=== PATIENT | male | born 1980 | race Hispanic/Latino ===

== ENCOUNTER 2018-05-04 08:05 | Emergency (ER) | payer OTHER, SELFPAY ==
--- NOTE | 2018-05-04 08:34 | EDPHYS ---
Physician Documentation [facility] Name: Cory Brock Age: 37 yrs Sex: Male : 1980 Arrival Date: 05/04/2018 Time: 08:07 Bed 12 Private MD: ED Physician Artie Linder HPI: 05/04 08:38 This 37 yrs old Male presents to ER via Ambulatory with complaints of kdr Vomiting/Diarrhea. 08:38 The patient presents to the emergency department with nausea, vomiting, diarrhea, that kdr is intermittent. Onset: The symptoms/episode began/occurred 3 day(s) ago. Possible causes: unknown. The symptoms are aggravated by nothing. The symptoms are alleviated by nothing. Associated signs and symptoms: Pertinent positives: abdominal pain, diarrhea, nausea, vomiting, Pertinent negatives: anorexia, GI bleeding, hematuria. Severity of symptoms: At their worst the symptoms were moderate in the emergency department the symptoms have improved moderately. The patient has not experienced similar symptoms in the past. The patient has not recently seen a physician. Historical: - Allergies: 08:26 NSAIDS; iw 08:26 Aspirin; iw 08:26 PENICILLINS; iw - Home Meds: 08:26 None [Active]; iw - PMHx: 08:26 Back pain; iw - PSHx: 08:26 None; iw - Immunization history:: Adult Immunizations not up to date. - Social history:: Smoking status: Patient uses tobacco products, 1 pack per week. - Ebola Screening: : Patient negative for fever greater than or equal to 101.5 degrees Fahrenheit, and additional compatible Ebola Virus Disease symptoms Patient denies exposure to infectious person Patient denies travel to an Ebola-affected area in the 21 days before illness onset No symptoms or risks identified at this time. ROS: 08:38 Constitutional: Negative for fever, chills, and weight loss, Eyes: Negative for injury, kdr pain, redness, and discharge, ENT: Negative for injury, pain, and discharge, Neck: Negative for injury, pain, and swelling, Cardiovascular: Negative for chest pain, palpitations, and edema, Respiratory: Negative for shortness of breath, cough, wheezing, and pleuritic chest pain, Back: Negative for injury and pain, : Negative for injury, bleeding, discharge, and swelling, MS/Extremity: Negative for injury and deformity, Skin: Negative for injury, rash, and discoloration, Neuro: Negative for headache, weakness, numbness, tingling, and seizure activity. Psych: Negative for depression, anxiety, suicide ideation, homicidal ideation, and hallucinations, Allergy/Immunology: Negative for hives, rash, and allergies, Endocrine: Negative for neck swelling, polydipsia, polyuria, polyphagia, and marked weight changes, Hematologic/Lymphatic: Negative for swollen nodes, abnormal bleeding, and unusual bruising. 08:38 Abdomen/GI: Positive for abdominal pain, nausea, vomiting, and diarrhea, abdominal cramps. Exam: 08:38 Constitutional: This is a well developed, well nourished patient who is awake, alert, kdr and in no acute distress. Head/Face: Normocephalic, atraumatic. Eyes: Pupils equal round and reactive to light, extra-ocular motions intact. Lids and lashes normal. Conjunctiva and sclera are non-icteric and not injected. Cornea within normal limits. Periorbital areas with no swelling, redness, or edema. Neck: Trachea midline, no thyromegaly or masses palpated, and no cervical lymphadenopathy. Supple, full range of motion without nuchal rigidity, or vertebral point tenderness. No Meningismus. Chest/axilla: Normal chest wall appearance and motion. Nontender with no deformity. No lesions are appreciated. Cardiovascular: Regular rate and rhythm with a normal S1 and S2. No gallops, murmurs, or rubs. Normal PMI, no JVD. No pulse deficits. Respiratory: Lungs have equal breath sounds bilaterally, clear to auscultation and percussion. No rales, rhonchi or wheezes noted. No increased work of breathing, no retractions or nasal flaring. Abdomen/GI: Soft, non-tender, with normal bowel sounds. No distension or tympany. No guarding or rebound. No evidence of tenderness throughout. Back: No spinal tenderness. No costovertebral tenderness. Full range of motion. Skin: Warm, dry with normal turgor. Normal color with no rashes, no lesions, and no evidence of cellulitis. MS/ Extremity: Pulses equal, no cyanosis. Neurovascular intact. Full, normal range of motion. Neuro: Awake and alert, GCS 15, oriented to person, place, time, and situation. Cranial nerves II-XII grossly intact. Motor strength 5/5 in all extremities. Sensory grossly intact. Cerebellar exam normal. Normal gait. Psych: Awake, alert, with orientation to person, place and time. Behavior, mood, and affect are within normal limits. Vital Signs: 08:26 BP 131 / 95; Pulse 76; Resp 16; Temp 98.2; Pulse Ox 99% on R/A; Weight 102.06 kg; iw Height 5 ft. 10 in. (177.80 cm); Pain 0/10; 08:26 Body Mass Index 32.28 (102.06 kg, 177.80 cm) iw MDM: 08:33 Patient medically screened. kdr 08:38 Data reviewed: vital signs, nurses notes. Counseling: I had a detailed discussion with kdr the patient and/or guardian regarding: the historical points, exam findings, and any diagnostic results supporting the discharge/admit diagnosis, the need for outpatient follow up. ED course: The patient refused labs and any other intervention in the ED. Administered Medications: No medications were administered Disposition: 05/04/18 08:33 Discharged to Home. Impression: Gastroenteriotis, Nausea and vomiting, Diarrhea, unspecified. - Condition is Stable. - Discharge Instructions: Nausea and Vomiting, Adult, [id number], Diarrhea, Adult, [id number]. - Prescriptions for promethazine 25 mg Oral Tablet - take 1 tablet by ORAL route every 6 hours As needed; 20 tablet. - Medication Reconciliation Form, Thank You Letter, Work release form form. - Follow up: Private Physician; When: 2 - 3 days; Reason: If symptoms return, Further diagnostic work-up, Recheck today's complaints, Continuance of care, Re-evaluation by your physician. - Problem is an ongoing problem. - Symptoms have improved. Signatures: Dispatcher [employer] EDMS Artie Linder MD MD [facility] Mahi Burton RN RN iw Corrections: (The following items were deleted from the chart) 08:35 08:18 IV Saline Lock ordered. [facility] iw 08:35 08:18 Labs collected and sent ordered. [facility] iw 08:35 08:19 BASIC METABOLIC PANEL+C.LAB.BRZ ordered. EDOH EDMS 08:35 08:19 CBC+H.LAB.BRZ ordered. EDOH EDMS 08:35 08:19 Creatinine for Radiology+C.LAB.BRZ ordered. EDOH EDMS 08:35 08:19 HEPATIC FUNCTION+C.LAB.BRZ ordered. EDOH EDMS 08:35 08:19 LIPASE+C.LAB.BRZ ordered. [facility] EDMS 08:45 08:33 05/04/2018 08:33 Discharged to Home. Impression: Gastroenteriotis; Nausea and iw vomiting; Diarrhea, unspecified. Condition is Stable. Forms are Medication Reconciliation Form, Thank You Letter, Antibiotic Education, Prescription Opioid Use. Follow up: Private Physician; When: 2 - 3 days; Reason: If symptoms return, Further diagnostic work-up, Recheck today's complaints, Continuance of care, Re-evaluation by your physician. Problem is an ongoing problem. Symptoms have improved. kdr
--- NOTE | 2018-05-04 08:34 | ER ---
Nurse's Notes [facility] Name: Cory Brock Age: 37 yrs Sex: Male : 1980 Arrival Date: 05/04/2018 Time: 08:07 Bed 12 Private MD: Diagnosis: Gastroenteriotis;Nausea and vomiting;Diarrhea, unspecified Presentation: 05/04 08:20 Presenting complaint: Patient states: intermittent vomiting and diarrhea X 2 days, last iw vomited at 1 am, denies abd pain, states he was sent home from work yesterday and he can't go back until he has a work release. Transition of care: patient was not received from another setting of care. Onset of symptoms was May 02, 2018. Risk Assessment: Do you want to hurt yourself or someone else? Patient reports no desire to harm self or others. Initial Sepsis Screen: Does the patient meet any 2 criteria? No. Patient's initial sepsis screen is negative. Does the patient have a suspected source of infection? No. Patient's initial sepsis screen is negative. Care prior to arrival: None. 08:20 Method Of Arrival: Ambulatory iw 08:20 Acuity: CORY 3 iw Triage Assessment: 08:30 GI: Reports vomiting. iw 08:35 General: Appears in no apparent distress. Behavior is calm, cooperative. iw Historical: - Allergies: 08:26 NSAIDS; iw 08:26 Aspirin; iw 08:26 PENICILLINS; iw - Home Meds: 08:26 None [Active]; iw - PMHx: 08:26 Back pain; iw - PSHx: 08:26 None; iw - Immunization history:: Adult Immunizations not up to date. - Social history:: Smoking status: Patient uses tobacco products, 1 pack per week. - Ebola Screening: : Patient negative for fever greater than or equal to 101.5 degrees Fahrenheit, and additional compatible Ebola Virus Disease symptoms Patient denies exposure to infectious person Patient denies travel to an Ebola-affected area in the 21 days before illness onset No symptoms or risks identified at this time. Screenin:30 Abuse screen: Denies threats or abuse. Denies injuries from another. Nutritional iw screening: No deficits noted. Tuberculosis screening: No symptoms or risk factors identified. Fall Risk None identified. Assessment: 08:30 General: Appears in no apparent distress. comfortable. Pain: Denies pain. Neuro: Level iw of Consciousness is awake, alert, obeys commands, Oriented to person, place, time, situation, Moves all extremities. Cardiovascular: Patient's skin is warm and dry. Respiratory: Respiratory effort is even, unlabored. GI: Abdomen is flat. GI: Reports diarrhea, vomiting. Derm: Skin is intact, is healthy with good turgor. Musculoskeletal: Range of motion: intact in all extremities. Vital Signs: 08:26 BP 131 / 95; Pulse 76; Resp 16; Temp 98.2; Pulse Ox 99% on R/A; Weight 102.06 kg; iw Height 5 ft. 10 in. (177.80 cm); Pain 0/10; 08:26 Body Mass Index 32.28 (102.06 kg, 177.80 cm) iw ED Course: 08:07 Patient arrived in ED. rg4 08:17 Mahi Burton, RN is Primary Nurse. iw 08:17 Artie Linder MD is Attending Physician. kdr 08:24 Triage completed. iw 08:26 Arm band placed on. iw 08:30 Patient has correct armband on for positive identification. iw 08:44 No provider procedures requiring assistance completed. Patient did not have IV access iw during this emergency room visit. Administered Medications: No medications were administered Outcome: 08:33 Discharge ordered by . kdr 08:44 Discharged to home ambulatory. iw 08:44 Condition: good 08:44 Discharge instructions given to patient, Instructed on discharge instructions, follow up and referral plans. medication usage, Demonstrated understanding of instructions, follow-up care, medications, Prescriptions given X 1. 08:45 Patient left the ED. iw Signatures: Artie Linder MD MD [facility] Mahi Burton, RN RN Muna Hsieh rg4
== END 2018-05-04 08:45 | disposition home or self-care (01) ==
LOC: ER 08:05
DX: K52.9 Noninfective gastroenteritis and colitis, unspecified (principal); Z72.0 Tobacco use; Z88.0 Allergy status to penicillin; Z88.6 Allergy status to analgesic agent
CPT/HCPCS: 99282

== ENCOUNTER 2018-05-07 09:51 | Emergency (ER) | payer SELFPAY ==
--- NOTE | 2018-05-07 10:27 | ER ---
Nurse's Notes [facility] Name: Cory Brock Age: 37 yrs Sex: Male : 1980 Arrival Date: 05/07/2018 Time: 09:53 Bed 15 Private MD: None, None Diagnosis: Low back pain Presentation: 05/07 09:56 Transition of care: patient was not received from another setting of care. Onset of tw2 symptoms was May 07, 2018. Risk Assessment: Do you want to hurt yourself or someone else? Patient reports no desire to harm self or others. Initial Sepsis Screen: Does the patient meet any 2 criteria? No. Patient's initial sepsis screen is negative. Does the patient have a suspected source of infection? No. Patient's initial sepsis screen is negative. Care prior to arrival: None. 09:56 Method Of Arrival: Ambulatory tw2 10:03 Presenting complaint: Patient states: i have chronic back pain, yesterday started tw2 hurting worse. 10:03 Acuity: CORY 4 tw2 Triage Assessment: 09:55 General: Appears in no apparent distress. Behavior is calm, cooperative, appropriate tw2 for age. Musculoskeletal: Circulation, motion, and sensation intact. Range of motion: intact in all extremities. Historical: - Allergies: 09:57 NSAIDS; tw2 09:57 PENICILLINS; tw2 09:57 Aspirin; tw2 - Home Meds: 10:00 lisinopril 5 mg Oral tab 1 tab once daily [Active]; tw2 - PMHx: 09:57 Back pain; tw2 - PSHx: 09:57 None; tw2 - Immunization history:: Adult Immunizations. - Social history:: Smoking status: . - Ebola Screening: : Patient denies travel to an Ebola-affected area in the 21 days before illness onset. Screenin:56 Abuse screen: Denies threats or abuse. Nutritional screening: No deficits noted. tw2 Tuberculosis screening: No symptoms or risk factors identified. Fall Risk None identified. Assessment: 09:55 General: Appears in no apparent distress. Behavior is calm, cooperative, appropriate tw2 for age. Pain: Complains of pain in lumbar area. Neuro: Level of Consciousness is awake, alert, obeys commands, Oriented to person, place, time, situation. Cardiovascular: Patient's skin is warm and dry. Respiratory: Airway is patent Respiratory effort is even, unlabored, Respiratory pattern is regular, symmetrical. GI: No signs and/or symptoms were reported involving the gastrointestinal system. : No signs and/or symptoms were reported regarding the genitourinary system. EENT: No signs and/or symptoms were reported regarding the EENT system. Derm: No signs and/or symptoms reported regarding the dermatologic system. Musculoskeletal: Circulation, motion, and sensation intact. Range of motion: intact in all extremities, Reports pain in back and lumbar area. 10:55 Reassessment: Patient appears in no apparent distress at this time. No changes from tw2 previously documented assessment. Patient and/or family updated on plan of care and expected duration. Pain level reassessed. Patient is alert, oriented x 3, equal unlabored respirations, skin warm/dry/pink. Patient states feeling better. Patient states symptoms have improved. Vital Signs: 10:03 BP 142 / 99; Pulse 76; Resp 17; Temp 97.6(TE); Pulse Ox 100% on R/A; Weight 104.33 kg; tw2 Height 5 ft. 10 in. (177.80 cm) (R); Pain 8/10; 10:54 BP 130 / 84; Pulse 77; Resp 17; Pulse Ox 99% on R/A; Pain 7/10; tw2 10:03 Body Mass Index 33.00 (104.33 kg, 177.80 cm) tw2 ED Course: 09:53 Patient arrived in ED. mr 09:53 None, None is Private Physician. mr 09:56 Monique Hernandez, BRETT is Primary Nurse. tw2 09:56 Arm band placed on. tw2 09:57 Jeanine Maynard FNP-C is [facility]. kb 09:57 Ross Sanchez MD is Attending Physician. kb 09:58 Bed in low position. Call light in reach. Pulse ox on. NIBP on. tw2 10:03 Triage completed. tw2 10:55 No provider procedures requiring assistance completed. Patient did not have IV access tw2 during this emergency room visit. Administered Medications: 10:27 Drug: [place] 10 mg-325 mg 1 tabs Route: PO; tw2 10:54 Follow up: Response: No adverse reaction tw2 Outcome: 10:27 Discharge ordered by . kb 10:55 Patient left the ED. tw2 10:55 Discharged to home ambulatory. tw2 10:55 Condition: stable 10:55 Discharge instructions given to patient, Instructed on discharge instructions, follow up and referral plans. medication usage, Demonstrated understanding of instructions, follow-up care, medications, Prescriptions given X 1. Signatures: Jeanine Maynard, [employer]-C [employer]-Sue Coombs mr Monique Hernandez, RN RN tw2
--- NOTE | 2018-05-07 10:28 | EDPHYS ---
Physician Documentation [facility] Name: Cory Brock Age: 37 yrs Sex: Male : 1980 Arrival Date: 05/07/2018 Time: 09:53 Bed 15 Private MD: None, None ED Physician Ross Sanchez HPI: 05/07 10:24 This 37 yrs old Male presents to ER via Ambulatory with complaints of Back kb Pain. 10:24 The patient presents with pain that is chronic. The symptoms are located in the low kb back. Onset: The symptoms/episode began/occurred years ago, and became worse yesterday. The pain does not radiate. Associated signs and symptoms: The patient has no apparent associated signs or symptoms. The problem was sustained from twisting. Modifying factors: The patient symptoms are alleviated by nothing, the patient symptoms are aggravated by any movement. Severity of symptoms: At their worst the symptoms were moderate, in the emergency department the symptoms are unchanged. The patient has experienced similar episodes in the past, chronically. The patient has not recently seen a physician. Pt reports chronic low back pain. Yesterday at work, he was carrying one end of a beam and the ariadne on the other end dropped it so it made him twist. Reports pain has been worse since then. . Historical: - Allergies: 09:57 NSAIDS; tw2 09:57 PENICILLINS; tw2 09:57 Aspirin; tw2 - Home Meds: 10:00 lisinopril 5 mg Oral tab 1 tab once daily [Active]; tw2 - PMHx: 09:57 Back pain; tw2 - PSHx: 09:57 None; tw2 - Immunization history:: Adult Immunizations. - Social history:: Smoking status: . - Ebola Screening: : Patient denies travel to an Ebola-affected area in the 21 days before illness onset. ROS: 10:23 Constitutional: Negative for fever, chills, and weight loss, Cardiovascular: Negative kb for chest pain, palpitations, and edema, Respiratory: Negative for shortness of breath, cough, wheezing, and pleuritic chest pain, Abdomen/GI: Negative for abdominal pain, nausea, vomiting, diarrhea, and constipation, : Negative for injury, bleeding, discharge, and swelling, MS/Extremity: Negative for injury and deformity, Skin: Negative for injury, rash, and discoloration, Neuro: Negative for headache, weakness, numbness, tingling, and seizure. 10:23 Back: Positive for pain at rest, pain with movement, of the lumbar area. Exam: 10:23 Constitutional: This is a well developed, well nourished patient who is awake, alert, kb and in no acute distress. Head/Face: Normocephalic, atraumatic. ENT: Nares patent. No nasal discharge, no septal abnormalities noted. Tympanic membranes are normal and external auditory canals are clear. Oropharynx with no redness, swelling, or masses, exudates, or evidence of obstruction, uvula midline. Mucous membranes moist. Neck: Trachea midline, no thyromegaly or masses palpated, and no cervical lymphadenopathy. Supple, full range of motion without nuchal rigidity, or vertebral point tenderness. No Meningismus. Chest/axilla: Normal chest wall appearance and motion. Nontender with no deformity. No lesions are appreciated. Cardiovascular: Regular rate and rhythm with a normal S1 and S2. No gallops, murmurs, or rubs. Normal PMI, no JVD. No pulse deficits. Respiratory: Lungs have equal breath sounds bilaterally, clear to auscultation and percussion. No rales, rhonchi or wheezes noted. No increased work of breathing, no retractions or nasal flaring. Abdomen/GI: Soft, non-tender, with normal bowel sounds. No distension or tympany. No guarding or rebound. No evidence of tenderness throughout. Skin: Warm, dry with normal turgor. Normal color with no rashes, no lesions, and no evidence of cellulitis. MS/ Extremity: Pulses equal, no cyanosis. Neurovascular intact. Full, normal range of motion. Neuro: Awake and alert, GCS 15, oriented to person, place, time, and situation. Cranial nerves II-XII grossly intact. Motor strength 5/5 in all extremities. Sensory grossly intact. Cerebellar exam normal. Normal gait. 10:23 Back: pain, that is moderate, of the lumbar area, ROM is painful, normal spinal alignment noted. Vital Signs: 10:03 BP 142 / 99; Pulse 76; Resp 17; Temp 97.6(TE); Pulse Ox 100% on R/A; Weight 104.33 kg; tw2 Height 5 ft. 10 in. (177.80 cm) (R); Pain 8/10; 10:54 BP 130 / 84; Pulse 77; Resp 17; Pulse Ox 99% on R/A; Pain 7/10; tw2 10:03 Body Mass Index 33.00 (104.33 kg, 177.80 cm) tw2 MDM: 09:58 Patient medically screened. kb 10:23 Data reviewed: vital signs, nurses notes. Data interpreted: Pulse oximetry: on room air kb is 100 %. Interpretation: normal. Counseling: I had a detailed discussion with the patient and/or guardian regarding: the historical points, exam findings, and any diagnostic results supporting the discharge/admit diagnosis, the need for outpatient follow up, a family practitioner, to return to the emergency department if symptoms worsen or persist or if there are any questions or concerns that arise at home. Administered Medications: 10:27 Drug: [place] 10 mg-325 mg 1 tabs Route: PO; tw2 10:54 Follow up: Response: No adverse reaction tw2 Disposition: 05/08 09:31 Co-signature as Attending Physician, Ross Sanchez MD I agree with the assessment and chioma plan of care. Disposition: 05/07/18 10:27 Discharged to Home. Impression: Low back pain. - Condition is Stable. - Discharge Instructions: Back Injury Prevention, Edkz-[id number], Back Pain, Adult, [id number]-[id number], Back Exercises, Veiu-pw-Oaul. - Prescriptions for Tramadol 50 mg Oral Tablet - take 1 tablet by ORAL route every 8 hours as needed; 12 tablet. - Medication Reconciliation Form, Thank You Letter, Antibiotic Education, Prescription Opioid Use, Work release form form. - Follow up: Private Physician; When: 2 - 3 days; Reason: Recheck today's complaints, Continuance of care, Re-evaluation by your physician. Follow up: Emergency Department; When: As needed; Reason: Worsening of condition. Signatures: Jeanine Maynard, KAR GALVAN-Ross Werner MD MD cha Wise, Tara, BRETT RN tw2 Corrections: (The following items were deleted from the chart) 05/07 10:55 10:27 05/07/2018 10:27 Discharged to Home. Impression: Low back pain. Condition is tw2 Stable. Forms are Work release form, Medication Reconciliation Form, Thank You Letter, Antibiotic Education, Prescription Opioid Use. Follow up: Private Physician; When: 2 - 3 days; Reason: Recheck today's complaints, Continuance of care, Re-evaluation by your physician. Follow up: Emergency Department; When: As needed; Reason: Worsening of condition. kb
[2018-05-07] MEDS ORDERED: HYDROCODONE/APAP 10/325 TAB ONE (10:37)
== END 2018-05-07 10:55 | disposition home or self-care (01) ==
LOC: ER 09:51
DX: M54.5 Low back pain (principal); Z88.0 Allergy status to penicillin; Z88.6 Allergy status to analgesic agent
CPT/HCPCS: 99283

== ENCOUNTER 2018-05-19 14:09 | Emergency (ER) | payer SELFPAY ==
[2018-05-19] MEDS ORDERED: HYDROCODONE/APAP 10/325 TAB ONE (15:33)
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
== END 2018-05-19 15:53 | disposition home or self-care (01) ==
LOC: ER 14:09
DX: M54.5 Low back pain (principal); Z88.6 Allergy status to analgesic agent; Z88.0 Allergy status to penicillin; Z72.0 Tobacco use
CPT/HCPCS: 99283

== ENCOUNTER 2018-07-28 06:45 | Emergency (ER) | payer SELFPAY ==
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
== END 2018-07-28 08:37 | disposition home or self-care (01) ==
LOC: ER 06:45
DX: K12.2 Cellulitis and abscess of mouth (principal); F17.210 Nicotine dependence, cigarettes, uncomplicated; Z88.0 Allergy status to penicillin; Z88.6 Allergy status to analgesic agent
CPT/HCPCS: 87070; 87081; 99283

== ENCOUNTER 2018-10-23 18:59 | Emergency (ER) | payer SELFPAY ==
--- OUTSIDE RECORDS SUMMARY | 2018-10-23 19:08 | XMS REPORT ---
:1980 Author Organization [facility] Address [address] [place] [address] [address] [place] [address] Care Team Providers Name Role Phone Unavailable Unavailable Unavailable Problems This patient has no known problems. Allergies, Adverse Reactions, Alerts This patient has no known allergies or adverse reactions. Medications This patient has no known medications.
[2018-10-23] MEDS ORDERED: HYDROCODONE/APAP 7.5/325 MG TAB ONE (19:55)
[2018-10-23] MEDS ORDERED: CYCLOBENZAPRINE 10 MG TAB ONE (19:55)
--- NOTE | 2018-10-23 20:39 | ER ---
Nurse's Notes [facility] Name: Cory Brock Age: 38 yrs Sex: Male : 1980 Arrival Date: 10/23/2018 Time: 19:01 Bed 16 Private MD: Diagnosis: Pain in left elbow;Low back pain;Fall (on) (from) unspecified stairs and steps Presentation: 10/23 19:30 Presenting complaint: Patient states: Was changing light fixture on 2 step ladder when lp1 he lost footing, fell on outstretched arm; Pain to left elbow radiating down arm, lower back from old injury; Denies head injury, no LOC. Care prior to arrival: None. Mechanism of Injury: Fall down 2 steps. Trauma event details: Injury occurred in the [facility], Injury occurred: at home. Injury occurred: October 23, 2018 Injury occurred at: 16:00. 19:30 Acuity: CORY 4 lp1 19:30 Method Of Arrival: Ambulatory lp1 19:34 Transition of care: patient was not received from another setting of care. Onset of lp1 symptoms was October 23, 2018 at 16:00. Risk Assessment: Do you want to hurt yourself or someone else? Patient reports no desire to harm self or others. Initial Sepsis Screen: Does the patient meet any 2 criteria? No. Patient's initial sepsis screen is negative. Does the patient have a suspected source of infection? No. Patient's initial sepsis screen is negative. Historical: - Allergies: 19:33 Aspirin; lp1 19:33 NSAIDS (GI bleeding); lp1 19:33 PENICILLINS; lp1 - Home Meds: 19:33 lisinopril 5 mg Oral tab 1 tab once daily [Active]; lp1 - PMHx: 19:33 Back pain; trauma; lp1 - PSHx: 19:33 None; lp1 - Immunization history:: Adult Immunizations up to date. - Social history:: Smoking status: Patient/guardian denies using tobacco. - Ebola Screening: : No symptoms or risks identified at this time. Screenin:33 Abuse screen: Denies threats or abuse. Denies injuries from another. Nutritional lp1 screening: No deficits noted. Tuberculosis screening: No symptoms or risk factors identified. Fall Risk None identified. Assessment: 20:01 General: Appears uncomfortable, Behavior is appropriate for age. Pain: Complains of ea pain in low back area and left arm Pain currently is 9 out of 10 on a pain scale. Neuro: Level of Consciousness is awake, alert, obeys commands, Oriented to person, place, time. Cardiovascular: Patient's skin is warm and dry. Respiratory: Airway is patent Respiratory effort is even, unlabored, Respiratory pattern is regular, symmetrical. Derm: Skin is pink, warm \T\ dry. Musculoskeletal: Reports pain in low back area and left arm. 20:58 Reassessment: Patient and/or family updated on plan of care and expected duration. Pain ea level reassessed. Patient is alert, oriented x 3, equal unlabored respirations, skin warm/dry/pink. Discharge instruction given to patient, verbalized the understanding of instruction. Pt reports pain has decreased some. Pt left ED ambulatory accompanied by family, pt tolerating well. Vital Signs: 19:32 BP 137 / 93; Pulse 88; Resp 18; Temp 98.2(O); Pulse Ox 99% on R/A; Weight 104.33 kg; lp1 Height 5 ft. 10 in. (177.80 cm); Pain 7/10; 20:45 BP 128 / 87; Pulse 80; Resp 18; Pulse Ox 98% ; ea 19:32 Body Mass Index 33.00 (104.33 kg, 177.80 cm) lp1 Yuan Coma Score: 19:32 Eye Response: spontaneous(4). Verbal Response: oriented(5). Motor Response: obeys lp1 commands(6). Total: 15. ED Course: 19:01 Patient arrived in ED. mr 19:32 Triage completed. lp1 19:33 Arm band placed on right wrist. lp1 19:39 Dawson Stern MD is Attending Physician. ma2 19:39 Ross Sanchez PA is PHCP. cp 19:39 Attending Physician role handed off by Dawson Stern MD cp 19:39 Ross Sanchez MD is Attending Physician. cp 19:40 Attending Physician role handed off by Ross Sanchez MD cp 19:40 Dawson Stern MD is Attending Physician. cp 19:41 Sylvia Cardenas, BRETT is Primary Nurse. ea 19:50 Patient has correct armband on for positive identification. Bed in low position. Call ea light in reach. 20:17 XRAY Elbow LEFT 3 view In Process Unspecified. EDMS 20:36 Bryant Aguilar MD is Referral Physician. cp 21:00 No provider procedures requiring assistance completed. Patient did not have IV access ea during this emergency room visit. Administered Medications: 19:58 Drug: Hydrocodone-Acetaminophen (7.5 mg-325 mg) 1 tabs {Note: Rass: 0.} Route: PO; ao 20:57 Follow up: Response: No adverse reaction; Pain is decreased; RASS: Alert and Calm (0) ea 19:59 Drug: Flexeril 10 mg Route: PO; ao 20:56 Follow up: Response: No adverse reaction ea Outcome: 20:37 Discharge ordered by . cp 21:00 Discharged to home ambulatory, with family. ea 21:00 Condition: stable 21:00 Discharge instructions given to patient, Instructed on discharge instructions, follow up and referral plans. medication usage, Demonstrated understanding of instructions, follow-up care, medications, Prescriptions given X 2. 21:01 Patient left the ED. ea Signatures: Dispatcher [employer] EDWA Marshall Sue BernalIvone, RN RN lp1 Ross Sanchez PA PA cp Ortiz, Alex, RN RN Sylvia Ramirez RN RN Dawson Galaviz MD MD ma2
--- NOTE | 2018-10-23 20:39 | EDPHYS ---
Physician Documentation [facility] Name: Cory Brock Age: 38 yrs Sex: Male : 1980 Arrival Date: 10/23/2018 Time: 19:01 Bed 16 Private MD: ED Physician Dawson Stern HPI: 10/23 19:55 This 38 yrs old Male presents to ER via Ambulatory with complaints of Fall cp Injury. 19:55 Details of fall: The patient fell from a height, 2 step ladder. Associated injuries: cp The patient sustained injury to the low back, pain, left elbow. 19:55 Patient reports he was fixing light fixture when he lost his balance. Feels like he cp hyperextended left elbow and twisted lower back. Historical: - Allergies: 19:33 Aspirin; lp1 19:33 NSAIDS (GI bleeding); lp1 19:33 PENICILLINS; lp1 - Home Meds: 19:33 lisinopril 5 mg Oral tab 1 tab once daily [Active]; lp1 - PMHx: 19:33 Back pain; trauma; lp1 - PSHx: 19:33 None; lp1 - Immunization history:: Adult Immunizations up to date. - Social history:: Smoking status: Patient/guardian denies using tobacco. - Ebola Screening: : No symptoms or risks identified at this time. ROS: 20:00 Constitutional: Negative for body aches, chills, fever, poor PO intake. cp 20:00 Eyes: Negative for injury, pain, redness, and discharge. cp Exam: 20:15 Constitutional: The patient appears in no acute distress, alert, awake, cp non-diaphoretic, well developed, well nourished, uncomfortable. 20:15 Head/Face: Normocephalic, atraumatic. cp 20:15 Eyes: Periorbital structures: appear normal, Conjunctiva: normal, no exudate, no injection, Lids and lashes: appear normal, bilaterally. 20:15 ENT: External ear(s): are unremarkable, Nose: is normal, Mouth: Lips: moist, Oral mucosa: moist, Posterior pharynx: is normal, airway is patent, no erythema, no exudate. 20:15 Neck: ROM/movement: is normal, is supple, without pain, no range of motions limitations, no nuchal rigidity. 20:15 Chest/axilla: Inspection: normal, Palpation: is normal, no crepitus, no tenderness. 20:15 Cardiovascular: Rate: normal, Rhythm: regular. 20:15 Respiratory: the patient does not display signs of respiratory distress, Respirations: normal, no use of accessory muscles, no retractions, no splinting, no tachypnea, labored breathing, is not present, Breath sounds: are clear throughout, no decreased breath sounds. 20:15 Abdomen/GI: Exam negative for discomfort, distension, guarding, Inspection: abdomen appears normal. 20:15 Back: pain, that is moderate, of the low back area, ROM is painful. 20:15 Musculoskeletal/extremity: ROM: limited passive range of motion due to pain, in the left elbow, Perfusion: the extremity is normally perfused throughout, Sensation intact. Joints: All joints are normal except the left elbow displays pain at rest, painful range of motion, tenderness. 20:15 Neuro: Orientation: to person, place \T\ time. Mentation: is normal, Motor: moves all fours, strength is normal, Sensation: is normal, Gait: is steady. Vital Signs: 19:32 BP 137 / 93; Pulse 88; Resp 18; Temp 98.2(O); Pulse Ox 99% on R/A; Weight 104.33 kg; lp1 Height 5 ft. 10 in. (177.80 cm); Pain 7/10; 20:45 BP 128 / 87; Pulse 80; Resp 18; Pulse Ox 98% ; ea 19:32 Body Mass Index 33.00 (104.33 kg, 177.80 cm) lp1 Yuan Coma Score: 19:32 Eye Response: spontaneous(4). Verbal Response: oriented(5). Motor Response: obeys lp1 commands(6). Total: 15. MDM: 19:50 Patient medically screened. cp 20:00 Differential diagnosis: closed head injury, contusion, fracture, multiple trauma, cp sprain, strain. 20:33 Test interpretation: by ED physician or midlevel provider: xrays of left elbow negative cp for fracture. 20:36 Data reviewed: vital signs, nurses notes, radiologic studies, plain films. cp 20:36 Response to treatment: the patient's symptoms have markedly improved after treatment, cp and as a result, I will discharge patient. 10/23 19:50 Order name: XRAY Elbow LEFT 3 view cp 10/23 19:50 Order name: Misc. Order: may give meds if patient is not driving; Complete Time: 20:01 cp 10/23 20:34 Order name: Caio; Complete Time: 20:56 cp Administered Medications: 19:58 Drug: Hydrocodone-Acetaminophen (7.5 mg-325 mg) 1 tabs {Note: Rass: 0.} Route: PO; ao 20:57 Follow up: Response: No adverse reaction; Pain is decreased; RASS: Alert and Calm (0) ea 19:59 Drug: Flexeril 10 mg Route: PO; ao 20:56 Follow up: Response: No adverse reaction ea Disposition: 10/23/18 20:37 Discharged to Home. Impression: Pain in left elbow, Low back pain, Fall (on) (from) unspecified stairs and steps. - Condition is Stable. - Discharge Instructions: Joint Pain, Back Pain, Adult, Back Exercises. - Prescriptions for Cyclobenzaprine 10 mg Oral Tablet - take 1 tablet by ORAL route every 8 hours As needed no driving while taking medication; 20 tablet. Tramadol 50 mg Oral Tablet - take 1 tablet by ORAL route every 8 hours as needed. no driving while taking medication; 20 tablet. - Medication Reconciliation Form, Thank You Letter, Antibiotic Education, Prescription Opioid Use, Work release form form. - Follow up: Bryant Aguilar MD; When: 2 - 3 days; Reason: left elbow pain. - Problem is new. - Symptoms have improved. Addendum: 10/25/2018 07:30 Co-signature as Attending Physician, Dawson Stern MD. m a2 Signatures: Dispatcher [employer] EDMS Ivone Bernal RN RN lp1 Ross Sanchez PA PA cp Ortiz, Alex, RN RN ao Antunez, Elena, RN RN ea Alzahri, Mohammad, MD MD ma2 Corrections: (The following items were deleted from the chart) 10/23 21:01 20:37 10/23/2018 20:37 Discharged to Home. Impression: Pain in left elbow; Low back ea pain; Fall (on) (from) unspecified stairs and steps. Condition is Stable. Forms are Medication Reconciliation Form, Thank You Letter, Antibiotic Education, Prescription Opioid Use. Follow up: Dr. Bryant Aguilar; When: 2 - 3 days; Reason: left elbow pain. Problem is new. Symptoms have improved. cp
--- NOTE | 2018-10-23 20:44 | RAD REPORT ---
EXAM DESCRIPTION: RAD - Elbow Left 3 View - 10/23/2018 8:14 pm CLINICAL HISTORY: Fall, elbow pain COMPARISON: None. FINDINGS: No fracture is identified and no elevated posterior fat pad. There is no dislocation or pe riosteal reaction noted. No foreign body or other soft tissue abnormality. IMPRESSION: Negative left elbow examination.
== END 2018-10-23 21:01 | disposition home or self-care (01) ==
LOC: ER 18:59
DX: M25.522 Pain in left elbow (principal); W11.XXXA Fall on and from ladder, initial encounter; Y93.89 Activity, other specified; Y92.9 Unspecified place or not applicable; Z88.0 Allergy status to penicillin; Z88.6 Allergy status to analgesic agent
CPT/HCPCS: 99283

== ENCOUNTER 2021-11-16 10:33 | Emergency (ER) | payer OTHER ==
--- OUTSIDE RECORDS SUMMARY | 2021-11-16 10:35 | XMS REPORT | Continuity of Care Document ---
:1980 Author Organization [facility] t Address [address] [place] [address] Care Team Providers Name Role Phone Angela Baldwin Attending Clinician Unavailable JULITA Attending Clinician Unavailable JULITA Admitting Clinician Unavailable Problems This patient has no known problems. Allergies, Adverse Reactions, Alerts This patient has no known allergies or adverse reactions. Medications This patient has no known medications. Procedures This patient has no known procedures. Encounters Start End Encounter Admission Attending Care Care Encounter Source Date/Time Date/Time Type Type Clinicians Facility Department ID 2021-11-13 [facility] [place] [facility] [id number] 2 Common 13:16:02 [facility] 2021-11-12 Outpatient [facility] [place] [facility] [place] [id number] 2 Common 08:37:03 [facility] 2021-11-05 Outpatient Baldwin, Na [facility] [place] [id number] 2 Common 13:52:02 [facility] 2021-10-06 Outpatient Baldwin Na [facility] [id number] 2 Common 13:42:03 [facility] 2021-09-21 Outpatient Baldwin[facility] [place] [id number] 2 Common 14:29:01 [facility] 2021-09-17 Outpatient Baldwin, [facility] [place] [facility] [place] [id number] 2 Common 15:47:03 [facility] 2021-11-13 2021-11-13 ambulatory [facility] [id number] Common 00:00:00 00:00:00 [facility] 2021-10-23 2021-10-23 ambulatory [facility] [id number] Common 00:00:00 00:00:00 [facility] 2021-10-08 2021-10-08 ambulatory [facility] [id number] Common 00:00:00 00:00:00 [facility] 2021-10-01 2021-10-01 Outpatient [facility] [address] 00:00:00 00:00:00 HN 0804 da [facility] 2021-09-17 2021-09-17 ambulatory [facility] [id number] Common 00:00:00 00:00:00 [facility] Results This patient has no known results.
--- NOTE | 2021-11-16 11:27 | ER ---
Nurse's Notes [facility] Name: Cory Brock Age: 41 yrs Sex: Male : 1980 Arrival Date: 11/16/2021 Time: 10:37 Bed 5 Private MD: Diagnosis: Essential (primary) hypertension;Other fatigue Presentation: 11/16 10:37 Chief complaint: Patient states: he was at work lifting heavy objects. patient reports ap3 that when he stood up, he felt a "thick" heart beat and an elevated heart rate. patient denies chest pain or shortness of breath. Coronavirus screen: At this time, the client does not indicate any symptoms associated with coronavirus-19. Ebola Screen: No symptoms or risks identified at this time. Initial Sepsis Screen: Does the patient meet any 2 criteria? No. Patient's initial sepsis screen is negative. Does the patient have a suspected source of infection? No. Patient's initial sepsis screen is negative. Risk Assessment: Do you want to hurt yourself or someone else? Patient reports no desire to harm self or others. Onset of symptoms was November 16, 2021. Care prior to arrival: None. 10:37 Method Of Arrival: EMS: [facility] ap3 10:37 Acuity: CORY 3 ap3 Triage Assessment: 10:40 General: Appears in no apparent distress. distressed, comfortable, Behavior is calm, ap3 cooperative, appropriate for age. Pain: Denies pain. Neuro: Level of Consciousness is awake, alert, obeys commands, Oriented to person, place, time, situation, Gait is steady. Cardiovascular: Reports palpitations, Patient's skin is warm and dry. Respiratory: Airway is patent Respiratory effort is even, unlabored. Historical: - Allergies: 10:40 Aspirin; ap3 10:40 NSAIDS (GI bleeding); ap3 10:40 PENICILLINS; ap3 - Home Meds: 10:40 amlodipine oral [Active]; ap3 - PMHx: 10:40 Back pain; trauma; ap3 - Immunization history:: Client reports receiving the 2nd dose of the Covid vaccine. - Social history:: Smoking status: Patient denies any tobacco usage or history of. Screenin:41 Abuse screen: Denies threats or abuse. Nutritional screening: No deficits noted. ap3 Tuberculosis screening: No symptoms or risk factors identified. Fall Risk None identified. Vital Signs: 10:37 BP 136 / 93; Pulse 79; Resp 19; Temp 98.6; Pulse Ox 98% on R/A; Weight 106.59 kg; ap3 Height 5 ft. 9 in. (175.26 cm); 11:43 BP 120 / 75; Pulse 66; Pulse Ox 99% on R/A; ap3 10:37 Body Mass Index 34.70 (106.59 kg, 175.26 cm) ap3 ED Course: 10:37 Patient arrived in ED. ap3 10:39 Rebeca Garcia MD is Attending Physician. sd2 10:40 Triage completed. ap3 10:41 Arm band placed on left wrist. ap3 10:41 Patient has correct armband on for positive identification. Bed in low position. Call ap3 light in reach. Side rails up X 1. security monitor on. Pulse ox on. NIBP on. Door closed. Noise minimized. 11:41 Arelis Manjarrez RN is Primary Nurse. ap3 11:42 No provider procedures requiring assistance completed. Patient did not have IV access ap3 during this emergency room visit. Administered Medications: No medications were administered Medication: 10:41 VIS not applicable for this client. ap3 Outcome: 11:26 Discharge ordered by . sd2 11:42 Discharged to home ambulatory, with family. ap3 11:42 Condition: good 11:42 Discharge instructions given to patient, family, Instructed on discharge instructions, follow up and referral plans. Demonstrated understanding of instructions, follow-up care. 11:43 Patient left the ED. ap3 Signatures: Arelis Manjarrez RN RN ap3 Rebeca Garcia MD MD sd2 Corrections: (The following items were deleted from the chart) 10:40 10:40 Home Meds: lisinopril 5 mg Oral tab 1 tab once daily; ap3 ap3
--- NOTE | 2021-11-16 11:27 | EDPHYS ---
Physician Documentation [facility] Name: Cory Brock Age: 41 yrs Sex: Male : 1980 Arrival Date: 11/16/2021 Time: 10:37 Bed 5 Private MD: ED Physician Rebeca Garcia HPI: 11/16 11:15 This 41 yrs old Male presents to ER via EMS with complaints of fatigue. sd2 11:15 41-year-old male presents via EMS with chief complaint of fatigue and dizziness that sd2 has now subsided. The patient reports he was at work and took his blood pressure medication which sometimes causes his blood pressure to "spike" before decreases his blood pressure. He is currently on amlodipine 2.5 mg once a day. He reports that normally at home his is able to get him to sit down and this will pass and his blood pressure improves. However, he was at work today when this happened and he did not feel well and therefore, EMS was called. They did note an elevated blood pressure to the 180s systolic. The patient reports his blood pressures also been running higher than normal in the 160s to 170s over the past few months. He was started on carvedilol but had bad side effects and was therefore taken off. He has not yet followed back up with his primary care provider in regards to his blood pressure and further management of this. He reports he initially did have some shortness of breath and chest tightness which has since resolved. He has no current acute complaints aside from feeling fatigued.. Historical: - Allergies: 10:40 Aspirin; ap3 10:40 NSAIDS (GI bleeding); ap3 10:40 PENICILLINS; ap3 - Home Meds: 10:40 amlodipine oral [Active]; ap3 - PMHx: 10:40 Back pain; trauma; ap3 - Immunization history:: Client reports receiving the 2nd dose of the Covid vaccine. - Social history:: Smoking status: Patient denies any tobacco usage or history of. ROS: 11:15 Constitutional: Negative for fever, chills, and weight loss, Eyes: Negative for injury, sd2 pain, redness, and discharge, Cardiovascular: Negative for chest pain, palpitations, and edema, Respiratory: Positive for shortness of breath, Negative for cough, wheezing. Abdomen/GI: Negative for abdominal pain, nausea, vomiting, diarrhea. MS/Extremity: Negative for injury and deformity, Skin: Negative for injury, rash, and discoloration, Neuro: Negative for headache, numbness and tingling. Exam: 11:15 Constitutional: This is a well developed, well nourished patient who is awake, alert, sd2 and in no acute distress. Head/Face: Normocephalic, atraumatic. Eyes: EOMI, normal conjunctiva bilaterally Chest/axilla: Normal chest wall appearance and motion. Nontender with no deformity. Cardiovascular: Regular rate and rhythm with a normal S1 and S2. No gallops, murmurs, or rubs. 2+ distal pulses. Respiratory: Lungs have equal breath sounds bilaterally, clear to auscultation and percussion. No rales, rhonchi or wheezes noted. No increased work of breathing, no retractions or nasal flaring. Abdomen/GI: Soft, non-tender, with normal bowel sounds. No guarding or rebound. No evidence of tenderness throughout. Skin: Warm, dry with normal turgor. Normal color with no rashes, no lesions, and no evidence of cellulitis. MS/ Extremity: Pulses equal, no cyanosis. Neurovascular intact. Full, normal range of motion. Ambulatory without difficulty. Psych: Awake, alert, with orientation to person, place and time. Behavior, mood, and affect are within normal limits. 11:26 ECG was reviewed by the Attending Physician. NSR, rate 65, no STEMI criteria or sd2 ST-Twave changes Vital Signs: 10:37 BP 136 / 93; Pulse 79; Resp 19; Temp 98.6; Pulse Ox 98% on R/A; Weight 106.59 kg; ap3 Height 5 ft. 9 in. (175.26 cm); 11:43 BP 120 / 75; Pulse 66; Pulse Ox 99% on R/A; ap3 10:37 Body Mass Index 34.70 (106.59 kg, 175.26 cm) ap3 MDM: 10:39 Patient medically screened. sd2 11:15 Differential Diagnosis Hypertensive urgency, dehydration, electrolyte abnormality, sd2 medication side effect among others. Data reviewed: vital signs, nurses notes, EMS record, EKG. Counseling: I had a detailed discussion with the patient and/or guardian regarding: the historical points, exam findings, and any diagnostic results supporting the discharge/admit diagnosis, the presence of at least one elevated blood pressure reading (>120/80) during this emergency department visit, the need for outpatient follow up, to return to the emergency department if symptoms worsen or persist or if there are any questions or concerns that arise at home. Medical screen evaluation completed. [facility] emergency medical condition absent. ED course: Discussed option for further workup with the patient regarding his BP with basic labs. After discussion of risks and benefits, pt in agreement with foregoing these tests at this time. Will check EKG due to SOB and chest tightness that occurred earlier. BP is now controlled and symptoms have mostly resolved. Pt to follow up with his PCP, Dr. Baldwin, to discuss further management of his BP and will continue to monitor his BP regularly at home. Verbalizes understanding of discharge plan and strict return precautions. . 11/16 11:08 Order name: EKG - Nurse/Tech; Complete Time: 11:17 sd2 Administered Medications: No medications were administered Disposition Summary: 11/16/21 11:26 Discharge Ordered Location: Home sd2 Problem: an acute exacerbation sd2 Symptoms: have improved sd2 Condition: Stable sd2 Diagnosis - Essential (primary) hypertension sd2 - Other fatigue sd2 Followup: sd2 - With: Private Physician - When: 2 - 3 days - Reason: Recheck today's complaints, Continuance of care, Re-evaluation by your physician Discharge Instructions: - Discharge Summary Sheet sd2 - Fatigue sd2 - Hypertension, Adult, [id number] sd2 - How to Take Your Blood Pressure, [id number] sd2 - Managing Your Hypertension sd2 Forms: - Work release form [id number] - Medication Reconciliation Form sd2 - Thank You Letter sd2 - Antibiotic Education sd2 - Prescription Opioid Use sd2 Signatures: Arelis Manjarrez RN RN ap3 Rebeca Garcia MD MD sd2 Corrections: (The following items were deleted from the chart) 10:40 10:40 Home Meds: lisinopril 5 mg Oral tab 1 tab once daily; ap3 ap3
[2021-11-17 15:18] VITALS: TEMP 98.6
[2021-11-17 15:20] VITALS: BP 120/75; O2SAT 99
--- NOTE | 2021-11-18 06:37 | EKG ---
Test Date: 2021-11-16 Test Time: 11:18:20 [employer]: BIBI MEASUREMENT RESULTS: Intervals: Rate: 65 ID: [id number] QRSD: 86 QT: 378 QTc: 393 [place]: P: 47 ID: [id number] QRS: 45 T: 42 INTERPRETIVE STATEMENTS: Normal sinus rhythm Normal ECG Compared to ECG 07/27/2013 07:29:21 No significant changes Electronically Signed On 11-18-21 06:32:05 CDT by Raymon Fish
== END 2021-11-16 11:43 | disposition home or self-care (01) ==
LOC: ER 10:33
DX: I10 Essential (primary) hypertension (principal); R53.83 Other fatigue
CPT/HCPCS: 93005; 99284

== ENCOUNTER 2021-12-10 12:19 | Observation (INO) | payer OTHER ==
--- OUTSIDE RECORDS SUMMARY | 2021-12-10 12:22 | XMS REPORT | Continuity of Care Document ---
:1980 Author Organization [facility] t Address [address] [place] [address] Care Team Providers Name Role Phone Angela Baldwin Attending Clinician Unavailable JULITA Attending Clinician Unavailable JULITA Admitting Clinician Unavailable Payers Payer Name Policy Type Policy Number Effective Date Expiration Date [place] [address] [id number] Common [facility] Problems Condition Condition Condition Status Onset Resolution Last Treating Co mments Source Name Details Category Date Date Treatment Clinician Date [id number] Gastroesop Problem Co mmon hageal Spirit reflux - [facility] disease, [facility] s present [id number] Primary Problem Common hypertensi Spirit on - [place] [id number] DDD Problem Common (degenerat Spirit delfina disc - [facility] disease[id number] Temporary Problem Com mon low Spirit platelet - [facility] count [facility] Somnolence Somnolence Problem C ommon , daytime Spirit [facility] Hypertensi HTN Problem Commo n on (hypertens Spirit ion) - [place] [id number] Anxiety Problem Common Spirit [facility] Chronic Chronic Problem Common fatigue fatigue Spirit syndrome - [place] [id number] Difficulty Problem Co mmon sleeping Spirit [facility] Allergies, Adverse Reactions, Alerts This patient has no known allergies or adverse reactions. Social History Social Habit Start Date Stop Date Quantity Comments Source History of Tobacco Use Co mmon [facility] Sex Assigned At Com jose rafael [facility] Smoking Status Start Date Stop Date Source Former Smoker 2021-11-19 00:00:00 2021-11-19 00:00:00 [facility] Medications Ordered Filled Start Stop Current Ordering Indication Dosage Frequency Signature Comments Components Source Medication Medication Date Date Medication? Clinician (SIG) Name Name amLODIPine amLODIPine No 1{table BID amLODIPine Besylate Besylate t} Besylate 2.5 MG 2.5 MG 2.5 MG HYDROcodone HYDROcodone No 1{table QID HYDROcodon -Acetaminop -Acetaminop t_as_ne e-Acetamin hen 10-325 hen 10-325 eded} ophen MG MG 10-325 MG Pantoprazol Pantoprazol No 1{table QD Pantoprazo e Sodium 40 e Sodium 40 t} le Sodium MG MG 40 MG Pantoprazol Pantoprazol No 1{table QD Pantoprazo e Sodium 40 e Sodium 40 t} le Sodium MG MG 40 MG hydroCHLORO hydroCHLORO No 1{table QD hydroCHLOR thiazide thiazide t_in_th Othiazide 12.5 MG 12.5 MG e_morni 12.5 MG ng} HYDROcodone HYDROcodone No 1{table QID HYDROcodon -Acetaminop -Acetaminop t_as_ne e-Acetamin hen 10-325 hen 10-325 eded} ophen MG MG 10-325 MG amLODIPine amLODIPine No 1{table BID amLODIPine Besylate Besylate t} Besylate 2.5 MG 2.5 MG 2.5 MG Vital Signs Vital Name Observation Time Observation Value Comments Source height 2021-11-19 14:00:00 69.50 [in_i] [facility] weight 2021-11-19 14:00:00 233.4 [lb_av] [facility] temperature 2021-11-19 14:00:00 97.6 [degF] [facility] bmi 2021-11-19 14:00:00 33.97 kg/m2 [facility] oximetry 2021-11-19 14:00:00 97 % Common S pirit [facility] respiratory rate 2021-11-19 14:00:00 16 /min Comm on [facility] blood pressure 2021-11-19 14:00:00 133 mm[Hg] Common [facility] - systolic [place] blood pressure 2021-11-19 14:00:00 74 mm[Hg] Common [facility] - diastolic [place] Procedures This patient has no known procedures. Encounters Start End Encounter Admission Attending Care Care Encounter Source Date/Time Date/Time Type Type Clinicians Facility Department ID 2021-12-10 Outpatient Baldwin, Na STLMLC STLMLC [id number] 2 Common 10:17:04 [facility] 2021-11-13 Outpatient Baldwin, Na STLMLC STLMLC [id number] 2 Common 13:16:02 [facility] 2021-11-12 Outpatient Baldwin, Na STLMLC STLMLC [id number] 2 Common 08:37:03 [facility] 2021-11-05 Outpatient Baldwin, Na STLMLC STLMLC [id number] 2 Common 13:52:02 [facility] 2021-10-06 Outpatient Baldwin, Na STLMLC STLMLC [id number] 2 Common 13:42:03 [facility] 2021-09-21 Outpatient Baldwin, Na STLMLC STLMLC [id number] 2 Common 14:29:01 [facility] 2021-09-17 Outpatient Baldwin, Na STLMLC STLMLC [id number] 2 Common 15:47:03 [facility] 2021-11-19 2021-11-19 OFFICE STLMLC STLMLC [id number] Co mmon 00:00:00 00:00:00 VISIT EST Spir it PT LEVEL 3 [facility] 2021-11-17 2021-11-17 (TEL) STLMLC STLMLC [id number] Co mmon 00:00:00 00:00:00 [facility] 2021-11-13 2021-11-13 ambulatory STLMLC STLMLC [id number] Common 00:00:00 00:00:00 [facility] 2021-10-23 2021-10-23 ambulatory STLMLC STLMLC [id number] Common 00:00:00 00:00:00 [facility] 2021-10-08 2021-10-08 ambulatory STLMLC STLMLC [id number] Common 00:00:00 00:00:00 [facility] 2021-10-01 2021-10-01 Outpatient ROM_JET [facility] [address] 00:00:00 00:00:00 HN 0804 [facility] 2021-09-17 2021-09-17 ambulatory STLMLC STLMLC [id number] Common 00:00:00 00:00:00 [facility] Results This patient has no known results.
[2021-12-10] MEDS ORDERED: MAGNES/ALUMIN/SIMET 30ML UCUP ONE (12:56)
[2021-12-10] MEDS ORDERED: LIDOCAINE VISCOUS 2% SOLN 15 ML UDC ONE (12:56)
[2021-12-10] MEDS ORDERED: FAMOTIDINE 20 MG/2 ML VIAL IV ONE (12:56)
--- NOTE | 2021-12-10 13:20 | RAD REPORT ---
EXAM DESCRIPTION: RAD - Chest Single View - 12/10/2021 1:15 pm CLINICAL HISTORY: CHEST PAIN Chest pain. COMPARISON: CHEST PA AND LAT 2 VIEW dated 10/31/2013; CHEST PA AND LAT 2 VIEW dated 12/29/2004 FINDINGS: Portable technique limits examination quality. The lungs are grossly clear. The heart is normal in size. No displaced fractures. IMPRESSION: No acute intrathoracic process suspected.
[2021-12-10 13:52] LABS: Hematocrit 44.8 % (39.6-49.0); Lymphocytes % 21.1 % (15.3-44.8); MCV 89.5 fL (80-100); MPV 9.1 fL (7.6-11.3); RBC Red Blood Cell Count 5.01 M/uL (4.33-5.43)
[2021-12-10 13:58] LABS: Albumin 4.1 g/dL (3.4-5.0); Bilirubin Direct 0.1 mg/dL (0-0.2); Bilirubin Total 0.6 mg/dL (0.2-1.0); Potassium 4.5 mmol/L (3.5-5.1); Protein, Total 7.9 g/dL (6.4-8.2); Troponin High Sensitivity 4.7 pg/mL (<58.9)
--- NOTE | 2021-12-10 15:23 | ER ---
Nurse's Notes [facility] Name: Cory Brock Age: 41 yrs Sex: Male : 1980 Arrival Date: 12/10/2021 Time: 12:20 Bed 30 Private MD: Diagnosis: Chest pain, unspecified Presentation: 12/10 12:24 Chief complaint: Patient states: SOB, CHEST PAIN, LEFT SHOULDER PAIN. Coronavirus 5 screen: Vaccine status: Patient reports receiving the 2nd dose of the covid vaccine. Client denies travel out of the [place] in the last 14 days. Ebola Screen: Patient negative for fever greater than or equal to 101.5 degrees Fahrenheit, and additional compatible Ebola Virus Disease symptoms Patient denies exposure to infectious person. Patient denies travel to an Ebola-affected area in the 21 days before illness onset. Initial Sepsis Screen: Does the patient meet any 2 criteria? No. Patient's initial sepsis screen is negative. Does the patient have a suspected source of infection? No. Patient's initial sepsis screen is negative. Risk Assessment: Do you want to hurt yourself or someone else? Patient reports no desire to harm self or others. Onset of symptoms was December 10, 2021. 12:24 Method Of Arrival: Ambulatory [facility] 12:24 Acuity: CORY 2 5 Triage Assessment: 12:25 General: Appears uncomfortable, Behavior is calm, cooperative, appropriate for age, jh5 anxious. Pain: Complains of pain in chest. Cardiovascular: Reports chest pain, fatigue, lightheadedness, nausea, shortness of breath. Historical: - Allergies: 12:25 PENICILLINS; [facility] 12:25 NSAIDS (GI bleeding); 5 12:25 Aspirin; [facility] - PMHx: 12:25 Back pain; trauma; Hypertensive disorder; 5 - Immunization history:: Adult Immunizations up to date. - Social history:: Smoking status: Patient denies any tobacco usage or history of. - Family history:: not pertinent. - Hospitalizations: : No recent hospitalization is reported. Screenin:30 Abuse screen: Denies threats or abuse. Denies injuries from another. Nutritional kb3 screening: No deficits noted. Tuberculosis screening: No symptoms or risk factors identified. Fall Risk None identified. Assessment: 12:30 General: Appears in no apparent distress. Behavior is calm, cooperative, Received care kb3 of pt from triage. AAO x4. Pt reports mid-sternal chest pain that radiates from epigastrium to throat. Pt reports pain is similar to previous episodes. Pt has been diagnosed with GERD and bleeding ulcers and is followed by GI. Pt reports pain began around 10:00 this morning and is unrelieved with home medications. 12:30 Pain: Complains of pain in mid-sternal area Pain does not radiate. Pain currently is 8 kb3 out of 10 on a pain scale. Quality of pain is described as burning, sharp, Pain began suddenly, 2 hours ago. Is continuous. 16:40 General: See [facility] for further charting. kb3 Vital Signs: 12:24 Pulse 70; Resp 18; Temp 98.6; Pulse Ox 98% ; Weight 104.33 kg; Height 5 ft. 9 in. jh5 (175.26 cm); Pain 6/10; 12:40 BP 135 / 95; Pulse 68; Resp 20; Pulse Ox 98% ; kb3 14:20 BP 120 / 80; Pulse 67; Resp 18; Pulse Ox 99% ; kb3 15:00 BP 110 / 86; Pulse 68; Resp 18; Pulse Ox 98% ; kb3 12:24 Body Mass Index 33.96 (104.33 kg, 175.26 cm) 5 Vitals: 12:30 Cardiac Rhythm Assessment Regular Sinus rhythm. kb3 ED Course: 12:20 Patient arrived in ED. mr 12:23 Marcus Milton MD is Attending Physician. rn 12:25 Triage completed. 5 12:30 No provider procedures requiring assistance completed. Patient maintains SpO2 3 saturation greater than 95% on room air. 12:30 Patient has correct armband on for positive identification. Placed in gown. Bed in low kb3 position. Call light in reach. Side rails up X 1. Client placed on continuous cardiac and pulse oximetry monitoring. NIBP monitoring applied. bar tacker on. Warm blanket given. 12:30 Arm band placed on right wrist. Patient placed in an exam room. kb3 12:35 Heidi Galvez, RN is Primary Nurse. kb3 12:54 Basic Metabolic Panel Sent. kb3 12:54 CBC with Diff Sent. kb3 12:54 D-Dimer Sent. kb3 12:54 LFT's Sent. kb3 12:55 NT PRO-BNP Sent. kb3 12:55 Troponin HS Sent. kb3 12:56 Inserted saline lock: 20 gauge in right antecubital area, using aseptic technique. jd3 Blood collected. placed by Noemi TABARES observed by Jose WEST. 15:22 Amando Barraza MD is Hospitalizing Provider. rn 20:33 Patient admitted, IV remains in place. kb3 Administered Medications: 13:05 Drug: GI Cocktail without - (Maalox Suspension 30 ml, Lidocaine Liquid 2 % 15 kb3 ml) Route: PO; 14:00 Follow up: Response: No adverse reaction kb3 13:05 Drug: Pepcid (famotidine) 20 mg Route: IVP; Site: right antecubital; kb3 14:00 Follow up: Response: No adverse reaction kb3 Medication: 12:30 VIS not applicable for this client. kb3 Outcome: 15:22 Decision to Hospitalize by Provider. rn 20:32 Admitted to Tele accompanied by tech, via wheelchair, with chart, Report called to danny King RN 20:32 Condition: stable 20:32 Instructed on the need for admit. 20:35 Patient left the ED. kb3 Signatures: Sue Olivares Marcus Milton MD MD rn Davies, Jonathon, RN RN Kayla Hayes RN RN jh5 Heidi Galvez, BRETT RN kb3 Corrections: (The following items were deleted from the chart) 13:36 12:15 General: Appears in no apparent distress. Behavior is calm, cooperative, Received kb3 care of pt from triage. AAO x4. Pt reports mid-sternal chest pain that radiates from epigastrium to throat. Pt reports pain is similar to previous episodes. Pt has been diagnosed with GERD and bleeding ulcers and is followed by GI. Pt reports pain began around 10:00 this morning and is unrelieved with home medications. kb3
--- NOTE | 2021-12-10 15:23 | EDPHYS ---
Physician Documentation [facility] Name: Cory Brock Age: 41 yrs Sex: Male : 1980 Arrival Date: 12/10/2021 Time: 12:20 Bed 30 Private MD: ED Physician Marcus Milton HPI: 12/10 13:29 This 41 yrs old Male presents to ER via Ambulatory with complaints of Chest rn Pain, Arm Pain. 13:29 The patient or guardian reports chest pain that is located primarily in the substernal rn area. Onset: 1 hour(s) ago. The pain radiates to the left arm. Associated signs and symptoms: Pertinent positives: abdominal pain, Pertinent negatives: headache, shortness of breath, syncope, vomiting. The chest pain is described as a heaviness. Duration: The patient or guardian reports a single episode, that is still ongoing. Modifying factors: The symptoms are alleviated by nothing. the symptoms are aggravated by exertion. Severity of pain: At its worst the pain was moderate in the emergency department the pain has improved. The patient has experienced a previous episode. The patient has not recently seen a physician. 13:29 Reports chest pain, radiates to left arm, feels heavy. Worse with exertion. 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 No trauma or injury. No hx of dvt/PE. No cough/sob/fever. REports recent scope from GI for stomach problems. . Historical: - Allergies: 12:25 PENICILLINS; jh5 12:25 NSAIDS (GI bleeding); 5 12:25 Aspirin; jh5 - PMHx: 12:25 Back pain; trauma; Hypertensive disorder; 5 - Immunization history:: Adult Immunizations up to date. - Social history:: Smoking status: Patient denies any tobacco usage or history of. - Family history:: not pertinent. - Hospitalizations: : No recent hospitalization is reported. ROS: 13:29 Constitutional: Negative for fever, chills, and weight loss, Eyes: Negative for injury, rn pain, redness, and discharge, Neck: Negative for injury, pain, and swelling, Cardiovascular: Negative for palpitations, and edema Respiratory: Negative for shortness of breath, cough, wheezing, and pleuritic chest pain, Abdomen/GI: Negative for nausea, vomiting, diarrhea, and constipation, MS/Extremity: Negative for injury and deformity, Skin: Negative for injury, rash, and discoloration, Neuro: Negative for headache, weakness, numbness, tingling, and seizure. Exam: 13:29 Constitutional: This is a well developed, well nourished patient who is awake, alert, rn seems anxious Head/Face: Normocephalic, atraumatic. Eyes: Pupils equal round and reactive to light, extra-ocular motions intact. Lids and lashes normal. Conjunctiva and sclera are non-icteric and not injected. Cornea within normal limits. Periorbital areas with no swelling, redness, or edema. Neck: Trachea midline, no thyromegaly or masses palpated, and no cervical lymphadenopathy. Supple, full range of motion without nuchal rigidity, or vertebral point tenderness. No Meningismus. Cardiovascular: Regular rate and rhythm. No pulse deficits. Respiratory: No increased work of breathing, no retractions or nasal flaring. Abdomen/GI: Soft, non-tender Skin: Warm, dry MS/ Extremity: Pulses equal, no cyanosis. Neuro: Awake and alert, GCS 15 13:44 ECG was reviewed by the Attending Physician. rn Vital Signs: 12:24 Pulse 70; Resp 18; Temp 98.6; Pulse Ox 98% ; Weight 104.33 kg; Height 5 ft. 9 in. [facility] (175.26 cm); Pain 6/10; 12:40 BP 135 / 95; Pulse 68; Resp 20; Pulse Ox 98% ; kb3 14:20 BP 120 / 80; Pulse 67; Resp 18; Pulse Ox 99% ; kb3 15:00 BP 110 / 86; Pulse 68; Resp 18; Pulse Ox 98% ; kb3 12:24 Body Mass Index 33.96 (104.33 kg, 175.26 cm) [facility] MDM: 12:23 Patient medically screened. rn 15:20 Differential diagnosis: acute myocardial infarction, acute pericarditis, anxiety, rn coronary artery disease costochondritis, esophagitis, gastritis, gastroesophageal reflux disease (GERD), peptic ulcer disease, pericarditis, pleurisy, pneumonia, pneumothorax, pulmonary embolus. Data reviewed: vital signs, nurses notes, lab test result(s), EKG, radiologic studies, plain films, and as a result, I will admit patient. Counseling: I had a detailed discussion with the patient and/or guardian regarding: the historical points, exam findings, and any diagnostic results supporting the discharge/admit diagnosis, lab results, radiology results, the need for further work-up and treatment in the hospital. Response to treatment: the patient's symptoms have mildly improved after treatment, and as a result, I will admit patient. Admission orders: after a detailed discussion of the patient's condition and case, the admit orders are written by me. ED course: Neg w/u here, walked ot bathroom and reports worsening exertional dyspnea and chest pain. Admitted to Dr. Barraza for further evaluation and cardiac consultation given strong family hx of cardiac problems at same time.. 12/10 12:41 Order name: Basic Metabolic Panel; Complete Time: 14:43 rn 12/10 12:41 Order name: CBC with Diff; Complete Time: 14:43 rn 12/10 12:41 Order name: D-Dimer; Complete Time: 14:43 rn 12/10 12:41 Order name: LFT's; Complete Time: 14:43 rn 12/10 12:41 Order name: NT PRO-BNP; Complete Time: 14:43 rn 12/10 12:41 Order name: Troponin HS; Complete Time: 14:43 rn 12/10 12:41 Order name: XRAY Chest (1 view) rn 12/10 12:41 Order name: EKG; Complete Time: 12:43 rn 12/10 12:41 Order name: Cardiac monitoring; Complete Time: 12:46 rn 12/10 13:21 Order name: RAD; Complete Time: 13:28 EDWA 12/10 15:26 Order name: SARS RAPID; Complete Time: 16:31 rn 12/10 20:22 Order name: Troponin High Sensitivity EDWA 12/10 12:41 Order name: EKG - Nurse/Tech; Complete Time: 12:46 rn 12/10 12:41 Order name: IV Saline Lock; Complete Time: 12:54 rn 12/10 12:41 Order name: Labs collected and sent; Complete Time: 12:54 rn 12/10 12:41 Order name: O2 Per Protocol; Complete Time: 12:46 rn 12/10 12:41 Order name: O2 Sat Monitoring; Complete Time: 12:46 rn 12/10 13:05 Order name: Labs - recollect needed; Complete Time: 13:28 em1 EC:44 Rate is 74 beats/min. Rhythm is regular. QRS [place] is Normal. ND interval is normal. QRS rn interval is normal. QT interval is normal. No Q waves. T waves are Normal. No ST changes noted. Clinical impression: Normal ECG. Interpreted by me. Reviewed by me. Administered Medications: 13:05 Drug: GI Cocktail without - (Maalox Suspension 30 ml, Lidocaine Liquid 2 % 15 kb3 ml) Route: PO; 14:00 Follow up: Response: No adverse reaction kb3 13:05 Drug: Pepcid (famotidine) 20 mg Route: IVP; Site: right antecubital; kb3 14:00 Follow up: Response: No adverse reaction kb3 Disposition Summary: 12/10/21 15:22 Hospitalization Ordered Hospitalization Status: Observation rn Provider: Amando Barraza rn Location: Telemetry/MedSurg (observation) rn Condition: Stable rn Problem: new rn Symptoms: have improved rn Bed/Room Type: Standard rn Room Assignment: 412(12/10/21 19:00) cg Diagnosis - Chest pain, unspecified rn Forms: - Medication Reconciliation Form rn - SBAR form rn Signatures: Dispatcher [employer] EDMarcus Pugh MD MD rn Martinez, Eric em1 Jocy Rg RN RN Kayla Pena, RN RN 5 Heidi Galvez, RN RN kb3 Corrections: (The following items were deleted from the chart) 19:00 15:22 rn cg
[2021-12-10 16:29] LABS: SARS-CoV-2 Antigen Rapid Res Negative (Negative)
[2021-12-10 16:38] VITALS: BMI 33.8
--- NOTE | 2021-12-10 18:31 | P.HP ---
Certification for Inpatient Patient admitted to: Observation With expected LOS: <2 Midnights Patient will require the following post-hospital care: None Practitioner: I am a practitioner with admitting privileges, knowledge of patient current condition, hospital course, and medical plan of care. Services: Services provided to patient in accordance with Admission requirements found in Title 42 Section 412.3 of the Code of Federal Regulations Patient History Date of Service: 12/10/21 Primary Care Provider: Kae Baldwin Reason for admission: Chest pain History of Present Illness: Patient is a pleasant gentleman with a pmh of HTN. He recently had an ER visit for chest pain. The patient was sent home for outpatient stress test. Unfortunately he could not find a shorer in network with his insurance. The patient had another episode of chest pain at work. Radiates to the back. The patient went to the industrial ER and was sent to the hospital. The patient been having sob and dizziness on and off for the caridad few months. The patient is also very tired during the day. The patient states he suddenly gets quiet and suddenly wakes up. he has an epworth score os 18, his stop bang score is 6 Allergies NKDA Allergy (Uncoded 07/31/13 10:53) Unknown NSAIDS Allergy (Uncoded 06/28/15 10:05) Unknown - Past Medical/Surgical History Has patient received pneumonia vaccine in the past: No Diabetic: No -: HTN -: Chronic back pain -: Urinary retention -: GERD - Social History Smoking Status: Never smoker Alcohol use: No CD- Drugs: No Place of Residence: Home Review of Systems 10-point ROS is otherwise unremarkable Cardiovascular: Chest Pain Musculoskeletal: Back Pain (chronic ) Physical Examination - Vital Signs Temperature: 98.6 F Blood Pressure: 119/85 Pulse: 69 Respirations: 18 Pulse Ox (%): 98 - Physical Exam General: Alert, In no apparent distress HEENT: Atraumatic, PERRLA, Mucous membr. moist/pink, Other (Mallampatti score is 4), EOMI, Sclerae nonicteric Neck: Supple, 2+ carotid pulse no bruit, No LAD, Other (Neck cirvumference is 16"), Without JVD or thyroid abnormality Respiratory: Clear to auscultation bilaterally, Normal air movement Cardiovascular: Regular rate/rhythm, Normal S1 S2 Gastrointestinal: Normal bowel sounds, No tenderness Musculoskeletal: No tenderness Integumentary: No rashes Neurological: Normal gait, Normal speech, Normal strength at 5/5 x4 extr, Normal tone, Normal affect Lymphatics: No axilla or inguinal lymphadenopathy - Studies Laboratory Data (last 24 hrs) 12/10/21 13:26: WBC 9.50, Hgb 15.3, Hct 44.8, Plt Count 131 L 12/10/21 13:26: Sodium 136, Potassium 4.5, BUN 17, Creatinine 1.10, Glucose 90, Total Bilirubin 0.6, AST 23, ALT 31, Alkaline Phosphatase 76 Assessment and Plan - Problems (Diagnosis) (1) Chest pain Current Visit: Yes Status: Acute Plan: Patient has a negative troponin Will consult Dr. Fish. Plans for a stress test in the am. He may be having an arrythmia which would explain his variable symptoms. Will also need to check him for sleep apnea. Qualifiers: Chest pain type: other chest pain Qualified Code(s): R07.89 - Other chest pain; R07.8 - Other chest pain (2) HTN (hypertension) Current Visit: Yes Status: Acute Plan: Restart the patients amlodipine Qualifiers: Hypertension type: primary hypertension Qualified Code(s): I10 - Essential (primary) hypertension (3) Sleep apnea Current Visit: Yes Status: Chronic Plan: Patient has a very high risk for sleep apnea. He would benefit from an outpatient home sleep study. We can put him on a continuous pulse oximeter at night. Which would be further proof. Qualifiers: Sleep apnea type: obstructive Qualified Code(s): G47.33 - Obstructive sleep apnea (adult) (pediatric) (4) Chronic back pain Current Visit: Yes Status: Chronic Plan: He has been treated in the past with hydrocodone. Discussed weight loss and PT. These are the only 2 jail solutions with sustained benefit. A cpap would help with weight loss. We can try having PT see him in the hospital and teach him some basic exercises to start with. Follow up with out patient PT with Dr. Baldwin. Will start him on antinflammatory medications. Qualifiers: Back pain location: low back pain Back pain laterality: midline Sciatica presence: without sciatica Qualified Code(s): M54.50 - Low back pain, unspecified; G89.29 - Other chronic pain Discharge Plan: Home Plan to discharge in: 24 Hours - Advance Directives Does patient have a Living Will: No Does patient have a Durable POA for Healthcare: No - Code Status/Comfort Care Code Status Assessed: Yes Code Status: Full Code Physician Review: Patient Assessed, Agree with Above Assessment and Plan Critical Care: No Time Spent Managing Pts Care (In Minutes): 50
[2021-12-10] MEDS ORDERED: IBUPROFEN 600 MG TAB PO SCH (21:00)
[2021-12-10 21:48] VITALS: O2SAT 97
[2021-12-10] MEDS: HYDROCODONE/APAP 10/325 TAB PO PRN (22:10)
[2021-12-11 06:45] LABS: Absolute Lymphocytes (CBC) 1.8 K/uL (0.7-4.9); Hematocrit 45.1 % (39.6-49.0); Lymphocytes % 23.4 % (15.3-44.8); MCV 90.9 fL (80-100); MPV 9.7 fL (7.6-11.3); RBC Red Blood Cell Count 4.96 M/uL (4.33-5.43)
[2021-12-11 07:08] LABS: Potassium 4.9 mmol/L (3.5-5.1)
[2021-12-11] MEDS ORDERED: INFLUENZA VACCINE (for 6+ mo) 0.5 ML DOSE IMVAC ONE (08:00)
[2021-12-11] MEDS ORDERED: REGADENOSON 0.4 MG/5 ML SYR IV ONE (08:26)
[2021-12-11] MEDS ORDERED: AMLODIPINE 2.5 MG TAB PO SCH (09:00)
[2021-12-11] MEDS ORDERED: ASPIRIN EC 81 MG TAB PO SCH (09:00)
[2021-12-11] MEDS: HYDROCODONE/APAP 10/325 TAB PO PRN (09:37)
--- NOTE | 2021-12-11 11:42 | EKG ---
Test Date: 2021-12-10 Test Time: 12:27:21 Academic Physician: MEASUREMENT RESULTS: Intervals: Rate: 74 [place]: 168 QRSD: 86 QT: 366 QTc: 406 [place]: P: 26 [place]: 168 QRS: 20 T: 35 INTERPRETIVE STATEMENTS: Normal sinus rhythm Normal ECG Compared to ECG 11/16/2021 11:18:20 No significant changes Electronically Signed On 12-11-21 11:39:05 CDT by Raymon Fish
--- NOTE | 2021-12-11 11:46 | P.DS ---
Admission Date: 12/10/21 Discharge Date: 12/11/21 Primary Care Provider: Kae Baldwin Disposition: ROUTINE DISCHARGE Discharge Condition: GOOD Reason for Admission: Chest pain - Problems (1) Chest pain Current Visit: Yes Status: Acute Qualifiers: Chest pain type: other chest pain Qualified Code(s): R07.89 - Other chest pain; R07.8 - Other chest pain (2) HTN (hypertension) Current Visit: Yes Status: Acute Qualifiers: Hypertension type: primary hypertension Qualified Code(s): I10 - Essential (primary) hypertension (3) Sleep apnea Current Visit: Yes Status: Chronic Qualifiers: Sleep apnea type: obstructive Qualified Code(s): G47.33 - Obstructive sleep apnea (adult) (pediatric) (4) Chronic back pain Current Visit: Yes Status: Chronic Qualifiers: Back pain location: low back pain Back pain laterality: midline Sciatica presence: without sciatica Qualified Code(s): M54.50 - Low back pain, unspecified; G89.29 - Other chronic pain Brief History of Present Illness: Patient is a pleasant gentleman with a pmh of HTN. He recently had an ER visit for chest pain. The patient was sent home for outpatient stress test. 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 The patient had another episode of chest pain at work. Radiates to the back. The patient went to the industrial ER and was sent to the hospital. The patient been having sob and dizziness on and off for the caridad few months. The patient is also very tired during the day. The patient states he suddenly gets quiet and suddenly wakes up. he has an epworth score os 18, his stop bang score is 6 Hospital Course: Patient was admitted for chest pain. He had a stress test this morning. Results are pending. He has not had any recurrent symptoms. Plans to discharge him home when cleared by Dr. Fish. Have discussed sleep apnea and atrial fib at the patent at length. This is all an outpatient work up. The patient can follow up with Dr. Baldwin. Thank you for allowing me to take part in his care. Vital Signs/Physical Exam: Temp Pulse Resp BP Pulse Ox 97.2 F 72 18 127/81 100 12/11/21 08:00 12/11/21 09:32 12/11/21 08:00 12/11/21 09:32 12/11/21 08:00 General: Alert, In no apparent distress HEENT: Atraumatic, PERRLA, EOMI Neck: Supple, JVD not distended Respiratory: Clear to auscultation bilaterally, Normal air movement Cardiovascular: Regular rate/rhythm, Normal S1 S2 Gastrointestinal: Normal bowel sounds, No tenderness Musculoskeletal: No tenderness Integumentary: No rashes Neurological: Normal speech, Normal tone, Normal affect Lymphatics: No axilla or inguinal lymphadenopathy Laboratory Data at Discharge: WBC 7.50 K/uL (4.3-10.9) 12/11/21 06:29 Hgb 15.2 g/dL (13.6-17.9) 12/11/21 06:29 Hct 45.1 % (39.6-49.0) 12/11/21 06:29 Plt Count 126 K/uL (152-406) L 12/11/21 06:29 Sodium 139 mmol/L (136-145) 12/11/21 06:29 Potassium 4.9 mmol/L (3.5-5.1) 12/11/21 06:29 BUN 13 mg/dL (7-18) 12/11/21 06:29 Creatinine 1.18 mg/dL (0.55-1.3) 12/11/21 06:29 Glucose 100 mg/dL (74-106) 12/11/21 06:29 Total Bilirubin 0.6 mg/dL (0.2-1.0) 12/10/21 13:26 AST 23 U/L (15-37) 12/10/21 13:26 ALT 31 U/L (12-78) 12/10/21 13:26 Alkaline Phosphatase 76 U/L (45-117) 12/10/21 13:26 Triglycerides 133 mg/dL (<150) 12/11/21 06:29 Cholesterol 148 mg/dL (<200) 12/11/21 06:29 HDL Cholesterol 33 mg/dL (40-60) L 12/11/21 06:29 Cholesterol/HDL Ratio 4.48 12/11/21 06:29 Home Medications: Amlodipine [Norvasc] 2.5 mg PO DAILY 12/10/21 Hydrocodone 10/APAP 325 [[place] 10325*] 1 tab PO Q6HP PRN 12/10/21 Pantoprazole [Protonix Tab] 40 mg PO DAILY 12/10/21 Diet: Regular Activity: Ad martita Followup: Angela Baldwin, DO [ACTIVE - CAN ADMIT] - 1 Week Physician Review: Patient Assessed, Agree with Above Assessment and Plan Time spent managing pt's care (in minutes): 30
--- NOTE | 2021-12-11 12:28 | TREADPHA ---
DX: CHEST PAIN Date of Study: 12/11/2021 Ht: 5' 9 " Wt: 229 lb 4.492 oz Consulting Physician: CLINTON MEDICATIONS: HISTORY: 41 YEAR OLD MALE WITH COMPLAINTS OF CHEST PAIN. HISTORY OF HYPERTENSION, NON SMOKER, NON DRINKER, TAKES DAILY PAIN MEDICATIONS. PHYSICIAL EXAMINATION: RESTING B.P.: 138/84 RESTING H.R.: 91 RESTING EKG: NORMAL PROTOCOL: LEXISCAN EXERCISE TIME: 3:30 B.P. AT PEAK STRESS: 159/94 IMPRESSION: LEXISCAN INJECTED FOLLOWED BY CARDIOLITE PER PROTOCOL. SEE NUCLEAR MEDICINE REPORT. NO SUPRAVENTRICULAR OR VENTRICULAR TACHYCARDIA. NO PREMATURE VENTRICULAR COMPLEXES. PATIENT REPORTS NO CHEST PAIN.
--- NOTE | 2021-12-11 12:33 | RAD REPORT ---
EXAM DESCRIPTION: NM - Rest Stress Cardiac Imaging - 12/11/2021 9:23 am CLINICAL HISTORY: CP Chest pain. COMPARISON: No comparisons TECHNIQUE: The patient was administered approximately 10mCi of Tc 99m Sestamibi prior to resting SPE CT imaging of the heart. The patient was then administered approximately 30 mCi of Tc 99m Sestamibi f ollowing exercise or pharmacologic stress. Multiplanar SPECT images were reviewed. FINDINGS: No stress induced ischemic defect is seen to suggest stress induced ischemia. No fixed def ect is seen to suggest hibernating myocardium or scarred myocardium. The end diastolic volume is 100 ml, the end systolic volume is 38 ml, and the ejection fraction is 62 %. IMPRESSION: No stress induced ischemia.
[2021-12-11 13:52] VITALS: BP 123/75; TEMP 98
--- NOTE | 2021-12-13 15:43 | CON ---
Date of Consultation: 12/11/2021 Reason For Consultation: Chest pain and nausea. History Of Present Illness: Mr. Brock is a 41-year-old [place] male with a history of hyperte nsion, chronic pain, and history of trauma in the past, strong family history of heart disease. Came in with atypical chest pain, sharp, stabbing, midsternal, radiated to the left arm with some nausea. No shortness of breath, diaphoresis. He denied any PND, orthopnea, pedal edema, palpitation, or sy ncope. Past Medical History: As stated above. Allergies: INCLUDE NONSTEROIDAL ANTI-INFLAMMATORY DRUGS, ASPIRIN, AND PENICILLIN. Review of Systems: Negative. Social History: Negative for tobacco. Family History: Positive for heart disease. Physical Examination: Vital Signs: Stable, afebrile. HEENT: Negative. Neck: Supple with no bruit. Chest: Clear to auscultation and percussion. Cardiac: Revealed a regular rhythm and rate. No murmurs, gallops, or rubs. Abdomen: Benign. Extremities: Revealed no clubbing, cyanosis, or edema. Diagnostic Data: Chest x-ray was negative. Troponin was negative. EKG was normal. Impression And Plan: Atypical chest pain with nausea. The patient with history of hypertension, fam bassam history of heart disease. I think a stress test is indicated and an echocardiogram to rule out c ardiomyopathy and/or coronary artery disease. We will see what these shows before making any further treatment plans. Continue present regimen otherwise. ABEL/NEAL Voice ID: [id number] Report ID: [id number]
--- NOTE | 2021-12-13 16:07 | PN ---
Date of Progress Note: 12/11/2021 Mr. Brock came in on 12/10/2021 and he was seen on 12/11/2021. A stress test was ordered for atypica l chest pain, nausea, hypertension, and family history of heart disease. Echocardiogram was normal. Stress test showed no evidence of ischemia. He can be discharged whenever it is okay with Dr. Barraza . We will see him in the office if his symptoms persist. ABEL/NEAL Voice ID: [id number] Report ID: [id number]
== END 2021-12-11 14:00 | disposition home or self-care (01) ==
LOC: ER 12:19 → ERHOLD 15:53 → 4TH 19:27
PROVIDERS: ADMIT Internal Medicine; ATTEND Internal Medicine
DX: R07.9 Chest pain, unspecified (principal); I10 Essential (primary) hypertension; G47.33 Obstructive sleep apnea (adult) (pediatric); M54.50 Low back pain, unspecified; G89.29 Other chronic pain; Z82.49 Family history of ischemic heart disease and other diseases of the circulatory system; Z88.0 Allergy status to penicillin; Z20.822 Contact with and (suspected) exposure to COVID-19
CPT/HCPCS: 36415; 71045; 78452; 80048; 80061; 80076; 83036; 83880; 84443; 84484; 85025; 85379; 87811; 93005; 93017; 96374; 97161; 99285; A9500; G0378; J2785

== ENCOUNTER 2022-02-15 20:43 | Emergency (ER) | payer OTHER ==
--- OUTSIDE RECORDS SUMMARY | 2022-02-15 20:47 | XMS REPORT | Continuity of Care Document ---
:1980 Author Organization [facility] Address [address] [place] [address] Care Team Providers Name Role Phone BaldwinAngela Attending Clinician Unavailable JULITA Attending Clinician Unavailable JULITA Admitting Clinician Unavailable Payers Payer Name Policy Type Policy Number Effective Date Expiration Date S ourbre [place] 53 [id number] [facility] Problems Condition Condition Condition Status Onset Resolution Last Treating Co mments Source Name Details Category Date Date Treatment Clinician Date [id number] Panic Problem Common attacks [facility] Screening Screening Problem Com mon for for Spirit cardiovasc cardiovasc - [facility] [id number] Chest Problem Common pain, Spirit unspecifie - [facility] d type [facility] [id number] Gastroesop Problem Co mmon hageal [facility] reflux - [facility] disease, [facility] d whether Medical [facility]ophag[facility] Center s present [id number] Primary Problem Common hypertensi [facility] on - [facility] [id number] DDD Problem Common (degenerat Spirit delfina disc - [facility] disease[facility] Hy[facility] HTN Problem Commo n on (hypertens Spirit ion) - [facility] [id number] Temporary Problem Com mon low [facility] platelet - [facility] count [facility] Somnolence Somnolence Problem C ommon , daytime Spirit [facility] [id number] Anxiety Problem Common [facility] Chronic Chronic Problem Common fatigue fatigue [facility] [id number] Difficulty Problem Co mmon sleeping [facility] Allergies, Adverse Reactions, Alerts This patient has no known allergies or adverse reactions. Social History Social Habit Start Date Stop Date Quantity Comments Source History of Tobacco Use Co mmon [facility] Sex Assigned At Com mon [facility] Smoking Status Start Date Stop Date Source Former Smoker 2021-12-22 00:00:00 2021-12-22 00:00:00 Common S pirit [facility] Medications Ordered Filled Start Stop Current Ordering Indication Dosage Frequency Signature Comments Components Source Medication Medication Date Date Medication? Clinician (SIG) Name Name ProAir HFA ProAir HFA 2021-02 No 2{puffs QID ProAir HFA 108 (90 108 (90 1-21 _as_nee 108 (90 Base) Base) 00:00: ded} Base) MCG/ACT MCG/ACT 00 MCG/ACT Carvedilol Carvedilol No 1{table BID Carvedilol 3.125 MG 3.125 MG 7-21 t_with_ 3.125 MG 00:00: food} 00 amLODIPine amLODIPine No 1{table BID amLODIPine Besylate Besylate t} Besylate 2.5 MG 2.5 MG 2.5 MG HYDROcodone HYDROcodone No 1{table QID HYDROcodon -Acetaminop -Acetaminop t_as_ne e-Acetamin hen 10-325 hen 10-325 eded} ophen MG MG 10-325 MG hydroCHLORO hydroCHLORO No 1{table QD hydroCHLOR thiazide thiazide t_in_th Othiazide 12.5 MG 12.5 MG e_morni 12.5 MG ng} Pantoprazol Pantoprazol No 1{table QD Pantoprazo e Sodium 40 e Sodium 40 t} le Sodium MG MG 40 MG amLODIPine amLODIPine No 1{table BID amLODIPine Besylate Besylate t} Besylate 2.5 MG 2.5 MG 2.5 MG HYDROcodone HYDROcodone No 1{table QID HYDROcodon -Acetaminop -Acetaminop t_as_ne e-Acetamin hen 10-325 hen 10-325 eded} ophen MG MG 10-325 MG hydroCHLORO hydroCHLORO No 1{table QD hydroCHLOR thiazide thiazide t_in_th Othiazide 12.5 MG 12.5 MG e_morni 12.5 MG ng} amLODIPine amLODIPine No 1{table BID amLODIPine Besylate [...] Besylate 2.5 MG 2.5 MG 2.5 MG hydroCHLORO hydroCHLORO No 1{table QD hydroCHLOR thiazide thiazide t_in_th Othiazide 12.5 MG 12.5 MG e_morni 12.5 MG ng} HYDROcodone HYDROcodone No 1{table QID HYDROcodon -Acetaminop -Acetaminop t_as_ne e-Acetamin hen 10-325 hen 10-325 eded} ophen MG MG 10-325 MG amLODIPine amLODIPine No 1{table BID amLODIPine Besylate Besylate t} Besylate 2.5 MG 2.5 MG 2.5 MG Pantoprazol Pantoprazol No 1{table QD Pantoprazo e Sodium 40 e Sodium 40 t} le Sodium MG MG 40 MG Pantoprazol Pantoprazol No 1{table QD Pantoprazo e Sodium 40 e Sodium 40 t} le Sodium MG MG 40 MG amLODIPine amLODIPine No 1{table BID amLODIPine Besylate Besylate t} Besylate 2.5 MG 2.5 MG 2.5 MG HYDROcodone HYDROcodone No 1{table QID HYDROcodon -Acetaminop -Acetaminop t_as_ne e-Acetamin hen 10-325 hen 10-325 eded} ophen MG MG 10-325 MG hydroCHLORO hydroCHLORO No 1{table QD hydroCHLOR thiazide thiazide t_in_th Othiazide 12.5 MG 12.5 MG e_morni 12.5 MG ng} HYDROcodone HYDROcodone No 1{table QID HYDROcodon -Acetaminop -Acetaminop t_as_ne e-Acetamin hen 10-325 hen 10-325 eded} ophen MG MG 10-325 MG amLODIPine amLODIPine No 1{table QD amLODIPine Besylate Besylate t} Besylate 2.5 MG 2.5 MG 2.5 MG Pantoprazol Pantoprazol No 1{table QD Pantoprazo e Sodium 40 e Sodium 40 t} le Sodium MG MG 40 MG amLODIPine amLODIPine No 1{table QD amLODIPine Besylate Besylate t} Besylate 2.5 MG 2.5 MG 2.5 MG HYDROcodone HYDROcodone No 1{table QID HYDROcodon -Acetaminop -Acetaminop t_as_ne e-Acetamin hen 10-325 hen 10-325 eded} ophen MG MG 10-325 MG Pantoprazol Pantoprazol No 1{table QD Pantoprazo e Sodium 40 e Sodium 40 t} le Sodium MG MG 40 MG amLODIPine amLODIPine No 1{table QD amLODIPine Besylate Besylate t} Besylate 2.5 MG 2.5 MG 2.5 MG HYDROcodone HYDROcodone No 1{table QID HYDROcodon -Acetaminop -Acetaminop t_as_ne e-Acetamin hen 10-325 hen 10-325 eded} ophen MG MG 10-325 MG Pantoprazol Pantoprazol No 1{table QD Pantoprazo e Sodium 40 e Sodium 40 t} le Sodium MG MG 40 MG amLODIPine amLODIPine No 1{table BID amLODIPine Besylate Besylate t} Besylate 2.5 MG 2.5 MG 2.5 MG HYDROcodone HYDROcodone No 1{table QID HYDROcodon -Acetaminop -Acetaminop t_as_ne e-Acetamin hen 10-325 hen 10-325 eded} ophen MG MG 10-325 MG Pantoprazol Pantoprazol No 1{table QD Pantoprazo e Sodium 40 e Sodium 40 t} le Sodium MG MG 40 MG amLODIPine amLODIPine No 1{table BID amLODIPine [...] Besylate 2.5 MG 2.5 MG 2.5 MG hydroCHLORO hydroCHLORO No 1{table QD hydroCHLOR thiazide thiazide t_in_th Othiazide 12.5 MG 12.5 MG e_morni 12.5 MG ng} HYDROcodone HYDROcodone No 1{table QID HYDROcodon -Acetaminop -Acetaminop t_as_ne e-Acetamin hen 10-325 hen 10-325 eded} ophen MG MG 10-325 MG amLODIPine amLODIPine No 1{table BID amLODIPine Besylate Besylate t} Besylate 2.5 MG 2.5 MG 2.5 MG Pantoprazol Pantoprazol No 1{table QD Pantoprazo e Sodium 40 e Sodium 40 t} le Sodium MG MG 40 MG Pantoprazol Pantoprazol No 1{table QD Pantoprazo e Sodium 40 e Sodium 40 t} le Sodium MG MG 40 MG amLODIPine amLODIPine No 1{table BID amLODIPine Besylate Besylate t} Besylate 2.5 MG 2.5 MG 2.5 MG HYDROcodone HYDROcodone No 1{table QID HYDROcodon -Acetaminop -Acetaminop t_as_ne e-Acetamin hen 10-325 hen 10-325 eded} ophen MG MG 10-325 MG hydroCHLORO hydroCHLORO No 1{table QD hydroCHLOR thiazide thiazide t_in_th Othiazide 12.5 MG 12.5 MG e_morni 12.5 MG ng} Pantoprazol Pantoprazol No 1{table QD Pantoprazo e Sodium 40 e Sodium 40 t} le Sodium MG MG 40 MG Vital Signs Vital Name Observation Time Observation Value Comments Source height 2021-12-22 10:20:00 69.50 [in_i] [facility] weight 2021-12-22 10:20:00 233.4 [lb_av] [facility] temperature 2021-12-22 10:20:00 97.6 [degF] [facility] bmi 2021-12-22 10:20:00 33.97 kg/m2 [facility] oximetry 2021-12-22 10:20:00 96 % [facility] respiratory rate 2021-12-22 10:20:00 16 /min Comm on [facility] blood pressure 2021-12-22 10:20:00 130 mm[Hg] [facility] systolic [facility] blood pressure 2021-12-22 10:20:00 82 mm[Hg] [facility] diastolic [facility] height 2021-11-19 14:00:00 69.50 [in_i] [facility] weight 2021-11-19 14:00:00 233.4 [lb_av] [facility] temperature 2021-11-19 14:00:00 97.6 [degF] [facility] bmi 2021-11-19 14:00:00 33.97 kg/m2 [facility] oximetry 2021-11-19 14:00:00 97 % [facility] respiratory rate 2021-11-19 14:00:00 16 /min Comm on [facility] blood pressure 2021-11-19 14:00:00 133 mm[Hg] Common [facility] - systolic [facility] blood pressure 2021-11-19 14:00:00 74 mm[Hg] Common [facility] - diastolic [facility] height 2021-11-13 13:20:00 69.50 [in_i] Common [facility] weight 2021-11-13 13:20:00 230 [lb_av] Common S pirit [facility] temperature 2021-11-13 13:20:00 97.3 [degF] Common S [facility] bmi 2021-11-13 13:20:00 33.47 kg/m2 [facility] height 2021-10-08 09:40:00 69.50 [in_i] [facility] weight 2021-10-08 09:40:00 236.4 [lb_av] [facility] temperature 2021-10-08 09:40:00 97.3 [degF] [facility] bmi 2021-10-08 09:40:00 34.41 kg/m2 [facility] oximetry 2021-10-08 09:40:00 97 % [facility] respiratory rate 2021-10-08 09:40:00 16 /min Comm on [facility] blood pressure 2021-10-08 09:40:00 130 mm[Hg] Common [facility] - systolic [facility] blood pressure 2021-10-08 09:40:00 78 mm[Hg] Common [facility] - diastolic [facility] height 2021-09-17 15:20:00 69.50 [in_i] Common [facility] weight 2021-09-17 15:20:00 235.4 [lb_av] [facility] temperature 2021-09-17 15:20:00 98.0 [degF] [facility] bmi 2021-09-17 15:20:00 34.26 kg/m2 Common S [facility] oximetry 2021-09-17 15:20:00 99 % Common [facility] respiratory rate 2021-09-17 15:20:00 16 /min Comm on [facility] blood pressure 2021-09-17 15:20:00 135 mm[Hg] Common [facility] - systolic [facility] blood pressure 2021-09-17 15:20:00 89 mm[Hg] Common [facility] - diastolic [facility] Procedures This patient has no known procedures. Encounters Start End Encounter Admission Attending Care Care Encounter Source Date/Time Date/Time Type Type Clinicians Facility Department ID 2022-02-09 Outpatient Baldwin, Na STLMLC STLMLC [id number] 2 Common 08:58:01 [facility] 2022-01-04 Outpatient Baldwin, Na STLMLC STLMLC [id number] 2 Common 12:02:01 [facility] 2021-12-31 Outpatient Baldwin, Na STLMLC STLMLC [id number] 2 Common 12:07:01 [facility] 2021-12-18 Outpatient Baldwin, Na STLMLC STLMLC [id number] 2 Common 10:58:02 [facility] 2021-12-10 Outpatient Baldwin, Na STLMLC STLMLC [id number] 2 Common 10:17:04 [facility] 2021-11-13 Outpatient Baldwin, Na STLMLC STLMLC [id number] 2 Common 13:16:02 [facility] 2021-11-12 Outpatient Baldwin, Na STLMLC STLMLC [id number] 2 Common 08:37:03 [facility] 2021-11-05 Outpatient Baldwin, Na STLMLC STLMLC [id number] 2 Common 13:52:02 [facility] 2021-10-06 Outpatient Baldwin, Na STLMLC STLMLC [id number] 2 Common 13:42:03 [facility] 2021-09-21 Outpatient Baldwin, Na STLMLC STLMLC [id number] 2 Common 14:29:01 [facility] 2021-09-17 Outpatient Baldwin, Na STLMLC STLMLC [id number] 2 Common 15:47:03 [facility] 2022-01-18 2022-01-18 (TEL) STLMLC STLMLC [id number] Co mmon 00:00:00 00:00:00 [facility] 2021-12-22 2021-12-22 OFFICE STLMLC STLMLC [id number] Co mmon 00:00:00 00:00:00 VISIT EST Spir it PT LEVEL 3 [facility] 2021-12-22 2021-12-22 (TEL) STLMLC STLMLC [id number] Co mmon 00:00:00 00:00:00 [facility] 2021-12-11 2021-12-11 (TEL) STLMLC STLMLC [id number] Co mmon 00:00:00 00:00:00 [facility] 2021-11-19 2021-11-19 OFFICE STLMLC STLMLC [id number] Co mmon 00:00:00 00:00:00 VISIT EST Spir it PT LEVEL 3 [facility] 2021-11-17 2021-11-17 (TEL) STLMLC STLMLC [id number] Co mmon 00:00:00 00:00:00 [facility] 2021-11-13 2021-11-13 OFFICE STLMLC STLMLC [id number] Co mmon 00:00:00 00:00:00 VISIT EST Spir it PT LEVEL 3 [facility] 2021-10-23 2021-10-23 (TEL) STLMLC STLMLC [id number] Co mmon 00:00:00 00:00:00 [facility] 2021-10-08 2021-10-08 OFFICE STLMLC STLMLC [id number] Co mmon 00:00:00 00:00:00 VISIT Spirit ESTAB PT - [facility] LEVEL 4 [facility] 2021-10-01 2021-10-01 Outpatient BESSY BALCKMON [id number] [place] 00:00:00 00:00:00 HN [id number] da [facility] 2021-09-17 2021-09-17 OFFICE [facility] [id number] Co mmon 00:00:00 00:00:00 VISIT [place] PT LEVEL 4 [facility] Results This patient has no known results.
[2022-02-15 21:23] LABS: Absolute Lymphocytes (CBC) 2.3 K/uL (0.7-4.9); Hematocrit 46.6 % (39.6-49.0); MCV 89.3 fL (80-100); MPV 9.6 fL (7.6-11.3); RBC Red Blood Cell Count 5.22 M/uL (4.33-5.43)
[2022-02-15] MEDS ORDERED: MORPHINE 4 MG/ML SYR ONE (21:29)
[2022-02-15 21:32] LABS: Protime INR 1.05
[2022-02-15 21:41] LABS: BUN Blood Urea Nitrogen 13 mg/dL (7-18); Bicarbonate 31 mmol/L (21-32); Glomerular Filtration Rate 86 ml/min (=/>90); Glucose Level 112 mg/dL (74-106); Potassium 3.7 mmol/L (3.5-5.1); Sodium Level 139 mmol/L (136-145); Troponin High Sensitivity 4.5 pg/mL (<58.9)
[2022-02-15 21:50] LABS: NT PRO-BNP < 5 pg/mL (<125)
--- NOTE | 2022-02-15 22:32 | RAD REPORT ---
EXAM DESCRIPTION: CT - Angio Aorta For Dissection - 02/15/2022 10:05 pm CLINICAL HISTORY: . Chest and abd pain COMPARISON: CT abdomen 2013 TECHNIQUE: Computed tomography angiography of the chest, abdomen pelvis were obtained. 100 cc Isovue 370 was administered intravenously. Coronal and sagittal reconstruction were performed. MIP 3D reconstruction was performed All CT scans are performed using dose optimization technique as appropriate and may include automated exposure control or mA/KV adjustment according to patient size. FINDINGS: An aortic dissection is not seen. An aortic aneurysm is not displayed. The celiac, SMA and MICHELLE are patent . A lung consolidation is not present. A pericardial effusion is not seen. A pleural effusion is not no jordan. The liver,spleen, pancreas,adrenals and kidneys demonstrate no significant abnormality. There no evidence diverticulitis. Normal appendix Small inguinal hernias IMPRESSION: Negative for an aortic dissection.
--- NOTE | 2022-02-15 22:33 | RAD REPORT ---
EXAM DESCRIPTION: Erum Single View02/15/2022 9:51 pm CLINICAL HISTORY: Chest pain COMPARISON: November 2021 FINDINGS: The lungs appear clear of acute infiltrate. The heart is normal size IMPRESSION: No acute abnormalities displayed
--- NOTE | 2022-02-15 22:34 | EDPHYS ---
Physician Documentation [facility] Name: Cory Brock Age: 41 yrs Sex: Male : 1980 Arrival Date: 02/15/2022 Time: 20:45 Bed 17 Private MD: ED Physician Marcus Milton HPI: 02/15 21:07 This 41 yrs old Male presents to ER via Ambulatory with complaints of High rn Blood Pressure. 21:07 The patient has elevated blood pressure and discovered this at home. Onset: The rn symptoms/episode began/occurred 3 day(s) ago. Modifying factors: The symptoms are aggravated by nothing, The symptoms are alleviated by prescription meds. Associated signs and symptoms: Pertinent positives: chest pain, headache, Pertinent negatives: lightheadedness, vomiting, weakness. Severity of symptoms: At its worst the blood pressure was moderate, in the emergency department the blood pressure is unchanged. The patient has experienced similar episodes in the past. The patient has not recently seen a physician. Pt reports difficult to control BP, cannot get it lower than 150s/100s, for 3 days, assoc with chest pain and headache. No focal neuro complaints. Admitted 2 months ago for chest pain, had neg w/u with neg stress test, placed on amlodipine 5mg. . Historical: - Allergies: 21:06 Aspirin; hb 21:06 NSAIDS (GI bleeding); hb 21:06 PENICILLINS; hb - PMHx: 21:06 Back pain; Hypertensive disorder; trauma; hb - Immunization history:: Client reports receiving the 2nd dose of the Covid vaccine, Flu vaccine is not up to date. - Family history:: not pertinent. - Social history:: Smoking status: Patient denies any tobacco usage or history of. Patient/guardian denies using alcohol, street drugs, tobacco products. - Hospitalizations: : No recent hospitalization is reported. ROS: 21:07 Constitutional: Negative for fever, chills, and weight loss, Eyes: Negative for injury, rn pain, redness, and discharge, Neck: Negative for injury, pain, and swelling, Cardiovascular: Negative for palpitations, and edema, Respiratory: Negative for shortness of breath, cough, wheezing, and pleuritic chest pain, Abdomen/GI: Negative for abdominal pain, nausea, vomiting, diarrhea, and constipation, Back: Negative for injury and pain, MS/Extremity: Negative for injury and deformity, Skin: Negative for injury, rash, and discoloration, Neuro: Negative for weakness, numbness, tingling, and seizure. Exam: 21:07 Constitutional: This is a well developed, well nourished patient who is awake, alert, rn and in no acute distress. Head/Face: Normocephalic, atraumatic. Eyes: Pupils equal round and reactive to light, extra-ocular motions intact. Cardiovascular: Regular rate and rhythm. No pulse deficits. Respiratory: No increased work of breathing, no retractions or nasal flaring. Abdomen/GI: Soft, non-tender Back: No spinal tenderness. No costovertebral tenderness. Full range of motion. Skin: Warm, dry with normal turgor. Normal color with no rashes, no lesions, and no evidence of cellulitis. MS/ Extremity: Pulses equal, no cyanosis. Neurovascular intact. Full, normal range of motion. Equal circumference. Neuro: Awake and alert, GCS 15, oriented to person, place, time, and situation. Cranial nerves II-XII grossly intact. Motor strength 5/5 in all extremities. Sensory grossly intact. Cerebellar exam normal. 21:28 ECG was reviewed by the Attending Physician. rn Vital Signs: 21:04 BP 163 / 104; Pulse 76; Resp 16; Temp 98.4; Pulse Ox 100% ; Weight 106.59 kg; Height 5 hb ft. 7 in. (170.18 cm); Pain 6/10; 21:31 BP 119 / 88; rn 22:14 BP 137 / 93; Pulse 76; Resp 20; Pulse Ox 97% ; Pain 0/10; jj7 22:40 BP 110 / 74; Pulse 73; Resp 17; Pulse Ox 98% ; Pain 0/10; jj7 21:04 Body Mass Index 36.81 (106.59 kg, 170.18 cm) hb MDM: 20:49 Patient medically screened. rn 22:31 Differential diagnosis: hypertensive crisis, Malignant HTN, aortic dissection, anxiety, rn HTN. Data reviewed: vital signs, nurses notes, lab test result(s), EKG. Counseling: I had a detailed discussion with the patient and/or guardian regarding: the historical points, exam findings, and any diagnostic results supporting the discharge/admit diagnosis, lab results, radiology results, the need for outpatient follow up, to return to the emergency department if symptoms worsen or persist or if there are any questions or concerns that arise at home. Response to treatment: the patient's symptoms have markedly improved after treatment, and as a result, I will discharge patient. ED course: Reviewed recent medical records, neg stress test, deemed atypical chest pain by Dr. Fish. Trop neg. Normal ECG. BP improved without further BP meds. Will dc home with BP journal and pcp/cardiology f/u. REturn precautions given and understood. . 02/15 21:05 Order name: Basic Metabolic Panel; Complete Time: :52 rn 02/15 21:05 Order name: CBC with Diff; Complete Time: 21: rn 02/15 21:05 Order name: NT PRO-BNP; Complete Time: : rn 02/15 21:05 Order name: PT-INR; Complete Time: : rn 02/15 21:05 Order name: Troponin HS; Complete Time: : rn 02/15 21:05 Order name: XRAY Chest (1 view); Complete Time: : rn 02/15 21:05 Order name: EKG; Complete Time: : rn 02/15 21:05 Order name: Cardiac monitoring; Complete Time: 21: rn 02/15 21:05 Order name: EKG - Nurse/Tech; Complete Time: : rn 02/15 21:05 Order name: IV Saline Lock; Complete Time: :25 rn 02/15 21:05 Order name: Labs collected and sent; Complete Time: 21: rn 02/15 21:05 Order name: O2 Per Protocol; Complete Time: : rn 02/15 21:05 Order name: CT Aorta for Dissection; Complete Time: :34 rn 02/15 21:05 Order name: O2 Sat Monitoring; Complete Time: 21: rn EC:28 Rate is 75 beats/min. Rhythm is regular. QRS Cameron is Normal. NM interval is normal. QRS rn interval is normal. QT interval is normal. No Q waves. T waves are Normal. No ST changes noted. Clinical impression: Normal ECG. Interpreted by me. Reviewed by me. Administered Medications: 21:42 Drug: morphine 4 mg Route: IVP; Infused Over: 4 mins; Site: right antecubital; jj7 Disposition Summary: 02/15/22 22:34 Discharge Ordered Location: Home rn Problem: new rn Symptoms: have improved rn Condition: Stable rn Diagnosis - Essential (primary) hypertension rn - Chest pain, unspecified rn Followup: rn - With: Private Physician - When: As needed - Reason: Recheck today's complaints, Re-evaluation by your physician Discharge Instructions: - Discharge Summary Sheet rn - Nonspecific Chest Pain, Adult rn - Hypertension, Adult rn - Managing Your Hypertension rn Forms: - Medication Reconciliation Form rn - Thank You Letter rn - Antibiotic fern cutter - Prescription Opioid Use rn Signatures: Dispatcher [employer] EDMarcus Pugh MD MD rn Baxter, Heather RN RN Isauro Oscar, RN RN jj7
--- NOTE | 2022-02-15 22:34 | ER ---
Nurse's Notes [facility] Name: Cory Brock Age: 41 yrs Sex: Male : 1980 Arrival Date: 02/15/2022 Time: 20:45 Bed 17 Private MD: Diagnosis: Essential (primary) hypertension;Chest pain, unspecified Presentation: 02/15 21:04 Chief complaint: Chest pressure and home BP 160s/100s. Coronavirus screen: At this hb time, the client does not indicate any symptoms associated with coronavirus-19. Ebola Screen: No symptoms or risks identified at this time. Initial Sepsis Screen: Does the patient meet any 2 criteria? No. Patient's initial sepsis screen is negative. Does the patient have a suspected source of infection? No. Patient's initial sepsis screen is negative. Risk Assessment: Do you want to hurt yourself or someone else? Patient reports no desire to harm self or others. Onset of symptoms was February 15, 2022. 21:04 Method Of Arrival: Ambulatory hb 21:04 Acuity: CORY 3 hb Triage Assessment: 21:06 General: Appears in no apparent distress. comfortable, Behavior is calm, cooperative, jj7 appropriate for age. Pain: Complains of pain in diaphragm. Historical: - Allergies: 21:06 Aspirin; hb 21:06 NSAIDS (GI bleeding); hb 21:06 PENICILLINS; hb - PMHx: 21:06 Back pain; Hypertensive disorder; trauma; hb - Immunization history:: Client reports receiving the 2nd dose of the Covid vaccine, Flu vaccine is not up to date. - Family history:: not pertinent. - Social history:: Smoking status: Patient denies any tobacco usage or history of. Patient/guardian denies using alcohol, street drugs, tobacco products. - Hospitalizations: : No recent hospitalization is reported. Screenin:06 [facility] ED Fall Risk Assessment (Adult) History of falling in the last 3 months, jj7 including since admission No falls in past 3 months (0 pts) Confusion or Disorientation No (0 pts) Intoxicated or Sedated No (0 pts) Impaired Gait No (0 pts) Mobility Assist Device Used No (0 pt) Altered Elimination No (0 pt) Score/Fall Risk Level 0 - 2 = Low Risk. Abuse screen: Denies threats or abuse. Nutritional screening: No deficits noted. Tuberculosis screening: No symptoms or risk factors identified. Fall Risk No fall in past 12 months (0 pts). Assessment: 21:06 Pain: Complains of pain in diaphragm Pain does not radiate. Pain currently is 6 out of jj7 10 on a pain scale. Pain began 2-3 days ago. Cardiovascular: Reports chest pain, ELEVATED BP. Vital Signs: 21:04 BP 163 / 104; Pulse 76; Resp 16; Temp 98.4; Pulse Ox 100% ; Weight 106.59 kg; Height 5 hb ft. 7 in. (170.18 cm); Pain 6/10; 21:31 BP 119 / 88; rn 22:14 BP 137 / 93; Pulse 76; Resp 20; Pulse Ox 97% ; Pain 0/10; jj7 22:40 BP 110 / 74; Pulse 73; Resp 17; Pulse Ox 98% ; Pain 0/10; jj7 21:04 Body Mass Index 36.81 (106.59 kg, 170.18 cm) hb ED Course: 20:45 Patient arrived in ED. as 20:49 Marcus Milton MD is Attending Physician. rn 20:56 Isauro Lackey RN is Primary Nurse. jj7 21:06 Triage completed. hb 21:06 Arm band placed on. hb 21:06 Patient has correct armband on for positive identification. Placed in gown. Bed in low jj7 position. Call light in reach. Adult w/ patient. Client placed on continuous cardiac and pulse oximetry monitoring. NIBP monitoring applied. desk monitor on. 21:06 Patient maintains SpO2 saturation greater than 95% on room air. jj7 21:19 Inserted saline lock: 20 gauge in right antecubital area, using aseptic technique. oe Blood collected. 21:25 Basic Metabolic Panel Sent. jj7 21:26 Troponin HS Sent. jj7 21:26 PT-INR Sent. jj7 21:26 NT PRO-BNP Sent. jj7 21:52 XRAY Chest (1 view) In Process Unspecified. EDMS 22:07 CT Aorta for Dissection In Process Unspecified. EDMS 22:42 No provider procedures requiring assistance completed. jj7 22:42 IV discontinued, intact, bleeding controlled, No redness/swelling at site. Pressure jj7 dressing applied. Administered Medications: 21:42 Drug: morphine 4 mg Route: IVP; Infused Over: 4 mins; Site: right antecubital; jj7 Medication: 21:06 VIS not applicable for this client. jj7 Outcome: 22:34 Discharge ordered by . rn 22:42 Discharged to home ambulatory, with family. jj7 22:42 Condition: improved 22:42 Discharge instructions given to patient, Instructed on discharge instructions, medication usage, Demonstrated understanding of instructions, medications. 22:50 Patient left the ED. jj7 Signatures: Dispatcher [employer] Alisia Lake Roman, MD MD rn Baxter, Heather, RN RN hb Espinosa, Orlando oe Johnson, Juwairiyah, RN RN jj7 Corrections: (The following items were deleted from the chart) 22:50 22:42 Discharged to home ambulatory, with family, renetta jj7 22:50 22:42 Discharge instructions given to patient, Instructed on discharge instructions, jj7 medication usage, Demonstrated understanding of instructions, medications, Prescriptions given X 3, jj7
[2022-02-15 23:00] VITALS: TEMP 98.4
[2022-02-15 23:17] VITALS: BP 110/74; O2SAT 98
--- NOTE | 2022-02-16 15:15 | EKG ---
Test Date: 2022-02-15 Test Time: 21:04:25 Wood Caulker: LL MEASUREMENT RESULTS: Intervals: Rate: 75 AL: 174 QRSD: 90 QT: 362 QTc: 404 [place]: P: 21 AL: 174 QRS: -6 T: 13 INTERPRETIVE STATEMENTS: Normal sinus rhythm Normal ECG Compared to ECG 12/10/2021 12:27:21 No significant changes Electronically Signed On 02-16-22 15:14:42 LOAN BROKER by Kehinde Lackey
== END 2022-02-15 22:50 | disposition home or self-care (01) ==
LOC: ER 20:43
DX: R07.89 Other chest pain (principal); I10 Essential (primary) hypertension; Z88.0 Allergy status to penicillin; Z88.6 Allergy status to analgesic agent
CPT/HCPCS: 93005; 85025; 80048; 36415; 85610; 84484; 83880; 71275; 74175; 71045; 96374; 99285; Q9967

== ENCOUNTER 2022-12-06 22:29 | Emergency (ER) | payer OTHER ==
--- OUTSIDE RECORDS SUMMARY | 2022-12-06 22:32 | XMS REPORT | Continuity of Care Document ---
:1980 Author Organization [facility] t Address [address] [facility]. [address] [place] [address] Care Team Providers Name Role Phone Pcp, Patient Does Not Have A Primary Care Physician [id number] Martha Vicente Attending Clinician Unavailable Angela VERA Attending Clinician Unavailable Doctor Unassigned, [place] Attending Clinician Unavailable JULITA Attending Clinician Unavailable JULITA Admitting Clinician Unavailable Payers Payer Name Policy Type Policy Number Effective Date Expiration Date S luigi [place] 53 [id number] Common [facility] Problems Condition Condition Condition Status Onset Resolution Last Treating Co mments Source Name Details Category Date Date Treatment Clinician Date Mixed Mixed Disease Active 2015-02 Univers dyslipidem dyslipidem 0-10 it y of [place] 00:00: [address] Chronic Chronic Disease Active 2015-02 Univers back pain back pain 0-07 ity of 00:00: [address] Obesity Obesity Disease Active 2015-02 Univers (BMI (BMI 0-07 ity of 30-39.9) 30-39.9) 00:00: [address] Tobacco Tobacco Disease Active 2015-02 Univers use use 0-07 ity of 00:00: [address] [id number] Panic Problem Common attacks [facility] Screening Screening Problem Com mon for for Spirit cardiovasc cardiovasc - [facility] gabriela ochoa [facility] system condition [facility] [id number] Chest Problem Common pain, Spirit unspecifie - [facility] d type [facility] [id number] Gastroesop Problem Co mmon hageal Spirit reflux - [facility] disease, [facility]spec[facility]ie [facility] s present [id number] Primary Problem Common hypertensi Spirit on - [facility] Gastro-eso Gastro-eso Problem C ommon phageal phageal Spirit reflux reflux - [facility] disease disease [facility] without [facility] [id number] DDD Problem Common (degenerat Spirit delf[facility] HTN Problem Commo n on (hypertens Spirit ion) - [facility] [id number] Temporary Problem Com mon low Spirit platelet - [facility] count [facility] Somnolence Somnolence Problem C ommon , daytime Spirit [facility] [id number] Anxiety Problem Common Spirit - [facility] Chronic Chronic Problem Common fatigue fatigue Spirit syndrome - [facility] [id number] Difficulty Problem Co mmon sleeping Spirit [facility] Allergies, Adverse Reactions, Alerts Allergy Allergy Status Severity Reaction(s) Onset Inactive Treating Comm ents Source Name Type Date Date Clinician Nsaids Propensi Active Shortness of Un erik (Non-Tono ty to Breath 6-04 ity of roidal adverse 00:00: [place] Anti-Inf reaction 00 Medica l lammator s Branch y Drug) Ibuprofe Propensi Active Swelling 2014-02 Univ ers n ty to 2-03 ity of adverse 00:00: [place] reaction 00 Medical s Branch Penicill Propensi Active Itching Unive rs in ty to 9-16 ity of adverse 00:00: [place] reaction 00 Medical s Branch Aspirin Propensi Active Swelling Unive rs ty to 8-07 ity of adverse 00:00: [place] reaction 00 Medical s Branch Social History Social Habit Start Date Stop Date Quantity Comments Source History of Common Spirit - Tobacco Use [facility] Alcohol intake 2021-09-08 2021-09-08 0 /d University of 00:00:00 00:00:00 [facility] Tobacco use and 2015-12-05 2015-12-05 Smokeless tobacco Un iversity of exposure 00:00:00 00:00:00 non-user [facility] Sex Assigned At [birth year] Universit y of 00:00:00 00:00:00 [facility] Smoking Status Start Date Stop Date Source Former Smoker 2022-03-29 00:00:00 2022-03-29 00:00:00 Common S pirit - [facility] Ce nter Smokes tobacco daily 2015-12-05 00:00:00 [facility] Medications Ordered Filled Start Stop Current Ordering Indication Dosage Frequency Signature Comments Components Source Medication Medication Date Date Medication? Clinician (SIG) Name Name Carvedilol Carvedilol 2021-02 No 1{table BID Carvedilol 6.25 MG 6.25 MG 2-21 t_with_ 6.25 MG 00:00: food} 00 Carvedilol Carvedilol 2021-02 No 1{table BID Carvedilol 6.25 MG 6.25 MG 2-21 t_with_ 6.25 MG 00:00: food} 00 ProAir HFA ProAir HFA 2021-02 No 2{puffs QID ProAir HFA 108 (90 108 (90 1-21 _as_nee 108 (90 Base) Base) 00:00: ded} Base) MCG/ACT MCG/ACT 00 MCG/ACT ProAir HFA ProAir HFA 2021-02 No 2{puffs QID ProAir HFA 108 (90 108 (90 1-21 _as_nee 108 (90 Base) Base) 00:00: ded} Base) MCG/ACT MCG/ACT 00 MCG/ACT ProAir HFA ProAir HFA 2021-02 No 2{puffs QID ProAir HFA 108 (90 108 (90 1-21 _as_nee 108 (90 Base) Base) 00:00: ded} Base) MCG/ACT MCG/ACT 00 MCG/ACT ProAir HFA ProAir HFA 2021-02 No 2{puffs QID ProAir HFA 108 (90 108 (90 1-21 _as_nee 108 (90 Base) Base) 00:00: ded} Base) MCG/ACT MCG/ACT 00 MCG/ACT Carvedilol Carvedilol No 1{table BID Carvedilol 3.125 MG 3.125 MG 7-21 t_with_ 3.125 MG 00:00: food} 00 cyclobenzap Yes [id number] 10mg Take 1 Univers rine 10 mg 3-26 tablet by ity of tablet 00:00: mouth 3 [place] 00 (three) Medical times Branch daily as needed for Muscle Spasms. acetaminoph Yes [id number] 1{tbl} Take 1 Univers en-codeine 3-26 tablet by ity of (TYLENOL-CO 00:00: mouth [place] DEINE #3) 00 every 8 Medical 300-30 mg (eight) Branch tablet hours as needed for Pain (scale 4-6). methocarbam Yes 750mg Take 1 Uni vers ol 9-14 tablet by ity of (ROBAXIN-75 00:00: mouth 4 Jim as 0) 750 mg 00 (four) Medical tablet times Branch daily. acetaminoph Yes 1{tbl} Take 1 Un erik en-codeine 9-05 tablet by ity of (TYLENOL-CO 00:00: mouth [place] DEINE #3) 00 every 6 Medical 300-30 mg (six) Branch tablet hours as needed for Pain (scale 7-10). cyclobenzap Yes 5mg Take 1 Univ ers rine 5 mg 9-05 tablet by ity o f tablet 00:00: mouth 3 [place] 00 (three) Medical times Branch daily. lisinopril Yes 10mg Take 1 Unive rs 10 mg 5-16 tablet by ity of tablet 00:00: mouth at [place] 00 bedtime. Medical Branch TYLENOL-COD Yes 2{tbl} Take 2 Un erik EINE #3 5-03 tablets by ity of 300-30 mg 00:00: mouth [place] tablet 00 every 4 Medical (four) Branch hours as needed for Pain (scale 1-3) or Pain (scale 4-6). acetaminoph Yes 1{tbl} Take 1 Un erik en-codeine 4-12 tablet by ity of 300-30 mg 00:00: mouth [place] tablet 00 every 4 Medical (four) Branch hours as needed (pain). cyclobenzap Yes 5mg Take 1 Univ ers rine 5 mg 4-04 tablet by ity o f tablet 00:00: mouth 2 (two) Medical times Branch daily as needed for Muscle Spasms for up to 15 doses. ACETAMINOPH 2015-02 Yes Take by Uni vers EN WITH 0-10 mouth as ity of CODEINE 11:39: needed [place] (TYLENOL-CO 00 Pain Medical DEINE #3 (scale Branch ORAL) 1-3). lisinopril 2015-02 Yes [id number] 10mg Take 1 U nivers (PRINIVIL,Z 0-07 tablet by ity of ESTRIL) 10 00:00: mouth [place] mg tablet 00 daily. Medical Branch traMADOL 2015-02 Yes [id number] 50mg Take 1 Un erik (ULTRAM) 50 0-07 tablet by ity of mg tablet 00:00: mouth 3 (three) Medical times Branch daily as needed for Pain unrelieved by non-narcot ic analgesics . amLODIPine amLODIPine No 1{table QD amLODIPine Besylate [...] MG MG 10-325 MG hydroCHLORO hydroCHLORO No hydroCHLOR thiazide thiazide Othiazide 12.5 MG 12.5 MG 12.5 MG amLODIPine amLODIPine No 1{table BID amLODIPine Besylate 5 Besylate 5 t} Besylate 5 MG MG MG hydroCHLORO hydroCHLORO No hydroCHLOR thiazide thiazide Othiazide 12.5 MG 12.5 MG 12.5 MG hydroCHLORO hydroCHLORO No 1{table QD hydroCHLOR thiazide thiazide t_in_th Othiazide 12.5 MG 12.5 MG e_morni 12.5 MG ng} Pantoprazol Pantoprazol No 1{table QD Pantoprazo e Sodium 40 e Sodium 40 t} le Sodium MG MG 40 MG HYDROcodone HYDROcodone No 1{table QID HYDROcodon [...] amLODIPine amLODIPine No 1{table BID amLODIPine Besylate 5 Besylate 5 t} Besylate 5 MG MG MG hydroCHLORO hydroCHLORO No hydroCHLOR thiazide thiazide Othiazide 12.5 MG 12.5 MG 12.5 MG HYDROcodone HYDROcodone No 1{table QID HYDROcodon [...] Observation Time Observation Value Comments Source height 2022-03-29 13:30:00 69.5 [in_i] [facility] weight 2022-03-29 13:30:00 240 [lb_av] [facility] temperature 2022-03-29 13:30:00 98.1 [degF] [facility] bmi 2022-03-29 13:30:00 34.93 kg/m2 [facility] oximetry 2022-03-29 13:30:00 97 % [facility] respiratory rate 2022-03-29 13:30:00 18 /min Comm on [facility] blood pressure 2022-03-29 13:30:00 124 mm[Hg] [facility] systolic [facility] blood pressure 2022-03-29 13:30:00 74 mm[Hg] [facility] diastolic [facility] height 2022-02-17 10:20:00 69.5 [in_i] [facility] weight 2022-02-17 10:20:00 240 [lb_av] [facility] temperature 2022-02-17 10:20:00 98 [degF] [facility] bmi 2022-02-17 10:20:00 34.93 kg/m2 [facility] height 2021-12-22 10:20:00 69.50 [in_i] [facility] weight 2021-12-22 10:20:00 233.4 [lb_av] [facility] temperature 2021-12-22 10:20:00 97.6 [degF] [facility] bmi 2021-12-22 10:20:00 33.97 kg/m2 [facility] oximetry 2021-12-22 10:20:00 96 % [facility] respiratory rate 2021-12-22 10:20:00 16 /min Comm on [facility] blood pressure 2021-12-22 10:20:00 130 mm[Hg] Common [facility] - systolic [facility] blood pressure 2021-12-22 10:20:00 82 mm[Hg] Common [facility] - diastolic [facility] height 2021-11-19 14:00:00 69.50 [in_i] Common [facility] weight 2021-11-19 14:00:00 233.4 [lb_av] Common [facility] temperature 2021-11-19 14:00:00 97.6 [degF] Common [facility] bmi 2021-11-19 14:00:00 33.97 kg/m2 [facility] oximetry 2021-11-19 14:00:00 97 % [facility] respiratory rate 2021-11-19 14:00:00 16 /min Comm on [facility] blood pressure 2021-11-19 14:00:00 133 mm[Hg] Common [facility] - systolic [facility] blood pressure 2021-11-19 14:00:00 74 mm[Hg] Common [facility] - diastolic [facility] height 2021-11-13 13:20:00 69.50 [in_i] Common [facility] weight 2021-11-13 13:20:00 230 [lb_av] Common S pirit [facility] temperature 2021-11-13 13:20:00 97.3 [degF] Common S pirit [facility] bmi 2021-11-13 13:20:00 33.47 kg/m2 [facility] height 2021-10-08 09:40:00 69.50 [in_i] [facility] weight 2021-10-08 09:40:00 236.4 [lb_av] [facility] temperature 2021-10-08 09:40:00 97.3 [degF] Common [facility] bmi 2021-10-08 09:40:00 34.41 kg/m2 [facility] oximetry 2021-10-08 09:40:00 97 % [facility] respiratory rate 2021-10-08 09:40:00 16 /min Comm on [facility] blood pressure 2021-10-08 09:40:00 130 mm[Hg] [facility] systolic [facility] blood pressure 2021-10-08 09:40:00 78 mm[Hg] [facility] diastolic [facility] height 2021-09-17 15:20:00 69.50 [in_i] [facility] weight 2021-09-17 15:20:00 235.4 [lb_av] [facility] temperature 2021-09-17 15:20:00 98.0 [degF] [facility] bmi 2021-09-17 15:20:00 34.26 kg/m2 [facility] oximetry 2021-09-17 15:20:00 99 % [facility] respiratory rate 2021-09-17 15:20:00 16 /min Comm on [facility] blood pressure 2021-09-17 15:20:00 135 mm[Hg] [facility] systolic [facility] blood pressure 2021-09-17 15:20:00 89 mm[Hg] [facility] diastolic [facility] Procedures Procedure Date / Time Performed Performing Clinician Sourc e EXTERNAL PROVIDER - 2021-12-23 05:01:00 [facility] Branch Encounters Start End Encounter Admission Attending Care Care Encounter Source Date/Time Date/Time Type Type Clinicians Facility Department ID 2022-09-01 Outpatient KEN Vicente [facility] [id number] Common 15:25:00 [place] [id number] [facility] 2022-08-05 Outpatient KEN Vicente STLMLC [id number] Common 14:07:02 [place] [id number] [facility] 2022-07-29 Outpatient Vicente, STLMLC STLMLC [id number] Common 09:40:01 [place] [id number] [facility] 2022-06-15 Outpatient Vicente, STLMLC STLMLC [id number] Common 14:06:03 [place] [id number] [facility] 2022-03-29 Outpatient VERA, Na STLMLC STLMLC [id number] 2 Common 13:15:02 [id number] [facility] 2022-02-16 Outpatient Vera, Na STLMLC STLMLC [id number] 2 Common 11:56:00 [facility] 2022-02-09 Outpatient Vera, Na STLMLC STLMLC [id number] 2 Common 08:58:01 [facility] 2022-01-04 Outpatient Vera, Na STLMLC STLMLC [id number] 2 Common 12:02:01 [facility] 2021-12-31 Outpatient Vera, Na STLMLC STLMLC [id number] 2 Common 12:07:01 [facility] 2021-12-18 Outpatient Vera, Na STLMLC STLMLC [id number] 2 Common 10:58:02 [facility] 2021-12-10 Outpatient Vera, Na STLMLC STLMLC [id number] 2 Common 10:17:04 [facility] 2021-11-13 Outpatient Vera, Na STLMLC STLMLC [id number] 2 Common 13:16:02 [facility] 2021-11-12 Outpatient Vera, Na STLMLC STLMLC [id number] 2 Common 08:37:03 [facility] 2021-11-05 Outpatient Vera, Na STLMLC STLMLC [id number] 2 Common 13:52:02 [facility] 2021-10-06 Outpatient Vera, Na STLMLC STLMLC [id number] 2 Common 13:42:03 [facility] 2021-09-21 Outpatient Vera, Na STLMLC STLMLC [id number] 2 Common 14:29:01 [facility] 2021-09-17 Outpatient Vera, Na STLMLC STLMLC [id number] 2 Common 15:47:03 [facility] 2022-03-29 2022-03-29 OFFICE STLMLC STLMLC [id number] Co mmon 00:00:00 00:00:00 VISIT [facility] ESTAB PT - CHI LEVEL 2 [facility] 2022-02-17 2022-02-17 OFFICE STLMLC STLMLC [id number] Co mmon 00:00:00 00:00:00 VISIT Spirit ESTAB PT - CHI LEVEL 4 [facility] 2022-02-16 2022-02-16 (TEL) STLMLC STLMLC [id number] Co mmon 00:00:00 00:00:00 [facility] 2022-01-18 2022-01-18 (TEL) STLMLC STLMLC [id number] Co mmon 00:00:00 00:00:00 [facility] 2021-12-23 2021-12-23 Orders Doctor TRENT [id number] Univers 00:00:00 00:00:00 Only Unassigned, RENE [id number] ity of [place] [facility] [id number] Jim as [id number] [place] [id number] Branch 2021-12-22 2021-12-22 OFFICE STLMLC STLMLC [id number] Co mmon 00:00:00 00:00:00 VISIT EST Spir it PT LEVEL 3 [facility] 2021-12-22 2021-12-22 (TEL) STLMLC STLMLC [id number] Co mmon 00:00:00 00:00:00 [facility] 2021-12-11 2021-12-11 (TEL) STLMLC STLMLC [id number] Co mmon 00:00:00 00:00:00 [facility] 2021-11-19 2021-11-19 OFFICE STLMLC STLMLC [id number] Co mmon 00:00:00 00:00:00 VISIT EST Spir it PT LEVEL 3 [facility] 2021-11-17 2021-11-17 (TEL) STLMLC STLMLC [id number] Co mmon 00:00:00 00:00:00 [facility] 2021-11-13 2021-11-13 OFFICE STLMLC STLMLC [id number] Co mmon 00:00:00 00:00:00 VISIT EST Spir it PT LEVEL 3 [facility] 2021-10-23 2021-10-23 (TEL) STLMLC STLMLC [id number] Co mmon 00:00:00 00:00:00 [facility] 2021-10-08 2021-10-08 OFFICE STLMLC STLMLC [id number] Co mmon 00:00:00 00:00:00 VISIT [facility] PT - CHI LEVEL 4 [facility] 2021-10-01 2021-10-01 Outpatient ROM_JET BLACKMON [facility]FRANCK [id number] [place] 00:00:00 00:00:00 HN [id number] da [facility] 2021-09-17 2021-09-17 OFFICE STLMLC STLMLC [id number] Co mmon 00:00:00 00:00:00 VISIT NEW Spir it PT LEVEL 4 [facility] Results This patient has no known results.
--- NOTE | 2022-12-06 23:02 | EDPHYS ---
Physician Documentation [facility] Name: Cory Brock Age: 42 yrs Sex: Male : 1980 Arrival Date: 12/06/2022 Time: 22:29 Bed 7 Private MD: ED Physician Ross Sanchez HPI: 12/07 00:50 This 42 yrs old Male presents to ER via EMS with complaints of HTN. chioma 00:51 HTN , TIRED. Onset: The symptoms/episode began/occurred just prior to arrival. Severity chioma of symptoms: At their worst the symptoms were mild in the emergency department the symptoms are unchanged. The patient has not experienced similar symptoms in the past. Historical: - Allergies: 12/06 22:41 Aspirin; bp 22:41 NSAIDS (GI bleeding); bp 22:41 PENICILLINS; bp - Home Meds: 22:41 carvedilol oral [Active]; amlodipine oral [Active]; bp - PMHx: 22:41 Atrial fibrillation; Back pain; trauma; Hypertensive disorder; bp - Immunization history:: Adult Immunizations up to date. - Social history:: Smoking status: Patient denies any tobacco usage or history of. ROS: 12/07 00:54 Constitutional: Negative for fever, chills, and weight loss, Eyes: Negative for injury, chioma pain, redness, and discharge, ENT: Negative for injury, pain, and discharge, Neck: Negative for injury, pain, and swelling, Cardiovascular: Negative for chest pain, palpitations, and edema, Respiratory: Negative for shortness of breath, cough, wheezing, and pleuritic chest pain, Abdomen/GI: Negative for abdominal pain, nausea, vomiting, diarrhea, and constipation, Back: Negative for injury and pain, : Negative for injury, bleeding, discharge, and swelling, MS/Extremity: Negative for injury and deformity, Skin: Negative for injury, rash, and discoloration, Neuro: Negative for headache, weakness, numbness, tingling, and seizure, Psych: Negative for depression, anxiety, suicide ideation, homicidal ideation, and hallucinations, Allergy/Immunology: Negative for hives, rash, and allergies, Endocrine: Negative for neck swelling, polydipsia, polyuria, polyphagia, and marked weight changes, Hematologic/Lymphatic: Negative for swollen nodes, abnormal bleeding, and unusual bruising, Neuro: Positive for weakness, Exam: 00:54 Constitutional: This is a well developed, well nourished patient who is awake, alert, chioma and in no acute distress. Head/Face: Normocephalic, atraumatic. Eyes: Pupils equal round and reactive to light, extra-ocular motions intact. Lids and lashes normal. Conjunctiva and sclera are non-icteric and not injected. Cornea within normal limits. Periorbital areas with no swelling, redness, or edema. ENT: Nares patent. No nasal discharge, no septal abnormalities noted. Tympanic membranes are normal and external auditory canals are clear. Oropharynx with no redness, swelling, or masses, exudates, or evidence of obstruction, uvula midline. Mucous membranes moist. Neck: Trachea midline, no thyromegaly or masses palpated, and no cervical lymphadenopathy. Supple, full range of motion without nuchal rigidity, or vertebral point tenderness. No Meningismus. Chest/axilla: Normal chest wall appearance and motion. Nontender with no deformity. No lesions are appreciated. Cardiovascular: Regular rate and rhythm with a normal S1 and S2. No gallops, murmurs, or rubs. Normal PMI, no JVD. No pulse deficits. Respiratory: Lungs have equal breath sounds bilaterally, clear to auscultation and percussion. No rales, rhonchi or wheezes noted. No increased work of breathing, no retractions or nasal flaring. Abdomen/GI: Soft, non-tender, with normal bowel sounds. No distension or tympany. No guarding or rebound. No evidence of tenderness throughout. Back: No spinal tenderness. No costovertebral tenderness. Full range of motion. Male : Normal genitalia with no discharge or lesions. Skin: Warm, dry with normal turgor. Normal color with no rashes, no lesions, and no evidence of cellulitis. MS/ Extremity: Pulses equal, no cyanosis. Neurovascular intact. Full, normal range of motion. Neuro: Awake and alert, GCS 15, oriented to person, place, time, and situation. Cranial nerves II-XII grossly intact. Motor strength 5/5 in all extremities. Sensory grossly intact. Cerebellar exam normal. Normal gait. Psych: Awake, alert, with orientation to person, place and time. Behavior, mood, and affect are within normal limits. 00:54 Musculoskeletal/extremity: DVT Exam: No signs of deep vein thrombosis. no pain, no swelling, no tenderness, negative Homans' sign noted on exam, no appreciated bluish discoloration, no erythema, no increased warmth, Vital Signs: 12/06 22:36 BP 160 / 100; bp 22:45 BP 130 / 91; Pulse 71; Resp 16; Temp 98; Pulse Ox 97% ; bp 12/07 00:08 BP 117 / 81; Pulse 81; Resp 17; Pulse Ox 96% ; bp MDM: 12/06 22:42 Patient medically screened. chioma 22:50 Differential diagnosis: bowel obstruction, diverticulitis, gastritis, non-specific abd chioma pain, pancreatitis, Peritonitis. Data reviewed: vital signs, nurses notes, lab test result(s), EKG, radiologic studies, CT scan, plain films. Consideration of Admission/Observation Patient was admitted/placed on observation. Escalation of care including admission/observation considered. Management of patient was discussed with the following: Primary Care Provider: dr johnson. I considered the following discharge prescriptions or medication management in the emergency department Medications were administered in the Emergency Department. See MAR. Independent interpretation of the following test(s) in the Emergency Department EKG: See my EKG interpretation above. Test considered but Not performed: Ultrasound no abd usg. Historians other than the Patient: Daughter/Son: daughter , well informed. Care significantly affected by the following chronic conditions: Hypertension, a fib, back pain. Counseling: I had a detailed discussion with the patient and/or guardian regarding the historical points, exam findings, and any diagnostic results supporting the discharge/admit diagnosis, lab results, radiology results, the need for further work-up and treatment in the hospital. 12/06 22:43 Order name: Basic Metabolic Panel; Complete Time: 00:40 chioma 12/06 22:43 Order name: CBC with Diff; Complete Time: 00:40 chioma 12/06 21:43 Order name: LFT's; Complete Time: 00:40 chioma 12/06 22:43 Order name: Magnesium; Complete Time: 00:40 chioma 12/06 22:43 Order name: NT PRO-BNP; Complete Time: 00:40 chioma 12/06 22:43 Order name: PT-INR; Complete Time: 00:40 chioma 12/06 22:43 Order name: Troponin HS; Complete Time: 00:40 chioma 12/06 22:43 Order name: Lipase; Complete Time: 00:40 [facility] 12/06 22:43 Order name: XRAY Chest (1 view) [facility] 12/06 22:43 Order name: EKG; Complete Time: 22:45 [facility] 12/06 22:43 Order name: Cardiac monitoring; Complete Time: 23:30 [facility] 12/06 22:43 Order name: EKG - Nurse/Tech; Complete Time: 23:30 [facility] 12/06 22:43 Order name: IV Saline Lock; Complete Time: 23:30 [facility] 12/06 22:43 Order name: Labs collected and sent; Complete Time: 23:30 [facility] 12/06 22:43 Order name: O2 Per Protocol; Complete Time: 22:44 [facility] 12/06 22:43 Order name: O2 Sat Monitoring; Complete Time: :44 chioma Administered Medications: 23:00 Drug: NS 0.9% IV 1000 ml IV at 125 ml/hr continuous Route: IV; Rate: 125 ml/hr; Site: bp right forearm; Disposition Summary: 12/07/22 00:55 Discharge Ordered Notes: Location: Home(12/07/22 00:55) chioma Problem: new(12/07/22 00:55) chioma Symptoms: have improved(12/07/22 00:55) chioma Condition: Stable(12/07/22 00:55) chioma Diagnosis - Essential (primary) hypertension chioma - Weakness chioma Followup: chioma - With: Private Physician - When: 2 - 3 days - Reason: Recheck today's complaints, Continuance of care, Re-evaluation by your physician Discharge Instructions: - Discharge Summary Sheet chioma - Hypertension, Adult chioma - Weakness chioma - Hypertension, Adult, [id number] chioma - How to Take Your Blood Pressure, [id number] chioma - Weakness, [id number] chioma - Managing Your Hypertension chioma Forms: - Medication Reconciliation Form chioma - Thank You Letter chioma - Antibiotic Education chioma - Prescription Opioid Use chioma - Patient Portal Instructions chioma - Leadership Thank You Letter chioma Signatures: Dispatcher [employer] Ross Jones MD MD cha Peltier, Brian, RN RN bp Corrections: (The following items were deleted from the chart) 23:02 23:01 Inpatient Admission chioma [facility] 23:02 23:01 Lyle Johnson cha [facility] 23:02 23:01 Telemetry/MedSurg (Inpatient) chioma chioma 23:02 23:01 Fair [facility] chioma 23:02 23:01 new [facility] 23:02 23:01 have improved [facility] chioma 23: 23:01 Standard [facility] chioma 23: 23:01 [facility] chioma 23: 23:01 Abdominal pain, Generalized [facility] 23:02 23:01 Left sided colitis - proctitis [facility] chioma 23:02 23:01 Elevated white blood cell count [facility] chioma 23:02 23:01 UTI/ Urinary tract infection, site not specified [facility] 23: 23:01 Constipation [facility] : 22:45 The patient presents with abdominal pain in the lower abdomen, [facility] : 22:45 Onset: The symptoms/episode began/occurred 2 day(s) ago, [facility] : 22:45 The symptoms do not radiate. [facility] : 22:45 Associated signs and symptoms: Pertinent positives: constipation, chioma [facility] : 22:45 Severity of pain: At its worst the pain was moderate in the emergency department chioma the pain is unchanged [facility] : 22:45 The patient has not experienced similar symptoms in the past, [facility] : 22:45 Modifying factors: The symptoms are alleviated by nothing, remaining still, the chioma symptoms are aggravated by [facility] : 22:45 This 42 yrs old Male presents to ER via EMS with complaints of abdominal chioma pain, constipation. [facility] : 22:49 Constitutional: Negative for fever, chills, and weight loss, Eyes: Negative for chioma injury, pain, redness, and discharge, ENT: Negative for injury, pain, and discharge, Neck: Negative for injury, pain, and swelling, Cardiovascular: Negative for chest pain, palpitations, and edema, Respiratory: Negative for shortness of breath, cough, wheezing, and pleuritic chest pain, Back: Negative for injury and pain, : Negative for injury, bleeding, discharge, and swelling, MS/Extremity: Negative for injury and deformity, Skin: Negative for injury, rash, and discoloration, Neuro: Negative for headache, weakness, numbness, tingling, and seizure, Psych: Negative for depression, anxiety, suicide ideation, homicidal ideation, and hallucinations, Allergy/Immunology: Negative for hives, rash, and allergies, Endocrine: Negative for neck swelling, polydipsia, polyuria, polyphagia, and marked weight changes, Hematologic/Lymphatic: Negative for swollen nodes, abnormal bleeding, and unusual bruising, [facility] 23: 22:49 Abdomen/GI: Positive for abdominal pain, constipation, [facility] 23: 22:49 Constitutional: This is a well developed, well nourished patient who is awake, chioma alert, and in no acute distress. Head/Face: Normocephalic, atraumatic. Eyes: Pupils equal round and reactive to light, extra-ocular motions intact. Lids and lashes normal. Conjunctiva and sclera are non-icteric and not injected. Cornea within normal limits. Periorbital areas with no swelling, redness, or edema. ENT: Nares patent. No nasal discharge, no septal abnormalities noted. Tympanic membranes are normal and external auditory canals are clear. Oropharynx with no redness, swelling, or masses, exudates, or evidence of obstruction, uvula midline. Mucous membranes moist. Neck: Trachea midline, no thyromegaly or masses palpated, and no cervical lymphadenopathy. Supple, full range of motion without nuchal rigidity, or vertebral point tenderness. No Meningismus. Chest/axilla: Normal chest wall appearance and motion. Nontender with no deformity. No lesions are appreciated. Cardiovascular: Regular rate and rhythm with a normal S1 and S2. No gallops, murmurs, or rubs. Normal PMI, no JVD. No pulse deficits. Respiratory: Lungs have equal breath sounds bilaterally, clear to auscultation and percussion. No rales, rhonchi or wheezes noted. No increased work of breathing, no retractions or nasal flaring. Back: No spinal tenderness. No costovertebral tenderness. Full range of motion. Male : Normal genitalia with no discharge or lesions. Skin: Warm, dry with normal turgor. Normal color with no rashes, no lesions, and no evidence of cellulitis. MS/ Extremity: Pulses equal, no cyanosis. Neurovascular intact. Full, normal range of motion. Neuro: Awake and alert, GCS 15, oriented to person, place, time, and situation. Cranial nerves II-XII grossly intact. Motor strength 5/5 in all extremities. Sensory grossly intact. Cerebellar exam normal. Normal gait. Psych: Awake, alert, with orientation to person, place and time. Behavior, mood, and affect are within normal limits. [facility] 23:04 22:49 Abdomen/GI: Inspection: abdomen appears normal, Bowel sounds: normal, Rectal chioma exam: rectal tone normal, hemorrhoid(s), external, tenderness, that is mild, fecal impaction, that is mild, Liver: Hernia: not appreciated, chioma
--- NOTE | 2022-12-06 23:02 | ER ---
Nurse's Notes [facility] Name: Cory Brock Age: 42 yrs Sex: Male : 1980 Arrival Date: 12/06/2022 Time: 22:29 Bed 7 Private MD: Diagnosis: Essential (primary) hypertension;Weakness Presentation: 12/06 22:36 Chief complaint: EMS states: FELT LIKE HIS PRESSURE WAS HIGH. Coronavirus screen: At bp this time, the client does not indicate any symptoms associated with coronavirus-19. Ebola Screen: No symptoms or risks identified at this time. Initial Sepsis Screen: Does the patient meet any 2 criteria? No. Patient's initial sepsis screen is negative. Does the patient have a suspected source of infection? No. Patient's initial sepsis screen is negative. Risk Assessment: Do you want to hurt yourself or someone else? Patient reports no desire to harm self or others. Onset of symptoms was December 06, 2022. 22:36 Method Of Arrival: EMS: [facility] bp 22:36 Acuity: CORY 3 bp 22:36 Care prior to arrival: Glucose check: 75. bp Triage Assessment: 22:42 General: Appears in no apparent distress. Behavior is cooperative, appropriate for age, bp anxious. Pain: Denies pain. Historical: - Allergies: 22:41 Aspirin; bp 22:41 NSAIDS (GI bleeding); bp 22:41 PENICILLINS; bp - Home Meds: 22:41 carvedilol oral [Active]; amlodipine oral [Active]; bp - PMHx: 22:41 Atrial fibrillation; Back pain; trauma; Hypertensive disorder; bp - Immunization history:: Adult Immunizations up to date. - Social history:: Smoking status: Patient denies any tobacco usage or history of. Screenin:43 [facility] ED Fall Risk Assessment (Adult) History of falling in the last 3 months, bp including since admission No falls in past 3 months (0 pts). Abuse screen: Denies threats or abuse. Denies injuries from another. Nutritional screening: No deficits noted. Tuberculosis screening: No symptoms or risk factors identified. Assessment: 22:45 General: SEE TRIAGE NOTE. bp 12/07 00:09 Reassessment: Patient appears in no apparent distress at this time. Patient is alert, bp oriented x 3, equal unlabored respirations, skin warm/dry/pink. 01:27 Reassessment: Patient appears in no apparent distress at this time. Patient and/or jb4 family updated on plan of care and expected duration. Pain level reassessed. Patient is alert, oriented x 3, equal unlabored respirations, skin warm/dry/pink. Vital Signs: 12/06 22:36 BP 160 / 100; bp 22:45 BP 130 / 91; Pulse 71; Resp 16; Temp 98; Pulse Ox 97% ; bp 12/07 00:08 BP 117 / 81; Pulse 81; Resp 17; Pulse Ox 96% ; bp ED Course: 12/06 22:32 Patient arrived in ED. rv1 22:36 Noe Champion, RN is Primary Nurse. bp 22:41 Triage completed. bp 22:42 Ross Sanchez MD is Attending Physician. chioma 22:42 Arm band placed on. bp 22:43 Patient has correct armband on for positive identification. Bed in low position. Call bp light in reach. Side rails up X2. 22:54 XRAY Chest (1 view) In Process Unspecified. EDFL 23:00 Lyle Johnson MD is Hospitalizing Provider. [facility] 23:00 Inserted saline lock: 22 gauge in right antecubital area, using aseptic technique. bp Blood collected. 12/07 01:27 No provider procedures requiring assistance completed. IV discontinued, intact, jb4 bleeding controlled, No redness/swelling at site. Pressure dressing applied. Administered Medications: 12/06 23:00 Drug: NS 0.9% IV 1000 ml IV at 125 ml/hr continuous Route: IV; Rate: 125 ml/hr; Site: bp right forearm; Medication: 22:45 VIS not applicable for this client. bp Outcome: 23:01 Decision to Hospitalize by Provider. [facility] 12/07 00:55 Discharge ordered by . [facility] 01:27 Discharged to home ambulatory, jb4 01:27 Condition: stable 01:27 Discharge instructions given to patient, Instructed on discharge instructions, follow up and referral plans. Demonstrated understanding of instructions, follow-up care, 01:28 Patient left the ED. jb4 Signatures: Dispatcher [employer] EDFL Ross Sanchez MD MD cha Bryson, James RN RN jb4 Noe Champion, BRETT RN bp Alannah Samuel rv1
[2022-12-06 23:39] LABS: Hematocrit 42.1 % (39.6-49.0); Lymphocytes % 24.1 % (15.3-44.8); MPV 9.6 fL (7.6-11.3); Platelets 100 thou/uL (152-406); RBC Red Blood Cell Count 4.67 M/uL (4.33-5.43)
[2022-12-06 23:40] LABS: Protime INR 1.07
[2022-12-07 00:14] LABS: ALT/SGPT 23 U/L (16-61); AST/SGOT 15 U/L (15-37); Albumin 3.8 g/dL (3.4-5.0); Alkaline Phosphatase 72 U/L (45-117); BUN Blood Urea Nitrogen 13 mg/dL (7-18); Bicarbonate 30 mEq/L (21-32); Bilirubin Direct < 0.1 mg/dL (0-0.2); Bilirubin Indirect, Calculated ND mg/dL (0.2-0.8); Bilirubin Total 0.5 mg/dL (0.2-1.0); Glomerular Filtration Rate 90 ml/min (=/>90); Glucose Level 100 mg/dL (74-106); Lipase 34 U/L (13-75); NT PRO-BNP 33 pg/mL (<125); Potassium 3.8 mEq/L (3.5-5.1); Protein, Total 7.4 g/dL (6.4-8.2); Sodium Level 140 mEq/L (136-145); Troponin High Sensitivity 7.9 pg/mL (<58.9)
[2022-12-07 03:13] VITALS: TEMP 98
[2022-12-07 03:14] VITALS: BP 117/81; O2SAT 96
--- NOTE | 2022-12-07 11:40 | EKG ---
Test Date: 2022-12-06 Test Time: 22:52:45 Hospitalist: MISAEL MEASUREMENT RESULTS: Intervals: Rate: 71 NE: 176 QRSD: 88 QT: 374 QTc: 406 [place]: P: 17 NE: 176 QRS: 19 T: 20 INTERPRETIVE STATEMENTS: Normal sinus rhythm Normal ECG Compared to ECG 11/28/2022 01:25:13 Incomplete right bundle-branch block no longer present Electronically Signed On 12-07-22 11:38:50 CDT by Kehinde Lackey
--- NOTE | 2022-12-07 14:09 | RAD REPORT ---
EXAM DESCRIPTION: RAD - Chest Single View - 12/06/2022 10:52 pm CLINICAL HISTORY: Cough.. TECHNIQUE: AP portable chest x-ray upright on 12/06/2022, at 22: 50. COMPARISON: 11/28/2022, at 02: 07. FINDINGS: Heart: Normal size and configuration. Mediastinal Structures: Normal and midline.. Lung Pretty: No active disease. Pulmonary Vascularity: Normal. Pleural Space: No active disease. Bony Structures: Normal. IMPRESSION: Normal study. Electronically signed by: Hector Sánchez MD 12/06/2022 11:06 PM CDT Due to temporary technical issues with the PACS/Fluency reporting system, reports are being signed by the in house radiologists without review as a courtesy to insure prompt reporting. The interpreting radiologist is fully responsible for the content of the report.
== END 2022-12-07 01:28 | disposition home or self-care (01) ==
LOC: ER 22:29
DX: I10 Essential (primary) hypertension (principal); R53.1 Weakness; I48.91 Unspecified atrial fibrillation; Z88.0 Allergy status to penicillin; Z88.6 Allergy status to analgesic agent
CPT/HCPCS: 36415; 71045; 80048; 80076; 83690; 83735; 83880; 84484; 85025; 85610; 93005; 99284

== ENCOUNTER 2022-12-24 15:09 | Emergency (ER) | payer OTHER ==
--- OUTSIDE RECORDS SUMMARY | 2022-12-24 15:13 | XMS REPORT | Continuity of Care Document ---
:1980 Author Organization [facility] t Address [address] [facility]. [address] [place] [address] Care Team Providers Name Role Phone Pcp, Patient Does Not Have A Primary Care Physician [id number] Martha Vicente Attending Clinician Unavailable Angela VERA Attending Clinician Unavailable Doctor Unassigned, [place] Attending Clinician Unavailable JULITA Attending Clinician Unavailable JULITA Admitting Clinician Unavailable Payers Payer Name Policy Type Policy Number Effective Date Expiration Date S luigi [place] 53 [id number] Common [facility] Problems Condition Condition Condition Status Onset Resolution Last Treating Co mments Source Name Details Category Date Date Treatment Clinician Date Mixed Mixed Disease Active 2015-02 Univers dyslipidem dyslipidem 0-10 it y of [place] ia 00:00: [address] Chronic Chronic Disease Active 2015-02 Univers back pain back pain 0-07 ity of 00:00: [address] Obesity Obesity Disease Active 2015-02 Univers (BMI (BMI 0-07 ity of 30-39.9) 30-39.9) 00:00: [address] Tobacco Tobacco Disease Active 2015-02 Univers use use 0-07 ity of 00:00: [address] [id number] Panic Problem Common attacks [facility] Screening Screening Problem Com mon for for Spirit cardiovasc cardiovasc - [facility] gabriela ochoa St system condition [facility] [id number] Chest Problem Common pain, Spirit unspecifie - [facility]I d type [facility] [id number] Gastroesop Problem Co mmon hageal Spirit reflux - [facility] disease, unspecifie [facility] s present [id number] Primary Problem Common hypertensi Spirit on - [facility] Gastro-eso Gastro-eso Problem C ommon phageal phageal Spirit reflux reflux - CHI disease disease St without without [facility] esophagiti esophagiti Me dical s Center [id number] DDD Problem Common (degenerat Spirit delf[facility] HTN Problem Commo n on (hypertens Spirit ion) - [facility] [id number] Temporary Problem Com mon low Spirit platelet - [facility] count [facility] Somnolence Somnolence Problem C ommon , daytime [facility] [id number] Anxiety Problem Common Spirit - [facility] Chronic Chronic Problem Common fatigue fatigue Spirit syndrome - [facility] [id number] Difficulty Problem Co mmon sleeping [facility] Allergies, Adverse Reactions, Alerts Allergy Allergy Status [...] Propensi Active Swelling Unive rs ty to 807 ity of adverse 00:00: [place] reaction 00 Medical s Branch Social History Social Habit Start Date Stop Date Quantity Comments Source History of Common Spirit - Tobacco Use [facility] Alcohol intake 2021-09-08 2021-09-08 0 /d University of 00:00:00 00:00:00 [facility] [place] [facility] Tobacco use and 2015-12-05 2015-12-05 Smokeless tobacco Un iversity of exposure 00:00:00 00:00:00 non-user [facility] [place] [facility] Sex Assigned At [birth year] Universit y of 00:00:00 00:00:00 [facility] Smoking Status Start Date Stop Date Source Former Smoker 2022-03-29 00:00:00 2022-03-29 00:00:00 Common S pirit - CHI [facility] Ce nter Smokes tobacco daily 2015-12-05 00:00:00 Univers ity [facility] Medications Ordered Filled Start Stop Current [...] 3.125 MG 00:00: food} 00 cyclobenzap Yes [id number] 10mg Take 1 Univers rine 10 mg 3-26 tablet by ity of tablet 00:00: mouth 3 [place] 00 (three) Medical times Branch daily as needed for Muscle Spasms. acetaminoph Yes [id number] 1{tbl} Take 1 Univers en-codeine 3-26 tablet [...] (scale Branch ORAL) 1-3). lisinopril 2015-02 Yes [id number] 10mg Take 1 U nivers (PRINIVIL,Z 0-07 tablet by ity of ESTRIL) 10 00:00: mouth [place] mg tablet 00 daily. Medical Branch traMADOL 2015-02 Yes [id number] 50mg Take 1 Un erik (ULTRAM) 50 [...] Comments Source height 2022-03-29 13:30:00 69.5 [in_i] [facility] weight 2022-03-29 13:30:00 240 [lb_av] [facility] temperature 2022-03-29 13:30:00 98.1 [degF] [facility] bmi 2022-03-29 13:30:00 34.93 kg/m2 [facility] oximetry 2022-03-29 13:30:00 97 % [facility] respiratory rate 2022-03-29 13:30:00 18 /min Comm on [facility] blood pressure 2022-03-29 13:30:00 124 mm[Hg] [facility] systolic [facility] blood pressure 2022-03-29 13:30:00 74 mm[Hg] [facility] diastolic [facility] height 2022-02-17 10:20:00 69.5 [in_i] [facility] weight 2022-02-17 10:20:00 240 [lb_av] [facility] temperature 2022-02-17 10:20:00 98 [degF] [facility] bmi 2022-02-17 10:20:00 34.93 kg/m2 [facility] height 2021-12-22 10:20:00 69.50 [in_i] [facility] weight 2021-12-22 10:20:00 233.4 [lb_av] [facility] temperature 2021-12-22 10:20:00 97.6 [degF] [facility] bmi 2021-12-22 10:20:00 33.97 kg/m2 [facility] oximetry 2021-12-22 10:20:00 96 % [facility] respiratory rate 2021-12-22 10:20:00 16 /min Comm on [facility] blood pressure 2021-12-22 10:20:00 130 mm[Hg] Common [facility] - systolic [facility] blood pressure 2021-12-22 10:20:00 82 mm[Hg] Common Spirit - diastolic [facility] height 2021-11-19 14:00:00 69.50 [in_i] Common [facility] weight 2021-11-19 14:00:00 233.4 [lb_av] [facility] temperature 2021-11-19 14:00:00 97.6 [degF] Common [facility] bmi 2021-11-19 14:00:00 33.97 kg/m2 [facility] oximetry 2021-11-19 14:00:00 97 % [facility] respiratory rate 2021-11-19 14:00:00 16 /min Comm on [facility] blood pressure 2021-11-19 14:00:00 133 mm[Hg] Common [facility] - systolic [facility] blood pressure 2021-11-19 14:00:00 74 mm[Hg] Common [facility] - diastolic [facility] height 2021-11-13 13:20:00 69.50 [in_i] Common [facility] weight 2021-11-13 13:20:00 230 [lb_av] [facility] temperature 2021-11-13 13:20:00 97.3 [degF] [facility] bmi 2021-11-13 13:20:00 33.47 kg/m2 Common S [facility] height 2021-10-08 09:40:00 69.50 [in_i] [facility] weight 2021-10-08 09:40:00 236.4 [lb_av] [facility] temperature 2021-10-08 09:40:00 97.3 [degF] Common [facility] bmi 2021-10-08 09:40:00 34.41 kg/m2 [facility] oximetry 2021-10-08 09:40:00 97 % [facility] respiratory rate 2021-10-08 09:40:00 16 /min Comm on [facility] blood pressure 2021-10-08 09:40:00 130 mm[Hg] Common [facility] - systolic [facility] blood pressure 2021-10-08 09:40:00 78 mm[Hg] Common [facility] diastolic [facility] height 2021-09-17 15:20:00 69.50 [in_i] [facility] weight 2021-09-17 15:20:00 235.4 [lb_av] [facility] temperature 2021-09-17 15:20:00 98.0 [degF] [facility] bmi 2021-09-17 15:20:00 34.26 kg/m2 [facility] oximetry 2021-09-17 15:20:00 99 % [facility] respiratory rate 2021-09-17 15:20:00 16 /min Comm on [facility] blood pressure 2021-09-17 15:20:00 135 mm[Hg] [facility] systolic [facility] blood pressure 2021-09-17 15:20:00 89 mm[Hg] [facility] diastolic [facility] Procedures Procedure Date / Time Performed Performing Clinician Sourc e EXTERNAL PROVIDER - 2021-12-23 05:01:00 [facility] Name Medical Branch Encounters Start End Encounter Admission Attending Care Care Encounter Source Date/Time Date/Time Type Type Clinicians Facility Department ID 2022-09-01 [id number] Common 15:25:00 [place]nee [id number] [facility] 2022-08-05 Outpatient KEN Vicente [facility] [id number] Common 14:07:02 Avnee [id number] [facility] 2022-07-29 Outpatient Vicente, STLMLC STLMLC [id number] Common 09:40:01 Avnee [id number] [facility] 2022-06-15 Outpatient Vicente, STLMLC STLMLC [id number] Common 14:06:03 Avnee [id number] [facility] 2022-03-29 Outpatient VERA, Na STLMLC STLMLC [id number] 2 Common 13:15:02 [id number] [facility] 2022-02-16 Outpatient Vera, Na STLMLC STLMLC [id number] 2 Common 11:56:00 [facility] 2022-02-09 Outpatient Vera, Na STLMLC STLMLC [id number] 2 Common 08:58:01 [facility] 2022-01-04 Outpatient Vera, Na STLMLC STLMLC [id number] 2 Common 12:02:01 [facility] 2021-12-31 Outpatient Vera, Na STLMLC STLMLC [id number] 2 Common 12:07:01 [facility] 2021-12-18 Outpatient Vera, Na STLMLC STLMLC [id number] 2 Common 10:58:02 [facility] 2021-12-10 Outpatient Vera, Na STLMLC STLMLC [id number] 2 Common 10:17:04 [facility] 2021-11-13 Outpatient Vera, Na STLMLC STLMLC [id number] 2 Common 13:16:02 [facility] 2021-11-12 Outpatient Vera, Na STLMLC STLMLC [id number] 2 Common 08:37:03 [facility] 2021-11-05 Outpatient Vera, Na STLMLC STLMLC [id number] 2 Common 13:52:02 [facility] 2021-10-06 Outpatient Vera, Na STLMLC STLMLC [id number] 2 Common 13:42:03 [facility] 2021-09-21 Outpatient Vera, Na STLMLC STLMLC [id number] 2 Common 14:29:01 [facility] 2021-09-17 Outpatient Vera, Na STLMLC STLMLC [id number] 2 Common 15:47:03 [facility] 2022-03-29 2022-03-29 OFFICE STLMLC STLMLC [id number] Co mmon 00:00:00 00:00:00 VISIT [facility] ESTAB PT - CHI LEVEL 2 [facility] 2022-02-17 2022-02-17 OFFICE STLMLC STLMLC [id number] Co mmon 00:00:00 00:00:00 VISIT Spirit ESTAB PT - CHI LEVEL 4 [facility] 2022-02-16 2022-02-16 (TEL) STLMLC STLMLC [id number] Co mmon 00:00:00 00:00:00 [facility] 2022-01-18 2022-01-18 (TEL) STLMLC STLMLC [id number] Co mmon 00:00:00 00:00:00 [facility] 2021-12-23 2021-12-23 Orders Doctor TRENT [id number] Univers 00:00:00 00:00:00 Only Unassigned, RENE [id number] ity of [place] [facility] [id number] Jim as [id number] [place] [id number] Branch 2021-12-22 2021-12-22 OFFICE STLMLC STLMLC [id number] Co mmon 00:00:00 00:00:00 VISIT EST Spir it PT LEVEL 3 [facility] 2021-12-22 2021-12-22 (TEL) STLMLC STLMLC [id number] Co mmon 00:00:00 00:00:00 [facility] 2021-12-11 2021-12-11 (TEL) STLMLC STLMLC [id number] Co mmon 00:00:00 00:00:00 [facility] 2021-11-19 2021-11-19 OFFICE STLMLC STLMLC [id number] Co mmon 00:00:00 00:00:00 VISIT EST Spir it PT LEVEL 3 [facility] 2021-11-17 2021-11-17 (TEL) STLMLC STLMLC [id number] Co mmon 00:00:00 00:00:00 [facility] 2021-11-13 2021-11-13 OFFICE STLMLC STLMLC [id number] Co mmon 00:00:00 00:00:00 VISIT EST Spir it PT LEVEL 3 [facility] 2021-10-23 2021-10-23 (TEL) STLMLC STLMLC [id number] Co mmon 00:00:00 00:00:00 [facility] 2021-10-08 2021-10-08 OFFICE STLMLC STLMLC [id number] Co mmon 00:00:00 00:00:00 VISIT [facility] PT - [facility] LEVEL 4 [facility] 2021-10-01 2021-10-01 Outpatient ROM_JET BLACKMON [facility] [id number] [place] 00:00:00 00:00:00 HN [id number] da [facility] 2021-09-17 2021-09-17 OFFICE STLMLC STLMLC [id number] Co mmon 00:00:00 00:00:00 VISIT NEW Spir it PT LEVEL 4 [facility] Results This patient has no known results.
[2022-12-24 15:56] LABS: Absolute Lymphocytes (CBC) 1.7 K/uL (0.7-4.9); Hematocrit 45.9 % (39.6-49.0); Lymphocytes % 19.3 % (15.3-44.8); MCV 91.1 fL (80-100); MPV 8.9 fL (7.6-11.3); Platelets 121 thou/uL (152-406); RBC Red Blood Cell Count 5.04 M/uL (4.33-5.43)
--- NOTE | 2022-12-24 16:06 | RAD REPORT ---
EXAM DESCRIPTION: Erum Single View12/24/2022 3:31 pm CLINICAL HISTORY: Chest pain COMPARISON: December 06, 2022 FINDINGS: The lungs appear clear of acute infiltrate. The heart is normal size IMPRESSION: No acute abnormalities displayed
[2022-12-24 16:11] LABS: Protime INR 1.09
[2022-12-24 16:14] LABS: Albumin 4.1 g/dL (3.4-5.0); Bilirubin Direct 0.1 mg/dL (0-0.2); Bilirubin Indirect, Calculated 0.8 mg/dL (0.2-0.8); Bilirubin Total 0.9 mg/dL (0.2-1.0); Magnesium 2.1 mg/dL (1.6-2.4); Potassium 3.5 mEq/L (3.5-5.1); Protein, Total 7.9 g/dL (6.4-8.2)
--- NOTE | 2022-12-24 16:17 | EDPHYS ---
Physician Documentation [facility] Name: Cory Brock Age: 42 yrs Sex: Male : 1980 Arrival Date: 12/24/2022 Time: 15:09 Bed IW1 Private MD: ED Physician Ross Sanchez HPI: 12/24 16:41 This 42 yrs old Male presents to ER via EMS with complaints of High Blood sb4 Pressure. 16:41 The patient has elevated blood pressure and discovered this at home, with a home sb4 device. Onset: The symptoms/episode began/occurred this morning. Associated signs and symptoms: The patient has no apparent associated signs or symptoms. Severity of symptoms: At its worst the blood pressure was moderate. The patient has experienced similar episodes in the past, several times. The patient has been recently seen at the [facility] Emergency Department. Historical: - Allergies: 15:14 Aspirin; tm6 15:14 NSAIDS (GI bleeding); tm6 15:14 PENICILLINS; tm6 - PMHx: 15:14 Atrial fibrillation; Back pain; Hypertensive disorder; trauma; tm6 - Immunization history:: Adult Immunizations up to date. - Social history:: Smoking status: unknown. ROS: 12/25 08:13 Constitutional: Negative for fever, chills, and weight loss, sb4 All other systems are negative, Exam: 08:13 Constitutional: This is a well developed, well nourished patient who is awake, alert, sb4 and in no acute distress. Head/Face: Normocephalic, atraumatic. Eyes: Extra-ocular motions intact. Periorbital areas with no swelling, redness, or edema. ENT: Mucous membranes moist. Cardiovascular: Regular rate and rhythm with a normal S1 and S2. Respiratory: Lungs have equal breath sounds bilaterally, clear to auscultation and percussion. No rales, rhonchi or wheezes noted. No increased work of breathing, no retractions or nasal flaring. Abdomen/GI: Soft, non-tender, no distension. Skin: Warm, dry with normal turgor. Normal color with no rashes, no lesions, and no evidence of cellulitis. MS/ Extremity: Pulses equal, no cyanosis. Neurovascular intact. Full, normal range of motion. Neuro: Awake and alert, GCS 15, oriented to person, place, time, and situation. Motor strength 5/5 in all extremities. Sensory grossly intact. Vital Signs: 12/24 15:14 BP 147 / 94; Resp 17; Weight 90.72 kg; Height 5 ft. 10 in. ; tm6 15:14 Body Mass Index 28.70 (90.72 kg, 177.8 cm) tm6 MDM: 15:16 Patient medically screened. sb4 12/25 08:13 Differential diagnosis: hypertensive crisis, Malignant HTN. Data interpreted:. Data sb4 reviewed: vital signs, nurses notes, EMS record, lab test result(s), EKG, radiologic studies, and as a result, I will discharge patient. Consideration of Admission/Observation Escalation of care including admission/observation considered. Care significantly affected by the following chronic conditions: Hypertension. Counseling: I had a detailed discussion with the patient and/or guardian regarding the historical points, exam findings, and any diagnostic results supporting the discharge/admit diagnosis, the presence of at least one elevated blood pressure reading (>120/80) during this emergency department visit, lab results, radiology results, the need for outpatient follow up, a drafter geological, to return to the emergency department if symptoms worsen or persist or if there are any questions or concerns that arise at home. ED course: provided patient with a rescue medication for elevated BP readings within a specified criteria. instructed him to follow up with his PCP and cardiology to adjust his medications to adequately control his BP. he understands. 12/24 15:16 Order name: Basic Metabolic Panel; Complete Time: 16:16 sb4 12/24 15:16 Order name: CBC with Diff; Complete Time: 15:58 sb4 12/24 15:16 Order name: D-Dimer; Complete Time: 16:14 sb4 12/24 15:16 Order name: LFT's; Complete Time: 16:16 sb4 12/24 15:16 Order name: Magnesium; Complete Time: 16:16 sb4 12/24 15:16 Order name: NT PRO-BNP; Complete Time: 16:16 sb4 12/24 15:16 Order name: PT-INR; Complete Time: 16:14 sb4 12/24 15:16 Order name: Troponin HS; Complete Time: 16:16 sb4 12/24 15:16 Order name: XRAY Chest (1 view); Complete Time: 16:07 sb4 12/24 15:16 Order name: EKG; Complete Time: 15:17 sb4 12/24 15:16 Order name: Cardiac monitoring; Complete Time: 16:31 sb4 12/24 15:16 Order name: EKG - Nurse/Tech; Complete Time: 15:52 sb4 12/24 15:16 Order name: IV Saline Lock; Complete Time: 15:44 sb4 12/24 15:16 Order name: Labs collected and sent; Complete Time: 15:44 sb4 12/24 15:16 Order name: O2 Per Protocol; Complete Time: 16:31 sb4 12/24 15:16 Order name: O2 Sat Monitoring; Complete Time: 16:31 sb4 EC/27 16:11 Rate is 78 beats/min. Rhythm is regular, Normal Sinus Rhythm. ID interval is normal at sb4 144 msec. QRS interval is normal at 88 msec. QT interval is normal at 408 msec. No Q waves. T waves are Normal. No ST changes noted. Clinical impression: Normal ECG. Interpreted by me. Reviewed by me. Administered Medications: 16:34 CANCELLED (Physician Discretion): [id number] mg PO once sb4 Disposition Summary: 12/24/22 16:17 Discharge Ordered Notes: Location: Home sb4 Problem: new sb4 Symptoms: have improved sb4 Condition: Stable sb4 Diagnosis - Essential (primary) hypertension sb4 Followup: sb4 - With: Uli Forte DO - When: 2 - 3 days - Reason: Recheck today's complaints, Re-evaluation by your physician Discharge Instructions: - Discharge Summary Sheet sb4 - Hypertension, Adult sb4 - DASH Eating Plan sb4 Forms: - Medication Reconciliation Form sb4 - Thank You Letter sb4 - Antibiotic Education sb4 - Prescription Opioid Use sb4 - Patient Portal Instructions sb4 - Leadership Thank You Letter sb4 Prescriptions: - clonidine HCl 0.1 mg Oral tablet - take 1 tablet ORAL route every hour as needed for hypertensive emergency; do sb4 not exceed 5 doses per 24 hrs; 20 tablet; Refills: 0, Product Selection Permitted Signatures: Dispatcher [employer] Mary Vanegas PA-C PA-C sb4 Alex Garcia RN RN tm6 Corrections: (The following items were deleted from the chart) 16:34 15:16 Acetaminophen PO 1000 mg PO once ordered. sb4 sb4
--- NOTE | 2022-12-24 16:17 | ER ---
Nurse's Notes [facility] Name: Cory Brock Age: 42 yrs Sex: Male : 1980 Arrival Date: 12/24/2022 Time: 15:09 Bed IW1 Private MD: Diagnosis: Essential (primary) hypertension Presentation: 12/24 15:13 Chief complaint: EMS states: patient reported high blood pressure and headache. tm6 15:13 Method Of Arrival: EMS: [facility] tm6 15:26 Coronavirus screen: Client denies travel out of the [place] in the last 14 days. Client tm6 indicates they have traveled out of the [place] in the last 14 days. At this time, unable to obtain information related to travel outside the [place] Ebola Screen: Patient negative for fever greater than or equal to 101.5 degrees Fahrenheit, and additional compatible Ebola Virus Disease symptoms Patient denies exposure to infectious person. Patient denies travel to an Ebola-affected area in the 21 days before illness onset. No symptoms or risks identified at this time. Initial Sepsis Screen: Does the patient meet any 2 criteria? No. Patient's initial sepsis screen is negative. Does the patient have a suspected source of infection? No. Patient's initial sepsis screen is negative. Risk Assessment: Do you want to hurt yourself or someone else? Patient reports no desire to harm self or others. Onset of symptoms was December 24, 2022. 15:26 Acuity: CORY 3 tm6 Triage Assessment: 15:14 General: Appears in no apparent distress. Behavior is calm, cooperative, appropriate tm6 for age. Pain: Complains of pain in face. Neuro: Level of Consciousness is awake, alert, obeys commands, Oriented to person, place, time, Appropriate for age. Cardiovascular: Capillary refill < 3 seconds Patient's skin is warm and dry. Respiratory: Airway is patent Respiratory effort is even, unlabored, Respiratory pattern is regular, symmetrical. Historical: - Allergies: 15:14 Aspirin; tm6 15:14 NSAIDS (GI bleeding); tm6 15:14 PENICILLINS; tm6 - PMHx: 15:14 Atrial fibrillation; Back pain; Hypertensive disorder; trauma; tm6 - Immunization history:: Adult Immunizations up to date. - Social history:: Smoking status: unknown. Screenin:41 [facility] ED Fall Risk Assessment (Adult) History of falling in the last 3 months, tm6 including since admission No falls in past 3 months (0 pts). Abuse screen: Denies threats or abuse. Denies injuries from another. Nutritional screening: No deficits noted. Tuberculosis screening: No symptoms or risk factors identified. Assessment: 16:41 Reassessment: Patient appears in no apparent distress at this time. see triage tm6 assessment. Vital Signs: 15:14 BP 147 / 94; Resp 17; Weight 90.72 kg; Height 5 ft. 10 in. ; tm6 15:14 Body Mass Index 28.70 (90.72 kg, 177.8 cm) tm6 ED Course: 15:13 Patient arrived in ED. tm6 15:14 Arm band placed on right wrist. tm6 15:16 Mary Aaron PA-C is PHCP. sb4 15:16 Ross Sanchez MD is Attending Physician. sb4 15:26 Triage completed. tm6 15:32 XRAY Chest (1 view) In Process Unspecified. EDMS 15:44 Basic Metabolic Panel Sent. bc6 15:44 CBC with Diff Sent. bc6 15:44 D-Dimer Sent. bc6 15:44 LFT's Sent. bc6 15:44 Magnesium Sent. bc6 15:44 NT PRO-BNP Sent. bc6 15:44 PT-INR Sent. bc6 15:44 Troponin HS Sent. bc6 15:45 Inserted saline lock: 20 gauge in right antecubital area, using aseptic technique. bc6 Blood collected. 16:17 Uli Forte DO is Referral Physician. sb4 16:41 Patient has correct armband on for positive identification. Provided Education on: meds.tm6 16:41 No provider procedures requiring assistance completed. IV discontinued. tm6 16:41 IV discontinued, intact, bleeding controlled. tm6 Administered Medications: 16:34 CANCELLED (Physician Discretion): [id number] mg PO once sb4 Medication: 16:41 VIS not applicable for this client. tm6 Outcome: 16:17 Discharge ordered by . sb4 16:41 Discharged to home tm6 16:41 Condition: stable 16:41 Discharge instructions given to patient, Instructed on discharge instructions, follow up and referral plans. medication usage, Demonstrated understanding of instructions, follow-up care, medications, 16:43 Patient left the ED. tm6 Signatures: Dispatcher [employer] EDMary Magallon PA-C PA-C sb4 Suellen Lobo bc6 Alex Garcia, RN RN tm6
[2022-12-24 17:27] VITALS: BP 147/94
--- NOTE | 2022-12-28 08:03 | EKG ---
Test Date: 2022-12-24 Test Time: 15:50:44 Lending Manager: STANTONW MEASUREMENT RESULTS: Intervals: Rate: 78 NH: 144 QRSD: 88 QT: 358 QTc: 408 [place]: P: 33 NH: 144 QRS: 22 T: 27 INTERPRETIVE STATEMENTS: Normal sinus rhythm Normal ECG Compared to ECG 12/06/2022 22:52:45 No significant changes Electronically Signed On 12-28-22 07:54:42 CDT by Kehinde Lackey
== END 2022-12-24 16:43 | disposition home or self-care (01) ==
LOC: ER 15:09
DX: I10 Essential (primary) hypertension (principal); I48.91 Unspecified atrial fibrillation; Z88.0 Allergy status to penicillin; Z88.6 Allergy status to analgesic agent
CPT/HCPCS: 36415; 71045; 80048; 80076; 83735; 83880; 84484; 85025; 85379; 85610; 93005; 99284

== ENCOUNTER 2023-03-13 11:45 | Observation (INO) | payer SELFPAY ==
--- OUTSIDE RECORDS SUMMARY | 2023-03-13 11:50 | XMS REPORT | Continuity of Care Document ---
Author Name Unknown Address [address] [place] [address] [facility] thconnect Address 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 Name Role Phone Pcp, Patient Does Not Have A Primary Care Physic sarahy Uli Forte Attending Clinician Unavailable Martha Vicente Attending Clinician Unavailable Angela VERA Attending Clinician Unavailable Doctor Unassigned, Munjor Attending Clinician U BENJY Vaz Attending Clinician Unavailable JULITA Attending Clinician Unavailable JULITA Admitting Clinician Unavailable Payers Payer Name Policy Type Policy Number Effective Date Expirati on Date Source [facility] 53 [id number] [facility] Problems Condition Name Condition Details Condition Category Status Onset Date Resolution Date Last Treatment Date Treating Clinician Comments Source Mixed dyslipidem ia Mixed dyslipidem ia Disease Active 2015-02 00:00: 00 [facility] Chronic back pain Chronic back pain Disease Active 2015-02 00:00: 00 [facility] Obesity (BMI 30-39.9) Obesity (BMI 30-39.9) Disease Active 2015-02 00:00: 00 [facility] Tobacco use Tobacco use Disease Active 2015-02 00:00: 00 [facility] [id number] Panic attacks Problem [facility] Screening for cardiovasc ular system disease Screening for cardiovasc ular condition Problem [facility] [id number] Chest pain, unspecifie d type Problem [facility] [id number] Gastroesop hageal reflux disease, unspecifie d whether esophagiti s present Problem [facility] [id number] Primary hypertensi on Problem [facility] Gastro-eso phageal reflux disease without esophagiti s Gastro-eso phageal reflux disease without esophagiti s Problem [facility] [id number] DDD (degenerat delfina disc disease), thoracolum bar Problem [facility] Hypertensi on HTN (hypertens ion) Problem [facility] [id number] Temporary low platelet count Problem [facility] Somnolence Somnolence , daytime Problem [facility] [id number] Anxiety Problem [facility] Chronic fatigue syndrome Chronic fatigue Problem [facility] [id number] Difficulty sleeping Problem [facility] Allergies, Adverse Reactions, Alerts Allergy Name Allergy Type Status Severity Reaction(s) Onset Date Inactive Date Treating Clinician Comments Source NSAIDS (NON-TONO ROIDAL ANTI-INF LAMMATOR Y DRUG) Drug Class Active SOB 08-01 00:00: 00 [facility] Nsaids (Non-Tono roidal Anti-Inf lammator y Drug) Propensi ty to adverse reaction s Active Shortness of Breath 08-01 00:00: 00 [facility] Ibuprofe n Propensi ty to adverse reaction s Active Swelling 2014-02 00:00: 00 [facility] IBUPROFE N DRUG INGREDI Active Swelling 2014-02 00:00: 00 [facility] PENICILL IN DRUG INGREDI Active High ITCHING 11-13 00:00: 00 [facility] Penicill in Propensi ty to adverse reaction s Active Itching 11-13 00:00: 00 [facility] Aspirin Propensi ty to adverse reaction s Active Swelling 10-04 00:00: 00 [facility] ASPIRIN DRUG INGREDI Active Swelling 10-04 00:00: 00 [facility] [id number] Drug allergy Active anaphylaxis [facility] Non-ster oidal anti-inf lammator y agent (FN) Non-ster oidal anti-inf lammator y agent (FN) Active Unknown [facility] Social History Social Habit Start Date Stop Date Quantity Comments Source History of Tobacco Use [facility] function 2021-09-08 00:00:00 2021-09-08 00:00:00 [facility] Alcohol intake 2021-09-08 00:00:00 2021-09-08 00:00:00 0 /d [facility] Tobacco use and exposure 2015-12-05 00:00:00 2015-12-05 00:00:00 Smokeless tobacco non-user [facility] Sex Assigned At 1980 00:00:00 1980 00:00:00 [facility] Smoking Status Start Date Stop Date Source Never Smoker [facility] Former Smoker 2022-03-29 00:00:00 2022-03-29 00:00:00 [facility] Smokes tobacco daily 2015-12-05 00:00:00 [facility] Medications Ordered Medication Name Filled Medication Name Start Date Stop Date Current Medication? Ordering Clinician Indication Dosage Frequency Signature (SIG) Comments Components Source cloNIDine HCl 0.1 MG cloNIDine HCl 0.1 MG 2022-02 0 00:00: 00 No 1{table t} cloNIDine HCl 0.1 MG cloNIDine HCl 0.1 MG cloNIDine HCl 0.1 MG 2022-02 00:00: 00 No 1{table t} cloNIDine HCl 0.1 MG cloNIDine HCl 0.1 MG cloNIDine HCl 0.1 MG 2022-02 0 00:00: 00 No 1{table t} cloNIDine HCl 0.1 MG cloNIDine HCl 0.1 MG cloNIDine HCl 0.1 MG 3-1 0-30 00:00: 00 No 1{table t} cloNIDine HCl 0.1 MG cloNIDine HCl 0.1 MG cloNIDine HCl 0.1 MG 3-1 0-30 00:00: 00 No 1{table t} cloNIDine HCl 0.1 MG cloNIDine HCl 0.1 MG cloNIDine HCl 0.1 MG 2022-1 0-30 00:00: 00 No 1{table t} cloNIDine HCl 0.1 MG cloNIDine HCl 0.1 MG cloNIDine HCl 0.1 MG 3-1 0-30 00:00: 00 No 1{table t} cloNIDine HCl 0.1 MG cloNIDine HCl 0.1 MG cloNIDine HCl 0.1 MG 3-1 0-30 00:00: 00 No 1{table t} cloNIDine HCl 0.1 MG cloNIDine HCl 0.1 MG cloNIDine HCl 0.1 MG 2022-1 0-30 00:00: 00 No 1{table t} cloNIDine HCl 0.1 MG Carvedilol 6.25 MG Carvedilol 6.25 MG 2021-02 00:00: 00 No 1{table t_with_ food} BID Carvedilol 6.25 MG Carvedilol 6.25 MG Carvedilol 6.25 MG 2021-04-20 00:00: 00 No 1{table t_with_ food} BID Carvedilol 6.25 MG ProAir HFA 108 (90 Base) MCG/ACT ProAir HFA 108 (90 Base) MCG/ACT 2021-02 00:00: 00 No 2{puffs _as_nee ded} QID ProAir HFA 108 (90 Base) MCG/ACT ProAir HFA 108 (90 Base) MCG/ACT ProAir HFA 108 (90 Base) MCG/ACT 2021-02 00:00: 00 No 2{puffs _as_nee ded} QID ProAir HFA 108 (90 Base) MCG/ACT ProAir HFA 108 (90 Base) MCG/ACT ProAir HFA 108 (90 Base) MCG/ACT 2021-02 00:00: 00 No 2{puffs _as_nee ded} QID ProAir HFA 108 (90 Base) MCG/ACT ProAir HFA 108 (90 Base) MCG/ACT ProAir HFA 108 (90 Base) MCG/ACT 2021-02 00:00: 00 No 2{puffs _as_nee ded} QID ProAir HFA 108 (90 Base) MCG/ACT ProAir HFA 108 (90 Base) MCG/ACT ProAir HFA 108 (90 Base) MCG/ACT 2021-02 00:00: 00 No 2{puffs _as_nee ded} QID ProAir HFA 108 (90 Base) MCG/ACT ProAir HFA 108 (90 Base) MCG/ACT ProAir HFA 108 (90 Base) MCG/ACT 2021-02 00:00: 00 No 2{puffs _as_nee ded} QID ProAir HFA 108 (90 Base) MCG/ACT ProAir HFA 108 (90 Base) MCG/ACT ProAir HFA 108 (90 Base) MCG/ACT 2021-02 00:00: 00 No 2{puffs _as_nee ded} QID ProAir HFA 108 (90 Base) MCG/ACT ProAir HFA 108 (90 Base) MCG/ACT ProAir HFA 108 (90 Base) MCG/ACT 2021-02 00:00: 00 No 2{puffs _as_nee ded} QID ProAir HFA 108 (90 Base) MCG/ACT ProAir HFA 108 (90 Base) MCG/ACT ProAir HFA 108 (90 Base) MCG/ACT 2021-02 00:00: 00 No 2{puffs _as_nee ded} QID ProAir HFA 108 (90 Base) MCG/ACT ProAir HFA 108 (90 Base) MCG/ACT ProAir HFA 108 (90 Base) MCG/ACT 2021-02 00:00: 00 No 2{puffs _as_nee ded} QID ProAir HFA 108 (90 Base) MCG/ACT ProAir HFA 108 (90 Base) MCG/ACT ProAir HFA 108 (90 Base) MCG/ACT 2021-02 00:00: 00 No 2{puffs _as_nee ded} QID ProAir HFA 108 (90 Base) MCG/ACT ProAir HFA 108 (90 Base) MCG/ACT ProAir HFA 108 (90 Base) MCG/ACT 2021-02 00:00: 00 No 2{puffs _as_nee ded} QID ProAir HFA 108 (90 Base) MCG/ACT ProAir HFA 108 (90 Base) MCG/ACT ProAir HFA 108 (90 Base) MCG/ACT 2021-02 00:00: 00 No 2{puffs _as_nee ded} QID ProAir HFA 108 (90 Base) MCG/ACT Carvedilol 3.125 MG Carvedilol 3.125 MG 09-17 00:00: 00 No 1{table t_with_ food} BID Carvedilol 3.125 MG cyclobenzap rine 10 mg tablet 05-23 00:00: 00 Yes [id number] 10mg Take 1 tablet by mouth 3 (three) times daily as needed for Muscle Spasms. [facility] acetaminoph en-codeine (TYLENOL-CO DEINE #3) 300-30 mg tablet 05-23 00:00: 00 Yes [id number] 1{tbl} Take 1 tablet by mouth every 8 (eight) hours as needed for Pain (scale 4-6). [facility] cyclobenzap rine 10 mg tablet 05-23 00:00: 00 Yes [id number] 10mg Take 1 tablet by mouth 3 (three) times daily as needed for Muscle Spasms. [facility] acetaminoph en-codeine (TYLENOL-CO DEINE #3) 300-30 mg tablet 05-23 00:00: 00 Yes [id number] 1{tbl} Take 1 tablet by mouth every 8 (eight) hours as needed for Pain (scale 4-6). [facility] methocarbam ol (ROBAXIN-75 0) 750 mg tablet 11-11 00:00: 00 Yes 750mg Take 1 tablet by mouth 4 (four) times daily. [facility] methocarbam ol (ROBAXIN-75 0) 750 mg tablet 11-11 00:00: 00 Yes 750mg Take 1 tablet by mouth 4 (four) times daily. [facility] acetaminoph en-codeine (TYLENOL-CO DEINE #3) 300-30 mg tablet 11-02 00:00: 00 Yes 1{tbl} Take 1 tablet by mouth every 6 (six) hours as needed for Pain (scale 7-10). [facility] cyclobenzap rine 5 mg tablet 11-02 00:00: 00 Yes 5mg Take 1 tablet by mouth 3 (three) times daily. [facility] acetaminoph en-codeine (TYLENOL-CO DEINE #3) 300-30 mg tablet 11-02 00:00: 00 Yes 1{tbl} Take 1 tablet by mouth every 6 (six) hours as needed for Pain (scale 7-10). [facility] cyclobenzap rine 5 mg tablet 11-02 00:00: 00 Yes 5mg Take 1 tablet by mouth 3 (three) times daily. [facility] lisinopril 10 mg tablet 07-13 00:00: 00 Yes 10mg Take 1 tablet by mouth at bedtime. [facility] lisinopril 10 mg tablet 07-13 00:00: 00 Yes 10mg Take 1 tablet by mouth at bedtime. [facility] TYLENOL-COD EINE #3 300-30 mg tablet 06-30 00:00: 00 Yes 2{tbl} Take 2 tablets by mouth every 4 (four) hours as needed for Pain (scale 1-3) or Pain (scale 4-6). [facility] TYLENOL-COD EINE #3 300-30 mg tablet 06-30 00:00: 00 Yes 2{tbl} Take 2 tablets by mouth every 4 (four) hours as needed for Pain (scale 1-3) or Pain (scale 4-6). [facility] acetaminoph en-codeine 300-30 mg tablet 06-09 00:00: 00 Yes 1{tbl} Take 1 tablet by mouth every 4 (four) hours as needed (pain). [facility] acetaminoph en-codeine 300-30 mg tablet 06-09 00:00: 00 Yes 1{tbl} Take 1 tablet by mouth every 4 (four) hours as needed (pain). [facility] cyclobenzap rine 5 mg tablet 06-01 00:00: 00 Yes 5mg Take 1 tablet by mouth 2 (two) times daily as needed for Muscle Spasms for up to 15 doses. [facility] cyclobenzap rine 5 mg tablet 06-01 00:00: 00 Yes 5mg Take 1 tablet by mouth 2 (two) times daily as needed for Muscle Spasms for up to 15 doses. [facility] ACETAMINOPH EN WITH CODEINE (TYLENOL-CO DEINE #3 ORAL) 2015-02 11:39: 00 Yes Take by mouth as needed for Pain (scale 1-3). [facility] ACETAMINOPH EN WITH CODEINE (TYLENOL-CO DEINE #3 ORAL) 2015-02 11:39: 00 Yes Take by mouth as needed for Pain (scale 1-3). [facility] lisinopril (PRINIVIL,Z ESTRIL) 10 mg tablet 2015-02 00:00: 00 Yes [id number] 10mg Take 1 tablet by mouth daily. [facility] traMADOL (ULTRAM) 50 mg tablet 2015-02 00:00: 00 Yes [id number] 50mg Take 1 tablet by mouth 3 (three) times daily as needed for Pain unrelieved by non-narcot ic analgesics . [facility] lisinopril (PRINIVIL,Z ESTRIL) 10 mg tablet 2015-02 00:00: 00 Yes [id number] 10mg Take 1 tablet by mouth daily. [facility] traMADOL (ULTRAM) 50 mg tablet 2015-02 00:00: 00 Yes [id number] 50mg Take 1 tablet by mouth 3 (three) times daily as needed for Pain unrelieved by non-narcot ic analgesics . [facility] amLODIPine Besylate 2.5 MG amLODIPine Besylate 2.5 MG No 1{table t} QD amLODIPine Besylate 2.5 MG HYDROcodone -Acetaminop hen 10-325 MG HYDROcodone -Acetaminop hen 10-325 MG No 1{table t_as_ne eded} QID HYDROcodon e-Acetamin ophen 10-325 MG Pantoprazol e Sodium 40 MG Pantoprazol e Sodium 40 MG No 1{table t} QD Pantoprazo le Sodium 40 MG amLODIPine Besylate 2.5 MG amLODIPine Besylate 2.5 MG No 1{table t} QD amLODIPine Besylate 2.5 MG HYDROcodone -Acetaminop hen 10-325 MG HYDROcodone -Acetaminop hen 10-325 MG No 1{table t_as_ne eded} QID HYDROcodon e-Acetamin ophen 10-325 MG Pantoprazol e Sodium 40 MG Pantoprazol e Sodium 40 MG No 1{table t} QD Pantoprazo le Sodium 40 MG amLODIPine Besylate 2.5 MG amLODIPine Besylate 2.5 MG No 1{table t} BID amLODIPine Besylate 2.5 MG HYDROcodone -Acetaminop hen 10-325 MG HYDROcodone -Acetaminop hen 10-325 MG No 1{table t_as_ne eded} QID HYDROcodon e-Acetamin ophen 10-325 MG Pantoprazol e Sodium 40 MG Pantoprazol e Sodium 40 MG No 1{table t} QD Pantoprazo le Sodium 40 MG amLODIPine Besylate 2.5 MG amLODIPine Besylate 2.5 MG No 1{table t} BID amLODIPine Besylate 2.5 MG HYDROcodone -Acetaminop hen 10-325 MG HYDROcodone -Acetaminop hen 10-325 MG No 1{table t_as_ne eded} QID HYDROcodon e-Acetamin ophen 10-325 MG Pantoprazol e Sodium 40 MG Pantoprazol e Sodium 40 MG No 1{table t} QD Pantoprazo le Sodium 40 MG Pantoprazol e Sodium 40 MG Pantoprazol e Sodium 40 MG No 1{table t} QD Pantoprazo le Sodium 40 MG hydroCHLORO thiazide 12.5 MG hydroCHLORO thiazide 12.5 MG No 1{table t_in_th e_morni ng} QD hydroCHLOR Othiazide 12.5 MG HYDROcodone -Acetaminop hen 10-325 MG HYDROcodone -Acetaminop hen 10-325 MG No 1{table t_as_ne eded} QID HYDROcodon e-Acetamin ophen 10-325 MG amLODIPine Besylate 2.5 MG amLODIPine Besylate 2.5 MG No 1{table t} BID amLODIPine Besylate 2.5 MG hydroCHLORO thiazide 12.5 MG hydroCHLORO thiazide 12.5 MG No 1{table t_in_ e_morni ng} QD hydroCHLOR Othiazide 12.5 MG HYDROcodone -Acetaminop hen 10-325 MG HYDROcodone -Acetaminop hen 10-325 MG No 1{table t_as_ne eded} QID HYDROcodon e-Acetamin ophen 10-325 MG amLODIPine Besylate 2.5 MG amLODIPine Besylate 2.5 MG No 1{table t} BID amLODIPine Besylate 2.5 MG Pantoprazol e Sodium 40 MG Pantoprazol e Sodium 40 MG No 1{table t} QD Pantoprazo le Sodium 40 MG Pantoprazol e Sodium 40 MG Pantoprazol e Sodium 40 MG No 1{table t} QD Pantoprazo le Sodium 40 MG amLODIPine Besylate 2.5 MG amLODIPine Besylate 2.5 MG No 1{table t} BID amLODIPine Besylate 2.5 MG HYDROcodone -Acetaminop hen 10-325 MG HYDROcodone -Acetaminop hen 10-325 MG No 1{table t_as_ne eded} QID HYDROcodon e-Acetamin ophen 10-325 MG hydroCHLORO thiazide 12.5 MG hydroCHLORO thiazide 12.5 MG No 1{table t_in_ e_morni ng} QD hydroCHLOR Othiazide 12.5 MG Pantoprazol e Sodium 40 MG Pantoprazol e Sodium 40 MG No 1{table t} QD Pantoprazo le Sodium 40 MG amLODIPine Besylate 2.5 MG amLODIPine Besylate 2.5 MG No 1{table t} BID amLODIPine Besylate 2.5 MG HYDROcodone -Acetaminop hen 10-325 MG HYDROcodone -Acetaminop hen 10-325 MG No 1{table t_as_ne eded} QID HYDROcodon e-Acetamin ophen 10-325 MG hydroCHLORO thiazide 12.5 MG hydroCHLORO thiazide 12.5 MG No 1{table t_in_ e_morni ng} QD hydroCHLOR Othiazide 12.5 MG Pantoprazol e Sodium 40 MG Pantoprazol e Sodium 40 MG No 1{table t} QD Pantoprazo le Sodium 40 MG amLODIPine Besylate 2.5 MG amLODIPine Besylate 2.5 MG No 1{table t} BID amLODIPine Besylate 2.5 MG HYDROcodone -Acetaminop hen 10-325 MG HYDROcodone -Acetaminop hen 10-325 MG No 1{table t_as_ne eded} QID HYDROcodon e-Acetamin ophen 10-325 MG hydroCHLORO thiazide 12.5 MG hydroCHLORO thiazide 12.5 MG No 1{table t_in_ e_morni ng} QD hydroCHLOR Othiazide 12.5 MG Pantoprazol e Sodium 40 MG Pantoprazol e Sodium 40 MG No 1{table t} QD Pantoprazo le Sodium 40 MG amLODIPine Besylate 2.5 MG amLODIPine Besylate 2.5 MG No 1{table t} BID amLODIPine Besylate 2.5 MG HYDROcodone -Acetaminop hen 10-325 MG HYDROcodone -Acetaminop hen 10-325 MG No 1{table t_as_ne eded} QID HYDROcodon e-Acetamin ophen 10-325 MG hydroCHLORO thiazide 12.5 MG hydroCHLORO thiazide 12.5 MG No hydroCHLOR Othiazide 12.5 MG amLODIPine Besylate 5 MG amLODIPine Besylate 5 MG No 1{table t} BID amLODIPine Besylate 5 MG hydroCHLORO thiazide 12.5 MG hydroCHLORO thiazide 12.5 MG No hydroCHLOR Othiazide 12.5 MG hydroCHLORO thiazide 12.5 MG hydroCHLORO thiazide 12.5 MG No 1{table t_in_ e_morni ng} QD hydroCHLOR Othiazide 12.5 MG Pantoprazol e Sodium 40 MG Pantoprazol e Sodium 40 MG No 1{table t} QD Pantoprazo le Sodium 40 MG HYDROcodone -Acetaminop hen 10-325 MG HYDROcodone -Acetaminop hen 10-325 MG No 1{table t_as_ne eded} QID HYDROcodon e-Acetamin ophen 10-325 MG Pantoprazol e Sodium 40 MG Pantoprazol e Sodium 40 MG No 1{table t} QD Pantoprazo le Sodium 40 MG hydroCHLORO thiazide 12.5 MG hydroCHLORO thiazide 12.5 MG No 1{table t_in_ e_morni ng} QD hydroCHLOR Othiazide 12.5 MG amLODIPine Besylate 5 MG amLODIPine Besylate 5 MG No 1{table t} BID amLODIPine Besylate 5 MG hydroCHLORO thiazide 12.5 MG hydroCHLORO thiazide 12.5 MG No hydroCHLOR Othiazide 12.5 MG HYDROcodone -Acetaminop hen 10-325 MG HYDROcodone -Acetaminop hen 10-325 MG No 1{table t_as_ne eded} QID HYDROcodon e-Acetamin ophen 10-325 MG hydroCHLORO thiazide 12.5 MG hydroCHLORO thiazide 12.5 MG No 1{table t_in_ e_morni ng} QD hydroCHLOR Othiazide 12.5 MG Carvedilol 3.125 MG Carvedilol 3.125 MG No 1{table t_with_ food} BID Carvedilol 3.125 MG Pantoprazol e Sodium 40 MG Pantoprazol e Sodium 40 MG No 1{table t} QD Pantoprazo le Sodium 40 MG amLODIPine Besylate 5 MG amLODIPine Besylate 5 MG No 1{table t} BID amLODIPine Besylate 5 MG hydroCHLORO thiazide 12.5 MG hydroCHLORO thiazide 12.5 MG No 1{table t_in e_morni ng} QD hydroCHLOR Othiazide 12.5 MG Carvedilol 3.125 MG Carvedilol 3.125 MG No 1{table t_with_ food} BID Carvedilol 3.125 MG Pantoprazol e Sodium 40 MG Pantoprazol e Sodium 40 MG No 1{table t} QD Pantoprazo le Sodium 40 MG amLODIPine Besylate 5 MG amLODIPine Besylate 5 MG No 1{table t} BID amLODIPine Besylate 5 MG hydroCHLORO thiazide 12.5 MG hydroCHLORO thiazide 12.5 MG No 1{table t_in e_morni ng} QD hydroCHLOR Othiazide 12.5 MG Carvedilol 3.125 MG Carvedilol 3.125 MG No 1{table t_with_ food} BID Carvedilol 3.125 MG Pantoprazol e Sodium 40 MG Pantoprazol e Sodium 40 MG No 1{table t} QD Pantoprazo le Sodium 40 MG amLODIPine Besylate 5 MG amLODIPine Besylate 5 MG No 1{table t} BID amLODIPine Besylate 5 MG hydroCHLORO thiazide 12.5 MG hydroCHLORO thiazide 12.5 MG No 1{table t_in e_morni ng} QD hydroCHLOR Othiazide 12.5 MG Carvedilol 3.125 MG Carvedilol 3.125 MG No 1{table t_with_ food} BID Carvedilol 3.125 MG Pantoprazol e Sodium 40 MG Pantoprazol e Sodium 40 MG No 1{table t} QD Pantoprazo le Sodium 40 MG amLODIPine Besylate 5 MG amLODIPine Besylate 5 MG No 1{table t} BID amLODIPine Besylate 5 MG hydroCHLORO thiazide 12.5 MG hydroCHLORO thiazide 12.5 MG No 1{table t_in_th e_morni ng} QD hydroCHLOR Othiazide 12.5 MG Carvedilol 3.125 MG Carvedilol 3.125 MG No 1{table t_with_ food} BID Carvedilol 3.125 MG Pantoprazol e Sodium 40 MG Pantoprazol e Sodium 40 MG No 1{table t} QD Pantoprazo le Sodium 40 MG amLODIPine Besylate 5 MG amLODIPine Besylate 5 MG No 1{table t} BID amLODIPine Besylate 5 MG amLODIPine Besylate 2.5 MG amLODIPine Besylate 2.5 MG No 1{table t} BID amLODIPine Besylate 2.5 MG hydroCHLORO thiazide 12.5 MG hydroCHLORO thiazide 12.5 MG No 1{table t_in_ e_morni ng} QD hydroCHLOR Othiazide 12.5 MG Carvedilol 3.125 MG Carvedilol 3.125 MG No 1{table t_with_ food} BID Carvedilol 3.125 MG HYDROcodone -Acetaminop hen 10-325 MG HYDROcodone -Acetaminop hen 10-325 MG No 1{table t_as_ne eded} QID HYDROcodon e-Acetamin ophen 10-325 MG Pantoprazol e Sodium 40 MG Pantoprazol e Sodium 40 MG No 1{table t} QD Pantoprazo le Sodium 40 MG amLODIPine Besylate 5 MG amLODIPine Besylate 5 MG No 1{table t} BID amLODIPine Besylate 5 MG Pantoprazol e Sodium 40 MG Pantoprazol e Sodium 40 MG No 1{table t} QD Pantoprazo le Sodium 40 MG hydroCHLORO thiazide 12.5 MG hydroCHLORO thiazide 12.5 MG No 1{table t_in_ e_morni ng} QD hydroCHLOR Othiazide 12.5 MG Carvedilol 3.125 MG Carvedilol 3.125 MG No 1{table t_with_ food} BID Carvedilol 3.125 MG Pantoprazol e Sodium 40 MG Pantoprazol e Sodium 40 MG No 1{table t} QD Pantoprazo le Sodium 40 MG amLODIPine Besylate 5 MG amLODIPine Besylate 5 MG No 1{table t} BID amLODIPine Besylate 5 MG hydroCHLORO thiazide 12.5 MG hydroCHLORO thiazide 12.5 MG No 1{table t_in_th e_morni ng} QD hydroCHLOR Othiazide 12.5 MG Carvedilol 3.125 MG Carvedilol 3.125 MG No 1{table t_with_ food} BID Carvedilol 3.125 MG Pantoprazol e Sodium 40 MG Pantoprazol e Sodium 40 MG No 1{table t} QD Pantoprazo le Sodium 40 MG amLODIPine Besylate 5 MG amLODIPine Besylate 5 MG No 1{table t} BID amLODIPine Besylate 5 MG hydroCHLORO thiazide 12.5 MG hydroCHLORO thiazide 12.5 MG No 1{table t_in_ e_morni ng} QD hydroCHLOR Othiazide 12.5 MG Carvedilol 3.125 MG Carvedilol 3.125 MG No 1{table t_with_ food} BID Carvedilol 3.125 MG Pantoprazol e Sodium 40 MG Pantoprazol e Sodium 40 MG No 1{table t} QD Pantoprazo le Sodium 40 MG amLODIPine Besylate 5 MG amLODIPine Besylate 5 MG No 1{table t} BID amLODIPine Besylate 5 MG Pantoprazol e Sodium 40 MG Pantoprazol e Sodium 40 MG No 1{table t} QD Pantoprazo le Sodium 40 MG hydroCHLORO thiazide 12.5 MG hydroCHLORO thiazide 12.5 MG No 1{table t_in_th e_morni ng} QD hydroCHLOR Othiazide 12.5 MG HYDROcodone -Acetaminop hen 10-325 MG HYDROcodone -Acetaminop hen 10-325 MG No 1{table t_as_ne eded} QID HYDROcodon e-Acetamin ophen 10-325 MG amLODIPine Besylate 2.5 MG amLODIPine Besylate 2.5 MG No 1{table t} BID amLODIPine Besylate 2.5 MG hydroCHLORO thiazide 12.5 MG hydroCHLORO thiazide 12.5 MG No 1{table t_in_th e_morni ng} QD hydroCHLOR Othiazide 12.5 MG HYDROcodone -Acetaminop hen 10-325 MG HYDROcodone -Acetaminop hen 10-325 MG No 1{table t_as_ne eded} QID HYDROcodon e-Acetamin ophen 10-325 MG amLODIPine Besylate 2.5 MG amLODIPine Besylate 2.5 MG No 1{table t} BID amLODIPine Besylate 2.5 MG Pantoprazol e Sodium 40 MG Pantoprazol e Sodium 40 MG No 1{table t} QD Pantoprazo le Sodium 40 MG Pantoprazol e Sodium 40 MG Pantoprazol e Sodium 40 MG No 1{table t} QD Pantoprazo le Sodium 40 MG amLODIPine Besylate 2.5 MG amLODIPine Besylate 2.5 MG No 1{table t} BID amLODIPine Besylate 2.5 MG HYDROcodone -Acetaminop hen 10-325 MG HYDROcodone -Acetaminop hen 10-325 MG No 1{table t_as_ne eded} QID HYDROcodon e-Acetamin ophen 10-325 MG hydroCHLORO thiazide 12.5 MG hydroCHLORO thiazide 12.5 MG No 1{table t_in_th e_morni ng} QD hydroCHLOR Othiazide 12.5 MG HYDROcodone -Acetaminop hen 10-325 MG HYDROcodone -Acetaminop hen 10-325 MG No 1{table t_as_ne eded} QID HYDROcodon e-Acetamin ophen 10-325 MG amLODIPine Besylate 2.5 MG amLODIPine Besylate 2.5 MG No 1{table t} QD amLODIPine Besylate 2.5 MG Pantoprazol e Sodium 40 MG Pantoprazol e Sodium 40 MG No 1{table t} QD Pantoprazo le Sodium 40 MG Vital Signs Vital Name Observation Time Observation Value Comments S ource height 2022-09-27 09:20:00 69.5 [in_i] Comm on [facility] weight 2022-09-27 09:20:00 231.4 [lb_av] Co mmon [facility] temperature 2022-09-27 09:20:00 98.0 [degF] Com mon [facility] bmi 2022-09-27 09:20:00 33.68 kg/m2 Comm on [facility] oximetry 2022-09-27 09:20:00 98 % Commo n [facility] respiratory rate 2022-09-27 09:20:00 18 /min [facility] blood pressure systolic 2022-09-27 09:20:00 124 mm[Hg[facility] diastolic 2022-09-27 09:20:00 81 mm[Hg] [facility] height 2022-03-29 13:30:00 69.5 [in_i] Comm on [facility] weight 2022-03-29 13:30:00 240 [lb_av] Comm on [facility] temperature 2022-03-29 13:30:00 98.1 [degF] Com mon [facility] bmi 2022-03-29 13:30:00 34.93 kg/m2 Comm on [facility] oximetry 2022-03-29 13:30:00 97 % Commo n [facility] respiratory rate 2022-03-29 13:30:00 18 /min [facility] blood pressure systolic 2022-03-29 13:30:00 124 mm[Hg] [facility] blood pressure diastolic 2022-03-29 13:30:00 74 mm[Hg] [facility] height 2022-02-17 10:20:00 69.5 [in_i] Comm on [facility] weight 2022-02-17 10:20:00 240 [lb_av] Comm on [facility] temperature 2022-02-17 10:20:00 98 [degF] Comm on [facility] bmi 2022-02-17 10:20:00 34.93 kg/m2 Comm on [facility] height 2021-12-22 10:20:00 69.50 [in_i] Com mon [facility] weight 2021-12-22 10:20:00 233.4 [lb_av] Co mmon [facility] temperature 2021-12-22 10:20:00 97.6 [degF] Com [facility] bmi 2021-12-22 10:20:00 33.97 kg/m2 Comm on [facility] oximetry 2021-12-22 10:20:00 96 % Commo n [facility] respiratory rate 2021-12-22 10:20:00 16 /min Common [facility] blood pressure systolic 2021-12-22 10:20:00 130 mm[Hg] [facility] blood pressure diastolic 2021-12-22 10:20:00 82 mm[Hg] Common [facility] height 2021-11-19 14:00:00 69.50 [in_i] Com [facility] weight 2021-11-19 14:00:00 233.4 [lb_av] [facility] 2021-11-19 14:00:00 97.6 [degF] Com [facility] bmi 2021-11-19 14:00:00 33.97 kg/m2 Comm on [facility] oximetry 2021-11-19 14:00:00 97 % Commo n [facility] respiratory rate 2021-11-19 14:00:00 16 /min Common [facility] blood pressure systolic 2021-11-19 14:00:00 133 mm[Hg] Common [facility] blood pressure diastolic 2021-11-19 14:00:00 74 mm[Hg] [facility] height 2021-11-13 13:20:00 69.50 [in_i] Com [facility] weight 2021-11-13 13:20:00 230 [lb_av] Comm on [facility] temperature 2021-11-13 13:20:00 97.3 [degF] Com [facility] bmi 2021-11-13 13:20:00 33.47 kg/m2 Comm on [facility] height 2021-10-08 09:40:00 69.50 [in_i] Com [facility] weight 2021-10-08 09:40:00 236.4 [lb_av] Co mmon [facility] temperature 2021-10-08 09:40:00 97.3 [degF] Com [facility] bmi 2021-10-08 09:40:00 34.41 kg/m2 Comm on [facility] oximetry 2021-10-08 09:40:00 97 % Commo n [facility] respiratory rate 2021-10-08 09:40:00 16 /min [facility] blood pressure systolic 2021-10-08 09:40:00 130 mm[Hg] [facility] blood pressure diastolic 2021-10-08 09:40:00 78 mm[Hg] [facility] height 2021-09-17 15:20:00 69.50 [in_i] Com [facility] weight 2021-09-17 15:20:00 235.4 [lb_av] Co [facility] temperature 2021-09-17 15:20:00 98.0 [degF] Com [facility] bmi 2021-09-17 15:20:00 34.26 kg/m2 Comm on [facility] oximetry 2021-09-17 15:20:00 99 % Commo n [facility] respiratory rate 2021-09-17 15:20:00 16 /min [facility] blood pressure systolic 2021-09-17 15:20:00 135 mm[Hg] [facility] blood pressure diastolic 2021-09-17 15:20:00 89 mm[Hg] [facility] Procedures Procedure Date / Time Performed Performing Clinicia n Source REFERRAL- REQUEST/RESPONSE 2023-01-17 06:01:00 Doctor Unassigned, Munjor [facility] EXTERNAL PROVIDER - ADC REFERRAL 2021-12-23 05:01:00 Doctor Unassigned, Munjor [facility] Encounters Start Date/Time End Date/Time Encounter Type Admission Type Attending [facility] Care Department Encounter ID Source 2022-12-29 08:28:01 Outpatient Jcarlos Forteh STLMLC STL[facility]C [id number] [facility] 2022-12-27 08:48:00 Outpatient Vicente, Avnee STLMLC STL[facility]C [id number] [facility] 2022-09-01 15:25:00 Outpatient Vicente, Avnee STLMLC STL[facility]C [id number] [facility] 2022-08-05 14:07:02 Outpatient Vicente, Avnee STLMLC STL[facility]C [id number] [facility] 2022-07-29 09:40:01 Outpatient Vicente, Avnee STLMLC STLMLC [id number] [facility] 2022-06-15 14:06:03 Outpatient Vicente, Avnee STLMLC STLMLC [id number] [facility] 2022-03-29 13:15:02 Outpatient VERA, Na STLMLC STLMLC [id number] [facility] 2022-02-16 11:56:00 Outpatient Vera, Na STLMLC STLMLC [id number] [facility] 2022-02-09 08:58:01 Outpatient Vera, Na STLMLC STLMLC [id number] [facility] 2022-01-04 12:02:01 Outpatient Vera, Na STLMLC STLMLC [id number] [facility] 2021-12-31 12:07:01 Outpatient Vera, Na STLMLC STLMLC [id number] [facility] 2021-12-18 10:58:02 Outpatient VeraAngela wiggins STLMLC STLMLC [id number] [facility] 2021-12-10 10:17:04 Outpatient Angela Vera STLMLC STLMLC [id number] [facility] 2021-11-13 13:16:02 Outpatient Angela Vera STL[facility] STLMLC [id number] [facility] 2021-11-12 08:37:03 Outpatient VeraAngela wiggins STLML[facility] STL[facility]C [id number] [facility] 2021-11-05 13:52:02 Outpatient Angela Vera STL[facility] STL[facility]C [id number] [facility] 2021-10-06 13:42:03 Outpatient Angela Vera STL[facility]C STL[facility]C [id number] [facility] 2021-09-21 14:29:01 Outpatient Angela Vera STHILC STLMLC [id number] [facility] 2021-09-17 15:47:03 Outpatient Angela Vera STLMLC STLMLC [id number] [facility] 2023-01-17 11:20:32 2023-01-17 11:20:32 Outpatient SFA SFA [id number] Yanick Miles 2023-01-17 00:00:00 2023-01-17 00:00:00 Orders Only Doctor Unassigned, Munjor [facility] [id number] [facility] 2023-01-05 15:40:00 2023-01-05 15:40:00 Outpatient BENJY YEPEZ [facility] [id number] [facility] 2023-01-03 14:11:35 2023-01-03 14:11:35 Outpatient SFA [facility] [id number] Yanick Miles 2022-12-30 00:00:00 2022-12-30 00:00:00 (TEL) STLMLC STLMLC [id number] [facility] 2022-12-24 00:00:00 2022-12-24 00:00:00 (TEL) STLMLC STLMLC [id number] [facility] 2022-12-24 00:00:00 2022-12-24 00:00:00 (TEL) STLMLC STLMLC [id number] [facility] 2022-09-28 00:00:00 2022-09-28 00:00:00 (TEL) STLMLC STLMLC [id number] [facility] 2022-09-27 00:00:00 2022-09-27 00:00:00 (TEL) STLMLC STLMLC [id number] [facility] 2022-09-27 00:00:00 2022-09-27 00:00:00 OFFICE VISIT ESTAB PT LEVEL 4 [facility]LMLC STL[facility]C [id number] [facility] 2022-09-01 00:00:00 2022-09-01 00:00:00 (TEL) STLMLC STLMLC [id number] [facility] 2022-07-30 00:00:00 2022-07-30 00:00:00 (TEL) STLMLC STLMLC [id number] [facility] 2022-06-15 00:00:00 2022-06-15 00:00:00 (TEL) STLMLC STLMLC [id number] [facility] 2022-03-29 00:00:00 2022-03-29 00:00:00 OFFICE VISIT ESTAB PT LEVEL 2 [facility]C STL[facility]C [id number] [facility] 2022-02-17 00:00:00 2022-02-17 00:00:00 OFFICE VISIT ESTAB PT LEVEL 4 [facility]C STL[facility]C [id number] [facility] 2022-02-16 00:00:00 2022-02-16 00:00:00 (TEL) STLMLC STLMLC [id number] [facility] 2022-01-18 00:00:00 2022-01-18 00:00:00 (TEL) STLMLC STLMLC [id number] [facility] 2021-12-23 00:00:00 2021-12-23 00:00:00 Orders Only Doctor Unassigned, Munjor [facility] [id number] [facility] 2021-12-22 00:00:00 2021-12-22 00:00:00 OFFICE VISIT EST PT LEVEL 3 STLMLC STLMLC [id number] [facility] 2021-12-22 00:00:00 2021-12-22 00:00:00 (TEL) STLMLC STLMLC [id number] [facility] 2021-12-11 00:00:00 2021-12-11 00:00:00 (TEL) STLMLC STLMLC [id number] [facility] 2021-11-19 00:00:00 2021-11-19 00:00:00 OFFICE VISIT EST PT LEVEL 3 STLMLC STL[facility]C [id number] [facility] 2021-11-17 00:00:00 2021-11-17 00:00:00 (TEL) STLMLC STLMLC [id number] [facility] 2021-11-13 00:00:00 2021-11-13 00:00:00 OFFICE VISIT EST PT LEVEL 3 STLMLC STL[facility]C [id number] [facility] 2021-10-23 00:00:00 2021-10-23 00:00:00 (TEL) STLMLC STLMLC [id number] [facility] 2021-10-08 00:00:00 2021-10-08 00:00:00 OFFICE VISIT [facility] [id number] [facility] 2021-10-01 00:00:00 2021-10-01 00:00:00 [facility] [id number] [facility] h Program 2021-09-17 00:00:00 2021-09-17 00:00:00 OFFICE VISIT NEW PT LEVEL 4 [facility] [id number] [facility] Results Test Description Test Time Test Comments Results Result Co mments Source LIPID [id number] 04:46:54* Test Item Value Reference Range Interpretation Comme nts CHOLESTEROL (test code = 2210) 153 MG/DL <200 TRIGLYCERIDES (test code = 2232) 208 MG/DL <150 H HDL CHOLESTEROL (test code = 2220) 33 MG/DL >39 L CALC LDL CHOL (test code = 2237) 90 MG/DL <100 NOTE: CALCULATED LDL IS BASED ON ALEX-TAVAREZ METHOD WHICHINCLUDES ADJUSTABLE TRIGLYCERIDE:VLDL CHOLESTEROL RATIO.THIS FACTOR VARIES BY MEASURED TRIGLYCERIDE AND NON-HDLCHOLESTEROL CONCENTRATIONS WITH INCREASED CALCULATED LDL SEENIN HIGHER TRIGLYCERIDE OR LOWER NON-HDL SPECIMENS. FOR MOREINFORMATION, SEE CLIENT ANNOUNCEMENT AT [email or web address] [email or web address] RATIO LDL/HDL (test code = 2238) 2.73 RATIO <3.55 HEMOGLOBIN [id number] 04:03:01* Test Item Value Reference Range Interpretation Comme [facility] HEMOGLOBIN A1c (test code = 64262) 5.7 % 4.2-5.6 H [employer] GUIDELINES FOR HGB A1C: PREDIABETES/INCREASED RISK . . . . . . . 5.7-6.4% DIAGNOSIS OF DIABETES . . . . . . . . . >=6.5% WITH CONFIRMATION OR APPROPRIATE SYMPTOMS NOTE: ASSAY MAY BE AFFECTED BY HEMOGLOBINOPATHIES (SICKLE CELL ANEMIA, S-C DISEASE, OTHERS) OR ARTIFICIALLY LOWERED BY DECREASED RED CELL SURVIVAL (HEMOLYTIC ANEMIAS, BLOOD LOSS, ETC.). CONSIDER ALTERNATE TESTING OR LABORATORY CONSULTATION. UNLESS OTHERWISE INDICATED, ALL TESTING PERFORMED AT [facility] [address] [place] [id number] TECHNICAL SPECIALIST CYTOGENETICS: GRICELDA ALMENDAREZ M.D. CLIA NUMBER [id number] [facility] [place]. [id number] CBC W/AUTO DIFF WITH [id number] 03:00:48* Test Item Value Reference Range Interpretation Comme nts WBC (test code = 1001) 8.9 K/UL 3.5-11.0 RBC (test code = 1002) 4.91 M/UL 4.50-6.10 HEMOGLOBIN (test code = 1003) 15.0 G/DL 13.5-17.0 HEMATOCRIT (test code = 1004) 44.3 % 40.0-51.0 MCV (test code = 1005) 90.2 fL 80.0-99.0 MCH (test code = 1006) 30.5 PG 25.0-33.0 MCHC (test code = 1007) 33.9 G/DL 31.0-36.0 RDW (test code = 1038) 12.6 % 11.5-15.0 NEUTROPHILS (test code = 1008) 73.8 % LYMPHOCYTES (test code = 1010) 19.8 % MONOCYTES (test code = 1011) 5.7 % EOSINOPHILS (test code = 1012) 0.2 % BASOPHILS (test code = 1013) 0.3 % IMMATURE GRANULOCYTES (test code = 1036) 0.2 % NUCLEATED RBCS (test code = 1065) 0.0 /100 WBC'S See_Comment [Automated messa ge] The system which generated this result transmitted reference range: 0.0. The reference range was not used to interpret this result as normal/abnormal. PLATELET COUNT (test code = 1015) 118 K/UL 130-400 L ABSOLUTE NEUTROPHILS (test code = 1066) 6.56 K/UL 1.50-7.50 ABSOLUTE LYMPHOCYTES (test code = 1067) 1.76 K/UL 1.00-4.00 ABSOLUTE MONOCYTES (test code = 1068) 0.51 K/UL 0.20-1.00 ABSOLUTE EOSINOPHILS (test code = 1040) 0.02 K/UL 0.00-0.50 ABSOLUTE BASOPHILS (test code = 1069) 0.03 K/UL 0.00-0.20 ABS IMMATURE GRANULOCYTES (test code = 1020) 0.02 K/UL 0.00-0.10 ABS NUCLEATED RBCS (test code = 28794) 0.00 K/UL 0.00-0.11 TSH REFLEX TO FREE [id number] 00:00:00* Test Item Value Reference Range Interpretation Comme nts TSH REFLEX TO FREE T4 (test code = 46436-3) 1.350 UIU/ML See_Comment [Automated messa ge] The system which generated this result transmitted reference range: 0.400-4.100 UIU/ML. The reference range was not used to interpret this result as normal/abnormal. COMPREHENSIVE METABOLIC [id number] 00:00:00* Test Item Value Reference Range Interpretation Comme nts ALBUMIN (test code = 1751-7) 4.8 G/DL See_Comment [Automated messa ge] The system which generated this result transmitted reference range: 3.5-5.2 G/DL. The reference range was not used to interpret this result as normal/abnormal. ALKALINE PHOSPHATASE (test code = 6768-6) 68 U/L See_Comment [Automated message] The system which generated this result transmitted reference range: 40-119 U/L. The reference range was not used to interpret this result as normal/abnormal. BILIRUBIN, TOTAL (test code = 1975-2) 0.6 MG/DL See_Comment [Automated message] The system which generated this result transmitted reference range: <=1.2 MG/DL. The reference range was not used to interpret this result as normal/abnormal. BUN (test code = 3094-0) 14 MG/DL See_Comment [Automated messa ge] The system which generated this result transmitted reference range: 6-20 MG/DL. The reference range was not used to interpret this result as normal/abnormal. CALCIUM (test code = 88569-3) 9.7 MG/DL See_Comment [Automated messa ge] The system which generated this result transmitted reference range: 8.5-10.5 MG/DL. The reference range was not used to interpret this result as normal/abnormal. CALC A/G RATIO (test code = 1759-0) 1.8 RATIO See_Comment [Automated Handlea ge] The system which generated this result transmitted reference range: 1.0-2.6 RATIO. The reference range was not used to interpret this result as normal/abnormal. CALC BUN/CREAT (test code = 3097-3) 12 RATIO See_Comment [Automated messa ge] The system which generated this result transmitted reference range: 6-28 RATIO. The reference range was not used to interpret this result as normal/abnormal. CALC GLOBULIN (test code = 86099-8) 2.7 G/DL See_Comment [Automated messa ge] The system which generated this result transmitted reference range: 1.9-3.7 G/DL. The reference range was not used to interpret this result as normal/abnormal. CARBON DIOXIDE (test code = 1963-8) 29 MEQ/L See_Comment [Automated messa ge] The system which generated this result transmitted reference range: 19-31 MEQ/L. The reference range was not used to interpret this result as normal/abnormal. CHLORIDE (test code = 2075-0) 102 MEQ/L See_Comment [Automated messa ge] The system which generated this result transmitted reference range: 95-107 MEQ/L. The reference range was not used to interpret this result as normal/abnormal. CREATININE (test code = 2160-0) 1.13 MG/DL See_Comment [Automated messa ge] The system which generated this result transmitted reference range: 0.80-1.40 MG/DL. The reference range was not used to interpret this result as normal/abnormal. eGFR (2020 CKD-EPI) (test code = 09435-0) 83 ML/MIN/1.73 See_Comment [Automated messa ge] The system which generated this result transmitted reference range: >60 ML/MIN/1.73. The reference range was not used to interpret this result as normal/abnormal. GLUCOSE (test code = 1558-6) 110 MG/DL See_Comment H [Automated messa ge] The system which generated this result transmitted reference range: 70-99 MG/DL. The reference range was not used to interpret this result as normal/abnormal. POTASSIUM (test code = 2823-3) 3.9 MEQ/L See_Comment [Automated messa ge] The system which generated this result transmitted reference range: 3.5-5.4 MEQ/L. The reference range was not used to interpret this result as normal/abnormal. PROTEIN, TOTAL (test code = 2885-2) 7.5 G/DL See_Comment [Automated messa ge] The system which generated this result transmitted reference range: 6.1-8.3 G/DL. The reference range was not used to interpret this result as normal/abnormal. AST (test code = 1920-8) 19 U/L See_Comment [Automated messa ge] The system which generated this result transmitted reference range: 9-50 U/L. The reference range was not used to interpret this result as normal/abnormal. ALT (test code = 1742-6) 18 U/L See_Comment [Automated messa ge] The system which generated this result transmitted reference range: 5-50 U/L. The reference range was not used to interpret this result as normal/abnormal. SODIUM (test code = 2951-2) 142 MEQ/L See_Comment [Automated messa ge] The system which generated this result transmitted reference range: 133-146 MEQ/L. The reference range was not used to interpret this result as normal/abnormal.
[2023-03-13 12:26] LABS: Absolute Lymphocytes (CBC) 1.6 K/uL (0.7-4.9); Hematocrit 44.1 % (39.6-49.0); Lymphocytes % 16.5 % (15.3-44.8); MCV 90.7 fL (80-100); MPV 8.8 fL (7.6-11.3); Platelets 151 thou/uL (152-406); RBC Red Blood Cell Count 4.87 M/uL (4.33-5.43)
[2023-03-13] MEDS ORDERED: NA CHLORIDE 0.9% 1,000 ML ONE (12:26)
[2023-03-13 12:31] LABS: Protime INR 1.22
--- NOTE | 2023-03-13 12:38 | RAD REPORT ---
EXAM DESCRIPTION: Erum Single View03/13/2023 12:27 pm CLINICAL HISTORY: Abdominal pain COMPARISON: November 2022 FINDINGS: The lungs appear clear of acute infiltrate. The heart is normal size IMPRESSION: No acute abnormalities displayed
[2023-03-13 12:45] LABS: Albumin 3.9 g/dL (3.4-5.0); Bilirubin Direct 0.2 mg/dL (0-0.2); Bilirubin Indirect, Calculated 1.1 mg/dL (0.2-0.8); Bilirubin Total 1.3 mg/dL (0.2-1.0); Magnesium 2.1 mg/dL (1.6-2.4); Potassium 3.9 mEq/L (3.5-5.1); Protein, Total 8.2 g/dL (6.4-8.2); Troponin High Sensitivity 4.3 pg/mL (<58.9)
--- NOTE | 2023-03-13 13:36 | RAD REPORT ---
EXAM DESCRIPTION: CT - Abdomen Pelvis W Contrast - 03/13/2023 1:13 pm CLINICAL HISTORY: Abdominal pain COMPARISON: 2021 TECHNIQUE: Computed axial tomography of the abdomen pelvis was obtained. 100 cc Isovue-300 was admin istered intravenously. Oral contrast was not requested which limits evaluation of bowel and appendix All CT scans are performed using dose optimization technique as appropriate and may include automated exposure control or mA/KV adjustment according to patient size. FINDINGS: Development of a 1.3 centimeter lobulated opacity right lower lobe. Small hepatic cysts Spleen, pancreas, adrenals and kidneys are unremarkable. Small umbilical hernia Normal appendix. No evidence of diverticulitis. Small right inguinal hernia contains fat. IMPRESSION: 1.3 centimeter lobulated opacity right lower lobe is nonspecific. It may represent infla mmation, or neoplasm. PET CT scan is recommended for further evaluation
--- NOTE | 2023-03-13 14:28 | ER ---
Nurse's Notes [facility] Name: Cory Brock Age: 42 yrs Sex: Male : 1980 Arrival Date: 03/13/2023 Time: 11:45 Bed 14 Private MD: Diagnosis: Chest pain, unspecified;Epigastric abdominal tenderness;Abnormal findings on diagnostic imaging of other specified body structures-1.3 CM OPACITY RIGHT LOWER LOBE Presentation: 03/13 12:16 Chief complaint: Patient states: Abdominal pain onset 4 days ago. Pt states that he has cm10 had some nausea, no vomiting or diarrhea. Pt reports constipation. Coronavirus screen: Vaccine status: Patient reports receiving the 2nd dose of the covid vaccine. Client denies travel out of the [place] in the last 14 days. Ebola Screen: Patient denies travel to an Ebola-affected area in the 21 days before illness onset. No symptoms or risks identified at this time. Initial Sepsis Screen: Does the patient meet any 2 criteria? No. Patient's initial sepsis screen is negative. Does the patient have a suspected source of infection? No. Patient's initial sepsis screen is negative. Risk Assessment: Do you want to hurt yourself or someone else? Patient reports no desire to harm self or others. Onset of symptoms was March 09, 2023. 12:16 Method Of Arrival: Ambulatory cm10 12:16 Acuity: CORY 3 cm10 Triage Assessment: 12:30 General: Appears in no apparent distress. Behavior is calm, cooperative, appropriate bp for age. Pain: Complains of pain in abdomen. GI: Reports upper abdominal pain. Historical: - Allergies: 12:16 Aspirin; cm10 12:16 NSAIDS (GI bleeding); cm10 12:16 PENICILLINS; cm10 12:16 Amoxicillin; cm10 - PMHx: 12:16 Atrial fibrillation; Back pain; Hypertensive disorder; trauma; cm10 - Immunization history:: Adult Immunizations up to date. - Social history:: Smoking status: Patient denies any tobacco usage or history of. - Family history:: not pertinent. Screenin:30 [facility] ED Fall Risk Assessment (Adult) History of falling in the last 3 months, bp including since admission No falls in past 3 months (0 pts). Abuse screen: Denies threats or abuse. Denies injuries from another. Nutritional screening: No deficits noted. Tuberculosis screening: No symptoms or risk factors identified. Assessment: 12:30 General: SEE TRIAGE NOTE. bp 13:30 Reassessment: Patient appears in no apparent distress at this time. Patient is alert, bp oriented x 3, equal unlabored respirations, skin warm/dry/pink. Vital Signs: 12:32 BP 129 / 93; Pulse 65; Resp 15; Temp 98.4; Pulse Ox 100% ; bp 13:53 BP 133 / 91; Pulse 74; Resp 16; Pulse Ox 100% ; bp 20:22 BP 126 / 81; Pulse 71; Resp 17; Temp 98; Pulse Ox 99% on R/A; rv Keller Coma Score: 20:22 Eye Response: spontaneous(4). Motor Response: obeys commands(6). Verbal Response: rv oriented(5). Total: 15. ED Course: 11:50 Patient arrived in ED. ts1 11:58 Ross Sanchez MD is Attending Physician. chioma 12:17 Triage completed. cm10 12:17 Lipase Sent. bc6 12:17 Basic Metabolic Panel Sent. bc6 12:17 CBC with Diff Sent. bc6 12:17 LFT's Sent. bc6 12:17 Magnesium Sent. bc6 12:17 NT PRO-BNP Sent. bc6 12:17 PT-INR Sent. bc6 12:17 Troponin HS Sent. bc6 12:17 Inserted saline lock: 20 gauge in right antecubital area, using aseptic technique. bc6 Blood collected. 12:17 Arm band placed on Patient placed in an exam room, on a stretcher. cm10 12:23 Noe Champion, RN is Primary Nurse. bp 12:29 XRAY Chest (1 view) In Process Unspecified. EDMS 13:15 CT Abd/Pelvis - IV Contrast Only In Process Unspecified. EDMS 13:30 Patient has correct armband on for positive identification. bp 14:26 Dawson Knott MD is Hospitalizing Provider. chioma 20:22 No provider procedures requiring assistance completed. Patient admitted, IV remains in rv place. Administered Medications: 12:32 Drug: NS 0.9% IV 1000 ml IV at 1 bolus Per protocol; 1000 mL bolus Route: IV; Rate: 1 bp bolus; Site: right antecubital; 15:15 Drug: morphine IVP or IV 4 mg IVP once over 4 mins Route: IVP; Infused Over: 4 mins; bp Site: right antecubital; 15:15 Drug: Ondansetron IVP 4 mg IVP once; over 2 minutes Route: IVP; Site: right antecubital;bp Medication: 13:30 VIS not applicable for this client. bp Outcome: 14:28 Decision to Hospitalize by Provider. chioma 20:23 Admitted to Med/surg accompanied by tech, via wheelchair, room 212, with chart, Report rv called to ann marie schmitt 20:23 Condition: good 20:23 Instructed on the need for admit, 20:23 Patient left the ED. rv Signatures: Dispatcher [employer] EDMS Ross Sanchez MD MD cha Peltier, Brian, RN RN Tulio Joiner RN RN rv Suellen Lobo6 Melanie Gonzalez PAS PAS ts1 Johanna Malik RN RN cm10 Corrections: (The following items were deleted from the chart) 13:54 13:53 Pulse 74bpm; Resp 16bpm; Pulse Ox 100%; bp bp
--- NOTE | 2023-03-13 14:28 | EDPHYS ---
Physician Documentation [facility] Name: Cory Brock Age: 42 yrs Sex: Male : 1980 Arrival Date: 03/13/2023 Time: 11:45 Bed 14 Private MD: ED Physician Ross Sanchez HPI: 03/13 14:19 This 42 yrs old Male presents to ER via Ambulatory with complaints of chioma Abdominal Pain, Shortness Of Breath, Back Pain. 14:19 The patient has shortness of breath with light activity. Onset: The symptoms/episode chioma began/occurred 3 day(s) ago. Duration: The symptoms are continuous, and are steadily getting worse. The patient's shortness of breath is aggravated by light activity, is alleviated by rest. Associated signs and symptoms: Pertinent positives: chest pain. Severity of symptoms: At their worst the symptoms were mild moderate in the emergency department the symptoms are unchanged. The patient has not experienced similar symptoms in the past. Historical: - Allergies: 12:16 Aspirin; cm10 12:16 NSAIDS (GI bleeding); cm10 12:16 PENICILLINS; cm10 12:16 Amoxicillin; cm10 - PMHx: 12:16 Atrial fibrillation; Back pain; Hypertensive disorder; trauma; cm10 - Immunization history:: Adult Immunizations up to date. - Social history:: Smoking status: Patient denies any tobacco usage or history of. - Family history:: not pertinent. ROS: 14:19 Constitutional: Negative for fever, chills, and weight loss, Eyes: Negative for injury, chioma pain, redness, and discharge, ENT: Negative for injury, pain, and discharge, Neck: Negative for injury, pain, and swelling, Respiratory: Negative for shortness of breath, cough, wheezing, and pleuritic chest pain, Back: Negative for injury and pain, : Negative for injury, bleeding, discharge, and swelling, MS/Extremity: Negative for injury and deformity, Skin: Negative for injury, rash, and discoloration, Neuro: Negative for headache, weakness, numbness, tingling, and seizure, Psych: Negative for depression, anxiety, suicide ideation, homicidal ideation, and hallucinations, Allergy/Immunology: Negative for hives, rash, and allergies, Endocrine: Negative for neck swelling, polydipsia, polyuria, polyphagia, and marked weight changes, Hematologic/Lymphatic: Negative for swollen nodes, abnormal bleeding, and unusual bruising, 14:19 Cardiovascular: Positive for chest pain, 14:19 Respiratory: Positive for shortness of breath, 14:19 Abdomen/GI: Positive for abdominal pain, of the right upper quadrant, Exam: 14:19 Constitutional: This is a well developed, well nourished patient who is awake, alert, chioma and in no acute distress. Head/Face: Normocephalic, atraumatic. Eyes: Pupils equal round and reactive to light, extra-ocular motions intact. Lids and lashes normal. Conjunctiva and sclera are non-icteric and not injected. Cornea within normal limits. Periorbital areas with no swelling, redness, or edema. ENT: Nares patent. No nasal discharge, no septal abnormalities noted. Tympanic membranes are normal and external auditory canals are clear. Oropharynx with no redness, swelling, or masses, exudates, or evidence of obstruction, uvula midline. Mucous membranes moist. Neck: Trachea midline, no thyromegaly or masses palpated, and no cervical lymphadenopathy. Supple, full range of motion without nuchal rigidity, or vertebral point tenderness. No Meningismus. Chest/axilla: Normal chest wall appearance and motion. Nontender with no deformity. No lesions are appreciated. Cardiovascular: Regular rate and rhythm with a normal S1 and S2. No gallops, murmurs, or rubs. Normal PMI, no JVD. No pulse deficits. Respiratory: Lungs have equal breath sounds bilaterally, clear to auscultation and percussion. No rales, rhonchi or wheezes noted. No increased work of breathing, no retractions or nasal flaring. Back: No spinal tenderness. No costovertebral tenderness. Full range of motion. Male : Normal genitalia with no discharge or lesions. Skin: Warm, dry with normal turgor. Normal color with no rashes, no lesions, and no evidence of cellulitis. MS/ Extremity: Pulses equal, no cyanosis. Neurovascular intact. Full, normal range of motion. Neuro: Awake and alert, GCS 15, oriented to person, place, time, and situation. Cranial nerves II-XII grossly intact. Motor strength 5/5 in all extremities. Sensory grossly intact. Cerebellar exam normal. Normal gait. Psych: Awake, alert, with orientation to person, place and time. Behavior, mood, and affect are within normal limits. 14:19 ECG was reviewed by the Attending Physician. 14:19 Musculoskeletal/extremity: DVT Exam: No signs of deep vein thrombosis. no pain, no swelling, no tenderness, negative Homans' sign noted on exam, no appreciated bluish discoloration, no erythema, no increased warmth, Vital Signs: 12:32 BP 129 / 93; Pulse 65; Resp 15; Temp 98.4; Pulse Ox 100% ; bp 13:53 BP 133 / 91; Pulse 74; Resp 16; Pulse Ox 100% ; bp 20:22 BP 126 / 81; Pulse 71; Resp 17; Temp 98; Pulse Ox 99% on R/A; rv Yuan Coma Score: 20:22 Eye Response: spontaneous(4). Motor Response: obeys commands(6). Verbal Response: rv oriented(5). Total: 15. MDM: 11:58 Patient medically screened. chioma 14:22 Differential diagnosis: Anemia Anxiety Reaction Bronchitis CHF exacerbation, pneumonia, chioma Pneumothorax Pulmonary Embolism reactive airway disease, Unstable Angina. Antibiotic administration: Not indicated. Immunization status:. Data reviewed: vital signs, nurses notes, lab test result(s), EKG, radiologic studies, CT scan, plain films. Consideration of Admission/Observation Escalation of care including admission/observation considered. I considered the following discharge prescriptions or medication management in the emergency department Medications were administered in the Emergency Department. See MAR. Independent interpretation of the following test(s) in the Emergency Department EKG: See my EKG interpretation above. Test considered but Not performed: CT: NO CT CHEST. Historians other than the Patient: Spouse/Significant Other: WELL INFORMED. 03/13 12:00 Order name: Basic Metabolic Panel; Complete Time: 13:45 [facility] 03/13 12:00 Order name: CBC with Diff; Complete Time: 13:45 [facility] 03/13 12:00 Order name: LFT's; Complete Time: 13:45 [facility] 03/13 12:00 Order name: Magnesium; Complete Time: 13:45 [facility] 03/13 12:00 Order name: NT PRO-BNP; Complete Time: 13:45 [facility] 03/13 12:00 Order name: PT-INR; Complete Time: 13:45 03/13 12:00 Order name: Troponin HS; Complete Time: 13:45 [facility] 03/13 12:00 Order name: Lipase; Complete Time: 13:45 chioma 03/13 12:00 Order name: Urinalysis w/ reflexes 03/13 12:00 Order name: XRAY Chest (1 view); Complete Time: 13:45 [facility] 03/13 12:25 Order name: CT Abd/Pelvis - IV Contrast Only; Complete Time: 14:53 [facility] 03/13 14:23 Order name: US Abdomen Limited eb 03/13 15:03 Order name: US EDMS 03/13 12:00 Order name: EKG; Complete Time: 12:00 [facility] 03/13 12:00 Order name: Cardiac monitoring; Complete Time: 12:23 03/13 12:00 Order name: EKG - Nurse/Tech; Complete Time: 12:32 [facility] 03/13 12:00 Order name: IV Saline Lock; Complete Time: 12:17 [facility] 03/13 12:00 Order name: Labs collected and sent; Complete Time: 12:17 [facility] 03/13 12:00 Order name: O2 Per Protocol; Complete Time: 12:23 03/13 12:00 Order name: O2 Sat Monitoring; Complete Time: 12:23 [facility] EC:19 Rate is 67 beats/min. Rhythm is regular. QRS [place] is Normal. NC interval is normal. QRS chioma interval is normal. QT interval is normal. No Q waves. T waves are Normal. No ST changes noted. Clinical impression: NSR w/ Non-specific ST/T Changes and No evidence of ischemia. Interpreted by me. Reviewed by me. Administered Medications: 12:32 Drug: NS 0.9% IV 1000 ml IV at 1 bolus Per protocol; 1000 mL bolus Route: IV; Rate: 1 bp bolus; Site: right antecubital; 15:15 Drug: morphine IVP or IV 4 mg IVP once over 4 mins Route: IVP; Infused Over: 4 mins; bp Site: right antecubital; 15:15 Drug: Ondansetron IVP 4 mg IVP once; over 2 minutes Route: IVP; Site: right antecubital;bp Disposition Summary: 03/13/23 14:28 Hospitalization Ordered Notes: Hospitalization Status: Observation chioma Provider: Dawson Knott cha Condition: Stable chioma Problem: new chioma Symptoms: are unchanged chioma Bed/Room Type: Standard chioma Location: Telemetry/MedSurg (observation)(03/13/23 18:39) sp Room Assignment: 212(03/13/23 18:39) sp Diagnosis - Chest pain, unspecified chioma - Epigastric abdominal tenderness chioma - Abnormal findings on diagnostic imaging of other specified body structures - 1.3 CM chioma OPACITY RIGHT LOWER LOBE Forms: - Medication Reconciliation Form chioma - SBAR form chioma - Leadership Thank You Letter chioma Signatures: Dispatcher [employer] EDMS Ross Sanchez MD MD cha Pinkerton, Shawna sp Peltier, Brian, RN RN Maria G Garcia Clarissa, RN RN cm10 Sophia Becker FNP FNP cm12 Corrections: (The following items were deleted from the chart) 16:20 14:28 Telemetry/MedSurg (observation) chioma eb 16:20 14:28 chioma eb 18:39 16:20 BR ER HOLD eb sp 18:39 16:20 ERHOLD- eb sp
--- NOTE | 2023-03-13 14:38 | P.HP ---
Certification for Inpatient Patient admitted to: Observation With expected LOS: <2 Midnights Patient will require the following post-hospital care: None Practitioner: I am a practitioner with admitting privileges, knowledge of patient current condition, hospital course, and medical plan of care. Services: Services provided to patient in accordance with Admission requirements found in Title 42 Section 412.3 of the Code of Federal Regulations <Sophia Becker - Last Filed: 03/13/23 16:45> Patient History Date of Service: 03/13/23 Reason for admission: Chest pain History of Present Illness: 42-year-old male with a past medical history of hypertension, atrial fibrillation, back pain presents to the emergency room with abdominal pain and chest pain. He reports right upper quadrant abdominal pain, chest pain worse today today. reports associated back pain, no reported recent injury, reports mild shortness of breath, shortness of breath, no reported wheezing, cough, fever, nausea vomiting diarrhea, dizziness. Plan to admit for chest pain, abdominal pain. Abnormal CT of the abdomen pelvis right lower lobe, hepatic cyst, small right inguinal hernia opacity, follow-up for additional imaging. Laboratory evaluation no elevated blood glucose left shift 77, troponin normal 4.3 BNP normal 16 chest x-ray is clear lipase 28 - Past Medical/Surgical History Diabetic: No -: HTN -: Chronic back pain -: Urinary retention -: GERD - Social History Alcohol use: No CD- Drugs: No <EugenioSophia - Last Filed: 03/13/23 16:45> Date of Service: 03/14/23 <Dawson Knott - Last Filed: 03/14/23 15:54> Allergies amoxicillin Allergy (Verified 03/13/23 20:22) unknown aspirin Allergy (Verified 03/14/23 06:10) throat, eyes swelling Penicillins Allergy (Verified 03/13/23 20:22) unknown NSAIDS Adverse Reaction (Unknown, Uncoded 03/13/23 20:22) abdominal bleeding Home Medications: Amlodipine [Norvasc] 5 mg PO BID 12/10/21 Hydrocodone 10/APAP 325 [[place] 10/325*] 1 tab PO Q6HP PRN 12/10/21 Pantoprazole [Protonix Tab] 40 mg PO DAILY 12/10/21 carvediloL [Coreg*] 3.125 mg PO BID 03/13/23 hydroCHLOROthiazide [Hydrochlorothiazide*] 12.5 mg PO DAILY 03/13/23 Review of Systems per HPI <Sophia Becker - Last Filed: 03/13/23 16:45> 10-point ROS is otherwise unremarkable <Dawson Knott - Last Filed: 03/14/23 15:54> Physical Examination - Physical Exam General: Alert, In no apparent distress, Oriented x3 HEENT: Atraumatic, PERRLA Neck: Supple, 2+ carotid pulse no bruit, JVD not distended Respiratory: Clear to auscultation bilaterally, Normal air movement Cardiovascular: No edema, Normal pulses Capillary refill: <2 Seconds Gastrointestinal: Normal bowel sounds, Soft and benign Musculoskeletal: No clubbing, No swelling Integumentary: No rashes, No breakdown Neurological: Normal speech, Normal strength at 5/5 x4 extr - Studies Laboratory Data (last 24 hrs) 03/13/23 03/13/23 03/13/23 12:15 12:15 12:15 WBC 9.80 Hgb 15.3 Hct 44.1 Plt Count 151 L PT 13.3 H INR 1.22 Sodium 138 Potassium 3.9 BUN 11 Creatinine 1.25 Glucose 100 Magnesium 2.1 Total Bilirubin 1.3 H AST 8 L ALT 23 Alkaline Phosphatase 60 Lipase 28 <Sophia Becker - Last Filed: 03/13/23 16:45> - Vital Signs Temperature: 98 F (Vitals reviewed) <Dawson Knott - Last Filed: 03/14/23 15:54> Assessment and Plan - Plan Assessment plan chest pain rule out [place] Telemetry, trend troponins, as needed analgesics, nitro, aspirin, antilipid Abnormal CT of the abdomen pelvis right lower lobe, hepatic cyst, small right inguinal hernia opacity, follow-up for additional imaging. Laboratory evaluation no elevated blood glucose left shift 77, troponin normal 4.3 BNP normal 16 chest x-ray is clear lipase 28 Left upper quadrant abdominal pain Abdominal ultrasound, as needed antiemetics, as needed analgesics History of hypertension History of A-fib Telemetry Resume home blood pressure medicines Diet N.p.o. after midnight, Cardiac diet Full code DVT Lovenox Discharge Plan: Home Plan to discharge in: 24 Hours - Advance Directives Does patient have a Living Will: No Does patient have a Durable POA for Healthcare: No - Code Status/Comfort Care Code Status: Full Code Critical Care: No Time Spent Managing Pts Care (In Minutes): 55 <Sophia Becker - Last Filed: 03/13/23 16:45> - Plan Patient chart was reviewed. Patient was seen and examined. Patient will be admitted to the hospital for chest pain. Patient will be ruled out for acute coronary syndrome. <Dawson Knott - Last Filed: 03/14/23 15:54>
[2023-03-13] MEDS ORDERED: ZOLPIDEM TARTRATE 5 MG TABLET PO PRN (14:43)
[2023-03-13] MEDS ORDERED: MORPHINE 2 MG/ML SYR IV PRN (14:45)
[2023-03-13] MEDS ORDERED: NITROGLYCERIN 0.4 MG/TAB SL PRN (14:45)
--- NOTE | 2023-03-13 15:02 | RAD REPORT ---
EXAM DESCRIPTION: US - Abdomen Exam Limited - 03/13/2023 2:54 pm CLINICAL HISTORY: us gb;Abd cramping, COMPARISON: <Comparisons> FINDINGS: The gallbladder demonstrates layering gallstones in the gallbladder fundus. No pericholecy stic fluid or gallbladder wall thickening. The common bile duct is normal measuring 2 mm. The liver demonstrates no findings of intrahepatic biliary dilatation. IMPRESSION: Cholelithiasis.
[2023-03-13] MEDS ORDERED: ONDANSETRON 4 MG/2 ML VIAL ONE (15:11)
[2023-03-13] MEDS ORDERED: MORPHINE 4 MG/ML SYR ONE (15:11)
[2023-03-13] MEDS ORDERED: ACETAMINOPHEN 500 MG TAB PO PRN (20:00)
[2023-03-13 20:32] VITALS: BMI 30.8
[2023-03-13] MEDS ORDERED: ATORVASTATIN 20 MG TAB PO SCH (21:00)
[2023-03-13] MEDS: carvediloL 3.125 MG TAB PO SCH (21:17)
[2023-03-13] MEDS: HYDROCODONE/APAP 10/325 TAB PO PRN (21:18)
[2023-03-14 04:00] LABS: Absolute Lymphocytes (CBC) 2.6 K/uL (0.7-4.9); Hematocrit 40.2 % (39.6-49.0); Lymphocytes % 27.7 % (15.3-44.8); MCV 90.8 fL (80-100); Platelets 137 thou/uL (152-406); RBC Red Blood Cell Count 4.42 M/uL (4.33-5.43)
[2023-03-14 04:43] LABS: Potassium 3.9 mEq/L (3.5-5.1)
[2023-03-14] MEDS ORDERED: ONDANSETRON 4 MG/2 ML VIAL IV PRN (05:53)
[2023-03-14] MEDS: carvediloL 3.125 MG TAB PO SCH (08:44)
[2023-03-14] MEDS ORDERED: PANTOPRAZOLE 40MG TABLET PO SCH (09:00)
[2023-03-14] MEDS ORDERED: AMLODIPINE 2.5 MG TAB PO SCH (09:00)
[2023-03-14] MEDS ORDERED: ASPIRIN 325 MG TAB PO SCH (09:00)
[2023-03-14] MEDS ORDERED: ENOXAPARIN 40 MG/0.4 ML SQ SCH (09:00)
[2023-03-14] MEDS ORDERED: hydroCHLOROthiazide 12.5 MG CAP PO SCH (09:00)
[2023-03-14] MEDS: HYDROCODONE/APAP 10/325 TAB PO PRN (10:38)
[2023-03-14 11:06] LABS: Urine Bilirubin NEGATIVE (Negative); Urine Blood Negative (Negative); Urine Clarity Clear (Clear); Urine Color Colorless (Yellow); Urine Glucose NEGATIVE (Negative); Urine Protein NEGATIVE (Negative); Urine Urobilinogen Normal (Normal)
[2023-03-14] MEDS ORDERED: METOPROLOL TAR 25 MG TAB PO ONE (11:30)
--- NOTE | 2023-03-14 12:35 | RAD REPORT ---
EXAM DESCRIPTION: CT - Thorax W/ Con - 03/14/2023 11:54 am CLINICAL HISTORY: lung nodule COMPARISON: Abdomen Pelvis W Contrast dated 03/13/2023 TECHNIQUE: Axial thin cut images of the chest were obtained following intravenous administration of 80 mL Isovue-300. Multiplanar reformats were generated and reviewed. All CT scans are performed using dose optimization technique as appropriate and may include automated exposure control or mA/KV adjustment according to patient size. FINDINGS: Stable bilobed posterior right lower lobe nodule, collectively measuring 1.3 cm as measure d on coronal image 113/150. No other suspicious mass or infiltrate in the lung parenchyma. No pleural thickening or pleural effusion. No pneumothorax. No abnormal mediastinal or hilar masses or lymphadenopathy seen. No significant aortic or pulmonary a rtery findings. Assessment is limited in the absence of IV contrast. No chest wall mass or abnormal axillary lymphadenopathy. Evaluation of the solid abdominal structures reveals no suspicious findings. Multiple hypoattenuating small liver lesions largest at the right hepatic dome measuring 13 mm are stable, not fully characte rized IMPRESSION: Stable right lower lobe 1.3 cm nodule. Pulmonary consultation is recommended. PET-CT wou ld be helpful for additional imaging evaluation if clinically indicated, as per the previous recommen dation.
[2023-03-14 13:09] VITALS: O2SAT 99
[2023-03-14 15:20] VITALS: BP 118/73
--- NOTE | 2023-03-14 15:53 | P.DS ---
Discharge Date: 03/14/23 Disposition: ROUTINE DISCHARGE Discharge Condition: GOOD Reason for Admission: Chest pain Brief History of Present Illness: Patient is a 42-year-old gentleman came to the hospital with chest pain. Patient's initial troponins and EKG were negative. Patient was admitted for further evaluation. Hospital Course: His symptoms improved and his cardiac testing was unremarkable. Patient can follow-up as an outpatient with cardiology for a stress test as needed. Patient does have gallstones but he does not need any emergent surgical intervention. He can talk to a general surgeon about the positives and negatives about an elective laparoscopic cholecystectomy. Patient will continue with Lopressor as scheduled. Will discontinue carvedilol. Patient is stable for discharge home. Vital Signs/Physical Exam: Temp Pulse Resp BP Pulse Ox 97.9 F 77 16 118/73 97 03/14/23 15:11 03/14/23 15:11 03/14/23 15:11 03/14/23 15:11 03/14/23 15:11 General: Alert, In no apparent distress, Oriented x3 Laboratory Data at Discharge: WBC 9.50 thou/uL (4.3-10.9) 03/14/23 03:07 Hgb 13.9 g/dL (13.6-17.9) D 03/14/23 03:07 Hct 40.2 % (39.6-49.0) 03/14/23 03:07 Plt Count 137 thou/uL (152-406) L 03/14/23 03:07 PT 13.3 SECONDS (9.5-12.5) H 03/13/23 12:15 INR 1.22 03/13/23 12:15 Sodium 140 mEq/L (136-145) 03/14/23 03:07 Potassium 3.9 mEq/L (3.5-5.1) 03/14/23 03:07 BUN 13 mg/dL (7-18) 03/14/23 03:07 Creatinine 1.17 mg/dL (0.70-1.30) 03/14/23 03:07 Glucose 94 mg/dL (74-106) 03/14/23 03:07 Magnesium 2.0 mg/dL (1.6-2.4) 03/14/23 03:07 Total Bilirubin 1.3 mg/dL (0.2-1.0) H 03/13/23 12:15 AST 8 U/L (15-37) L 03/13/23 12:15 ALT 23 U/L (16-61) 03/13/23 12:15 Alkaline Phosphatase 60 U/L (45-117) 03/13/23 12:15 Triglycerides 122 mg/dL (<150) 03/14/23 03:07 Cholesterol 137 mg/dL (<200) 03/14/23 03:07 HDL Cholesterol 33 mg/dL (40-60) L 03/14/23 03:07 Cholesterol/HDL Ratio 4.15 03/14/23 03:07 Lipase 28 U/L (13-75) 03/13/23 12:15 Home Medications: Amlodipine [Norvasc] 5 mg PO BID 12/10/21 Hydrocodone 10/APAP 325 [[place] 10/325*] 1 tab PO Q6HP PRN 12/10/21 Pantoprazole [Protonix Tab] 40 mg PO DAILY 12/10/21 carvediloL [Coreg*] 3.125 mg PO BID 03/13/23 hydroCHLOROthiazide [Hydrochlorothiazide*] 12.5 mg PO DAILY 03/13/23 Physician Discharge Instructions: -DC IV and DC home -Follow-up with PCP in 1 to 2 weeks -Follow-up with Cardiology in 1 to 2 weeks -Please call Dr. Knott at [phone] if any questions regarding hospital stay -Please call nursing station at [phone] if any nursing or medication questions -Return to the emergency room if symptoms worsen Diet: Low-fat Activity: Fall precautions Followup: NONE,NONE [Primary Care Provider] - Time spent managing pt's care (in minutes): 35
[2023-03-14 15:59] VITALS: TEMP 98
--- NOTE | 2023-03-14 16:56 | EKG ---
Test Date: 2023-03-14 Test Time: 08:35:33 Chief Of Party: SHAMEKA MEASUREMENT RESULTS: Intervals: Rate: 66 MT: 164 QRSD: 92 QT: 386 QTc: 404 [place]: P: 29 MT: 164 QRS: 30 T: 47 INTERPRETIVE STATEMENTS: Normal sinus rhythm Normal ECG Compared to ECG 03/13/2023 12:29:21 No significant changes Electronically Signed On 03-14-23 16:55:02 SHIP PROPELLER FINISHER by Kehinde Lackey
--- NOTE | 2023-03-14 16:59 | EKG ---
Test Date: 2023-03-13 Test Time: 12:29:21 Position Classification Specialist: CAMI MEASUREMENT RESULTS: Intervals: Rate: 67 MI: 154 QRSD: 88 QT: 376 QTc: 397 [place]: P: 34 MI: 154 QRS: 39 T: 48 INTERPRETIVE STATEMENTS: Normal sinus rhythm Normal ECG Compared to ECG 12/24/2022 15:50:44 No significant changes Electronically Signed On 03-14-23 16:56:08 KNITTER HAND by Kehinde Lackey
[2023-03-14] MEDS ORDERED: METOPROLOL TAR 25 MG TAB PO SCH (18:00)
--- NOTE | 2023-03-15 06:57 | ECHO ---
HEIGHT: 5 ft 10 in WEIGHT: 215 lb 1.6 oz DATE OF STUDY: 03/14/[address]: Dawson Knott MD 2-DIMENSIONAL: YES M.MODE: YES DOPPLER: YES COLOR FLOW: YES TDS: PORTABLE: YES DEFINITY: BUBBLE STUDY: DIAGNOSIS: CHEST PAIN/ ACUTE CORONARY SYNDROME CARDIAC HISTORY: CATHERIZATION: SURGERY: PROSTHETIC VALVE: PACEMAKER: MEASUREMENTS (cm) DIASTOLIC (NORMALS) SYSTOLIC (NORMALS) IVSd 1.0 (0.6-1.2) LA Diam 3.1 (1.9-4.0) LVEF 65% LVIDd 4.1 (3.5-5.7) LVIDs 2.6 (2.0-3.5) %FS 35% LVPWd 1.1 (0.6-1.2) Ao Diam 2.9 (2.0-3.7) 2 DIMENSIONAL ASSESSMENT: RIGHT ATRIUM: NORMAL LEFT ATRIUM: NORMAL RIGHT VENTRICLE: NORMAL LEFT VENTRICLE: NORMAL TRICUSPID VALVE: NORMAL MITRAL VALVE: NORMAL PULMONIC VALVE: NORMAL AORTIC VALVE: NORMAL PERICARDIAL EFFUSION: NONE AORTIC ROOT: NORMAL LEFT VENTRICULAR WALL MOTION: NORMAL DOPPLER/COLOR FLOW: MILD TRICUSPID REGURGITATION COMMENTS: 1. NORMAL LEFT VENTRICULAR EJECTION FRACTION 60-65% WITH NORMAL WALL MOTION 2. NORMAL WALL MOTION 3. NORMAL DIASTOLIC FUNCTION 4. MILD TRICUSPID REGURGITATION TECHNOLOGIST: INES DUBOSE
== END 2023-03-14 17:19 | disposition home or self-care (01) ==
LOC: ER 11:45 → ERHOLD 14:43 → 2ND 19:37
PROVIDERS: ADMIT Hospitalist; ATTEND Hospitalist
DX: R07.9 Chest pain, unspecified (principal); I10 Essential (primary) hypertension; M54.9 Dorsalgia, unspecified; R10.11 Right upper quadrant pain; R06.02 Shortness of breath; I48.91 Unspecified atrial fibrillation; K80.20 Calculus of gallbladder without cholecystitis without obstruction; R93.89 Abnormal findings on diagnostic imaging of other specified body structures; Z88.1 Allergy status to other antibiotic agents; Z88.6 Allergy status to analgesic agent; Z88.0 Allergy status to penicillin
CPT/HCPCS: 36415; 71045; 71260; 74177; 76705; 80048; 80061; 80076; 81003; 83690; 83735; 83880; 84484; 85025; 85610; 93005; 93306; 94760; 96374; 96375; 99285; G0378; J2405; J7030; Q9967

== ENCOUNTER → 2023-03-15 | Emergency (ER) | payer SELFPAY ==
--- OUTSIDE RECORDS SUMMARY | 2023-03-15 22:59 | XMS REPORT | Continuity of Care Document ---
Author Name Unknown Address [address] [facility] [address] [place] [address] [facility] thconnect Address [address] [facility] 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 Problems Condition Name Condition Details Condition Category Status Onset Date Resolution Date Last Treatment Date Treating Clinician Comments Source Mixed dyslipidem ia Mixed dyslipidem ia Disease Active 2015-02 00:00: 00 [facility] Chronic back pain Chronic back pain Disease Active 2015-02 00:00: 00 [facility] Obesity (BMI 30-39.9) Obesity (BMI 30-39.9) Disease Active 2015-02 00:00: 00 [facility] Tobacco use Tobacco use Disease Active 2015-02 00:00: 00 [facility] [id number] Panic attacks Problem [facility] Screening for cardiovasc ular system disease Screening for cardiovasc ular condition Problem [facility] [id number] Chest pain, unspecifie d type Problem [facility] [id number] Gastroesop hageal reflux disease, unspecifie d whether esophagiti s present Problem [facility] [id number] Primary hypertensi on Problem [facility] Gastro-eso phageal reflux disease without esophagiti s Gastro-eso phageal reflux disease without esophagiti s Problem [facility] [id number] DDD (degenerat delfina disc disease), thoracolum bar Problem [facility] Hypertensi on HTN (hypertens ion) Problem [facility] [id number] Temporary low platelet count Problem [facility] Somnolence Somnolence , daytime Problem [facility] [id number] Anxiety Problem [facility] Chronic fatigue syndrome Chronic fatigue Problem [facility] [id number] Difficulty sleeping Problem [facility] Allergies, Adverse Reactions, Alerts Allergy Name Allergy Type Status Severity Reaction(s) Onset Date Inactive Date Treating Clinician Comments Source NSAIDS (NON-TONO ROIDAL ANTI-INF LAMMATOR Y DRUG) Drug Class Active SOB 08-01 00:00: 00 [facility] Nsaids (Non-Tono roidal Anti-Inf lammator y Drug) Propensi ty to adverse reaction s Active Shortness of Breath 08-01 00:00: 00 [facility] Ibuprofe n Propensi ty to adverse reaction s Active Swelling 2014-02 00:00: 00 [facility] IBUPROFE N DRUG INGREDI Active Swelling 2014-02 00:00: 00 [facility] PENICILL IN DRUG INGREDI Active High ITCHING 11-13 00:00: 00 [facility] Penicill in Propensi ty to adverse reaction s Active Itching 11-13 00:00: 00 [facility] Aspirin Propensi ty to adverse reaction s Active Swelling 10-04 00:00: 00 [facility] ASPIRIN DRUG INGREDI Active Swelling 10-04 00:00: 00 [facility] [id number] Drug allergy Active anaphylaxis [facility] Non-ster oidal anti-inf lammator y agent (FN) Non-ster oidal anti-inf lammator y agent (FN) Active Unknown [facility] Social History Social Habit Start Date Stop Date Quantity Comments Source History of Tobacco Use [facility] of Social function 2021-09-08 00:00:00 2021-09-08 00:00:00 [facility] Alcohol intake 2021-09-08 00:00:00 2021-09-08 00:00:00 0 /d [facility] Tobacco use and exposure 2015-12-05 00:00:00 2015-12-05 00:00:00 Smokeless tobacco non-user [facility] Sex Assigned At 1980 00:00:00 1980 00:00:00 [facility] Smoking Status Start Date Stop Date Source Never Smoker [facility] Former Smoker 2022-03-29 00:00:00 2022-03-29 00:00:00 [facility] Smokes tobacco daily 2015-12-05 00:00:00 [facility] Medications Ordered Medication Name Filled Medication Name [...] 10 mg tablet 05-23 00:00: 00 Yes [id number] 10mg Take 1 tablet by mouth 3 (three) times daily as needed for Muscle Spasms. [facility] acetaminoph en-codeine (TYLENOL-CO DEINE #3) 300-30 mg tablet 05-23 00:00: 00 Yes [id number] 1{tbl} Take 1 tablet by mouth every 8 (eight) hours as needed for Pain (scale 4-6). [facility] cyclobenzap rine 10 mg tablet 05-23 00:00: 00 Yes [id number] 10mg Take 1 tablet by mouth 3 (three) times daily as needed for Muscle Spasms. [facility] acetaminoph en-codeine (TYLENOL-CO DEINE #3) 300-30 mg tablet 05-23 00:00: 00 Yes [id number] 1{tbl} Take 1 tablet by mouth every 8 (eight) hours as needed for Pain (scale 4-6). [facility] methocarbam ol (ROBAXIN-75 0) 750 mg tablet 11-11 00:00: 00 Yes 750mg Take 1 tablet by mouth 4 (four) times daily. [facility] methocarbam ol (ROBAXIN-75 0) 750 mg tablet 11-11 00:00: 00 Yes 750mg Take 1 tablet by mouth 4 (four) times daily. [facility] acetaminoph en-codeine (TYLENOL-CO DEINE #3) 300-30 mg tablet 11-02 00:00: 00 Yes 1{tbl} Take 1 tablet by mouth every 6 (six) hours as needed for Pain (scale 7-10). [facility] cyclobenzap rine 5 mg tablet 11-02 00:00: 00 Yes 5mg Take 1 tablet by mouth 3 (three) times daily. [facility] acetaminoph en-codeine (TYLENOL-CO DEINE #3) 300-30 mg tablet 11-02 00:00: 00 Yes 1{tbl} Take 1 tablet by mouth every 6 (six) hours as needed for Pain (scale 7-10). [facility] cyclobenzap rine 5 mg tablet 11-02 00:00: 00 Yes 5mg Take 1 tablet by mouth 3 (three) times daily. [facility] lisinopril 10 mg tablet 07-13 00:00: 00 Yes 10mg Take 1 tablet by mouth at bedtime. [facility] lisinopril 10 mg tablet 07-13 00:00: 00 Yes 10mg Take 1 tablet by mouth at bedtime. [facility] TYLENOL-COD EINE #3 300-30 mg tablet 06-30 00:00: 00 Yes 2{tbl} Take 2 tablets by mouth every 4 (four) hours as needed for Pain (scale 1-3) or Pain (scale 4-6). [facility] TYLENOL-COD EINE #3 300-30 mg tablet 06-30 00:00: 00 Yes 2{tbl} Take 2 tablets by mouth every 4 (four) hours as needed for Pain (scale 1-3) or Pain (scale 4-6). [facility] acetaminoph en-codeine 300-30 mg tablet 06-09 00:00: 00 Yes 1{tbl} Take 1 tablet by mouth every 4 (four) hours as needed (pain). [facility] acetaminoph en-codeine 300-30 mg tablet 06-09 00:00: 00 Yes 1{tbl} Take 1 tablet by mouth every 4 (four) hours as needed (pain). [facility] cyclobenzap rine 5 mg tablet 06-01 00:00: 00 Yes 5mg Take 1 tablet by mouth 2 (two) times daily as needed for Muscle Spasms for up to 15 doses. [facility] cyclobenzap rine 5 mg tablet 06-01 00:00: 00 Yes 5mg Take 1 tablet by mouth 2 (two) times daily as needed for Muscle Spasms for up to 15 doses. [facility] ACETAMINOPH EN WITH CODEINE (TYLENOL-CO DEINE #3 ORAL) 2015-02 11:39: 00 Yes Take by mouth as needed for Pain (scale 1-3). [facility] ACETAMINOPH EN WITH CODEINE (TYLENOL-CO DEINE #3 ORAL) 2015-02 11:39: 00 Yes Take by mouth as needed for Pain (scale 1-3). [facility] lisinopril (PRINIVIL,Z ESTRIL) 10 mg tablet 2015-02 00:00: 00 Yes [id number] 10mg Take 1 tablet by mouth daily. [facility] traMADOL (ULTRAM) 50 mg tablet 2015-02 00:00: 00 Yes [id number] 50mg Take 1 tablet by mouth 3 (three) times daily as needed for Pain unrelieved by non-narcot ic analgesics . [facility] lisinopril (PRINIVIL,Z ESTRIL) 10 mg tablet 2015-02 00:00: 00 Yes [id number] 10mg Take 1 tablet by mouth daily. [facility] traMADOL (ULTRAM) 50 mg tablet 2015-02 00:00: 00 Yes [id number] 50mg Take 1 tablet by mouth 3 (three) times daily as needed for Pain unrelieved by non-narcot ic analgesics . [facility] amLODIPine Besylate 2.5 MG amLODIPine Besylate 2.5 [...] height 2022-09-27 09:20:00 69.5 [in_i] Comm on [facility] weight 2022-09-27 09:20:00 231.4 [lb_av] Co mmon [facility] temperature 2022-09-27 09:20:00 98.0 [degF] Com mon [facility] bmi 2022-09-27 09:20:00 33.68 kg/m2 Comm on [facility] oximetry 2022-09-27 09:20:00 98 % Commo n [facility] respiratory rate 2022-09-27 09:20:00 18 /min [facility] blood pressure systolic 2022-09-27 09:20:00 124 mm[Hg] [facility] blood pressure diastolic 2022-09-27 09:20:00 81 mm[Hg] [facility] height 2022-03-29 13:30:00 69.5 [in_i] Comm on [facility] weight 2022-03-29 13:30:00 240 [lb_av] Comm on [facility] temperature 2022-03-29 13:30:00 98.1 [degF] Com mon [facility] bmi 2022-03-29 13:30:00 34.93 kg/m2 Comm on [facility] oximetry 2022-03-29 13:30:00 97 % Commo n [facility] respiratory rate 2022-03-29 13:30:00 18 /min [facility] blood pressure systolic 2022-03-29 13:30:00 124 mm[Hg] [facility] blood pressure diastolic 2022-03-29 13:30:00 74 mm[Hg] [facility] height 2022-02-17 10:20:00 69.5 [in_i] Comm on [facility] weight 2022-02-17 10:20:00 240 [lb_av] Comm on [facility] temperature 2022-02-17 10:20:00 98 [degF] Comm on [facility] bmi 2022-02-17 10:20:00 34.93 kg/m2 Comm on [facility] height 2021-12-22 10:20:00 69.50 [in_i] Com mon [facility] weight 2021-12-22 10:20:00 233.4 [lb_av] Co mmon [facility] temperature 2021-12-22 10:20:00 97.6 [degF] Com [facility] bmi 2021-12-22 10:20:00 33.97 kg/m2 Comm on [facility] oximetry 2021-12-22 10:20:00 96 % Commo n [facility] respiratory rate 2021-12-22 10:20:00 16 /min [facility] blood pressure systolic 2021-12-22 10:20:00 130 mm[Hg] [facility] blood pressure diastolic 2021-12-22 10:20:00 82 mm[Hg] Common [facility] height 2021-11-19 14:00:00 69.50 [in_i] Com [facility] weight 2021-11-19 14:00:00 233.4 [facility]lb_av[facility] 2021-[facility] 14:00:00 97.6 [degF] Com [facility] bmi 2021-11-19 14:00:00 33.97 kg/m2 Comm on [facility] oximetry 2021-11-19 14:00:00 97 % Commo n [facility] respiratory rate 2021-11-19 14:00:00 16 /min [facility] blood pressure systolic 2021-11-19 14:00:00 133 mm[Hg] Common [facility] blood pressure diastolic 2021-11-19 14:00:00 74 mm[Hg] [facility] height 2021-11-13 13:20:00 69.50 [in_i] Com [facility] weight 2021-11-13 13:20:00 230 [lb_av] Comm on [facility] temperature 2021-11-13 13:20:00 97.3 [degF] Com [facility] bmi 2021-11-13 13:20:00 33.47 kg/m2 Comm on [facility] height 2021-10-08 09:40:00 69.50 [in_i] Com [facility] weight 2021-10-08 09:40:00 236.4 [lb_av] Co mmon [facility] temperature 2021-10-08 09:40:00 97.3 [degF] Com [facility] bmi 2021-10-08 09:40:00 34.41 kg/m2 Comm on [facility] oximetry 2021-10-08 09:40:00 97 % Commo n [facility] respiratory rate 2021-10-08 09:40:00 16 /min [facility] blood pressure systolic 2021-10-08 09:40:00 130 mm[Hg] [facility] blood pressure diastolic 2021-10-08 09:40:00 78 mm[Hg] [facility] height 2021-09-17 15:20:00 69.50 [in_i] Com [facility] weight 2021-09-17 15:20:00 235.4 [lb_av] Co [facility] temperature 2021-09-17 15:20:00 98.0 [degF] Com [facility] bmi 2021-09-17 15:20:00 34.26 kg/m2 Comm on [facility] oximetry 2021-09-17 15:20:00 99 % Commo n [facility] respiratory rate 2021-09-17 15:20:00 16 /min [facility] blood pressure systolic 2021-09-17 15:20:00 135 mm[Hg] [facility] blood pressure diastolic 2021-09-17 15:20:00 89 mm[Hg] [facility] Procedures Procedure Date / Time Performed Performing Clinicia n Source REFERRAL- REQUEST/RESPONSE 2023-01-17 06:01:00 Doctor Unassigned, [place] [facility] EXTERNAL PROVIDER - ADC REFERRAL 2021-12-23 05:01:00 Doctor Unassigned, [place] [facility] Encounters Start Date/Time End Date/Time Encounter Type Admission Type Attending [facility] Care Department Encounter ID Source 2022-12-29 08:28:01 Outpatient Jcarlos Forteh STLMLC STLMLC [id number] [facility] 2022-12-27 08:48:00 Outpatient Vicente, Avnee STLMLC STLMLC [id number] [facility] 2022-09-01 15:25:00 Outpatient Vicente, Avnee STLMLC STLMLC [id number] [facility] 2022-08-05 14:07:02 Outpatient Vicente, Avnee STLMLC STLMLC [id number] [facility] 2022-07-29 09:40:01 Outpatient Vicente, Avnee STLMLC STLMLC [id number] [facility] 2022-06-15 14:06:03 Outpatient Vicente, Avnee STLMLC STLMLC [id number] [facility] 2022-03-29 13:15:02 Outpatient VERA, Na STLMLC STLMLC [id number] [facility] 2022-02-16 11:56:00 Outpatient Vera, Na STLMLC STLMLC [id number] [facility] 2022-02-09 08:58:01 Outpatient Vera, Na STLMLC STLMLC [id number] [facility] 2022-01-04 12:02:01 Outpatient Vera, Na STLMLC STLMLC [id number] [facility] 2021-12-31 12:07:01 Outpatient Vera, Na STLMLC STLMLC [id number] [facility] 2021-12-18 10:58:02 Outpatient VeraAngela wiggins STLMLC STLMLC [id number] [facility] 2021-12-10 10:17:04 Outpatient Angela Vera STLMLC STLMLC [id number] [facility] 2021-11-13 13:16:02 Outpatient Angela Vera STLMLC STLMLC [id number] [facility] 2021-11-12 08:37:03 Outpatient VeraAngela wiggins STLMLC STLMLC [id number] [facility] 2021-11-05 13:52:02 Outpatient Angela Vera STLMLC STLMLC [id number] [facility] 2021-10-06 13:42:03 Outpatient Angela Vera STLMLC STLMLC [id number] [facility] 2021-09-21 14:29:01 Outpatient Angela Vera STHILC STLMLC [id number] [facility] 2021-09-17 15:47:03 Outpatient Angela Vera STLMLC STLMLC [id number] [facility] 2023-01-17 11:20:32 2023-01-17 11:20:32 Outpatient SFA SFA [id number] Yanick Miles 2023-01-17 00:00:00 2023-01-17 00:00:00 Orders Only Doctor Unassigned, [place] [facility] [id number] [facility] 2023-01-05 15:40:00 2023-01-05 15:40:00 Outpatient BENJY YEPEZ [facility] [id number] [facility] 2023-01-03 14:11:35 2023-01-03 14:11:35 Outpatient S[facility] [id number] Yanick Miles 2022-12-30 00:00:00 2022-12-30 00:00:00 (TEL) STLMLC STLMLC [id number] [facility] 2022-12-24 00:00:00 2022-12-24 00:00:00 (TEL) STLMLC STLMLC [id number] [facility] 2022-12-24 00:00:00 2022-12-24 00:00:00 (TEL) STLMLC STLMLC [id number] [facility] 2022-09-28 00:00:00 2022-09-28 00:00:00 (TEL) STLMLC STLMLC [id number] [facility] 2022-09-27 00:00:00 2022-09-27 00:00:00 (TEL) STLMLC STLMLC [id number] [facility] 2022-09-27 00:00:00 2022-09-27 00:00:00 OFFICE VISIT ESTAB PT LEVEL 4 STLMLC STLMLC [id number] [facility] 2022-09-01 00:00:00 2022-09-01 00:00:00 (TEL) STLMLC STLMLC [id number] [facility] 2022-07-30 00:00:00 2022-07-30 00:00:00 (TEL) STLMLC STLMLC [id number] [facility] 2022-06-15 00:00:00 2022-06-15 00:00:00 (TEL) STLMLC STLMLC [id number] [facility] 2022-03-29 00:00:00 2022-03-29 00:00:00 OFFICE VISIT ESTAB PT LEVEL 2 STLMLC STLMLC [id number] [facility] 2022-02-17 00:00:00 2022-02-17 00:00:00 OFFICE VISIT ESTAB PT LEVEL 4 STLMLC STLMLC [id number] [facility] 2022-02-16 00:00:00 2022-02-16 00:00:00 (TEL) STLMLC STLMLC [id number] [facility] 2022-01-18 00:00:00 2022-01-18 00:00:00 (TEL) STLMLC STLMLC [id number] [facility] 2021-12-23 00:00:00 2021-12-23 00:00:00 Orders Only Doctor Unassigned, [place] [facility] [id number] [facility] 2021-12-22 00:00:00 2021-12-22 00:00:00 OFFICE VISIT EST PT LEVEL 3 STLMLC STLMLC [id number] [facility] 2021-12-22 00:00:00 2021-12-22 00:00:00 (TEL) STLMLC STLMLC [id number] [facility] 2021-12-11 00:00:00 2021-12-11 00:00:00 (TEL) STLMLC STLMLC [id number] [facility] 2021-11-19 00:00:00 2021-11-19 00:00:00 OFFICE VISIT EST PT LEVEL 3 STLMLC STLMLC [id number] [facility] 2021-11-17 00:00:00 2021-11-17 00:00:00 (TEL) STLMLC STLMLC [id number] [facility] 2021-11-13 00:00:00 2021-11-13 00:00:00 OFFICE VISIT EST PT LEVEL 3 STLMLC STLMLC [id number] [facility] 2021-10-23 00:00:00 2021-10-23 00:00:00 (TEL) STLMLC STLMLC [id number] [facility] 2021-10-08 00:00:00 2021-10-08 00:00:00 [id number] 2021-10-01 00:00:00 2021-10-01 00:00:00 [facility] [id number] [place] h Program 2021-09-17 00:00:00 2021-09-17 00:00:00 OFFICE VISIT NEW PT LEVEL 4 [facility] [id number] [facility] Results Test Description Test Time Test Comments Results Result Co mments Source LIPID [id number] 04:46:54* Test Item Value Reference Range Interpretation [...] SPECIMENS. FOR MOREINFORMATION, SEE CLIENT ANNOUNCEMENT AT [email or web address] RATIO LDL/HDL (test code = 2238) 2.73 RATIO <3.55 HEMOGLOBIN [id number] 04:03:01* Test Item Value Reference Range Interpretation Comme [facility] HEMOGLOBIN A1c (test code = 91058) 5.7 % 4.2-5.6 H [employer] GUIDELINES FOR HGB A1C: [...] TESTING PERFORMED AT [facility] [address] [place] [id number] SENIOR PROPERTY ACCOUNTANT: GRICELDA ALMENDAREZ M.D. CLIA NUMBER [id number] [facility] [place]. [id number] CBC W/AUTO DIFF WITH [id number] 03:00:48* Test Item Value Reference Range Interpretation [...] 0.00-0.10 ABS NUCLEATED RBCS (test code = 77714) 0.00 K/UL 0.00-0.11 TSH REFLEX TO FREE [id number] 00:00:00* Test Item Value Reference Range Interpretation Comme nts TSH REFLEX TO FREE T4 (test code = 18375-5) 1.350 UIU/ML See_Comment [Automated messa ge] The system which generated this result transmitted reference range: 0.400-4.100 UIU/ML. The reference range was not used to interpret this result as normal/abnormal. COMPREHENSIVE METABOLIC [id number] 00:00:00* Test Item Value Reference Range Interpretation [...] result as normal/abnormal. CALCIUM (test code = 52111-8) 9.7 MG/DL See_Comment [Automated messa ge] The system which generated this result transmitted reference range: 8.5-10.5 MG/DL. The reference range was not used to interpret this result as normal/abnormal. CALC A/G RATIO (test code = 1759-0) 1.8 RATIO See_Comment [Automated Talk Local[employer] ge] The system which generated this result [...] as normal/abnormal. CALC GLOBULIN (test code = 04575-3) 2.7 G/DL See_Comment [Automated messa ge] The [...] normal/abnormal. eGFR (2020 CKD-EPI) (test code = 43773-3) 83 ML/MIN/1.73 See_Comment [Automated messa ge] The [...]
[2023-03-15 23:24] LABS: Absolute Lymphocytes (CBC) 2.3 K/uL (0.7-4.9); Hematocrit 42.1 % (39.6-49.0); Lymphocytes % 21.7 % (15.3-44.8); MCV 90.4 fL (80-100); MPV 8.6 fL (7.6-11.3); Platelets 127 thou/uL (152-406); RBC Red Blood Cell Count 4.66 M/uL (4.33-5.43)
[2023-03-15 23:47] LABS: Potassium 3.6 mEq/L (3.5-5.1); Troponin High Sensitivity 4.2 pg/mL (<58.9)
--- NOTE | 2023-03-15 23:50 | ER ---
Nurse's Notes [facility] Name: Cory Brock Age: 42 yrs Sex: Male : 1980 Arrival Date: 03/15/2023 Time: 22:56 Bed 8 Private MD: Diagnosis: Hypertension Presentation: 03/15 22:57 Chief complaint: EMS states: complaints of elevated BP, 190/100, took clonidine 1/2 rv tab, denies CP/SOB. was having uncontrollable shivering at the time. recently been DC from hospital for hypertension. Coronavirus screen: At this time, the client does not indicate any symptoms associated with coronavirus-19. Ebola Screen: No symptoms or risks identified at this time. Initial Sepsis Screen: Does the patient meet any 2 criteria? No. Patient's initial sepsis screen is negative. Does the patient have a suspected source of infection? No. Patient's initial sepsis screen is negative. Risk Assessment: Do you want to hurt yourself or someone else? Patient reports no desire to harm self or others. Onset of symptoms was March 15, 2023. 22:57 Method Of Arrival: EMS: [facility] rv 22:57 Acuity: CORY 3 rv Triage Assessment: 22:59 General: Appears comfortable, Behavior is calm, cooperative. Pain: Denies pain. Neuro: rv Level of Consciousness is awake, alert, obeys commands, Oriented to person, place, time, situation. Cardiovascular: Denies chest pain, Capillary refill < 3 seconds Patient's skin is warm and dry. Respiratory: Airway is patent Respiratory effort is even, unlabored, Denies shortness of breath. GI: No signs and/or symptoms were reported involving the gastrointestinal system. : No signs and/or symptoms were reported regarding the genitourinary system. Derm: Skin is intact. Historical: - Allergies: 22:59 Amoxicillin; rv 22:59 Aspirin; rv 22:59 NSAIDS (GI bleeding); rv 22:59 PENICILLINS; rv - PMHx: 22:59 Atrial fibrillation; Back pain; Hypertensive disorder; trauma; rv - PSHx: 22:59 None; rv - Immunization history:: Adult Immunizations up to date. - Social history:: Smoking status: Patient denies any tobacco usage or history of. Screenin:00 [facility] ED Fall Risk Assessment (Adult) History of falling in the last 3 months, rv including since admission No falls in past 3 months (0 pts) Score/Fall Risk Level 0 - 2 = Low Risk Oriented to surroundings, Maintained a safe environment, Educated pt \T\ family on fall prevention, incl call for assistance when getting out of bed, Assessed \T\ reinforced patient's understanding of fall precautions. Abuse screen: Denies threats or abuse. Denies injuries from another. Nutritional screening: No deficits noted. Tuberculosis screening: No symptoms or risk factors identified. Assessment: 23:10 General: Appears in no apparent distress. comfortable, Behavior is calm, cooperative, km8 appropriate for age. Pain: Complains of pain in thoracic area Pain currently is 3 out of 10 on a pain scale. Neuro: Level of Consciousness is awake, alert, obeys commands, Oriented to person, place, time, situation. Cardiovascular: Denies shortness of breath, Capillary refill < 3 seconds Patient's skin is warm and dry. Chest pain is described as vague, quality is heaviness, pressure, is located in posterior chest wall began 1 hour prior to arrival. Respiratory: Airway is patent Respiratory effort is even, unlabored, Respiratory pattern is regular, symmetrical. GI: No signs and/or symptoms were reported involving the gastrointestinal system. : No signs and/or symptoms were reported regarding the genitourinary system. EENT: No signs and/or symptoms were reported regarding the EENT system. Derm: Skin is intact, is healthy with good turgor, Skin is dry, Skin is pink, warm \T\ dry. normal, Skin temperature is warm. Musculoskeletal: No signs and/or symptoms reported regarding the musculoskeletal system. Circulation, motion, and sensation intact. Range of motion: intact in all extremities. 03/16 00:56 Reassessment: Patient appears in no apparent distress at this time. Patient and/or jb4 family updated on plan of care and expected duration. Pain level reassessed. Patient is alert, oriented x 3, equal unlabored respirations, skin warm/dry/pink. Vital Signs: 03/15 22:57 BP 145 / 95; Pulse 76; Resp 17; Temp 98; Pulse Ox 99% ; Weight 98.88 kg; Height 5 ft. rv 10 in. ; 23:23 BP 123 / 79; Pulse 73; Resp 16; Pulse Ox 97% on R/A; km8 22:57 Body Mass Index 31.28 (98.88 kg, 177.8 cm) rv Yuan Coma Score: 23:10 Eye Response: spontaneous(4). Motor Response: obeys commands(6). Verbal Response: km8 oriented(5). Total: 15. ED Course: 22:56 Patient arrived in ED. jj6 22:57 Tulio Antonio, RN is Primary Nurse. rv 22:58 Mir Head MD is Attending Physician. ec2 22:59 Triage completed. rv 22:59 Arm band placed on right wrist. rv 23:00 Patient has correct armband on for positive identification. Client placed on continuous rv cardiac and pulse oximetry monitoring. NIBP monitoring applied. quality assurance monitor on. 23:00 No provider procedures requiring assistance completed. rv 23:10 Door closed. Lights dimmed. km8 23:10 Inserted saline lock: 20 gauge in right antecubital area, using aseptic technique. km8 Blood collected. Patient maintains SpO2 saturation greater than 95% on room air. 23:33 Bhumika Dhillon, BRTET is Primary Nurse. km8 03/16 00:56 IV discontinued, intact, bleeding controlled, No redness/swelling at site. Pressure jb4 dressing applied. Administered Medications: No medications were administered Medication: 03/15 23:00 VIS not applicable for this client. rv Outcome: 23:50 Discharge ordered by . ec2 03/16 00:56 Discharged to home ambulatory, jb4 Condition: stable Discharge instructions given to patient, Instructed on discharge instructions, follow up and referral plans. Demonstrated understanding of instructions, follow-up care, 00:57 Patient left the ED. jb4 Signatures: Chao Torres RN RN jb4 Tulio Antonio RN RN rv Josefina Bustos jj6 Mir Head MD MD ec2 Bhumika Dhillon RN RN km8 Corrections: (The following items were deleted from the chart) 03/15 22:59 22:59 PSHx: Stented artery; rv rv 23:22 23:20 General: Appears km8 km8
--- NOTE | 2023-03-15 23:50 | EDPHYS ---
Physician Documentation [facility] Name: Cory Brock Age: 42 yrs Sex: Male : 1980 Arrival Date: 03/15/2023 Time: 22:56 Bed 8 Private MD: ED Physician Mir Head HPI: 03/15 23:01 This 42 yrs old Male presents to ER via EMS with complaints of High Blood ec2 Pressure. 23:01 Patient arrives today for concern of hypertension. States that he checked his blood ec2 pressure at home and this was elevated at 190/110. Patient reports no difficulty breathing or chest pain. Patient reports he was resubmitted for blood pressure issues. States that he took clonidine which improved his blood pressure.. Historical: - Allergies: 22:59 Amoxicillin; rv 22:59 Aspirin; rv 22:59 NSAIDS (GI bleeding); rv 22:59 PENICILLINS; rv - PMHx: 22:59 Atrial fibrillation; Back pain; Hypertensive disorder; trauma; rv - PSHx: 22:59 None; rv - Immunization history:: Adult Immunizations up to date. - Social history:: Smoking status: Patient denies any tobacco usage or history of. ROS: 23:01 Constitutional: as per hpi ec2 Exam: 23:01 Constitutional: GEN: NAD Head: atraumatic Eyes: EOMI Ears: External ears are ec2 normal. CV: regular rate LUNGS: no respiratory distress ABD: non-distended SKIN: no evidence of rashes MSK: no evidence of trauma NEURO: moves all extremities equally Vital Signs: 22:57 BP 145 / 95; Pulse 76; Resp 17; Temp 98; Pulse Ox 99% ; Weight 98.88 kg; Height 5 ft. rv 10 in. ; 23:23 BP 123 / 79; Pulse 73; Resp 16; Pulse Ox 97% on R/A; km8 22:57 Body Mass Index 31.28 (98.88 kg, 177.8 cm) rv Yuan Coma Score: 23:10 Eye Response: spontaneous(4). Motor Response: obeys commands(6). Verbal Response: km8 oriented(5). Total: 15. MDM: 22:59 Patient medically screened. ec2 23:01 Data reviewed: vital signs. ED course: Patient arrives today for asymptomatic ec2 hypertension. Examination remarkable for well-appearing nontoxic individual otherwise in no acute distress. Will obtain lab work, EKG and further assess the patient complaint. Will evaluate for signs of endorgan damage including renal dysfunction, cardiac dysfunction. Low suspicion failure, lack of symptoms.. 23:17 ED course: EKG independently reviewed and interpreted by me, shows normal sinus rhythm, ec2 rate of 84, no acute ST segment elevations, nonconcerning intervals.. 23:50 ED course: Metabolic profile and troponin are reassuring. Will discharge home, patient ec2 with asymptomatic hypertension. Return precautions given.. 03/15 22:59 Order name: Basic Metabolic Panel; Complete Time: 23:49 ec2 03/15 22:59 Order name: CBC with Diff; Complete Time: 23:40 ec2 03/15 22:59 Order name: Troponin HS; Complete Time: 23:49 ec2 03/15 22:59 Order name: EKG; Complete Time: 22:59 ec2 03/15 22:59 Order name: Cardiac monitoring; Complete Time: 23:02 ec2 03/15 22:59 Order name: EKG - Nurse/Tech; Complete Time: 23:02 ec2 03/15 22:59 Order name: IV Saline Lock; Complete Time: 23:02 ec2 03/15 22:59 Order name: Labs collected and sent; Complete Time: 23:02 ec2 03/15 22:59 Order name: O2 Per Protocol; Complete Time: 23:02 ec2 03/15 22:59 Order name: O2 Sat Monitoring; Complete Time: 23:02 ec2 Administered Medications: No medications were administered Disposition Summary: 03/15/23 23:50 Discharge Ordered Notes: Location: Home ec2 Condition: Stable ec2 Diagnosis - Hypertension ec2 Followup: ec2 - With: Private Physician - When: - Reason: Recheck today's complaints Discharge Instructions: - Discharge Summary Sheet ec2 - Hypertension, Adult, [id number] ec2 Forms: - Medication Reconciliation Form ec2 - Thank You Letter ec2 - Antibiotic Education ec2 - Prescription Opioid Use ec2 - Patient Portal Instructions ec2 - Leadership Thank You Letter ec2 Signatures: Dispatcher [employer] Tulio Carlos RN RN rv Corral, Edwin, MD MD ec2 Corrections: (The following items were deleted from the chart) 22:59 22:59 PSHx: Stented artery; rv rv
[2023-03-16 04:09] VITALS: BP 123/79; TEMP 98; O2SAT 97
== END ==
LOC: ER 22:56
DX: I10 Essential (primary) hypertension (principal)
CPT/HCPCS: 36415; 80048; 84484; 85025; 93005

== ENCOUNTER → 2023-04-27 | Emergency (ER) | payer SELFPAY ==
--- OUTSIDE RECORDS SUMMARY | 2023-04-27 18:24 | XMS REPORT | Continuity of Care Document ---
Author Name Unknown Address [address] [facility] [address] [place] [address] [facility] thconnect Address [address] [facility] [address] [place] [address] Care Team Providers Care Open Soaper Tender Name Role Phone Pcp, Patient Does Not Have A Primary Care Physic sarahy Uli Forte Attending Clinician Unavailable Martha Vicente Attending Clinician Unavailable Angela VERA Attending Clinician Unavailable MADISYN CHRISTIAN Attending Clinician Unavailable Madisyn Christian MD Attending Clinician [phone] Doctor Unassigned, Stow Attending Clinician BENJY Jolly Attending Clinician Unavailable JULITA Attending Clinician Unavailable JULITA Admitting Clinician Unavailable Payers Payer Name Policy Type Policy Number Effective Date Expirati on Date Source MEDICAID PENDING PENDING 2018 00:00:00 [facility] [id number] [facility] Problems Condition Name Condition Details Condition Category Status Onset Date Resolution Date Last Treatment Date Treating Clinician Comments Source Mixed dyslipidem ia Mixed dyslipidem ia Disease Active 2015-02 00:00: 00 [facility] Chronic back pain Chronic back pain Disease Active 2015-02 00:00: 00 [facility] Obesity (BMI 30-39.9) Obesity (BMI 30-39.9) Disease Active 2015-02 00:00: 00 [facility] Tobacco use Tobacco use Disease Active 2015-02 00:00: 00 [facility] [id number] Panic attacks Problem [facility] Screening for cardiovasc ular system disease Screening for cardiovasc ular condition Problem [facility] [id number] Chest pain, unspecifie d type Problem [facility] [id number] Gastroesop hageal reflux disease, unspecifie d whether esophagiti s present Problem [facility] [id number] Primary hypertensi on Problem [facility] Gastro-eso phageal reflux disease without esophagiti s Gastro-eso phageal reflux disease without esophagiti s Problem [facility] [id number] DDD (degenerat delfina disc disease), thoracolum bar Problem [facility] Hypertensi on HTN (hypertens ion) Problem [facility] [id number] Temporary low platelet count Problem [facility] Somnolence Somnolence , daytime Problem [facility] [id number] Anxiety Problem [facility] Chronic fatigue syndrome Chronic fatigue Problem [facility] [id number] Difficulty sleeping Problem [facility] Allergies, Adverse Reactions, Alerts Allergy Name Allergy Type Status Severity Reaction(s) Onset Date Inactive Date Treating Clinician Comments Source NSAIDS (NON-TONO ROIDAL ANTI-INF LAMMATOR Y DRUG) Drug Class Active SOB 08-01 00:00: 00 [facility] Nsaids (Non-Tono roidal Anti-Inf lammator y Drug) Propensi ty to adverse reaction s Active Shortness of Breath 08-01 00:00: 00 [facility] Ibuprofe n Propensi ty to adverse reaction s Active Swelling 2014-02 00:00: 00 [facility] IBUPROFE N DRUG INGREDI Active Swelling 2014-02 00:00: 00 [facility] PENICILL IN DRUG INGREDI Active High ITCHING 11-13 00:00: 00 [facility] Penicill in Propensi ty to adverse reaction s Active Itching 11-13 00:00: 00 [facility] Aspirin Propensi ty to adverse reaction s Active Swelling 10-04 00:00: 00 [facility] ASPIRIN DRUG INGREDI Active Swelling 10-04 00:00: 00 [facility] [id number] Drug allergy Active anaphylaxis [facility] Non-ster oidal anti-inf lammator y agent (FN) Non-ster oidal anti-inf lammator y agent (FN) Active Unknown [facility] Social History Social Habit Start Date Stop Date Quantity Comments Source [facility] Tobacco Use [facility] History of Social function 2023-03-17 00:00:00 2023-03-17 00:00:00 [facility] Alcohol intake 2021-09-08 00:00:00 2021-09-08 00:00:00 0 /d [facility] Tobacco use and exposure 2015-12-05 00:00:00 2015-12-05 00:00:00 Smokeless tobacco non-user [facility] Sex Assigned At 1980 00:00:00 1980 00:00:00 [facility] Smoking Status Start Date Stop Date Source Never Smoker [facility] Former Smoker 2022-03-29 00:00:00 2022-03-29 00:00:00 [facility] Smokes tobacco daily 2015-12-05 00:00:00 [facility] Medications Ordered Medication Name Filled Medication Name [...] HCl 0.1 MG cloNIDine HCl 0.1 MG 2023-1 0-30 00:00: 00 No 1{table t} cloNIDine HCl 0.1 MG cloNIDine HCl 0.1 MG cloNIDine HCl 0.1 MG 2023-1 0-30 00:00: 00 No 1{table t} cloNIDine HCl 0.1 MG cloNIDine HCl 0.1 MG cloNIDine HCl 0.1 MG 2023-1 0-30 00:00: 00 No 1{table t} cloNIDine HCl 0.1 MG cloNIDine HCl 0.1 MG cloNIDine HCl 0.1 MG 2023-1 0-30 00:00: 00 No 1{table t} cloNIDine HCl 0.1 MG cloNIDine HCl 0.1 MG cloNIDine HCl 0.1 MG 3-1 0-30 00:00: 00 No 1{table t} cloNIDine HCl 0.1 MG cloNIDine HCl 0.1 MG cloNIDine HCl 0.1 MG 3-1 0-30 00:00: 00 No 1{table t} cloNIDine HCl 0.1 MG Carvedilol 6.25 MG Carvedilol 6.25 MG 2021-1 2-21 00:00: 00 No 1{table t_with_ food} BID Carvedilol 6.25 MG Carvedilol 6.25 MG Carvedilol 6.25 MG 2021-1 2- 00:00: 00 No 1{table t_with_ food} BID Carvedilol 6.25 MG ProAir HFA 108 (90 Base) MCG/ACT ProAir HFA 108 (90 Base) MCG/ACT 2021-02 28- 00:00: 00 No 2{puffs _as_nee ded} QID ProAir HFA 108 (90 Base) MCG/ACT ProAir HFA 108 (90 Base) MCG/ACT ProAir HFA 108 (90 Base) MCG/ACT 2021-1 - 00:00: 00 No 2{puffs _as_nee ded} QID [...] 10 mg tablet 05-23 00:00: 00 Yes [id number] 10mg Take 1 tablet by mouth 3 (three) times daily as needed for Muscle Spasms. [facility] acetaminoph en-codeine (TYLENOL-CO DEINE #3) 300-30 mg tablet 05-23 00:00: 00 Yes [id number] 1{tbl} Take 1 tablet by mouth every 8 (eight) hours as needed for Pain (scale 4-6). [facility] cyclobenzap rine 10 mg tablet 05-23 00:00: 00 Yes [id number] 10mg Take 1 tablet by mouth 3 (three) times daily as needed for Muscle Spasms. [facility] acetaminoph en-codeine (TYLENOL-CO DEINE #3) 300-30 mg tablet 05-23 00:00: 00 Yes [id number] 1{tbl} Take 1 tablet by mouth every 8 (eight) hours as needed for Pain (scale 4-6). [facility] cyclobenzap rine 10 mg tablet 05-23 00:00: 00 Yes [id number] 10mg Take 1 tablet by mouth 3 (three) times daily as needed for Muscle Spasms. [facility] acetaminoph en-codeine (TYLENOL-CO DEINE #3) 300-30 mg tablet 05-23 00:00: 00 Yes [id number] 1{tbl} Take 1 tablet by mouth every 8 (eight) hours as needed for Pain (scale 4-6). [facility] cyclobenzap rine 10 mg tablet 05-23 00:00: 00 Yes [id number] 10mg Take 1 tablet by mouth 3 (three) times daily as needed for Muscle Spasms. [facility] acetaminoph en-codeine (TYLENOL-CO DEINE #3) 300-30 mg tablet 05-23 00:00: 00 Yes [id number] 1{tbl} Take 1 tablet by mouth every 8 (eight) hours as needed for Pain (scale 4-6). [facility] cyclobenzap rine 10 mg tablet 05-23 00:00: 00 Yes [id number] 10mg Take 1 tablet by mouth 3 (three) times daily as needed for Muscle Spasms. [facility] acetaminoph en-codeine (TYLENOL-CO DEINE #3) 300-30 mg tablet 05-23 00:00: 00 Yes [id number] 1{tbl} Take 1 tablet by mouth every 8 (eight) hours as needed for Pain (scale 4-6). [facility] methocarbam ol (ROBAXIN-75 0) 750 mg tablet 11-11 00:00: 00 Yes 750mg Take 1 tablet by mouth 4 (four) times daily. [facility] methocarbam ol (ROBAXIN-75 0) 750 mg tablet 11-11 00:00: 00 Yes 750mg Take 1 tablet by mouth 4 (four) times daily. [facility] methocarbam ol (ROBAXIN-75 0) 750 mg tablet 11-11 00:00: 00 Yes 750mg Take 1 tablet by mouth 4 (four) times daily. [facility] methocarbam ol (ROBAXIN-75 0) 750 mg tablet 11-11 00:00: 00 Yes 750mg Take 1 tablet by mouth 4 (four) times daily. [facility] methocarbam ol (ROBAXIN-75 0) 750 mg tablet 11-11 00:00: 00 Yes 750mg Take 1 tablet by mouth 4 (four) times daily. [facility] cyclobenzap rine 5 mg tablet 11-02 00:00: 00 Yes 5mg Take 1 tablet by mouth 3 (three) times daily. [facility] acetaminoph en-codeine (TYLENOL-CO DEINE #3) 300-30 mg tablet 11-02 00:00: 00 Yes 1{tbl} Take 1 tablet by mouth every 6 (six) hours as needed for Pain (scale 7-10). [facility] cyclobenzap rine 5 mg tablet 11-02 00:00: 00 Yes 5mg Take 1 tablet by mouth 3 (three) times daily. [facility] acetaminoph en-codeine (TYLENOL-CO DEINE #3) 300-30 mg tablet 11-02 00:00: 00 Yes 1{tbl} Take 1 tablet by mouth every 6 (six) hours as needed for Pain (scale 7-10). [facility] cyclobenzap rine 5 mg tablet 11-02 00:00: 00 Yes 5mg Take 1 tablet by mouth 3 (three) times daily. [facility] acetaminoph en-codeine (TYLENOL-CO DEINE #3) 300-30 mg tablet 11-02 00:00: 00 Yes 1{tbl} Take 1 tablet by mouth every 6 (six) hours as needed for Pain (scale 7-10). [facility] cyclobenzap rine 5 mg tablet 11-02 00:00: 00 Yes 5mg Take 1 tablet by mouth 3 (three) times daily. [facility] acetaminoph en-codeine (TYLENOL-CO DEINE #3) 300-30 mg tablet 11-02 00:00: 00 Yes 1{tbl} Take 1 tablet by mouth every 6 (six) hours as needed for Pain (scale 7-10). [facility] cyclobenzap rine 5 mg tablet 11-02 00:00: 00 Yes 5mg Take 1 tablet by mouth 3 (three) times daily. [facility] acetaminoph en-codeine (TYLENOL-CO DEINE #3) 300-30 mg tablet 11-02 00:00: 00 Yes 1{tbl} Take 1 tablet by mouth every 6 (six) hours as needed for Pain (scale 7-10). [facility] lisinopril 10 mg tablet 07-13 00:00: 00 Yes 10mg Take 1 tablet by mouth at bedtime. [facility] lisinopril 10 mg tablet 07-13 00:00: 00 Yes 10mg Take 1 tablet by mouth at bedtime. [facility] lisinopril 10 mg tablet 07-13 00:00: 00 Yes 10mg Take 1 tablet by mouth at bedtime. [facility] lisinopril 10 mg tablet 07-13 00:00: 00 Yes 10mg Take 1 tablet by mouth at bedtime. [facility] lisinopril 10 mg tablet 07-13 00:00: 00 Yes 10mg Take 1 tablet by mouth at bedtime. [facility] TYLENOL-COD EINE #3 300-30 mg tablet 06-30 00:00: 00 Yes 2{tbl} Take 2 tablets by mouth every 4 (four) hours as needed for Pain (scale 1-3) or Pain (scale 4-6). [facility] TYLENOL-COD EINE #3 300-30 mg tablet 06-30 00:00: 00 Yes 2{tbl} Take 2 tablets by mouth every 4 (four) hours as needed for Pain (scale 1-3) or Pain (scale 4-6). [facility] TYLENOL-COD EINE #3 300-30 mg tablet 06-30 00:00: 00 Yes 2{tbl} Take 2 tablets by mouth every 4 (four) hours as needed for Pain (scale 1-3) or Pain (scale 4-6). [facility] TYLENOL-COD EINE #3 300-30 mg tablet 06-30 00:00: 00 Yes 2{tbl} Take 2 tablets by mouth every 4 (four) hours as needed for Pain (scale 1-3) or Pain (scale 4-6). [facility] TYLENOL-COD EINE #3 300-30 mg tablet 06-30 00:00: 00 Yes 2{tbl} Take 2 tablets by mouth every 4 (four) hours as needed for Pain (scale 1-3) or Pain (scale 4-6). [facility] acetaminoph en-codeine 300-30 mg tablet 06-09 00:00: 00 Yes 1{tbl} Take 1 tablet by mouth every 4 (four) hours as needed (pain). [facility] acetaminoph en-codeine 300-30 mg tablet 06-09 00:00: 00 Yes 1{tbl} Take 1 tablet by mouth every 4 (four) hours as needed (pain). [facility] acetaminoph en-codeine 300-30 mg tablet 06-09 00:00: 00 Yes 1{tbl} Take 1 tablet by mouth every 4 (four) hours as needed (pain). [facility] acetaminoph en-codeine 300-30 mg tablet 06-09 00:00: 00 Yes 1{tbl} Take 1 tablet by mouth every 4 (four) hours as needed (pain). [facility] acetaminoph en-codeine 300-30 mg tablet 06-09 00:00: 00 Yes 1{tbl} Take 1 tablet by mouth every 4 (four) hours as needed (pain). [facility] cyclobenzap rine 5 mg tablet 06-01 00:00: 00 Yes 5mg Take 1 tablet by mouth 2 (two) times daily as needed for Muscle Spasms for up to 15 doses. [facility] cyclobenzap rine 5 mg tablet 06-01 00:00: 00 Yes 5mg Take 1 tablet by mouth 2 (two) times daily as needed for Muscle Spasms for up to 15 doses. [facility] cyclobenzap rine 5 mg tablet 06-01 00:00: 00 Yes 5mg Take 1 tablet by mouth 2 (two) times daily as needed for Muscle Spasms for up to 15 doses. [facility] cyclobenzap rine 5 mg tablet 06-01 00:00: 00 Yes 5mg Take 1 tablet by mouth 2 (two) times daily as needed for Muscle Spasms for up to 15 doses. [facility] cyclobenzap rine 5 mg tablet 06-01 00:00: 00 Yes 5mg Take 1 tablet by mouth 2 (two) times daily as needed for Muscle Spasms for up to 15 doses. [facility] ACETAMINOPH EN WITH CODEINE (TYLENOL-CO DEINE #3 ORAL) 2015-02 11:39: 00 Yes Take by mouth as needed for Pain (scale 1-3). [facility] ACETAMINOPH EN WITH CODEINE (TYLENOL-CO DEINE #3 ORAL) 2015-02 11:39: 00 Yes Take by mouth as needed for Pain (scale 1-3). [facility] ACETAMINOPH EN WITH CODEINE (TYLENOL-CO DEINE #3 ORAL) 2015-02 11:39: 00 Yes Take by mouth as needed for Pain (scale 1-3). [facility] ACETAMINOPH EN WITH CODEINE (TYLENOL-CO DEINE #3 ORAL) 2015-02 11:39: 00 Yes Take by mouth as needed for Pain (scale 1-3). [facility] ACETAMINOPH EN WITH CODEINE (TYLENOL-CO DEINE #3 ORAL) 2015-02 11:39: 00 Yes Take by mouth as needed for Pain (scale 1-3). [facility] lisinopril (PRINIVIL,Z ESTRIL) 10 mg tablet 2015-02 00:00: 00 Yes [id number] 10mg Take 1 tablet by mouth daily. [facility] traMADOL (ULTRAM) 50 mg tablet 2015-02 00:00: 00 Yes [id number] 50mg Take 1 tablet by mouth 3 (three) times daily as needed for Pain unrelieved by non-narcot ic analgesics . [facility] lisinopril (PRINIVIL,Z ESTRIL) 10 mg tablet 2015-02 00:00: 00 Yes [id number] 10mg Take 1 tablet by mouth daily. [facility] traMADOL (ULTRAM) 50 mg tablet 2015-02 00:00: 00 Yes [id number] 50mg Take 1 tablet by mouth 3 (three) times daily as needed for Pain unrelieved by non-narcot ic analgesics . [facility] lisinopril (PRINIVIL,Z ESTRIL) 10 mg tablet 2015-02 00:00: 00 Yes [id number] 10mg Take 1 tablet by mouth daily. [facility] traMADOL (ULTRAM) 50 mg tablet 2015-02 00:00: 00 Yes [id number] 50mg Take 1 tablet by mouth 3 (three) times daily as needed for Pain unrelieved by non-narcot ic analgesics . [facility] lisinopril (PRINIVIL,Z ESTRIL) 10 mg tablet 2015-02 00:00: 00 Yes [id number] 10mg Take 1 tablet by mouth daily. [facility] traMADOL (ULTRAM) 50 mg tablet 2015-02 00:00: 00 Yes [id number] 50mg Take 1 tablet by mouth 3 (three) times daily as needed for Pain unrelieved by non-narcot ic analgesics . [facility] lisinopril (PRINIVIL,Z ESTRIL) 10 mg tablet 2015-02 00:00: 00 Yes [id number] 10mg Take 1 tablet by mouth daily. [facility] traMADOL (ULTRAM) 50 mg tablet 2015-02 00:00: 00 Yes [id number] 50mg Take 1 tablet by mouth 3 (three) times daily as needed for Pain unrelieved by non-narcot ic analgesics . [facility] amLODIPine Besylate 2.5 MG amLODIPine Besylate [...] Name Observation Time Observation Value Comments S ourbre Systolic blood pressure 2023-03-17 04:15:00 114 mm[Hg] [facility] Diastolic blood pressure 2023-03-17 04:15:00 73 mm[Hg] [facility] Heart rate 2023-03-17 04:15:00 66 /min [facility] Body temperature 2023-03-17 04:15:00 36.72 Kathie [facility] Respiratory rate 2023-03-17 04:15:00 16 /min [facility] Oxygen saturation in Arterial blood by Pulse oximetry 2023-03-17 04:15:00 98 /min [facility] Body height 2023-03-17 02:34:00 177.8 cm [facility] Body weight 2023-03-17 02:34:00 98.158 kg [facility] BMI 2023-03-17 02:34:00 31.05 kg/m2 [facility] height 2022-09-27 09:20:00 69.5 [in_i] Comm on [facility] weight 2022-09-27 09:20:00 231.4 [lb_av] Co mmon [facility] temperature 2022-09-27 09:20:00 98.0 [degF] Com mon [facility] bmi 2022-09-27 09:20:00 33.68 kg/m2 Comm on [facility] oximetry 2022-09-27 09:20:00 98 % Commo n [facility] respiratory rate 2022-09-27 09:20:00 18 /min [facility] blood pressure systolic 2022-09-27 09:20:00 124 mm[Hg] [facility] blood pressure diastolic 2022-09-27 09:20:00 81 mm[Hg] [facility] height 2022-03-29 13:30:00 69.5 [in_i] Comm on [facility] weight 2022-03-29 13:30:00 240 [lb_av] Comm on [facility] temperature 2022-03-29 13:30:00 98.1 [degF] Com mon [facility] bmi 2022-03-29 13:30:00 34.93 kg/m2 Comm on [facility] oximetry 2022-03-29 13:30:00 97 % Commo n [facility] respiratory rate 2022-03-29 13:30:00 18 /min [facility] blood pressure systolic 2022-03-29 13:30:00 124 mm[Hg] [facility] blood pressure diastolic 2022-03-29 13:30:00 74 mm[Hg] [facility] height 2022-02-17 10:20:00 69.5 [in_i] Comm on [facility] weight 2022-02-17 10:20:00 240 [lb_av] Comm on [facility] temperature 2022-02-17 10:20:00 98 [degF] Comm on [facility] bmi 2022-02-17 10:20:00 34.93 kg/m2 Comm on [facility] height 2021-12-22 10:20:00 69.50 [in_i] Com [facility] weight 2021-12-22 10:20:00 233.4 [lb_av] Co mmon [facility] temperature 2021-12-22 10:20:00 97.6 [degF] Com [facility] bmi 2021-12-22 10:20:00 33.97 kg/m2 Comm on [facility] oximetry 2021-12-22 10:20:00 96 % Commo n [facility] respiratory rate 2021-12-22 10:20:00 16 /min [facility] blood pressure systolic 2021-12-22 10:20:00 130 mm[Hg] [facility] blood pressure diastolic 2021-12-22 10:20:00 82 mm[Hg] [facility] height 2021-11-19 14:00:00 69.50 [in_i] Com [facility] weight 2021-11-19 14:00:00 233.4 [lb_av[facility] 2021-11-19 14:00:00 97.6 [degF] Com [facility] bmi 2021-11-19 14:00:00 33.97 kg/m2 Comm on [facility] oximetry 2021-11-19 14:00:00 97 % Commo n [facility] respiratory rate 2021-11-19 14:00:00 16 /min [facility] blood pressure systolic 2021-11-19 14:00:00 133 mm[Hg[facility] pressure diastolic 2021-11-19 14:00:00 74 mm[Hg] Common [facility] height 2021-11-13 13:20:00 69.50 [in_i] Com [facility] weight 2021-11-13 13:20:00 230 [lb_av] Comm on [facility] temperature 2021-11-13 13:20:00 97.3 [degF] Com [facility] bmi 2021-11-13 13:20:00 33.47 kg/m2 Comm on [facility] height 2021-10-08 09:40:00 69.50 [in_i] Com [facility] weight 2021-10-08 09:40:00 236.4 [lb_av] Co mmon [facility] temperature 2021-10-08 09:40:00 97.3 [degF] Com [facility] bmi 2021-10-08 09:40:00 34.41 kg/m2 Comm on [facility] oximetry 2021-10-08 09:40:00 97 % Commo n [facility] respiratory rate 2021-10-08 09:40:00 16 /min [facility] blood pressure systolic 2021-10-08 09:40:00 130 mm[Hg] Common [facility] blood pressure diastolic 2021-10-08 09:40:00 78 mm[Hg] [facility] height 2021-09-17 15:20:00 69.50 [in_i] Com [facility] weight 2021-09-17 15:20:00 235.4 [lb_av] Co mmon [facility] temperature 2021-09-17 15:20:00 98.0 [degF] Com mon [facility] bmi 2021-09-17 15:20:00 34.26 kg/m2 Comm on [facility] oximetry 2021-09-17 15:20:00 99 % Commo n [facility] respiratory rate 2021-09-17 15:20:00 16 /min [facility] blood pressure systolic 2021-09-17 15:20:00 135 mm[Hg] [facility] blood pressure diastolic 2021-09-17 15:20:00 89 mm[Hg] [facility] Procedures Procedure Date / Time Performed Performing Clinicia n Source ASSIGNMENT OF BENEFITS 2023-03-17 04:14:02 Docto r Unassigned, Stow [facility] NOTICE OF PRIVACY PRACTICES 2023-03-17 02:18:00 Doctor Unassigned, Stow [facility] CONSENT/REFUSAL FOR DIAGNOSIS AND TREATMENT 2023-03-17 02:16:52 Doctor Unassigned, Stow [facility] REFERRAL- REQUEST/RESPONSE 2023-01-17 06:01:00 Doctor Unassigned, Stow [facility] REFERRAL- REQUEST/RESPONSE 2022-12-28 05:01:00 Doctor Unassigned, Stow [facility] EXTERNAL PROVIDER - ADC REFERRAL 2021-12-23 05:01:00 Doctor Unassigned, Stow [facility] Encounters Start Date/Time End Date/Time Encounter Type Admission Type Attending Clinicians Care Facility Care Department Encounter ID Source 2022-12-29 08:28:01 Outpatient Uli Forte [facility] [id number] [facility] 2022-12-27 08:48:[address] [facility] [id number] [facility] 2022-09-01 15:25:00 Outpatient Martha Vicente [facility] [id number] [facility] 2022-08-05 14:07:02 Outpatient Martha Vicente [facility] [id number] [facility] 2022-07-29 09:40:01 Outpatient Martha Vicente [facility] [id number] [facility] 2022-06-15 14:06:03 Outpatient Martha Vicente [facility] [id number] [facility] 2022-03-29 13:15:02 Outpatient VERA, Na [facility] [id number] [facility] 2022-02-16 11:56:00 Outpatient Vera, Na [facility] [id number] [facility] 2022-02-09 08:58:01 Outpatient Vera, Na STLMLC STLMLC [id number] [facility] 2022-01-04 12:02:01 Outpatient Vera, Na STLMLC STLMLC [id number] [facility] 2021-12-31 12:07:01 Outpatient Vera, Na STLMLC STLMLC [id number] [facility] 2021-12-18 10:58:02 Outpatient Vera, Na STLMLC STLMLC [id number] [facility] 2021-12-10 10:17:04 Outpatient Vera, Na STLMLC STLMLC [id number] [facility] 2021-11-13 13:16:02 Outpatient Vera, Na STLMLC STLMLC [id number] [facility] 2021-11-12 08:37:03 Outpatient Vera, Na STLMLC STLMLC [id number] [facility] 2021-11-05 13:52:02 Outpatient Angela Vera STLMLC STLC [id number] [facility] 2021-10-06 13:42:03 Outpatient Angela Vera STHILC STLMLC [id number] [facility] 2021-09-21 14:29:01 Outpatient Angela Vera STHILC STLC [id number] [facility] 2021-09-17 15:47:03 Outpatient Angela Vera STHILC STLC [id number] [facility] 2023-04-22 11:32:13 2023-04-22 11:32:[address] [facility] [id number] Yanick Miles 2023-03-16 20:38:00 2023-03-16 22:27:00 Emergency X RONALMADISYN [facility] ERT [id number] [facility] 2023-03-16 20:38:00 2023-03-16 22:27:00 Emergency Reynaldo Christianchristopher [facility] [id number] 350.1.13.10 4.2.7.2.686 [id number] [facility] 2023-03-16 00:00:00 2023-03-16 00:00:00 Orders Only Doctor Unassigned, Stow [facility] 1.2.840.114 350.1.13.10 4.2.7.2.686 [id number] [facility] 2023-01-17 11:20:32 2023-01-17 11:20:[address] [facility] [id number] Yanick Miles 2023-01-17 00:00:00 2023-01-17 00:00:00 Orders Only Doctor Unassigned, Stow [facility] 1.2840.114 350.1.13.10 4.2.7.2.686 [id number] [facility] 2023-01-05 15:40:00 2023-01-05 15:40:00 Outpatient BENJY YEPEZ [facility] [id number] [facility] 2023-01-03 14:11:35 2023-01-03 14:11:35 Outpatient SFA SFA [id number] Yanick Miles 2022-12-30 00:00:00 2022-12-30 00:00:00 (TEL) STLMLC STLMLC [id number] [facility] 2022-12-28 00:00:00 2022-12-28 00:00:00 Orders Only Doctor Unassigned, Stow [facility] 1.2.840.114 350.1.13.10 4.2.7.2.686 [id number] [facility] 2022-12-24 00:00:00 2022-12-24 00:00:00 (TEL) STLMLC STLMLC [id number] [facility] 2022-12-24 00:00:00 2022-12-24 00:00:00 (TEL) STLMLC STLMLC [id number] [facility] 2022-09-28 00:00:00 2022-09-28 00:00:00 (TEL) STLMLC STLMLC [id number] [facility] 2022-09-27 00:00:00 2022-09-27 00:00:00 (TEL) STLMLC STLMLC [id number] [facility] 2022-09-27 00:00:00 2022-09-27 00:00:00 OFFICE VISIT ESTAB PT LEVEL 4 STLMLC STLMLC [id number] [facility] 2022-09-01 00:00:00 2022-09-01 00:00:00 (TEL) STLMLC STLMLC [id number] [facility] 2022-07-30 00:00:00 2022-07-30 00:00:00 (TEL) STLMLC STLMLC [id number] [facility] 2022-06-15 00:00:00 2022-06-15 00:00:00 (TEL) STLMLC STLMLC [id number] [facility] 2022-03-29 00:00:00 2022-03-29 00:00:00 OFFICE VISIT ESTAB PT LEVEL 2 STLMLC STLMLC [id number] [facility] 2022-02-17 00:00:00 2022-02-17 00:00:00 OFFICE VISIT ESTAB PT LEVEL 4 STLMLC STLMLC [id number] [facility] 2022-02-16 00:00:00 2022-02-16 00:00:00 (TEL) STLMLC STLMLC [id number] [facility] 2022-01-18 00:00:00 2022-01-18 00:00:00 (TEL) STLMLC STLMLC [id number] [facility] 2021-12-23 00:00:00 2021-12-23 00:00:00 Orders Only Doctor Unassigned, Stow [facility] 1.2.840.114 350.1.13.10 4.2.7.2.686 [id number] [facility] 2021-12-22 00:00:00 2021-12-22 00:00:00 OFFICE VISIT EST PT LEVEL 3 STLMLC STLMLC [id number] [facility] 2021-12-22 00:00:00 2021-12-22 00:00:00 (TEL) STLMLC STLMLC [id number] [facility] 2021-12-11 00:00:00 2021-12-11 00:00:00 (TEL) STLMLC STLMLC [id number] [facility] 2021-11-19 00:00:00 2021-11-19 00:00:00 OFFICE VISIT EST PT LEVEL 3 STLMLC STLMLC [id number] [facility] 2021-11-17 00:00:2021-11-17 00:00:00 (TEL) STLMLC STLMLC [id number] [facility] 2021-11-13 00:00:00 2021-11-13 00:00:00 OFFICE VISIT EST PT LEVEL 3 STLMLC STLMLC [id number] [facility] 2021-10-23 00:00:00 2021-10-23 00:00:00 (TEL) STLMLC STLMLC [id number] [facility] 2021-10-08 00:00:00 2021-10-08 00:00:00 OFFICE VISIT ESTAB PT LEVEL 4 STLMLC STLMLC [id number] [facility] 2021-10-01 00:00:00 2021-10-01 00:00:00 Outpatient BESSY BLACKMON [facility] [id number] [facility] 2021-09-17 00:00:00 2021-09-17 00:00:00 OFFICE VISIT NEW PT LEVEL 4 STLMLC STLMLC [id number] [facility] Results Test Description Test Time Test Comments Results Result Co mments Source LIPID [id number] 04:46:54* Test Item Value Reference Range Interpretation [...] SPECIMENS. FOR MOREINFORMATION, SEE CLIENT ANNOUNCEMENT AT [email or web address] RISK RATIO LDL/HDL (test code = 2238) 2.73 RATIO <3.55 HEMOGLOBIN [id number] 04:03:01* Test Item Value Reference Range Interpretation Comme nts HEMOGLOBIN A1c (test code = 57818) 5.7 % 4.2-5.6 H [employer] GUIDELINES FOR HGB A1C: [...] INDICATED, ALL TESTING PERFORMED AT CLINICAL PATHOLOGY [email or web address] [address] [place] [address] QUALITY COMPLIANCE COORDINATOR: GRICELDA ALMENDAREZ M.D. CLIA NUMBER [id number] [facility] [place]. [id number] CBC W/AUTO DIFF WITH [id number] 03:00:48* Test Item Value Reference Range Interpretation [...] 0.00-0.10 ABS NUCLEATED RBCS (test code = 13260) 0.00 K/UL 0.00-0.11 TSH REFLEX TO FREE [id number] 00:00:00* Test Item Value Reference Range Interpretation Comme nts TSH REFLEX TO FREE T4 (test code = 44790-4) 1.350 UIU/ML See_Comment [Automated [employer] ge] The system which generated this result transmitted reference range: 0.400-4.100 UIU/ML. The reference range was not used to interpret this result as normal/abnormal. COMPREHENSIVE METABOLIC [id number] 00:00:00* Test Item Value Reference Range Interpretation Comme nts ALBUMIN (test code = 1751-7) 4.8 G/DL See_Comment [Automated [employer]] The system which generated this result transmitted [...] code = 3094-0) 14 MG/DL See_Comment [Automated [employer] ge] The system which generated this result transmitted reference range: 6-20 MG/DL. The reference range was not used to interpret this result as normal/abnormal. CALCIUM (test code = 75481-0) 9.7 MG/DL See_Comment [Automated messa ge] The system which generated this result transmitted reference range: 8.5-10.5 MG/DL. The reference range was not used to interpret this result as normal/abnormal. CALC A/G RATIO (test code = 1759-0) 1.8 RATIO See_Comment [Automated messa ge] The system [...] as normal/abnormal. CALC GLOBULIN (test code = 34785-7) 2.7 G/DL See_Comment [Automated messa ge] The [...] normal/abnormal. eGFR (2020 CKD-EPI) (test code = 04355-1) 83 ML/MIN/1.73 See_Comment [Automated messa ge] The [...] used to interpret this result as normal/abnormal. 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 [facility] access phone number providedAdvised to seek medical attention for new/prolonged/worsening of symptoms,Awake, alert oriented, resp reg unlabored, skin w/d, pt leaving in no apparent distress, 59910-8Nbibchbnp department WzbcCH2579-19-57W60:27:33[facility] NoteTXT1.2.840.912038.1.13.104.2.7 .2.488058|[id number] for patient dgho23911-4EfrgSHZBUQPQZGABkvafgpa d C-CDA narrative [id number] R Shehadeh RN[address] Yx[id number] 93TXHABECGYEUZCHUPKCQZUE4419-57-61 T22:27:331.2.840.803074.1.72.3.15| 1.2.840.609984.1.13.104.2.7.2.7278 [id number] Arelis Mohamud RN [facility] 2023-03-16 20:27:47 vrfDbOno2lmYmDTkex86 mQ25lbGNVKLSEW b2g3OEljTy1BOtWJVGbGs0xbfxnGEI3161 -01-17T20:27:47 Patient ambulatory to ED stating that his BP was high so he took two of his 0.1 Clonidine pills yesterday, one in the morning and one at night. Patient took Amlodipine and half of his [place] 10 tonight as well. Patient has been to [place] multiple times the last time was being discharged Tuesday. Patient states "all they did was just give me more drugs." Patient states there is "chest pain and it feels like a horse is standing on my kidney and liver." 35116-7Wjhuywjwu department Triage blssKM5302-13-75A72:36:35[facility] Triage noteTXT1.2.840.283160.1.13.104.2.7 .2.474785|[id number] for patient mrry96045-4Bbpreahet department NoteLNNARRATIVEFormatted C-CDA narrative [id number]-Ofmkm McInnis RNUT[address] Yr[id number] 29MGPYYFMZDOBRRATNMWKEFP0234-99-25 T20:36:351.2.840.865286.1.72.3.15| 1.2.840.322786.1.13.104.2.7.2.7278 [id number] Lina Ibrahim RN [facility]
--- NOTE | 2023-04-27 18:50 | EDPHYS ---
Physician Documentation [facility] Name: Cory Brock Age: 42 yrs Sex: Male : 1980 Arrival Date: 04/27/2023 Time: 18:21 Bed 13 Private MD: ED Physician Jodie Forte HPI: 04/27 18:45 This 42 yrs old Male presents to ER via EMS with complaints of high blood sp3 pressure, now resolved. 18:45 42-year-old male with a history of paroxysmal A-fib in the past, hypertension now sp3 presents to the ED with chief complaint hypertension as measured at home at approximately 190 systolic. Patient took clonidine which has been prescribed and for similar symptoms in the past and approximately an hour later it was still 160/100 and he activated EMS. After EMS arrival they found patient to have a blood pressure of 134/80 and route and is mild headache is now fully resolved. No other symptoms reported including ongoing headache, neck pain, chest pain, shortness of breath, back pain, abdominal pain, nausea, vomit, diarrhea, syncope, near syncope, or any other signs or symptoms on ROS at this time.. Historical: - Allergies: 18:43 Amoxicillin; ko1 18:43 Aspirin; ko1 18:43 NSAIDS (GI bleeding); ko1 18:43 PENICILLINS; ko1 - Home Meds: 18:43 amlodipine oral [Active]; carvedilol oral [Active]; ko1 - PMHx: 18:43 Atrial fibrillation; Back pain; Hypertensive disorder; trauma; ko1 - Immunization history:: Adult Immunizations up to date. - Social history:: Smoking status: Patient denies any tobacco usage or history of. ROS: 18:47 Constitutional: Negative for fever, chills, and weight loss, Eyes: Negative for injury, sp3 pain, redness, and discharge, ENT: Negative for injury, pain, and discharge, Neck: Negative for injury, pain, and swelling, Cardiovascular: Negative for chest pain, palpitations, and edema, Respiratory: Negative for shortness of breath, cough, wheezing, and pleuritic chest pain, Abdomen/GI: Negative for abdominal pain, nausea, vomiting, diarrhea, and constipation, Back: Negative for injury and pain, MS/Extremity: Negative for injury and deformity, Skin: Negative for injury, rash, and discoloration, Neuro: Negative for headache, weakness, numbness, tingling, and seizure, Psych: Negative for depression, anxiety, suicide ideation, homicidal ideation, and hallucinations, 18:47 All other systems are negative, Exam: 18:48 Constitutional: This is a well developed, well nourished patient who is awake, alert, sp3 and in no acute distress. Head/Face: Normocephalic, atraumatic. Eyes: Pupils equal round and reactive to light, extra-ocular motions intact. Lids and lashes normal. Conjunctiva and sclera are non-icteric and not injected. Cornea within normal limits. Periorbital areas with no swelling, redness, or edema. Neck: Trachea midline, no thyromegaly or masses palpated, and no cervical lymphadenopathy. Supple, full range of motion without nuchal rigidity, or vertebral point tenderness. No Meningismus. Chest/axilla: Normal chest wall appearance and motion. Nontender with no deformity. No lesions are appreciated. Cardiovascular: Regular rate and rhythm with a normal S1 and S2. No gallops, murmurs, or rubs. Normal PMI, no JVD. No pulse deficits. Respiratory: Lungs have equal breath sounds bilaterally, clear to auscultation and percussion. No rales, rhonchi or wheezes noted. No increased work of breathing, no retractions or nasal flaring. Abdomen/GI: Soft, non-tender, with normal bowel sounds. No distension or tympany. No guarding or rebound. No evidence of tenderness throughout. Back: No spinal tenderness. No costovertebral tenderness. Full range of motion. Skin: Warm, dry with normal turgor. Normal color with no rashes, no lesions, and no evidence of cellulitis. MS/ Extremity: Pulses equal, no cyanosis. Neurovascular intact. Full, normal range of motion. Neuro: Awake and alert, GCS 15, oriented to person, place, time, and situation. Cranial nerves II-XII grossly intact. Motor strength 5/5 in all extremities. Sensory grossly intact. Cerebellar exam normal. Normal gait. Psych: Awake, alert, with orientation to person, place and time. Behavior, mood, and affect are within normal limits. 18:48 ECG was reviewed by the Attending Physician. EKG demonstrates normal sinus rhythm at 70 bpm with normal intervals, normal QRS, normal axis, normal ST/T-segment's without evidence of any acute ischemia. Vital Signs: 18:41 BP 131 / 95; Pulse 70; Resp 15; Temp 98; Pulse Ox 99% on R/A; ko1 18:54 BP 121 / 86; Pulse 70; Resp 15; Pulse Ox 98% ; ko1 MDM: 18:28 Patient medically screened. sp3 18:48 Data reviewed: vital signs, nurses notes, EMS record, EKG. ED course: Patient's blood sp3 pressure is entirely normal and patient has no symptoms whatsoever. EKG is also normal. We will safely discharged home return precautions and follow-up with PCP at this time.. 04/27 18:28 Order name: EKG; Complete Time: 18:28 sp3 04/27 18:28 Order name: EKG - Nurse/Tech; Complete Time: 18:41 sp3 04/27 18:28 Order name: Recheck B/P; Complete Time: 18:41 sp3 Administered Medications: No medications were administered Disposition Summary: 04/27/23 18:49 Discharge Ordered Notes: Location: Home sp3 Condition: Stable sp3 Diagnosis - Hypertension urgency, resolved. sp3 Followup: sp3 - With: Private Physician - When: Upon discharge from the Emergency Department - Reason: Continuance of care Discharge Instructions: - Discharge Summary Sheet sp3 - Hypertension, Adult sp3 Forms: - Medication Reconciliation Form sp3 - Thank You Letter sp3 - Antibiotic Education sp3 - Prescription Opioid Use sp3 - Patient Portal Instructions sp3 - Leadership Thank You Letter sp3 Signatures: Jodie Forte MD MD sp3 Jes Stephen, RN RN ko1
--- NOTE | 2023-04-27 18:50 | ER ---
Nurse's Notes [facility] Name: Cory Brock Age: 42 yrs Sex: Male : 1980 Arrival Date: 04/27/2023 Time: 18:21 Bed 13 Private MD: Diagnosis: Hypertension urgency, resolved. Presentation: 04/27 18:30 Chief complaint: EMS states: patient called for elevated blood pressure, he took his ko1 meds but called EMS before it brought it down. Coronavirus screen: At this time, the client does not indicate any symptoms associated with coronavirus-19. Ebola Screen: No symptoms or risks identified at this time. Initial Sepsis Screen: Does the patient meet any 2 criteria? No. Patient's initial sepsis screen is negative. Does the patient have a suspected source of infection? No. Patient's initial sepsis screen is negative. Risk Assessment: Do you want to hurt yourself or someone else? Patient reports no desire to harm self or others. Onset of symptoms is unknown. 18:30 Method Of Arrival: EMS: [facility] ko1 18:30 Acuity: CORY 3 ko1 Triage Assessment: 18:43 General: Appears in no apparent distress. Behavior is cooperative, appropriate for age, ko1 anxious. Pain: Denies pain. Historical: - Allergies: 18:43 Amoxicillin; ko1 18:43 Aspirin; ko1 18:43 NSAIDS (GI bleeding); ko1 18:43 PENICILLINS; ko1 - Home Meds: 18:43 amlodipine oral [Active]; carvedilol oral [Active]; ko1 - PMHx: 18:43 Atrial fibrillation; Back pain; Hypertensive disorder; trauma; ko1 - Immunization history:: Adult Immunizations up to date. - Social history:: Smoking status: Patient denies any tobacco usage or history of. Screenin:30 [facility] ED Fall Risk Assessment (Adult) History of falling in the last 3 months, ko1 including since admission No falls in past 3 months (0 pts). Abuse screen: Denies threats or abuse. Denies injuries from another. Nutritional screening: No deficits noted. Tuberculosis screening: No symptoms or risk factors identified. Assessment: 18:30 Neuro: No deficits noted. Cardiovascular: No deficits noted. Respiratory: No deficits ko1 noted. GI: No deficits noted. : No deficits noted. EENT: No deficits noted. Derm: No deficits noted. Musculoskeletal: No deficits noted. Vital Signs: 18:41 BP 131 / 95; Pulse 70; Resp 15; Temp 98; Pulse Ox 99% on R/A; ko1 18:54 BP 121 / 86; Pulse 70; Resp 15; Pulse Ox 98% ; ko1 ED Course: 18:27 Patient arrived in ED. sp3 18:27 Jodie Forte MD is Attending Physician. sp3 18:29 Jes Stephen, RN is Primary Nurse. ko1 18:30 Patient has correct armband on for positive identification. Allergy band placed. Bed in ko1 low position. Call light in reach. Provided Education on: na. Pulse ox on. NIBP on. Door closed. Noise minimized. Lights dimmed. Warm blanket given. 18:30 No provider procedures requiring assistance completed. Patient did not have IV access ko1 during this emergency room visit. 18:43 Triage completed. ko1 18:43 Arm band placed on right wrist. Patient placed in an exam room, on a stretcher, on ko1 vice president of human resources, on pulse oximetry, Patient notified of wait time. Administered Medications: No medications were administered Medication: 18:30 VIS not applicable for this client. ko1 Outcome: 18:49 Discharge ordered by . sp3 18:54 Discharged to home ambulatory, ko1 18:54 Condition: stable 18:54 Discharge instructions given to patient, Instructed on discharge instructions, follow up and referral plans. Demonstrated understanding of instructions, follow-up care, 19:02 Patient left the ED. ko1 Signatures: Jodie Forte MD MD sp3 Jes Stephen, RN RN ko1
[2023-04-27 19:42] VITALS: BP 121/86; TEMP 98; O2SAT 98
--- NOTE | 2023-04-28 15:24 | EKG ---
Test Date: 2023-04-27 Test Time: 18:24:19 Regional Director: DANIEL MEASUREMENT RESULTS: Intervals: Rate: 69 VA: 166 QRSD: 90 QT: 372 QTc: 398 [place]: P: 38 VA: 166 QRS: 44 T: 60 INTERPRETIVE STATEMENTS: Normal sinus rhythm Septal infarct, age undetermined Abnormal ECG Compared to ECG 03/15/2023 23:10:44 Myocardial infarct finding now present Electronically Signed On 04-28-23 15:23:23 SHOTWELD OPERATOR by Kehinde Lackey
== END ==
LOC: ER 18:21
DX: I16.0 Hypertensive urgency (principal)
CPT/HCPCS: 93005

== ENCOUNTER → 2023-05-13 | Emergency (ER) | payer SELFPAY ==
[~2023-05-13] MED LIST: DIAZEPAM 5 MG TABLET ONE
--- OUTSIDE RECORDS SUMMARY | 2023-05-13 03:41 | XMS REPORT | Continuity of Care Document ---
Author Name Unknown Address [address] [place] [address] [facility] thconnect Address [address] [place] [address] Care Team Providers Care Electric Cell Tender Name Role Phone Pcp, Patient Does Not Have A Primary Care Physic sarahy Uli Forte Attending Clinician Unavailable Martha Vicente Attending Clinician Unavailable Angela VERA Attending Clinician Unavailable CECILIO MARTINEZ Attending Clinician UnavailMADISYN Castro Attending Clinician Unavailable Madisyn Christian MD Attending Clinician [phone] Doctor Unassigned, [place] Attending Clinician U BENJY Vaz Attending Clinician Unavailable JULITA Attending Clinician Unavailable JULITA Admitting Clinician Unavailable Payers Payer Name Policy Type Policy Number Effective Date Expirati on Date Source [facility] BENJAMIN BRASHER COPAY [employer]OCUS 9 [id number] 2023 00:00:00 MEDICAID PENDING PENDING 2018 00:00:00 [facility] 53 [id number] [facility] Problems Condition Name Condition Details Condition Category Status Onset Date Resolution Date Last Treatment Date Treating Clinician Comments Source Mixed dyslipidem ia Mixed dyslipidem ia Disease Active 2015-02 00:00: 00 [facility] Chronic back pain Chronic back pain Disease Active 2015-02 00:00: 00 [facility] Obesity (BMI 30-39.9) Obesity (BMI 30-39.9) Disease Active 2015-02 00:00: 00 [facility] Tobacco use Tobacco use Disease Active 2015-02 00:00: 00 [facility] [id number] Panic attacks Problem [facility] Screening for cardiovasc ular system disease Screening for cardiovasc ular condition Problem [facility] [id number] Chest pain, unspecifie d type Problem [facility] [id number] Gastroesop hageal reflux disease, unspecifie d whether esophagiti s present Problem [facility] [id number] Primary hypertensi on Problem [facility] Gastro-eso phageal reflux disease without esophagiti s Gastro-eso phageal reflux disease without esophagiti s Problem [facility] [id number] DDD (degenerat delfina disc disease), thoracolum bar Problem [facility] Hypertensi on HTN (hypertens ion) Problem [facility] [id number] Temporary low platelet count Problem [facility] Somnolence Somnolence , daytime Problem [facility] [id number] Anxiety Problem [facility] Chronic fatigue syndrome Chronic fatigue Problem [facility] [id number] Difficulty sleeping Problem [facility] Allergies, Adverse Reactions, Alerts Allergy Name Allergy Type Status Severity Reaction(s) Onset Date Inactive Date Treating Clinician Comments Source NSAIDS (NON-TONO ROIDAL ANTI-INF LAMMATOR Y DRUG) Drug Class Active SOB 08-01 00:00: 00 [facility] Nsaids (Non-Tono roidal Anti-Inf lammator y Drug) Propensi ty to adverse reaction s Active Shortness of Breath 08-01 00:00: 00 [facility] Ibuprofe n Propensi ty to adverse reaction s Active Swelling 2014-02 00:00: 00 [facility] IBUPROFE N DRUG INGREDI Active Swelling 2014-02 00:00: 00 [facility] PENICILL IN DRUG INGREDI Active High ITCHING 11-13 00:00: 00 [facility] Penicill in Propensi ty to adverse reaction s Active Itching 11-13 00:00: 00 [facility] Aspirin Propensi ty to adverse reaction s Active Swelling 10-04 00:00: 00 [facility] ASPIRIN DRUG INGREDI Active Swelling 10-04 00:00: 00 [facility] [id number] Drug allergy Active anaphylaxis [facility] Non-ster oidal anti-inf lammator y agent (FN) Non-ster oidal anti-inf lammator y agent (FN) Active Unknown [facility] Social History Social Habit Start Date Stop Date Quantity Comments Source [facility] Use [facility] History of Social function 2023-03-17 00:00:00 2023-03-17 00:00:00 [facility] Alcohol intake 2021-09-08 00:00:00 2021-09-08 00:00:00 0 /d [facility] Tobacco use and exposure 2015-12-05 00:00:00 2015-12-05 00:00:00 Smokeless tobacco non-user [facility] Sex Assigned At 1980 00:00:00 1980 00:00:00 [facility] Smoking Status Start Date Stop Date Source Never Smoker [facility] Former Smoker 2022-03-29 00:00:00 2022-03-29 00:00:00 [facility] Smokes tobacco daily 2015-12-05 00:00:00 [facility] Medications Ordered Medication Name Filled Medication Name [...] 0.1 MG cloNIDine HCl 0.1 MG 3-1 030 00:00: 00 No 1{table t} cloNIDine HCl 0.1 MG Carvedilol 6.25 MG Carvedilol 6.25 MG 2021-04-20 00:00: 00 No 1{table t_with_ food} BID Carvedilol 6.25 MG Carvedilol 6.25 MG Carvedilol 6.25 MG 2021-1 04-20 00:00: 00 No 1{table t_with_ food} BID [...] 10 mg tablet 05-23 00:00: 00 Yes [id number] 10mg Take 1 tablet by mouth 3 (three) times daily as needed for Muscle Spasms. [facility] acetaminoph en-codeine (TYLENOL-CO DEINE #3) 300-30 mg tablet 05-23 00:00: 00 Yes [id number] 1{tbl} Take 1 tablet by mouth every 8 (eight) hours as needed for Pain (scale 4-6). [facility] cyclobenzap rine 10 mg tablet 05-23 00:00: 00 Yes [id number] 10mg Take 1 tablet by mouth 3 (three) times daily as needed for Muscle Spasms. [facility] acetaminoph en-codeine (TYLENOL-CO DEINE #3) 300-30 mg tablet 05-23 00:00: 00 Yes [id number] 1{tbl} Take 1 tablet by mouth every 8 (eight) hours as needed for Pain (scale 4-6). [facility] cyclobenzap rine 10 mg tablet 05-23 00:00: 00 Yes [id number] 10mg Take 1 tablet by mouth 3 (three) times daily as needed for Muscle Spasms. [facility] acetaminoph en-codeine (TYLENOL-CO DEINE #3) 300-30 mg tablet 05-23 00:00: 00 Yes [id number] 1{tbl} Take 1 tablet by mouth every 8 (eight) hours as needed for Pain (scale 4-6). [facility] cyclobenzap rine 10 mg tablet 05-23 00:00: 00 Yes [id number] 10mg Take 1 tablet by mouth 3 (three) times daily as needed for Muscle Spasms. [facility] acetaminoph en-codeine (TYLENOL-CO DEINE #3) 300-30 mg tablet 05-23 00:00: 00 Yes [id number] 1{tbl} Take 1 tablet by mouth every 8 (eight) hours as needed for Pain (scale 4-6). [facility] cyclobenzap rine 10 mg tablet 05-23 00:00: 00 Yes [id number] 10mg Take 1 tablet by mouth 3 (three) times daily as needed for Muscle Spasms. [facility] acetaminoph en-codeine (TYLENOL-CO DEINE #3) 300-30 mg tablet 05-23 00:00: 00 Yes [id number] 1{tbl} Take 1 tablet by mouth every 8 (eight) hours as needed for Pain (scale 4-6). [facility] methocarbam ol (ROBAXIN-75 0) 750 mg tablet 11-11 00:00: 00 Yes 750mg Take 1 tablet by mouth 4 (four) times daily. [facility] methocarbam ol (ROBAXIN-75 0) 750 mg tablet 11-11 00:00: 00 Yes 750mg Take 1 tablet by mouth 4 (four) times daily. [facility] methocarbam ol (ROBAXIN-75 0) 750 mg tablet 11-11 00:00: 00 Yes 750mg Take 1 tablet by mouth 4 (four) times daily. [facility] methocarbam ol (ROBAXIN-75 0) 750 mg tablet 11-11 00:00: 00 Yes 750mg Take 1 tablet by mouth 4 (four) times daily. [facility] methocarbam ol (ROBAXIN-75 0) 750 mg tablet 11-11 00:00: 00 Yes 750mg Take 1 tablet by mouth 4 (four) times daily. [facility] cyclobenzap rine 5 mg tablet 11-02 00:00: 00 Yes 5mg Take 1 tablet by mouth 3 (three) times daily. [facility] acetaminoph en-codeine (TYLENOL-CO DEINE #3) 300-30 mg tablet 11-02 00:00: 00 Yes 1{tbl} Take 1 tablet by mouth every 6 (six) hours as needed for Pain (scale 7-10). [facility] cyclobenzap rine 5 mg tablet 11-02 00:00: 00 Yes 5mg Take 1 tablet by mouth 3 (three) times daily. [facility] acetaminoph en-codeine (TYLENOL-CO DEINE #3) 300-30 mg tablet 11-02 00:00: 00 Yes 1{tbl} Take 1 tablet by mouth every 6 (six) hours as needed for Pain (scale 7-10). [facility] cyclobenzap rine 5 mg tablet 11-02 00:00: 00 Yes 5mg Take 1 tablet by mouth 3 (three) times daily. [facility] acetaminoph en-codeine (TYLENOL-CO DEINE #3) 300-30 mg tablet 11-02 00:00: 00 Yes 1{tbl} Take 1 tablet by mouth every 6 (six) hours as needed for Pain (scale 7-10). [facility] cyclobenzap rine 5 mg tablet 11-02 00:00: 00 Yes 5mg Take 1 tablet by mouth 3 (three) times daily. [facility] acetaminoph en-codeine (TYLENOL-CO DEINE #3) 300-30 mg tablet 11-02 00:00: 00 Yes 1{tbl} Take 1 tablet by mouth every 6 (six) hours as needed for Pain (scale 7-10). [facility] cyclobenzap rine 5 mg tablet 11-02 00:00: 00 Yes 5mg Take 1 tablet by mouth 3 (three) times daily. [facility] acetaminoph en-codeine (TYLENOL-CO DEINE #3) 300-30 mg tablet 11-02 00:00: 00 Yes 1{tbl} Take 1 tablet by mouth every 6 (six) hours as needed for Pain (scale 7-10). [facility] lisinopril 10 mg tablet 07-13 00:00: 00 Yes 10mg Take 1 tablet by mouth at bedtime. [facility] lisinopril 10 mg tablet 07-13 00:00: 00 Yes 10mg Take 1 tablet by mouth at bedtime. [facility] lisinopril 10 mg tablet 07-13 00:00: 00 Yes 10mg Take 1 tablet by mouth at bedtime. [facility] lisinopril 10 mg tablet 07-13 00:00: 00 Yes 10mg Take 1 tablet by mouth at bedtime. [facility] lisinopril 10 mg tablet 07-13 00:00: 00 Yes 10mg Take 1 tablet by mouth at bedtime. [facility] TYLENOL-COD EINE #3 300-30 mg tablet 06-30 00:00: 00 Yes 2{tbl} Take 2 tablets by mouth every 4 (four) hours as needed for Pain (scale 1-3) or Pain (scale 4-6). [facility] TYLENOL-COD EINE #3 300-30 mg tablet 06-30 00:00: 00 Yes 2{tbl} Take 2 tablets by mouth every 4 (four) hours as needed for Pain (scale 1-3) or Pain (scale 4-6). [facility] TYLENOL-COD EINE #3 300-30 mg tablet 06-30 00:00: 00 Yes 2{tbl} Take 2 tablets by mouth every 4 (four) hours as needed for Pain (scale 1-3) or Pain (scale 4-6). [facility] TYLENOL-COD EINE #3 300-30 mg tablet 06-30 00:00: 00 Yes 2{tbl} Take 2 tablets by mouth every 4 (four) hours as needed for Pain (scale 1-3) or Pain (scale 4-6). [facility] TYLENOL-COD EINE #3 300-30 mg tablet 06-30 00:00: 00 Yes 2{tbl} Take 2 tablets by mouth every 4 (four) hours as needed for Pain (scale 1-3) or Pain (scale 4-6). [facility] acetaminoph en-codeine 300-30 mg tablet 06-09 00:00: 00 Yes 1{tbl} Take 1 tablet by mouth every 4 (four) hours as needed (pain). [facility] acetaminoph en-codeine 300-30 mg tablet 06-09 00:00: 00 Yes 1{tbl} Take 1 tablet by mouth every 4 (four) hours as needed (pain). [facility] acetaminoph en-codeine 300-30 mg tablet 06-09 00:00: 00 Yes 1{tbl} Take 1 tablet by mouth every 4 (four) hours as needed (pain). [facility] acetaminoph en-codeine 300-30 mg tablet 06-09 00:00: 00 Yes 1{tbl} Take 1 tablet by mouth every 4 (four) hours as needed (pain). [facility] acetaminoph en-codeine 300-30 mg tablet 06-09 00:00: 00 Yes 1{tbl} Take 1 tablet by mouth every 4 (four) hours as needed (pain). [facility] cyclobenzap rine 5 mg tablet 06-01 00:00: 00 Yes 5mg Take 1 tablet by mouth 2 (two) times daily as needed for Muscle Spasms for up to 15 doses. [facility] cyclobenzap rine 5 mg tablet 06-01 00:00: 00 Yes 5mg Take 1 tablet by mouth 2 (two) times daily as needed for Muscle Spasms for up to 15 doses. [facility] cyclobenzap rine 5 mg tablet 06-01 00:00: 00 Yes 5mg Take 1 tablet by mouth 2 (two) times daily as needed for Muscle Spasms for up to 15 doses. [facility] cyclobenzap rine 5 mg tablet 06-01 00:00: 00 Yes 5mg Take 1 tablet by mouth 2 (two) times daily as needed for Muscle Spasms for up to 15 doses. [facility] cyclobenzap rine 5 mg tablet 06-01 00:00: 00 Yes 5mg Take 1 tablet by mouth 2 (two) times daily as needed for Muscle Spasms for up to 15 doses. [facility] ACETAMINOPH EN WITH CODEINE (TYLENOL-CO DEINE #3 ORAL) 2015-02 11:39: 00 Yes Take by mouth as needed for Pain (scale 1-3). [facility] ACETAMINOPH EN WITH CODEINE (TYLENOL-CO DEINE #3 ORAL) 2015-02 11:39: 00 Yes Take by mouth as needed for Pain (scale 1-3). [facility] ACETAMINOPH EN WITH CODEINE (TYLENOL-CO DEINE #3 ORAL) 2015-02 11:39: 00 Yes Take by mouth as needed for Pain (scale 1-3). [facility] ACETAMINOPH EN WITH CODEINE (TYLENOL-CO DEINE #3 ORAL) 2015-02 11:39: 00 Yes Take by mouth as needed for Pain (scale 1-3). [facility] ACETAMINOPH EN WITH CODEINE (TYLENOL-CO DEINE #3 ORAL) 2015-02 0 11:39: 00 Yes Take by mouth as needed for Pain (scale 1-3). [facility] lisinopril (PRINIVIL,Z ESTRIL) 10 mg tablet 2015-02 0 00:00: 00 Yes [id number] 10mg Take 1 tablet by mouth daily. [facility] traMADOL (ULTRAM) 50 mg tablet 2015-02 00:00: 00 Yes [id number] 50mg Take 1 tablet by mouth 3 (three) times daily as needed for Pain unrelieved by non-narcot ic analgesics . [facility] lisinopril (PRINIVIL,Z ESTRIL) 10 mg tablet 2015-02 00:00: 00 Yes [id number] 10mg Take 1 tablet by mouth daily. [facility] traMADOL (ULTRAM) 50 mg tablet 2015-02 00:00: 00 Yes [id number] 50mg Take 1 tablet by mouth 3 (three) times daily as needed for Pain unrelieved by non-narcot ic analgesics . [facility] lisinopril (PRINIVIL,Z ESTRIL) 10 mg tablet 2015-02 00:00: 00 Yes [id number] 10mg Take 1 tablet by mouth daily. [facility] traMADOL (ULTRAM) 50 mg tablet 2015-02 00:00: 00 Yes [id number] 50mg Take 1 tablet by mouth 3 (three) times daily as needed for Pain unrelieved by non-narcot ic analgesics . [facility] lisinopril (PRINIVIL,Z ESTRIL) 10 mg tablet 2015-02 00:00: 00 Yes [id number] 10mg Take 1 tablet by mouth daily. [facility] traMADOL (ULTRAM) 50 mg tablet 2015-02 00:00: 00 Yes [id number] 50mg Take 1 tablet by mouth 3 (three) times daily as needed for Pain unrelieved by non-narcot ic analgesics . [facility] lisinopril (PRINIVIL,Z ESTRIL) 10 mg tablet 2015-02 00:00: 00 Yes [id number] 10mg Take 1 tablet by mouth daily. [facility] traMADOL (ULTRAM) 50 mg tablet 2015-02 00:00: 00 Yes [id number] 50mg Take 1 tablet by mouth 3 (three) times daily as needed for Pain unrelieved by non-narcot ic analgesics . [facility] amLODIPine Besylate 2.5 MG amLODIPine [...] Vital Name Observation Time Observation Value Comments Karina meyers Systolic blood pressure 2023-03-17 04:15:00 114 mm[Hg] [facility] Diastolic blood pressure 2023-03-17 04:15:00 73 mm[Hg] [facility] Heart rate 2023-03-17 04:15:00 66 /min [facility] Body temperature 2023-03-17 04:15:00 36.72 Kathie [facility] Respiratory rate 2023-03-17 04:15:00 16 /min [facility] Oxygen saturation in Arterial blood by Pulse oximetry 2023-03-17 04:15:00 98 /min [facility] Body height 2023-03-17 02:34:00 177.8 cm [facility] Body weight 2023-03-17 02:34:00 98.158 kg [facility] BMI 2023-03-17 02:34:00 31.05 kg/m2 [facility] height 2022-09-27 09:20:00 69.5 [in_i] Comm on [facility] weight 2022-09-27 09:20:00 231.4 [lb_av] Co mmon [facility] temperature 2022-09-27 09:20:00 98.0 [degF] Com mon [facility] bmi 2022-09-27 09:20:00 33.68 kg/m2 Comm on [facility] oximetry 2022-09-27 09:20:00 98 % Commo n [facility] respiratory rate 2022-09-27 09:20:00 18 /min [facility] blood pressure systolic 2022-09-27 09:20:00 124 mm[Hg] [facility] blood pressure diastolic 2022-09-27 09:20:00 81 mm[Hg] [facility] height 2022-03-29 13:30:00 69.5 [in_i] Comm on [facility] weight 2022-03-29 13:30:00 240 [lb_av] Comm on [facility] temperature 2022-03-29 13:30:00 98.1 [degF] Com mon [facility] bmi 2022-03-29 13:30:00 34.93 kg/m2 Comm on [facility] oximetry 2022-03-29 13:30:00 97 % Commo n [facility] respiratory rate 2022-03-29 13:30:00 18 /min [facility] blood pressure systolic 2022-03-29 13:30:00 124 mm[Hg] [facility] blood pressure diastolic 2022-03-29 13:30:00 74 mm[Hg] [facility] height 2022-02-17 10:20:00 69.5 [in_i] Comm on [facility] weight 2022-02-17 10:20:00 240 [lb_av] Comm on [facility] temperature 2022-02-17 10:20:00 98 [degF] Comm on [facility] bmi 2022-02-17 10:20:00 34.93 kg/m2 Comm on [facility] height 2021-12-22 10:20:00 69.50 [in_i] Com [facility] weight 2021-12-22 10:20:00 233.4 [lb_av] Co mmon [facility] temperature 2021-12-22 10:20:00 97.6 [degF] Com [facility] bmi 2021-12-22 10:20:00 33.97 kg/m2 Comm on [facility] oximetry 2021-12-22 10:20:00 96 % Commo n [facility] respiratory rate 2021-12-22 10:20:00 16 /min [facility] blood pressure systolic 2021-12-22 10:20:00 130 mm[Hg] [facility] blood pressure diastolic 2021-12-22 10:20:00 82 mm[Hg] [facility] height 2021-11-19 14:00:00 69.50 [in_i] Com [facility] weight 2021-11-19 14:00:00 233.4 [lb_av] Co mmon [facility] temperature 2021-11-19 14:00:00 97.6 [degF] Com [facility] bmi 2021-11-19 14:00:00 33.97 kg/m2 Comm on [facility] oximetry 2021-11-19 14:00:00 97 % Commo n [facility] respiratory rate 2021-11-19 14:00:00 16 /min [facility] blood pressure systolic 2021-11-19 14:00:00 133 mm[Hg] [facility] blood pressure diastolic 2021-11-19 14:00:00 74 mm[Hg] [facility] height 2021-11-13 13:20:00 69.50 [in_i] Com [facility] weight 2021-11-13 13:20:00 230 [lb_av] Comm on [facility] temperature 2021-11-13 13:20:00 97.3 [degF] Com [facility] bmi 2021-11-13 13:20:00 33.47 kg/m2 Comm on [facility] height 2021-10-08 09:40:00 69.50 [in_i] Com [facility] weight 2021-10-08 09:40:00 236.4 [lb_av] Co mmon [facility] temperature 2021-10-08 09:40:00 97.3 [degF] Com [facility] bmi 2021-10-08 09:40:00 34.41 kg/m2 Comm on [facility] oximetry 2021-10-08 09:40:00 97 % Commo n [facility] respiratory rate 2021-10-08 09:40:00 16 /min [facility] blood pressure systolic 2021-10-08 09:40:00 130 mm[Hg] [facility] blood pressure diastolic 2021-10-08 09:40:00 78 mm[Hg] [facility] height 2021-09-17 15:20:00 69.50 [in_i] Com mon [facility] weight 2021-09-17 15:20:00 235.4 [lb_av] Co mmon [facility] temperature 2021-09-17 15:20:00 98.0 [degF] Com mon [facility] bmi 2021-09-17 15:20:00 34.26 kg/m2 Comm on [facility] oximetry 2021-09-17 15:20:00 99 % Commo n [facility] respiratory rate 2021-09-17 15:20:00 16 /min [facility] blood pressure systolic 2021-09-17 15:20:00 135 mm[Hg] [facility] blood pressure diastolic 2021-09-17 15:20:00 89 mm[Hg] [facility] Procedures Procedure Date / Time Performed Performing Clinicia n Source ASSIGNMENT OF BENEFITS 2023-03-17 04:14:02 Docto r Unassigned, [place] [facility] NOTICE OF PRIVACY PRACTICES 2023-03-17 02:18:00 Doctor Unassigned, [place] [facility] CONSENT/REFUSAL FOR DIAGNOSIS AND TREATMENT 2023-03-17 02:16:52 Doctor Unassigned, [place] [facility] REFERRAL- REQUEST/RESPONSE 2023-01-17 06:01:00 Doctor Unassigned, [place] [facility] REFERRAL- REQUEST/RESPONSE 2022-12-28 05:01:00 Doctor Unassigned, [place] [facility] EXTERNAL PROVIDER - ADC REFERRAL 2021-12-23 05:01:00 Doctor Unassigned, [place] [facility] Encounters Start Date/Time End Date/Time Encounter Type Admission Type Attending Clinicians Care Facility Care Department Encounter ID Source 2022-12-29 08:28:[address] [facility] [id number] [facility] 2022-12-27 08:48:00 Outpatient Martha Vicente [facility] [id number] [facility] 2022-09-01 15:25:00 Outpatient Martha Vicente [facility] [id number] [facility] 2022-08-05 14:07:02 Outpatient Martha Vicente [facility] [id number] [facility] 2022-07-29 09:40:01 Outpatient Martha Vicente [facility] [id number] [facility] 2022-06-15 14:06:03 Outpatient Martha Vicente [facility] [id number] [facility] 2022-03-29 13:15:02 Outpatient VERA, Na STLMLC STL[facility] [id number] [facility] 2022-02-16 11:56:00 Outpatient Vera, Na STLMLC [facility] [id number] [facility] 2022-02-09 08:58:01 Outpatient Vera, Na STLMLC ST[facility] [id number] [facility] 2022-01-04 12:02:01 Outpatient Vera, Na STLML[facility] ST[facility] [id number] [facility] 2021-12-31 12:07:01 Outpatient Vera, Na STLMLC ST[facility] [id number] [facility] 2021-12-18 10:58:02 Outpatient Vera, Na STLMLC ST[facility]C [id number] [facility] 2021-12-10 10:17:04 Outpatient Vera, Na STLMLC ST[facility]C [id number] [facility] 2021-11-13 13:16:02 Outpatient Vera, Na STLMLC STL[facility]C [id number] [facility] 2021-11-12 08:37:03 Outpatient VeraAngela wiggins STHILC STL[facility]C [id number] [facility] 2021-11-05 13:52:02 Outpatient Angela Vera STCHARLIE [facility] [id number] [facility] 2021-10-06 13:42:03 Outpatient VeraAngela wiggins STHILC STL[facility] [id number] [facility] 2021-09-21 14:29:01 Outpatient Angela Vera STCHARLIE [facility] [id number] [facility] 2021-09-17 15:47:03 Outpatient Angela Vera STCHARLIE [facility] [id number] [facility] 2023-05-30 11:30:00 2023-05-30 11:30:00 Outpatient CECILIO MARTINEZ [id number] Shantel Su 2023-04-22 11:32:13 2023-04-22 11:32:13 Outpatient SFA SFA [id number] Yanick Miles 2023-03-16 20:38:00 2023-03-16 22:27:00 Emergency X [facility]YN [facility] E[facility] [id number] [facility] 2023-03-16 20:38:00 2023-03-16 22:27:00 Emergency ValoriemarkusdeMadisyn [facility] [id number] [facility] 2023-03-16 00:00:00 2023-03-16 00:00:00 Orders Only Doctor Unassigned, [place] [facility] [id number] [facility] 2023-01-17 11:20:32 2023-01-17 11:20:32 Outpatient SFA SFA [id number] Yanick Miles 2023-01-17 00:00:00 2023-01-17 00:00:00 Orders Only Doctor Unassigned, [place] [facility] 1.2.840.114 350.1.13.10 4.2.7.2.686 [id number] [facility] 2023-01-05 15:40:00 2023-01-05 15:40:00 Outpatient Francis [facility] [id number] [facility] 2023-01-03 14:11:35 2023-01-03 14:11:[address] [facility] [id number] Yanick Miles 2022-12-30 00:00:00 2022-12-30 00:00:00 (TEL) STLMLC STLMLC [id number] [facility] 2022-12-28 00:00:00 2022-12-28 00:00:00 Orders Only Doctor Unassigned, [place] [facility] [id number] 350.1.13.10 4.2.7.2.686 [id number] [facility] 2022-12-24 00:00:00 2022-12-24 00:00:00 (TEL) STLMLC STLMLC [id number] [facility] 2022-12-24 00:00:00 2022-12-24 00:00:00 (TEL) STLMLC STLMLC [id number] [facility] 2022-09-28 00:00:00 2022-09-28 00:00:00 (TEL) STLMLC STLMLC [id number] [facility] 2022-09-27 00:00:00 2022-09-27 00:00:00 (TEL) STLMLC STLMLC [id number] [facility] 2022-09-27 00:00:00 2022-09-27 00:00:00 OFFICE VISIT ESTAB PT LEVEL 4 STLMLC STLMLC [id number] [facility] 2022-09-01 00:00:00 2022-09-01 00:00:00 (TEL) STLMLC STLMLC [id number] [facility] 2022-07-30 00:00:00 2022-07-30 00:00:00 (TEL) STLMLC STLMLC [id number] [facility] 2022-06-15 00:00:00 2022-06-15 00:00:00 (TEL) STLMLC STLMLC [id number] [facility] 2022-03-29 00:00:00 2022-03-29 00:00:00 OFFICE VISIT ESTAB PT LEVEL 2 STLMLC STLMLC [id number] [facility] 2022-02-17 00:00:00 2022-02-17 00:00:00 OFFICE VISIT ESTAB PT LEVEL 4 STLMLC STLMLC [id number] [facility] 2022-02-16 00:00:00 2022-02-16 00:00:00 (TEL) STLMLC STLMLC [id number] [facility] 2022-01-18 00:00:00 2022-01-18 00:00:00 (TEL) STLMLC STLMLC [id number] [facility] 2021-12-23 00:00:00 2021-12-23 00:00:00 Orders Only Doctor Unassigned, [place] [facility] [id number] 350.1.13.10 4.2.7.2.686 [id number] [facility] 2021-12-22 00:00:00 2021-12-22 00:00:00 OFFICE VISIT EST PT LEVEL 3 STLMLC STLMLC [id number] [facility] 2021-12-22 00:00:00 2021-12-22 00:00:00 (TEL) STLMLC STLMLC [id number] [facility] 2021-12-11 00:00:00 2021-12-11 00:00:00 (TEL) STLMLC STLMLC [id number] [facility] 2021-11-19 00:00:00 2021-11-19 00:00:00 OFFICE VISIT EST PT LEVEL 3 STLMLC STLMLC [id number] [facility] 2021-11-17 00:00:00 2021-11-17 00:00:00 (TEL) STLMLC STLMLC [id number] [facility] 2021-11-13 00:00:00 2021-11-13 00:00:00 OFFICE VISIT EST PT LEVEL 3 STLMLC STLMLC [id number] [facility] 2021-10-23 00:00:00 2021-10-23 00:00:00 (TEL) STLMLC STLMLC [id number] [facility] 2021-10-08 00:00:00 2021-10-08 00:00:00 OFFICE VISIT ESTAB PT LEVEL 4 STLMLC STLMLC [id number] [facility] 2021-10-01 00:00:00 2021-10-01 00:00:00 Outpatient [facility] [id number] [facility] 2021-09-17 00:00:00 2021-09-17 00:00:00 OFFICE VISIT NEW PT LEVEL 4 STLMLC STLMLC [id number] [facility] Results Test Description Test Time Test Comments Results Result Co mments Source LIPID [id number] 04:46:54* Test Item Value Reference Range Interpretation [...] SPECIMENS. FOR MOREINFORMATION, SEE CLIENT ANNOUNCEMENT AT [email or web address] RISK RATIO LDL/HDL (test code = 2238) 2.73 RATIO <3.55 HEMOGLOBIN [id number] 04:03:01* Test Item Value Reference Range Interpretation Comme nts HEMOGLOBIN A1c (test code = 44812) 5.7 % 4.2-5.6 H [employer] GUIDELINES FOR HGB A1C: [...] TESTING PERFORMED AT [facility] [address] [place] [address] MAIL SORTER: GRICELDA ALMENDAREZ M.D. [facility] NUMBER [id number] [facility] [place]. [id number] CBC W/AUTO DIFF WITH [id number] 03:00:48* Test Item Value Reference Range Interpretation [...] = 1065) 0.0 /100 WBC'S See_Comment [Automated AVSTa Process Data Control] The system which generated this result transmitted [...] 0.00-0.10 ABS NUCLEATED RBCS (test code = 38304) 0.00 K/UL 0.00-0.11 TSH REFLEX TO FREE [id number] 00:00:00* Test Item Value Reference Range Interpretation Comme nts TSH REFLEX TO FREE T4 (test code = 56532-8) 1.350 UIU/ML See_Comment [Automated Moodlerooms] The system which generated this result transmitted reference range: 0.400-4.100 UIU/ML. The reference range was not used to interpret this result as normal/abnormal. COMPREHENSIVE METABOLIC [id number] 00:00:00* Test Item Value Reference Range Interpretation Comme nts ALBUMIN (test code = 1751-7) 4.8 G/DL See_Comment [Automated [employer] Process Data Control] The system which generated this result transmitted [...] result as normal/abnormal. CALCIUM (test code = 20811-2) 9.7 MG/DL See_Comment [Automated messa ge] The [...] as normal/abnormal. CALC GLOBULIN (test code = 24182-9) 2.7 G/DL See_Comment [Automated messa ge] The [...] normal/abnormal. eGFR (2020 CKD-EPI) (test code = 28100-9) 83 ML/MIN/1.73 See_Comment [Automated messa ge] The [...] Notes Date/Time Note Provider Source 2023-03-16 22:26:20 [id number] knu5K7XN+Z+V4Q bNl8w2j1S4noHwbvFJTkrmu/Z20U6X6670 -01-17T22:26:20 Pt given printed and verbal discharge instructions regarding HTN (resolved REGISTERED REPRESENTATIVE), encouraged keeping BP log for f/u appt,Pt verbalized understanding of instructions,pt encouraged to follow up with pcp and or business technology professor. [facility] access phone number providedAdvised to seek medical attention for new/prolonged/worsening of symptoms,Awake, alert oriented, resp reg unlabored, skin w/d, pt leaving in no apparent distress, 43550-2Zloafhfvw department EvaaXG5730-93-15O77:27:33[facility] [id number] .2.691256|[id number] for patient ujno05222-6RzfkUHENAIHPKWHYeiyeojl d C-CDA narrative [id number] R Shehadeh RN[address] OciqBbqdygqwsVuiwjdnwkKHKK07122748 09ASWXNYNFPYIWPTUPZDFHIT5336-46-47 T22:27:331.2.840.826279.1.72.3.15| 1.2.840.329484.1.13.104.2.7.2.7278 [id number] Arelis Mohamud RN [facility] 2023-03-16 20:27:47 dpgUfYus4awNtZDegl30 xF49vaGMGVUBVU w7m2YRfmBm1LOiZAFItQc6cecyxDKS0705 -01-17T20:27:47 Patient ambulatory to ED stating that his BP was high so he took two of his 0.1 Clonidine pills yesterday, one in the morning and one at night. Patient took Amlodipine and half of his Marathon 10 tonight as well. Patient has been to [place] multiple times the last time was being discharged Tuesday. Patient states "all they did was just give me more drugs." Patient states there is "chest pain and it feels like a horse is standing on my kidney and liver." 46708-5Muupqctus department Triage svirPM6192-27-13M87:36:35[facility] Triage [id number] .2.931368|[id number] for patient hybd23880-2Utaqdgmku department NoteLNNARRATIVEFormatted C-CDA narrative [id number]-Kazpc McInnis RN[address][id number] 84WSPRQPNQEZLYFQFTDENZFE7219-47-52 T20:36:351.2.840.476956.1.72.3.15| 1.2.840.890421.1.13.104.2.7.2.7278 [id number] Lina Ibrahim RN [facility]
[2023-05-13 04:15] LABS: Absolute Eosinophils 0.1 K/uL (0-0.5); Absolute Lymphocytes (CBC) 2.4 K/uL (0.7-4.9); Absolute Monocytes 0.5 K/uL (0.1-1.3); Absolute Neutrophil 5.5 K/uL (1.8-8.0); Basophils % 0.5 % (0-1.3); Eosinophils % 0.6 % (0-4.4); Hematocrit 43.1 % (39.6-49.0); Hemoglobin 15.1 g/dL (13.6-17.9); Lymphocytes % 27.8 % (15.3-44.8); MCH 31.5 pg (27.0-35.0); MPV 8.6 fL (7.6-11.3); Monocytes % 5.6 % (3.3-12.3); Neutrophils % 65.5 % (41.7-73.7); Platelets 119 thou/uL (152-406); RBC Red Blood Cell Count 4.79 M/uL (4.33-5.43); Red Cell Distribution Width 13.1 % (12.1-15.2)
[2023-05-13 04:18] LABS: PT Prothrombin Time 12.7 SECONDS (9.5-12.5); Protime INR 1.16
[2023-05-13 04:31] LABS: Albumin 3.7 g/dL (3.4-5.0); Anion Gap 8.3 mEq/L (5.0-15.0); Bilirubin Direct 0.1 mg/dL (0-0.2); Bilirubin Indirect, Calculated 0.5 mg/dL (0.2-0.8); Bilirubin Total 0.6 mg/dL (0.2-1.0); Globulin 3.7 g/dL (2.3-3.5); Potassium 3.3 mEq/L (3.5-5.1); Protein, Total 7.4 g/dL (6.4-8.2)
--- NOTE | 2023-05-13 04:55 | ER ---
Nurse's Notes [facility] Name: Cory Brock Age: 42 yrs Sex: Male : 1980 Arrival Date: 05/13/2023 Time: 03:36 Bed 20 Private MD: Diagnosis: Anxiety disorder, unspecified;Acute anxiety attack, Elevated blood pressure Presentation: 05/12 03:45 Chief complaint: Patient states: STARTED HAVING HIGH BP 3 HRS AGO. Coronavirus screen: jj7 At this time, the client does not indicate any symptoms associated with coronavirus-19. Ebola Screen: No symptoms or risks identified at this time. Initial Sepsis Screen: Does the patient meet any 2 criteria? No. Patient's initial sepsis screen is negative. Does the patient have a suspected source of infection? No. Patient's initial sepsis screen is negative. Risk Assessment: Do you want to hurt yourself or someone else? Patient reports no desire to harm self or others. Onset of symptoms was May 13, 2023. 03:45 Method Of Arrival: Ambulatory [facility] 03:45 Acuity: CORY 3 jj7 Triage Assessment: 03:45 General: Appears in no apparent distress. comfortable, Behavior is cooperative, jj7 appropriate for age, anxious. Pain: Denies pain. Cardiovascular: Reports HIGH BP Chest pain is denied. Historical: - Allergies: 04:27 Amoxicillin; jj7 04:27 Aspirin; jj7 04:27 NSAIDS (GI bleeding); jj7 04:27 PENICILLINS; jj7 - PMHx: 04:27 Atrial fibrillation; Back pain; Hypertensive disorder; trauma; jj7 - PSHx: 04:27 None; jj7 - Immunization history:: Adult Immunizations Client reports receiving the 2nd dose of the Covid vaccine, Flu vaccine is not up to date. - Social history:: Smoking status: Patient denies any tobacco usage or history of. Patient/guardian denies using alcohol, street drugs, IV drugs. - Family history:: not pertinent. Screenin:45 [facility] ED Fall Risk Assessment (Adult) History of falling in the last 3 months, jj7 including since admission No falls in past 3 months (0 pts) Confusion or Disorientation No (0 pts) Intoxicated or Sedated No (0 pts) Impaired Gait No (0 pts) Mobility Assist Device Used No (0 pt) Altered Elimination No (0 pt) Score/Fall Risk Level 0 - 2 = Low Risk Oriented to surroundings, Maintained a safe environment, Educated pt \T\ family on fall prevention, incl call for assistance when getting out of bed. Abuse screen: Denies threats or abuse. Nutritional screening: No deficits noted. Tuberculosis screening: No symptoms or risk factors identified. Assessment: 03:45 Pain: Denies pain. Pain does not radiate. Pain began 3 hours ago. jj7 Vital Signs: 03:45 BP 161 / 110; Pulse 81; Resp 18; Temp 97.4; Pulse Ox 99% ; Weight 92.99 kg; Height 5 jj7 ft. 10 in. ; Pain 0/10; 04:45 BP 118 / 86; Pulse 66; Resp 17; Pulse Ox 96% ; jj7 03:45 Body Mass Index 29.41 (92.99 kg, 177.8 cm) jj7 03:45 Pain Scale: Adult j7 ED Course: 03:38 Patient arrived in ED. jj6 03:41 Francisco Padron MD is Attending Physician. sp4 03:45 Patient maintains SpO2 saturation greater than 95% on room air. jj7 03:45 Arm band placed on right wrist. Patient placed in an exam room, on a stretcher, on jj7 intermediate designer, on pulse oximetry. EKG completed in triage. Results shown to MD. 03:45 Patient has correct armband on for positive identification. Placed in gown. Call light jj7 in reach. Side rails up X2. Client placed on continuous cardiac and pulse oximetry monitoring. NIBP monitoring applied. district ranger on. Warm blanket given. 03:45 Provided Education on: USE OF CALL ALAN. jj7 03:56 Isauro Lackey RN is Primary Nurse. jj7 04:02 Inserted saline lock: 22 gauge in right antecubital area, using aseptic technique. oe Blood collected. 04:10 Basic Metabolic Panel Sent. jj7 04:10 CBC with Diff Sent. jj7 04:10 LFT's Sent. jj7 04:10 Magnesium Sent. jj7 04:10 NT PRO-BNP Sent. jj7 04:10 PT-INR Sent. jj7 04:10 Troponin HS Sent. jj7 04:16 XRAY Chest (1 view) In Process Unspecified. EDMS 04:22 Triage completed. jj7 04:27 EKG done, by hvac controls technician. reviewed by Francisco Padron MD. oe 05:06 No provider procedures requiring assistance completed. IV discontinued, intact, jj7 bleeding controlled, No redness/swelling at site. Pressure dressing applied. Administered Medications: 04:01 Drug: Diazepam PO 10 mg PO once Route: PO; jj7 05:06 Follow up: Response: Marked relief of symptoms jj7 Medication: 03:45 VIS not applicable for this client. jj7 Outcome: 04:54 Discharge ordered by . sp4 05:06 Discharged to home ambulatory, jj7 05:06 Condition: improved 05:06 Discharge instructions given to patient, Instructed on discharge instructions, follow up and referral plans. medication usage, Demonstrated understanding of instructions, follow-up care, medications, Prescriptions given X 1, 05:17 Patient left the ED. jj7 Signatures: Dispatcher [employer] EDID Kris Delvalle Jennifer jj6 Isauro Lackey, RN RN jj7 Francisco Padron MD MD sp4
--- NOTE | 2023-05-13 04:55 | EDPHYS ---
Physician Documentation [facility] Name: Cory Brock Age: 42 yrs Sex: Male : 1980 Arrival Date: 05/13/2023 Time: 03:36 Bed 20 Private MD: ED Physician Francisco Padron HPI: 05/12 03:41 This 42 yrs old Male presents to ER via Unassigned with complaints of High sp4 Blood Pressure. 03:41 Allergies: Amoxicillin; Aspirin; NSAIDS (GI bleeding); PENICILLINS; Home Meds: sp4 amlodipine oral; carvedilol oral; PMHx: Atrial fibrillation; Back pain; Hypertensive disorder; trauma;. 04:49 Patient reports that his blood pressure has fluctuated through the day. Patient appears sp4 anxious . Historical: - Allergies: 04:27 Amoxicillin; jj7 04:27 Aspirin; jj7 04:27 NSAIDS (GI bleeding); jj7 04:27 PENICILLINS; jj7 - PMHx: 04:27 Atrial fibrillation; Back pain; Hypertensive disorder; trauma; jj7 - PSHx: 04:27 None; jj7 - Immunization history:: Adult Immunizations Client reports receiving the 2nd dose of the Covid vaccine, Flu vaccine is not up to date. - Social history:: Smoking status: Patient denies any tobacco usage or history of. Patient/guardian denies using alcohol, street drugs, IV drugs. - Family history:: not pertinent. ROS: 04:49 Constitutional: Negative for fever, chills, and weight loss, Positive for blood sp4 pressure fluctuations, Negative chest pains 04:49 All other systems are negative, Exam: 04:47 Constitutional: This is a well developed, well nourished patient who is awake, alert, sp4 anxious appearing male Head/Face: Normocephalic, atraumatic. Eyes: Pupils equal round and reactive to light, extra-ocular motions intact. Lids and lashes normal. Conjunctiva and sclera are not injected. Cornea within normal limits. Periorbital areas with no swelling, redness, or edema. ENT: Nares patent. No nasal discharge, no septal abnormalities noted. Tympanic membranes are normal and external auditory canals are clear. Oropharynx with no redness, swelling, or masses, exudates, or evidence of obstruction, uvula midline. Mucous membranes moist. Neck: Trachea midline, no thyromegaly or masses palpated, and no cervical lymphadenopathy. Supple, full range of motion without nuchal rigidity, or vertebral point tenderness. Chest/axilla: Normal chest wall appearance and motion. Nontender with no deformity. No lesions are appreciated. Cardiovascular: Regular rate and rhythm with a normal S1 and S2. No gallops, murmurs, or rubs. Normal PMI, no JVD. No pulse deficits. Respiratory: Lungs have equal breath sounds bilaterally, clear to auscultation and percussion. No rales, rhonchi or wheezes noted. No increased work of breathing, no retractions or nasal flaring. Abdomen/GI: Soft, with normal bowel sounds. No distension or tympany. No guarding or rebound. No evidence of tenderness throughout. Back: No spinal tenderness. No costovertebral tenderness. Skin: Warm, dry with normal turgor. Normal color with no rashes, no lesions, and no evidence of cellulitis. MS/ Extremity: Pulses equal, no cyanosis. Neurovascular intact. Full, normal range of motion. Neuro: Awake and alert, GCS 15, oriented to person, place, time, and situation. Cranial nerves II-XII grossly intact. Motor strength 5/5 in all extremities. Sensory grossly intact. Psych: Awake, alert, with orientation to person, place and time. Anxious appearing 04:47 ECG was reviewed by the Attending Physician. 04:30 EKG - Normal EKG Vital Signs: 03:45 BP 161 / 110; Pulse 81; Resp 18; Temp 97.4; Pulse Ox 99% ; Weight 92.99 kg; Height 5 jj7 ft. 10 in. ; Pain 0/10; 04:45 BP 118 / 86; Pulse 66; Resp 17; Pulse Ox 96% ; jj7 03:45 Body Mass Index 29.41 (92.99 kg, 177.8 cm) j7 03:45 Pain Scale: Adult jj7 MDM: 03:42 Patient medically screened. sp4 07:07 Differential diagnosis: hypertensive crisis, Malignant HTN, CVA, intracerebral sp4 hemorrhage. Data reviewed: vital signs, nurses notes, lab test result(s), EKG, radiologic studies, plain films. 07:07 Consideration of Admission/Observation Escalation of care including sp4 admission/observation considered. ED course: EXAM DESCRIPTION: Chest Single View CLINICAL HISTORY: CHEST PAIN COMPARISON: Chest x-ray 12/06/2022 TECHNIQUE: Single AP view of the chest. FINDINGS: Lung volumes adequate. Cardiac silhouette is normal in size. No pneumothorax. No large pleural effusion. No focal consolidation. No acute bony finding. IMPRESSION: No evidence of acute cardiopulmonary disease.. 05/12 03:42 Order name: Basic Metabolic Panel; Complete Time: 04:50 sp4 05/12 03:42 Order name: CBC with Diff; Complete Time: 04:50 sp4 05/12 03:42 Order name: LFT's; Complete Time: 04:50 sp4 05/12 03:42 Order name: Magnesium; Complete Time: 04:50 4 05/12 03:42 Order name: NT PRO-BNP; Complete Time: 04:50 sp4 05/12 03:42 Order name: PT-INR; Complete Time: 04:50 sp4 05/12 03:42 Order name: Troponin HS; Complete Time: 04:50 4 05/12 03:42 Order name: XRAY Chest (1 view) 05/12 03:42 Order name: EKG; Complete Time: 03:43 4 05/12 03:42 Order name: Cardiac monitoring; Complete Time: 04:10 4 05/12 03:42 Order name: EKG - Nurse/Tech; Complete Time: 04:31 4 05/12 03:42 Order name: IV Saline Lock; Complete Time: 04:10 4 05/12 03:42 Order name: Labs collected and sent; Complete Time: 04:10 4 05/12 03:42 Order name: O2 Per Protocol; Complete Time: 04:10 4 05/12 03:42 Order name: O2 Sat Monitoring; Complete Time: 04:10 EC:47 Rate is 71 beats/min. Rhythm is regular, Normal Sinus Rhythm. QRS [place] is Normal. TN sp4 interval is normal. QRS interval is normal. QT interval is normal. No Q waves. T waves are Normal. No ST changes noted. Clinical impression: Normal ECG. Interpreted by me. Reviewed by me. Administered Medications: 04:01 Drug: Diazepam PO 10 mg PO once Route: PO; jj7 05:06 Follow up: Response: Marked relief of symptoms jj7 Disposition Summary: 05/13/23 04:54 Discharge Ordered Notes: Location: Home sp4 Problem: new sp4 Symptoms: have improved sp4 Condition: Stable sp4 Diagnosis - Anxiety disorder, unspecified sp4 - Acute anxiety attack, Elevated blood pressure sp4 Followup: sp4 - With: Private Physician - When: When scheduled - Reason: Recheck today's complaints Discharge Instructions: - Discharge Summary Sheet sp4 - Managing Anxiety, Adult sp4 Forms: - Patient Portal Instructions sp4 Prescriptions: - Valium 5 mg Oral tablet - take 1 tablet ORAL route once daily As needed PRN anxiety attack; 20 tablet; sp4 Refills: 0, Product Selection Permitted Signatures: Dispatcher [employer] Isauro Syed RN RN jj7 Francisco Padron MD MD sp4 Corrections: (The following items were deleted from the chart) 04:50 03:41 This 42 yrs old Male presents to ER via Unassigned with complaints of sp4 High Blood Pressure, Chest Pain. sp4
[2023-05-13 05:23] VITALS: BP 118/86; TEMP 97.4; O2SAT 96
--- NOTE | 2023-05-13 17:21 | EKG ---
Test Date: 2023-05-13 Test Time: 04:03:30 Area Relief Pilot: MINISTERIO MEASUREMENT RESULTS: Intervals: Rate: 71 FL: 170 QRSD: 88 QT: 370 QTc: 402 [place]: P: 25 FL: 170 QRS: 22 T: 41 INTERPRETIVE STATEMENTS: Normal sinus rhythm Normal ECG Compared to ECG 04/27/2023 18:24:19 Myocardial infarct finding no longer present Electronically Signed On 05-13-23 17:19:50 CDT by Kehinde Lackey
--- NOTE | 2023-05-14 13:23 | RAD REPORT ---
EXAM DESCRIPTION: RAD - Chest Single View - 05/13/2023 4:14 am CLINICAL HISTORY: CHEST PAIN COMPARISON: Chest x-ray 12/06/2022 TECHNIQUE: Single AP view of the chest. FINDINGS: Lung volumes adequate. Cardiac silhouette is normal in size. No pneumothorax. No large pleural effusion. No focal consolidation. No acute bony finding. IMPRESSION: No evidence of acute cardiopulmonary disease. Electronically signed by: Bennie Cramer MD 05/13/2023 05:14 AM CDT Due to temporary technical issues with the PACS/Fluency reporting system, reports are being signed by the in house radiologists without review as a courtesy to insure prompt reporting. The interpreting radiologist is fully responsible for the content of the report.
== END ==
LOC: ER 03:36
DX: F41.0 Panic disorder [episodic paroxysmal anxiety] (principal); F41.9 Anxiety disorder, unspecified
CPT/HCPCS: 36415; 71045; 80048; 80076; 83735; 83880; 84484; 85025; 85610; 93005; 99285

== ENCOUNTER 2023-06-09 03:50 | Emergency (ER) | payer OTHER ==
--- OUTSIDE RECORDS SUMMARY | 2023-06-09 03:54 | XMS REPORT | Continuity of Care Document ---
Author Name Unknown Address [address] [facility] [address] [place] [address] [facility] thconnect Address 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 Name Role Phone Pcp, Patient Does Not Have A Primary Care Physic sarahy Uli Forte Attending Clinician Unavailable Martha Vicente Attending Clinician Unavailable Angela VERA Attending Clinician Unavailable CECILIO MARTINEZ Attending Clinician UnavailMADISYN Castro Attending Clinician Unavailable Madisyn Christian MD Attending Clinician Doctor Unassigned, [place] Attending Clinician U BENJY Vaz Attending Clinician Unavailable JULITA Attending Clinician Unavailable JULITA Admitting Clinician Unavailable Payers Payer Name Policy Type Policy Number Effective Date Expirati on Date Source [facility] 9 [id number] 2023 00:00:00 MEDICAID PENDING PENDING 2018 00:00:00 [facility] 53 [id number] [facility] Problems Condition Name Condition Details Condition Category Status Onset Date Resolution Date Last Treatment Date Treating Clinician Comments Source Primary hypertensi on Primary hypertensi on Disease Active 05-29 00:00: 00 Shantel Serrano l Mixed dyslipidem ia Mixed dyslipidem ia Disease Active 2015-02 00:00: 00 [facility] Chronic back pain Chronic back pain Disease Active 2015-02 00:00: 00 [facility] Obesity (BMI 30-39.9) Obesity (BMI 30-39.9) Disease Active 2015-02 00:00: 00 [facility] Tobacco use Tobacco use Disease Active 2015-02 00:00: 00 [facility] [id number] Panic attacks Problem [facility] Screening for cardiovasc ular system disease Screening for cardiovasc ular condition Problem [facility] [id number] Chest pain, unspecifie d type Problem [facility] [id number] Gastroesop hageal reflux disease, unspecifie d whether esophagiti s present Problem [facility] [id number] Primary hypertensi on Problem [facility] Gastro-eso phageal reflux disease without esophagiti s Gastro-eso phageal reflux disease without esophagiti s Problem [facility] [id number] DDD (degenerat delfina disc disease), thoracolum bar Problem [facility] Hypertensi on HTN (hypertens ion) Problem [facility] [id number] Temporary low platelet count Problem [facility] Somnolence Somnolence , daytime Problem [facility] [id number] Anxiety Problem [facility] Chronic fatigue syndrome Chronic fatigue Problem [facility] [id number] Difficulty sleeping Problem [facility] Allergies, Adverse Reactions, Alerts Allergy Name Allergy Type Status Severity Reaction(s) Onset Date Inactive Date Treating Clinician Comments Source Nsaids Propensi ty to adverse reaction s Active Other 1-14 00:00: 00 Shantel Su - Externa l Penicill ins Propensi ty to adverse reaction s Active Other 1-14 00:00: 00 Shantel Su - Externa l NSAIDS (NON-TONO ROIDAL ANTI-INF LAMMATOR Y DRUG) Drug Class Active SOB 08-01 00:00: 00 [facility] Nsaids (Non-Tono roidal Anti-Inf lammator y Drug) Propensi ty to adverse reaction s Active Shortness of Breath 08-01 00:00: 00 [facility] Ibuprofe n Propensi ty to adverse reaction s Active Swelling 2014-02 00:00: 00 [facility] IBUPROFE N DRUG INGREDI Active Swelling 2014-02 00:00: 00 [facility] PENICILL IN DRUG INGREDI Active High ITCHING 11-13 00:00: 00 [facility] Penicill in Propensi ty to adverse reaction s Active Itching 9 00:00: 00 [facility] Aspirin Propensi ty to adverse reaction s Active Swelling 10-04 00:00: 00 [facility] ASPIRIN DRUG INGREDI Active Swelling 8 00:00: 00 [facility] [id number] Drug allergy Active anaphylaxis [facility] Non-ster oidal anti-inf lammator y agent (FN) Non-ster oidal anti-inf lammator y agent (FN) Active Unknown [facility] Social History Social Habit Start Date Stop Date Quantity Comments Source Sexual orientation Felicia Su - External History of tobacco use Cigarette Smoker Shantel gomez - External History of Social function 2023-05-30 00:00:00 2023-05-30 00:00:00 Shantel Su - External Tobacco use and exposure 2023-05-30 00:00:00 2023-05-30 00:00:00 Smokeless tobacco non-user Shantel Su - External Alcohol intake 2023-05-30 00:00:00 2023-05-30 00:00:00 Ex-drinker (finding) Shantel Su - External Sex Assigned At 1980 00:00[birth year]00 1980 00:00:00 Shantel Su - External Smoking Status Start Date Stop Date Source Ex-smoker 2023-05-30 00:00:00 2023-05-30 00:00:00 Felicia Su - External Never Smoker [facility] Smokes tobacco daily 2015-12-05 00:00:00 [facility] Medications Ordered Medication Name Filled Medication Name Start Date Stop Date Current Medication? Ordering Clinician Indication Dosage Frequency Signature (SIG) Comments Components Source Pantoprazol e Sodium 40 MG oral Tablet Delayed Response 05-29 11:16: 35 Yes 40mg 1 tablet (40 mg total) every 24 hours. Shantel farris diazePAM 5 MG oral Tablet 05-12 00:00: 00 Yes Shantel farris Carvedilol 3.125 MG oral Tablet 2022-02 00:00: 00 Yes Shantel farris busPIRone HCl 5 MG oral Tablet 2022-02 00:00: 00 05-29 00:00 :00 No Shantel farris cloNIDine HCl 0.1 MG cloNIDine HCl 0.1 MG 2022-02 0-30 00:00: 00 No 1{table t} cloNIDine HCl 0.1 MG cloNIDine HCl 0.1 MG cloNIDine HCl 0.1 MG 2022-02 0-30 00:00: 00 No 1{table t} cloNIDine HCl 0.1 MG cloNIDine HCl 0.1 MG cloNIDine HCl 0.1 MG 2022-02 0-30 00:00: 00 No 1{table t} cloNIDine HCl 0.1 MG cloNIDine HCl 0.1 MG cloNIDine HCl 0.1 MG 1 0-30 00:00: 00 No 1{table t} cloNIDine HCl 0.1 MG cloNIDine HCl 0.1 MG cloNIDine HCl 0.1 MG 1 0-30 00:00: 00 No 1{table t} cloNIDine HCl 0.1 MG cloNIDine HCl 0.1 MG cloNIDine HCl 0.1 MG 2022-1 0-30 00:00: 00 No 1{table t} cloNIDine HCl 0.1 MG cloNIDine HCl 0.1 MG cloNIDine HCl 0.1 MG 2022-02 0-30 00:00: 00 No 1{table t} cloNIDine HCl 0.1 MG cloNIDine HCl 0.1 MG cloNIDine HCl 0.1 MG 2022-02 0 00:00: 00 No 1{table t} cloNIDine HCl 0.1 MG cloNIDine HCl 0.1 MG cloNIDine HCl 0.1 MG 2022-02 030 00:00: 00 No 1{table t} cloNIDine HCl 0.1 MG Clonidine HCl (CATAPRES) 0.1 MG oral Tablet 2022-02 0 00:00: 00 Yes Shantel farris HYDROcodone -Acetaminop hen 10-325 MG oral Tablet 10-18 00:00: 00 Yes Shantel farris Ventolin HFA 108 (90 Base) MCG/ACT inhalation Aerosol Solution 09-27 00:00: 00 Yes Shantel farris Amlodipine Besylate (NORVASC) 5 MG oral Tablet 09-27 00:00: 00 Yes Shantel farris Carvedilol 6.25 MG Carvedilol 6.25 MG 2021-02 [...] 10 mg tablet 05-23 00:00: 00 Yes [id number] 10mg Take 1 tablet by mouth 3 (three) times daily as needed for Muscle Spasms. [facility] acetaminoph en-codeine (TYLENOL-CO DEINE #3) 300-30 mg tablet 05-23 00:00: 00 Yes [id number] 1{tbl} Take 1 tablet by mouth every 8 (eight) hours as needed for Pain (scale 4-6). [facility] methocarbam ol (ROBAXIN-75 0) 750 mg tablet 11-11 00:00: 00 Yes 750mg Take 1 tablet by mouth 4 (four) times daily. [facility] acetaminoph en-codeine (TYLENOL-CO DEINE #3) 300-30 mg tablet 11-02 00:00: 00 Yes 1{tbl} Take 1 tablet by mouth every 6 (six) hours as needed for Pain (scale 7-10). [facility] cyclobenzap rine 5 mg tablet 11-02 00:00: 00 Yes 5mg Take 1 tablet by mouth 3 (three) times daily. [facility] lisinopril 10 mg tablet 16 00:00: 00 Yes 10mg Take 1 tablet by mouth at bedtime. [facility] TYLENOL-COD EINE #3 300-30 mg tablet 06-30 00:00: 00 Yes 2{tbl} Take 2 tablets by mouth every 4 (four) hours as needed for Pain (scale 1-3) or Pain (scale 4-6). [facility] acetaminoph en-codeine 300-30 mg tablet 06-09 00:00: 00 Yes 1{tbl} Take 1 tablet by mouth every 4 (four) hours as needed (pain). [facility] cyclobenzap rine 5 mg tablet 06-01 00:00: 00 Yes 5mg Take 1 tablet by mouth 2 (two) times daily as needed for Muscle Spasms for up to 15 doses. [facility] ACETAMINOPH EN WITH CODEINE (TYLENOL-CO DEINE #3 ORAL) 2015-02 11:39: 00 Yes Take by mouth as needed for Pain (scale 1-3). [facility] lisinopril (PRINIVIL,Z ESTRIL) 10 mg tablet 2015-02 00:00: 00 Yes [id number] 10mg Take 1 tablet by mouth daily. [facility] traMADOL (ULTRAM) 50 mg tablet 2015-02 00:00: 00 Yes [id number] 50mg Take 1 tablet by mouth 3 (three) times daily as needed for Pain unrelieved by non-narcot ic analgesics . [facility] amLODIPine Besylate 2.5 MG amLODIPine Besylate 2.5 MG No 1{table t} QD amLODIPine Besylate 2.5 MG Pantoprazol e Sodium 40 MG Pantoprazol e Sodium 40 MG No 1{table t} QD Pantoprazo le Sodium 40 MG hydroCHLORO thiazide 12.5 MG hydroCHLORO thiazide 12.5 MG No 1{table t_in_ e_hayden ng} QD hydroCHLOR Othiazide 12.5 MG Pantoprazol [...] MG hydroCHLORO thiazide 12.5 MG No 1{table t_ e_morni ng} QD hydroCHLOR Othiazide 12.5 MG [...] 12.5 MG No hydroCHLOR Othiazide 12.5 MG Pantoprazol e Sodium 40 MG Pantoprazol e Sodium 40 MG No 1{table t} QD Pantoprazo le Sodium 40 MG Pantoprazol e Sodium 40 MG Pantoprazol e Sodium 40 MG No 1{table t} QD Pantoprazo le Sodium 40 MG hydroCHLORO thiazide 12.5 MG hydroCHLORO thiazide 12.5 MG No 1{table t_ e_morni ng} QD hydroCHLOR Othiazide 12.5 MG hydroCHLORO thiazide 12.5 MG hydroCHLORO thiazide 12.5 MG No 1{table t_ e_morni ng} QD hydroCHLOR Othiazide 12.5 MG Pantoprazol e Sodium 40 MG Pantoprazol e Sodium 40 MG No 1{table t} QD Pantoprazo le Sodium 40 MG hydroCHLORO thiazide 12.5 MG hydroCHLORO thiazide 12.5 MG No 1{table t_ e_morni ng} QD hydroCHLOR Othiazide 12.5 MG Pantoprazol e Sodium 40 MG Pantoprazol e Sodium 40 MG No 1{table t} QD Pantoprazo le Sodium 40 MG hydroCHLORO thiazide 12.5 MG hydroCHLORO thiazide 12.5 MG No 1{table t_ e_morni ng} QD hydroCHLOR Othiazide 12.5 MG [...] QD hydroCHLOR Othiazide 12.5 MG amLODIPine Besylate 2.5 MG amLODIPine Besylate 2.5 MG No 1{table t} BID amLODIPine Besylate 2.5 MG hydroCHLORO thiazide 12.5 MG hydroCHLORO thiazide 12.5 MG No 1{table t_in_th e_morni ng} QD hydroCHLOR Othiazide 12.5 MG amLODIPine Besylate 2.5 MG amLODIPine Besylate [...] QD hydroCHLOR Othiazide 12.5 MG amLODIPine Besylate 2.5 MG amLODIPine Besylate 2.5 MG No 1{table t} QD amLODIPine Besylate 2.5 MG Pantoprazol e Sodium 40 MG Pantoprazol e Sodium 40 MG No 1{table t} QD Pantoprazo le Sodium 40 MG Vital Signs Vital Name Observation Time Observation Value Comments S ource Systolic blood pressure 2023-05-30 16:10:00 116 mm[Hg] Shantel meza - External Diastolic blood pressure 2023-05-30 16:10:00 82 mm[Hg] Shantel meza - External Heart rate 2023-05-30 16:10:00 70 /min Cristhian Su - External Body temperature 2023-05-30 16:10:00 36.39 Kathie Shantel Su - External Respiratory rate 2023-05-30 16:10:00 18 /min Shantel Su - External Body height 2023-05-30 16:10:00 177.8 cm Cayla Su - External Body weight 2023-05-30 16:10:00 97.07 kg Cayla Su - External BMI 2023-05-30 16:10:00 30.71 kg/m2 Cayla Su - External Oxygen saturation in Arterial blood by Pulse oximetry 2023-05-30 16:10:00 98 /min Shantel wild ld - External Systolic blood pressure 2023-03-17 04:15:00 114 mm[Hg] [facility] Diastolic blood pressure 2023-03-17 04:15:00 73 mm[Hg] [facility] Heart rate 2023-03-17 04:15:00 66 /min [facility] Body temperature 2023-03-17 04:15:00 36.72 Kathie [facility] Respiratory rate 2023-03-17 04:15:00 16 /min [facility] Oxygen saturation in Arterial blood by Pulse oximetry 2023-03-17 04:15:00 98 /min [facility] Body height 2023-03-17 02:34:00 177.8 cm [facility] Body weight 2023-03-17 02:34:00 98.158 kg [facility] BMI 2023-03-17 02:34:00 31.05 kg/m2 [facility] height 2022-09-27 09:20:00 69.5 [in_i] Comm on [facility] weight 2022-09-27 09:20:00 231.4 [lb_av] Co mmon [facility] temperature 2022-09-27 09:20:00 98.0 [degF] Com mon [facility] bmi 2022-09-27 09:20:00 33.68 kg/m2 Comm on [facility] oximetry 2022-09-27 09:20:00 98 % Commo n [facility] respiratory rate 2022-09-27 09:20:00 18 /min Common [facility] blood pressure systolic 2022-09-27 09:20:00 124 mm[Hg] Common [facility] blood pressure diastolic 2022-09-27 09:20:00 81 mm[Hg] Common [facility] height 2022-03-29 13:30:00 69.5 [in_i] Comm on [facility] weight 2022-03-29 13:30:00 240 [lb_av] Comm on [facility] temperature 2022-03-29 13:30:00 98.1 [degF] Com mon [facility] bmi 2022-03-29 13:30:00 34.93 kg/m2 Comm on [facility] oximetry 2022-03-29 13:30:00 97 % Commo n [facility] respiratory rate 2022-03-29 13:30:00 18 /min Common [facility] blood pressure systolic 2022-03-29 13:30:00 124 mm[Hg] [facility] blood pressure diastolic 2022-03-29 13:30:00 74 mm[Hg] Common [facility] height 2022-02-17 10:20:00 69.5 [in_i] Comm on [facility] weight 2022-02-17 10:20:00 240 [lb_av] Comm on [facility] temperature 2022-02-17 10:20:00 98 [degF] Comm on [facility] bmi 2022-02-17 10:20:00 34.93 kg/m2 Comm on [facility] height 2021-12-22 10:20:00 69.50 [in_i] Com mon [facility] weight 2021-12-22 10:20:00 233.4 [lb_av] Co mmon [facility] temperature 2021-12-22 10:20:00 97.6 [degF] Com mon [facility] bmi 2021-12-22 10:20:00 33.97 kg/m2 Comm on [facility] oximetry 2021-12-22 10:20:00 96 % Commo n [facility] respiratory rate 2021-12-22 10:20:00 16 /min [facility] blood pressure systolic 2021-12-22 10:20:00 130 mm[Hg] [facility] blood pressure diastolic 2021-12-22 10:20:00 82 mm[Hg] Common [facility] height 2021-11-19 14:00:00 69.50 [in_i] Com [facility] weight 2021-11-19 14:00:00 233.4 [facility]lb[facility]av[facility] 2021-11-19 14:00:00 97.6 [degF] Com [facility] bmi 2021-11-19 14:00:00 33.97 kg/m2 Comm on [facility] oximetry 2021-11-19 14:00:00 97 % Commo n [facility] respiratory rate 2021-11-19 14:00:00 16 /min [facility] blood pressure systolic 2021-11-19 14:00:00 133 mm[Hg] Common [facility] blood pressure diastolic 2021-11-19 14:00:00 74 mm[Hg] [facility] height 2021-11-13 13:20:00 69.50 [in_i] Com [facility] weight 2021-11-13 13:20:00 230 [lb_av] Comm on [facility] temperature 2021-11-13 13:20:00 97.3 [degF] Com [facility] bmi 2021-11-13 13:20:00 33.47 kg/m2 Comm on [facility] height 2021-10-08 09:40:00 69.50 [in_i] Com [facility] weight 2021-10-08 09:40:00 236.4 [lb_av] Co mmon [facility] temperature 2021-10-08 09:40:00 97.3 [degF] Com [facility] bmi 2021-10-08 09:40:00 34.41 kg/m2 Comm on [facility] oximetry 2021-10-08 09:40:00 97 % Commo n [facility] respiratory rate 2021-10-08 09:40:00 16 /min [facility] blood pressure systolic 2021-10-08 09:40:00 130 mm[Hg] [facility] blood pressure diastolic 2021-10-08 09:40:00 78 mm[Hg] [facility] height 2021-09-17 15:20:00 69.50 [in_i] Com [facility] weight 2021-09-17 15:20:00 235.4 [lb_av] Co [facility] temperature 2021-09-17 15:20:00 98.0 [degF] Com [facility] bmi 2021-09-17 15:20:00 34.26 kg/m2 Comm on [facility] oximetry 2021-09-17 15:20:00 99 % Commo n [facility] respiratory rate 2021-09-17 15:20:00 16 /min [facility] blood pressure systolic 2021-09-17 15:20:00 135 mm[Hg] [facility] blood pressure diastolic 2021-09-17 15:20:00 89 mm[Hg] [facility] Procedures Procedure Date / Time Performed Performing Clinicia n Source ASSIGNMENT OF BENEFITS 2023-03-17 04:14:02 [place] r Unassigned, [place] [facility] NOTICE OF PRIVACY PRACTICES 2023-03-17 02:18:00 Doctor Unassigned, [place] [facility] CONSENT/REFUSAL FOR DIAGNOSIS AND TREATMENT 2023-03-17 02:16:52 Doctor Unassigned, [place] [facility] REFERRAL- REQUEST/RESPONSE 2023-01-17 06:01:00 Doctor Unassigned, [place] [facility] REFERRAL- REQUEST/RESPONSE 2022-12-28 05:01:00 Doctor Unassigned, [place] [facility] EXTERNAL PROVIDER - ADC REFERRAL 2021-12-23 05:01:00 Doctor Unassigned, [place] [facility] Encounters Start Date/Time End Date/Time Encounter Type Admission Type Attending [facility] Emergency Department Facility Care Department Encounter ID Source 2022-12-29 08:28:01 Outpatient Uli Forte STLMLC STL[facility] [id number] [facility] 2022-12-27 08:48:00 Outpatient Martha Vicente [facility]LML[facility] ST[facility] [id number] [facility] 2022-09-01 15:25:00 Outpatient Vicente Avneadonis STLMLC STLML[facility] [id number] [facility] 2022-08-05 14:07:02 Outpatient VicenteMatneadonis STLMLC STLMLC [id number] [facility] 2022-07-29 09:40:01 Outpatient Clarkeneadonis STLMLC STLMLC [id number] [facility] 2022-06-15 14:06:03 Outpatient Vicente Avnee STLMLC STLMLC [id number] [facility] 2022-03-29 13:15:02 Outpatient VERA, Na STLMLC STLMLC [id number] [facility] 2022-02-16 11:56:00 Outpatient Vera, Na STLMLC STLMLC [id number] [facility] 2022-02-09 08:58:01 Outpatient Vera, Na STLMLC STLMLC [id number] [facility] 2022-01-04 12:02:01 Outpatient Vera, Na STLMLC STL[facility]C [id number] [facility] 2021-12-31 12:07:01 Outpatient Vera, Na STLMLC STLMLC [id number] [facility] 2021-12-18 10:58:02 Outpatient Denny Na STLMLC STLMLC [id number] [facility] 2021-12-10 10:17:04 Outpatient Vera, Na STLMLC STLMLC [id number] [facility] 2021-11-13 13:16:02 Outpatient Vera, Na STLMLC STLMLC [id number] [facility] 2021-11-12 08:37:03 Outpatient Angela Vera STLMLC STLMLC [id number] [facility] 2021-11-05 13:52:02 Outpatient Angela Vera STLMLC STLMLC [id number] [facility] 2021-10-06 13:42:03 Outpatient Denny Na STLMLC STLMLC [id number] [facility] 2021-09-21 14:29:01 Outpatient Angela Vera STLMLC STLMLC [id number] [facility] 2021-09-17 15:47:03 Outpatient Angela Vera STLMLC STLMLC [id number] [facility] 2023-06-29 10:00:00 2023-06-29 10:00:00 Outpatient CECILIO MARTINEZ [id number] [facility] 2023-05-30 11:30:00 2023-05-30 11:30:00 Outpatient CECILIO MARTINEZ [id number] [facility] 2023-05-30 00:00:00 2023-05-30 00:00:00 Outpatient CECILIO MARTINEZ [id number] [facility] 2023-05-30 00:00:00 2023-05-30 00:00:00 Outpatient CECILIO MARTINEZ [facility] [id number] [facility] 2023-05-30 00:00:00 2023-05-30 00:00:00 Outpatient CECILIO MARTINEZ [id number] Sh[facility]el [facility] 2023-04-22 11:32:13 2023-04-22 11:32:13 Outpatient [facility] [id number] Yanick Miles 2023-03-16 20:38:00 2023-03-16 22:27:00 Emergency X MADISYN [facility] ERT [id number] [facility] 2023-03-16 20:38:00 2023-03-16 22:27:00 Emergency Madisyn Christian S [facility] [id number] [facility] 2023-03-16 00:00:00 2023-03-16 00:00:00 Orders Only Doctor Unassigned, [place] [facility] [id number] [facility] 2023-01-17 11:20:32 2023-01-17 11:20:32 Outpatient [facility] [id number] Yanick Miles 2023-01-17 00:00:00 2023-01-17 00:00:00 Orders Only Doctor Unassigned, [place] [facility] [id number] [facility] 2023-01-05 15:40:00 2023-01-05 15:40:00 Outpatient BENJY YEPEZ [facility] [id number] [facility] 2023-01-03 14:11:35 2023-01-03 14:11:35 Outpatient [facility] [id number] Yanick Miles 2022-12-30 00:00:00 2022-12-30 00:00:00 (TEL) STLMLC STLMLC [id number] [facility] 2022-12-28 00:00:00 2022-12-28 00:00:00 Orders Only Doctor Unassigned, [place] [facility] [id number] [facility] 2022-12-24 00:00:00 2022-12-24 00:00:00 (TEL) STLMLC STLMLC [id number] [facility] 2022-12-24 00:00:00 2022-12-24 00:00:00 (TEL) STLMLC STLMLC [id number] [facility] 2022-09-28 00:00:00 2022-09-28 00:00:00 (TEL) STLMLC STLMLC [id number] [facility] 2022-09-27 00:00:00 2022-09-27 00:00:00 (TEL) STLMLC STLMLC [id number] [facility] 2022-09-27 00:00:00 2022-09-27 00:00:00 OFFICE VISIT ESTAB PT LEVEL [id number] [facility] 2022-09-01 00:00:00 2022-09-01 00:00:00 (TEL) STLMLC STLMLC [id number] [facility] 2022-07-30 00:00:00 2022-07-30 00:00:00 (TEL) STLMLC STLMLC [id number] [facility] 2022-06-15 00:00:00 2022-06-15 00:00:00 (TEL) STLMLC STLMLC [id number] [facility] 2022-03-29 00:00:00 2022-03-29 00:00:00 OFFICE VISIT ESTAB PT LEVEL [id number] [facility] 2022-02-17 00:00:00 2022-02-17 00:00:00 OFFICE VISIT ESTAB PT LEVEL [id number] [facility] 2022-02-16 00:00:00 2022-02-16 00:00:00 (TEL) STLMLC STLMLC [id number] [facility] 2022-01-18 00:00:00 2022-01-18 00:00:00 (TEL) STLMLC STLMLC [id number] [facility] 2021-12-23 00:00:00 2021-12-23 00:00:00 Orders Only Doctor Unassigned, [place] [facility] [id number] [facility] 2021-12-22 00:00:00 2021-12-22 00:00:00 OFFICE VISIT EST PT LEVEL [id number] [facility] 2021-12-22 00:00:00 2021-12-22 00:00:00 (TEL) STLMLC STLMLC [id number] [facility] 2021-12-11 00:00:00 2021-12-11 00:00:00 (TEL) STLMLC STLMLC [id number] [facility] 2021-11-19 00:00:00 2021-11-19 00:00:00 OFFICE VISIT EST PT LEVEL [id number] [facility] 2021-11-17 00:00:00 2021-11-17 00:00:00 (TEL) STLMLC STLMLC [id number] [facility] 2021-11-13 00:00:00 2021-11-13 00:00:00 OFFICE VISIT EST PT LEVEL [id number] [facility] 2021-10-23 00:00:00 2021-10-23 00:00:00 (TEL) STLC [facility] [id number] [facility] 2021-10-08 00:00:00 2021-10-08 00:00:00 OFFICE VISIT ESTAB PT LEVEL [id number] [facility] 2021-10-01 00:00:00 2021-10-01 00:00:00 Outpatient BESSY BLACKMON [facility] [id number] Osmnai roy [facility] 2021-09-17 00:00:00 2021-09-17 00:00:00 OFFICE VISIT NEW PT LEVEL 4 [facility] [id number] [facility] Results Test Description Test Time Test Comments Results Result Co mments Source LIPID [id number] 04:46:54* Test Item Value Reference Range Interpretation [...] SPECIMENS. FOR MOREINFORMATION, SEE CLIENT ANNOUNCEMENT AT [email or web address] RISK RATIO LDL/HDL (test code = 2238) 2.73 RATIO <3.55 HEMOGLOBIN [id number] 04:03:01* Test Item Value Reference Range Interpretation Comme nts HEMOGLOBIN A1c (test code = 06727) 5.7 % 4.2-5.6 H [employer] GUIDELINES FOR HGB A1C: [...] TESTING PERFORMED AT [facility] [address] [place] [id number] EDUCATION ASSISTANT: GRICELDA ALMENDAREZ M.D. CLIA NUMBER [id number] [facility]. [id number] CBC W/AUTO DIFF WITH [id number] 03:00:48* Test Item Value Reference Range Interpretation [...] 0.00-0.10 ABS NUCLEATED RBCS (test code = 30189) 0.00 K/UL 0.00-0.11 TSH REFLEX TO FREE [id number] 00:00:00* Test Item Value Reference Range Interpretation Comme nts TSH REFLEX TO FREE T4 (test code = 42554-1) 1.350 UIU/ML See_Comment [Automated messa ge] The system which generated this result transmitted reference range: 0.400-4.100 UIU/ML. The reference range was not used to interpret this result as normal/abnormal. COMPREHENSIVE METABOLIC [id number] 00:00:00* Test Item Value Reference Range Interpretation [...] result as normal/abnormal. CALCIUM (test code = 52108-0) 9.7 MG/DL See_Comment [Automated messa ge] The [...] as normal/abnormal. CALC GLOBULIN (test code = 17418-9) 2.7 G/DL See_Comment [Automated messa ge] The [...] normal/abnormal. eGFR (2020 CKD-EPI) (test code = 95667-4) 83 ML/MIN/1.73 See_Comment [Automated messa ge] The [...] as normal/abnormal. Notes Date/Time Note Provider Source 2023-05-30 11:21:21 [id number]+QkhU+oV/bGB 1AqMHcEoBIm0lq NVU0R2LV4JiraTqZiKi/FOkwhk1pwA4037 -04-01T11:21:21 Chief ComplaintPatient presents withEstablish CareReferralAshley Brunnerectronically signed by Karla Elizondo LVN at 05/30/2023 11:21 AM [id number] MqedAM7677-00-56A14:21:36Nurse [id number] .2.926365|[id number] for patient bpzc55405-6Msktr NoteLNNARRATIVEFormatted C-CDA narrative [facility] [facility] [id number] [id number]:21:361.2.840.1143 50.1.72.3.15|1.2.840.172586.1.13.1 31.2.7.2.727879_[id number] [facility] 2023-03-16 22:26:20 R7kIKilY6f12vB9JxxPK ebj0A0DN+Z+V4Q hEv1q2s5K2vrEnyrFRJkpkv/N18M6O6953 -01-17T22:26:20 Pt given printed and verbal discharge instructions regarding HTN (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 [facility] access phone number providedAdvised to seek medical attention for new/prolonged/worsening of symptoms,Awake, alert oriented, resp reg unlabored, skin w/d, pt leaving in no apparent distress, 85536-8Arrwobjdu department WmtySN0379-23-21H84:27:33Emergency department [id number] .2.107028|[id number] for patient ircw66902-1HveqEPXPCIDQABYBcqnlzzk d C-CDA narrative [id number] R Shehadeh RNUT[address] [id number] 57RWOHRYKYFFDFFYFRNGKYXV1585-52-88 T22:27:331.2.840.527724.1.72.3.15| 1.2.840.451391.1.13.104.2.7.2.7278 [id number] Arelis Mohamud RN [facility] 2023-03-16 20:27:47 wwhSpXxz0igJzPCxze66 kM45zmQEKOJFYA p4n7OKimMv5UPrAFRKjJo3jyxjzNEU7395 -01-17T20:27:47 Patient ambulatory to ED stating that his BP was high so he took two of his 0.1 Clonidine pills yesterday, one in the morning and one at night. Patient took Amlodipine and half of his Copake 10 tonight as well. Patient has been to [place] multiple times the last time was being discharged Tuesday. Patient states "all they did was just give me more drugs." Patient states there is "chest pain and it feels like a horse is standing on my kidney and liver." 04103-8Hzmecwott department Triage ptwrHF7796-18-95Y12:36:35[facility] Triage noteTXT1.2.840.075500.1.13.104.2.7 .2.845446|[id number] for patient czdy53527-3Nnywiavom department NoteLNNARRATIVEFormatted C-CDA narrative [id number]-Zrupv McInnis RNUT[address] Zf[id number] 37TURHLUZTZFFHNSXZKAZHMX2159-58-38 T20:36:351.2.840.779613.1.72.3.15| 1.2.840.700480.1.13.104.2.7.2.7278 [id number] Lina Ibrahim RN [facility]
[2023-06-09] MEDS ORDERED: DIAZEPAM 5 MG TABLET ONE (04:06)
[2023-06-09 05:18] LABS: Absolute Lymphocytes (CBC) 1.9 K/uL (0.7-4.9); Absolute Monocytes 0.5 K/uL (0.1-1.3); Absolute Neutrophil 4.8 K/uL (1.8-8.0); Basophils % 0.4 % (0-1.3); Eosinophils % 0.6 % (0-4.4); Hematocrit 43.4 % (39.6-49.0); Hemoglobin 14.7 g/dL (13.6-17.9); Lymphocytes % 26.3 % (15.3-44.8); MCH 30.9 pg (27.0-35.0); MPV 9.5 fL (7.6-11.3); Monocytes % 6.8 % (3.3-12.3); Neutrophils % 65.9 % (41.7-73.7); Platelets 104 thou/uL (152-406); RBC Red Blood Cell Count 4.77 M/uL (4.33-5.43); Red Cell Distribution Width 13.1 % (12.1-15.2)
[2023-06-09 05:20] LABS: Protime INR 1.09
[2023-06-09 05:29] LABS: Barbiturates NEGATIVE (NEGATIVE); Benzodiazepines POSITIVE (NEGATIVE); Cocaine NEGATIVE (NEGATIVE); METHAMPHETAM NEGATIVE (NEGATIVE); Methadone NEGATIVE (NEGATIVE); Opiates POSITIVE (NEGATIVE); Phencyclidine NEGATIVE (NEGATIVE); THC Cannibis NEGATIVE (NEGATIVE)
[2023-06-09 05:39] LABS: Albumin 3.7 g/dL (3.4-5.0); Albumin/Globulin Ratio 1.1 (1.1-1.8); Anion Gap 6.9 mEq/L (5.0-15.0); Bilirubin Direct 0.2 mg/dL (0-0.2); Bilirubin Indirect, Calculated 0.7 mg/dL (0.2-0.8); Bilirubin Total 0.9 mg/dL (0.2-1.0); Globulin 3.5 g/dL (2.3-3.5); Potassium 3.9 mEq/L (3.5-5.1); Protein, Total 7.2 g/dL (6.4-8.2); Troponin High Sensitivity 3.9 pg/mL (<58.9)
--- NOTE | 2023-06-09 06:15 | ER ---
Nurse's Notes [facility] Name: Cory Brock Age: 42 yrs Sex: Male : 1980 Arrival Date: 06/09/2023 Time: 03:50 Bed 6 Private MD: Diagnosis: Anxiety disorder, unspecified;Anxiety attack , Non cardiac chest pain Presentation: 06/08 03:58 Chief complaint: Patient states: left side chest pain that radiates to the back,onset pf1 0300 while sleeping. Patient stated took Amlodipine 5mg and Carvedilol 3.125mg at 0300. 03:58 Coronavirus screen: Vaccine status: Patient reports receiving the 2nd dose of the covid pf1 vaccine. [employer] Client denies travel out of the [place] in the last 14 days. At this time, the client does not indicate any symptoms associated with coronavirus-19. Ebola Screen: Patient negative for fever greater than or equal to 101.5 degrees Fahrenheit, and additional compatible Ebola Virus Disease symptoms. Initial Sepsis Screen: Does the patient meet any 2 criteria? No. Patient's initial sepsis screen is negative. Does the patient have a suspected source of infection? No. Patient's initial sepsis screen is negative. Risk Assessment: Do you want to hurt yourself or someone else? Patient reports no desire to harm self or others. Onset of symptoms was June 09, 2023 at 03:00. Care prior to arrival: Glucose check: 74. 03:58 Method Of Arrival: EMS: [facility] pf1 03:58 Acuity: CORY 2 pf1 Triage Assessment: 03:58 General: Appears in no apparent distress. comfortable, well groomed, well developed, pf1 Behavior is cooperative, anxious. 03:58 Pain: Complains of pain in chest Pain currently is 1 out of 10 on a pain scale. Pain pf1 began 1 hour ago. Cardiovascular: Reports chest pain, Capillary refill < 3 seconds Patient's skin is warm and dry. Historical: - Allergies: 04:08 Amoxicillin; pf1 04:08 Aspirin; pf1 04:08 NSAIDS (GI bleeding); pf1 04:08 PENICILLINS; pf1 - PMHx: 04:08 Atrial fibrillation; Back pain; Hypertensive disorder; trauma; pf1 - PSHx: 04:08 None; pf1 - Immunization history:: Adult Immunizations up to date, Client reports receiving the 2nd dose of the Covid vaccine, [employer]izer Last tetanus immunization: < 10 years ago Flu vaccine is not up to date. - Infectious Disease History:: Denies. - Social history:: Smoking status: Patient denies any tobacco usage or history of. Patient/guardian denies using alcohol, street drugs. - Family history:: not pertinent. Screenin:25 [facility] ED Fall Risk Assessment (Adult) History of falling in the last 3 months, pf1 including since admission No falls in past 3 months (0 pts) Confusion or Disorientation No (0 pts) Intoxicated or Sedated No (0 pts) Impaired Gait No (0 pts) Mobility Assist Device Used No (0 pt) Altered Elimination No (0 pt) Score/Fall Risk Level 0 - 2 = Low Risk Oriented to surroundings, Maintained a safe environment, Educated pt \T\ family on fall prevention, incl call for assistance when getting out of bed, Assessed \T\ reinforced patient's understanding of fall precautions, Provided non-skid footwear, Hourly rounding (assess needs \T\ fall precautionary measures) done, Used ambulatory aids as needed (educated on \T\ assisted with), Used gait belt as appropriate. 04:25 Abuse screen: Denies threats or abuse. Nutritional screening: No deficits noted. pf1 Tuberculosis screening: No symptoms or risk factors identified. Assessment: 04:23 General: Appears in no apparent distress. comfortable, Behavior is calm, cooperative, jb4 appropriate for age. Pain: Complains of pain in chest Pain does not radiate. Pain currently is 1 out of 10 on a pain scale. Neuro: Level of Consciousness is awake, alert, obeys commands, Oriented to person, place, time, situation. Cardiovascular: Patient's skin is warm and dry. Respiratory: Airway is patent Respiratory effort is even, unlabored, Respiratory pattern is regular, symmetrical. GI: No signs and/or symptoms were reported involving the gastrointestinal system. : No signs and/or symptoms were reported regarding the genitourinary system. EENT: No signs and/or symptoms were reported regarding the EENT system. Derm: Skin is intact, Skin is pink, warm \T\ dry. Musculoskeletal: Circulation, motion, and sensation intact. Range of motion: intact in all extremities. 06:03 Reassessment: Patient appears in no apparent distress at this time. Patient and/or jb4 family updated on plan of care and expected duration. Pain level reassessed. Patient is alert, oriented x 3, equal unlabored respirations, skin warm/dry/pink. Vital Signs: 03:58 BP 140 / 98; Pulse 77; Resp 20; Temp 97.9; Pulse Ox 98% ; Weight 98 kg; Height 5 ft. 10 pf1 in. ; Pain 1/10; 05:00 BP 121 / 86; Pulse 71; Resp 16; Pulse Ox 99% ; pf1 06:03 BP 122 / 86; Pulse 67; Resp 16; Temp 98.2; Pulse Ox 100% on R/A; Pain 0/10; pf1 03:58 Body Mass Index 31.00 (98.00 kg, 177.8 cm) pf1 03:58 Pain Scale: Adult pf1 06:03 Pain Scale: Adult pf1 ED Course: 03:57 EKG done, by operations and maintenance technican. pf1 03:58 Patient arrived in ED. ty 03:59 Francisco Padron MD is Attending Physician. sp4 04:08 Triage completed. pf1 04:18 Chao Torres, RN is Primary Nurse. jb4 04:25 Patient has correct armband on for positive identification. Placed in gown. Bed in low pf1 position. Call light in reach. 04:45 Initial lab(s) drawn, by me, sent to lab. Inserted saline lock: 20 gauge in right jb4 antecubital area, using aseptic technique. Blood collected. 04:52 XRAY Chest (1 view) In Process Unspecified. EDMS 06:26 Patient has correct armband on for positive identification. Placed in gown. Bed in low jb4 position. Call light in reach. Side rails up X 1. Provided Education on: discharge instruction. 06:26 No provider procedures requiring assistance completed. IV discontinued, intact, pf1 bleeding controlled, No redness/swelling at site. Pressure dressing applied. Administered Medications: 04:17 Drug: Diazepam PO 10 mg PO once Route: PO; jb4 05:00 Follow up: Response: No adverse reaction; Marked relief of symptoms; Pain is decreased pf1 Outcome: 06:14 Discharge ordered by . sp4 06:30 Patient left the ED. jb4 Signatures: Dispatcher [employer] EDMS Chao Torres, RN RN jb4 Marialuisa Fajardo RN RN pf1 Francisco Padron MD MD sp4 Bronson Marie Corrections: (The following items were deleted from the chart) 06:28 06:03 BP 122 / 86; Pulse 67bpm; Resp 16bpm; Pulse Ox 100% RA; jb4 pf1
--- NOTE | 2023-06-09 06:15 | EDPHYS ---
Physician Documentation [facility] Name: Cory Brock Age: 42 yrs Sex: Male : 1980 Arrival Date: 06/09/2023 Time: 03:50 Bed 6 Private MD: ED Physician Francisco Padron HPI: 06/08 06:10 This 42 yrs old Male presents to ER via EMS with complaints of Chest Pain. sp4 06:15 2-year-old male presents with acute onset of midsternal chest pain associated with sp4 anxiety. Historical: - Allergies: 04:08 Amoxicillin; pf1 04:08 Aspirin; pf1 04:08 NSAIDS (GI bleeding); pf1 04:08 PENICILLINS; pf1 - PMHx: 04:08 Atrial fibrillation; Back pain; Hypertensive disorder; trauma; pf1 - PSHx: 04:08 None; pf1 - Immunization history:: Adult Immunizations up to date, Client reports receiving the 2nd dose of the Covid vaccine, [employer] Last tetanus immunization: < 10 years ago Flu vaccine is not up to date. - Infectious Disease History:: Denies. - Social history:: Smoking status: Patient denies any tobacco usage or history of. Patient/guardian denies using alcohol, street drugs. - Family history:: not pertinent. ROS: 06:15 Constitutional: Negative for fever, chills, and weight loss, positive midsternal chest sp4 pain positive anxiety 06:15 All other systems are negative, Exam: 06:15 Constitutional: This is a well developed, well nourished patient who is awake, alert, sp4 and in no acute distress. Head/Face: Normocephalic, atraumatic. Eyes: Pupils equal round and reactive to light, extra-ocular motions intact. Lids and lashes normal. Conjunctiva and sclera are not injected. Cornea within normal limits. Periorbital areas with no swelling, redness, or edema. ENT: Nares patent. No nasal discharge, no septal abnormalities noted. Tympanic membranes are normal and external auditory canals are clear. Oropharynx with no redness, swelling, or masses, exudates, or evidence of obstruction, uvula midline. Mucous membranes moist. Neck: Trachea midline, no thyromegaly or masses palpated, and no cervical lymphadenopathy. Supple, full range of motion without nuchal rigidity, or vertebral point tenderness. Chest/axilla: Normal chest wall appearance and motion. Nontender with no deformity. No lesions are appreciated. Cardiovascular: Regular rate and rhythm with a normal S1 and S2. No gallops, murmurs, or rubs. Normal PMI, no JVD. No pulse deficits. Respiratory: Lungs have equal breath sounds bilaterally, clear to auscultation and percussion. No rales, rhonchi or wheezes noted. No increased work of breathing, no retractions or nasal flaring. Abdomen/GI: Soft, with normal bowel sounds. No distension or tympany. No guarding or rebound. No evidence of tenderness throughout. Back: No spinal tenderness. No costovertebral tenderness. Skin: Warm, dry with normal turgor. Normal color with no rashes, no lesions, and no evidence of cellulitis. MS/ Extremity: Pulses equal, no cyanosis. Neurovascular intact. Full, normal range of motion. Neuro: Awake and alert, GCS 15, oriented to person, place, time, and situation. Cranial nerves II-XII grossly intact. Motor strength 5/5 in all extremities. Sensory grossly intact. Psych: Awake, alert, with orientation to person, place and time. Behavior, mood, and affect are within normal limits 06:15 ECG was reviewed by the Attending Physician. 0357 reveals normal sinus rhythm at the rate of 70 Vital Signs: 03:58 BP 140 / 98; Pulse 77; Resp 20; Temp 97.9; Pulse Ox 98% ; Weight 98 kg; Height 5 ft. 10 pf1 in. ; Pain 1/10; 05:00 BP 121 / 86; Pulse 71; Resp 16; Pulse Ox 99% ; pf1 06:03 BP 122 / 86; Pulse 67; Resp 16; Temp 98.2; Pulse Ox 100% on R/A; Pain 0/10; pf1 03:58 Body Mass Index 31.00 (98.00 kg, 177.8 cm) pf1 03:58 Pain Scale: Adult pf1 06:03 Pain Scale: Adult pf1 MDM: 03:59 Patient medically screened. sp4 06:15 Differential diagnosis: acute pericarditis, anxiety, coronary artery disease chest wall sp4 pain, congestive heart failure costochondritis, esophagitis, gastritis. HEART Score: History: Slightly Suspicious (0), ECG: Normal (0), Age: < or = 45 years (0), Risk Factors: No Risk Factors Known (0), Troponin: < or = 1 x Normal Limit (0), Total Score = 0. The patient was not given aspirin in the Emergency Department. Aspirin not given, patient refused. Data reviewed: vital signs, nurses notes, EMS record, lab test result(s), EKG, radiologic studies, plain films. ED course: EXAM DESCRIPTION: Chest Single View CLINICAL HISTORY: CHEST PAIN COMPARISON: Chest x-ray 05/13/2023 TECHNIQUE: Single AP view of the chest. FINDINGS: Lung volumes adequate. Cardiac silhouette is normal in size. No pneumothorax. No large pleural effusion. No focal consolidation. No acute bony finding. IMPRESSION: No evidence of acute cardiopulmonary disease. 06/08 03:59 Order name: Basic Metabolic Panel; Complete Time: 06:11 sp4 06/08 03:59 Order name: CBC with Diff; Complete Time: 06:11 sp4 06/08 03:59 Order name: D-Dimer; Complete Time: 06:11 sp4 06/08 03:59 Order name: LFT's; Complete Time: 06:11 sp4 06/08 03:59 Order name: Magnesium; Complete Time: 06:11 sp4 06/08 03:59 Order name: NT PRO-BNP; Complete Time: 06:11 sp4 06/08 03:59 Order name: PT-INR; Complete Time: 06:11 sp4 06/08 03:59 Order name: Troponin HS; Complete Time: 06:11 sp4 06/08 03:59 Order name: Urine Drug Screen; Complete Time: 06:11 sp4 06/08 03:59 Order name: XRAY Chest (1 view) 06/08 03:59 Order name: EKG; Complete Time: 04:00 sp4 06/08 03:59 Order name: Cardiac monitoring; Complete Time: 04:23 sp4 06/08 03:59 Order name: EKG - Nurse/Tech; Complete Time: 04:23 sp4 06/08 03:59 Order name: IV Saline Lock; Complete Time: 04:23 sp4 06/08 03:59 Order name: Labs collected and sent; Complete Time: 04:04 4 06/08 03:59 Order name: O2 Per Protocol; Complete Time: 04:04 sp4 06/08 03:59 Order name: O2 Sat Monitoring; Complete Time: 04:04 sp4 EC:15 Rate is 73 beats/min. Rhythm is regular, Normal Sinus Rhythm. QRS [place] is Normal. [place] sp4 interval is normal. QRS interval is normal. QT interval is normal. No Q waves. T waves are Normal. No ST changes noted. Clinical impression: Normal ECG. Interpreted by me. Reviewed by me. Administered Medications: 04:17 Drug: Diazepam PO 10 mg PO once Route: PO; jb4 05:00 Follow up: Response: No adverse reaction; Marked relief of symptoms; Pain is decreased pf1 Disposition Summary: 06/09/23 06:14 Discharge Ordered Notes: Location: Home sp4 Problem: new sp4 Symptoms: have improved sp4 Condition: Stable sp4 Diagnosis - Anxiety disorder, unspecified sp4 - Anxiety attack , Non cardiac chest pain sp4 Followup: sp4 - With: Private Physician - When: 7 - 10 days - Reason: Recheck today's complaints Discharge Instructions: - Discharge Summary Sheet sp4 - Managing Anxiety, Adult sp4 Forms: - Patient Portal Instructions sp4 Signatures: Dispatcher [employer] Chao Woodson RN RN jb4 Marialuisa Fajardo RN RN pf1 Francisco Padron MD MD sp4 Corrections: (The following items were deleted from the chart) 04:00 03:59 BASIC METABOLIC PANEL+C.LAB.BRZ ordered. EDMS EDMS 04:00 03:59 CBC+H.LAB.BRZ ordered. EDMS EDMS 04:00 03:59 D-DIMER+COAG.LAB.BRZ ordered. EDMS EDMS 04:00 03:59 HEPATIC FUNCTION+C.LAB.BRZ ordered. EDMS EDMS 04:00 03:59 MAGNESIUM+C.LAB.BRZ ordered. EDMS EDMS 04:00 03:59 PROBNP+C.LAB.BRZ ordered. EDMS EDMS 04:00 03:59 PROTIME (+INR)+COAG.LAB.BRZ ordered. EDMS EDMS 04:00 03:59 Troponin High Sensitivity+C.LAB.BRZ ordered. EDMS EDMS
[2023-06-09 08:56] VITALS: BP 122/86; TEMP 98.2; O2SAT 100
--- NOTE | 2023-06-09 13:26 | RAD REPORT ---
EXAM DESCRIPTION: RAD - Chest Single View - 06/09/2023 6:04 am CLINICAL HISTORY: CHEST PAIN COMPARISON: Chest x-ray 05/13/2023 TECHNIQUE: Single AP view of the chest. FINDINGS: Lung volumes adequate. Cardiac silhouette is normal in size. No pneumothorax. No large pleural effusion. No focal consolidation. No acute bony finding. IMPRESSION: No evidence of acute cardiopulmonary disease. Electronically signed by: Bennie Cramer MD 06/09/2023 05:18 AM CDT Due to temporary technical issues with the PACS/Fluency reporting system, reports are being signed by the in house radiologist without review as a courtesy to ensure prompt reporting. The interpreting r adiologist is fully responsible for the content of the report.
--- NOTE | 2023-06-09 17:46 | EKG ---
Test Date: 2023-06-09 Test Time: 03:57:41 Repairer And Checker: JLUIS MEASUREMENT RESULTS: Intervals: Rate: 73 SD: 166 QRSD: 88 QT: 376 QTc: 414 [place]: P: 54 SD: 166 QRS: 38 T: 49 INTERPRETIVE STATEMENTS: Normal sinus rhythm Normal ECG Compared to ECG 05/13/2023 04:03:30 No significant changes Electronically Signed On 06-09-23 17:45:39 CDT by Kehinde Lackey
== END 2023-06-09 06:30 | disposition home or self-care (01) ==
LOC: ER 03:50
DX: F41.0 Panic disorder [episodic paroxysmal anxiety] (principal); F41.9 Anxiety disorder, unspecified; I10 Essential (primary) hypertension; Z88.0 Allergy status to penicillin; Z88.1 Allergy status to other antibiotic agents; Z88.6 Allergy status to analgesic agent
CPT/HCPCS: 36415; 71045; 80048; 80076; 80307; 83735; 83880; 84484; 85025; 85379; 85610; 93005; 99284

== ENCOUNTER 2023-08-12 19:25 | Emergency (ER) | payer OTHER ==
--- OUTSIDE RECORDS SUMMARY | 2023-08-12 19:30 | XMS REPORT | Continuity of Care Document ---
Author Name Unknown Address [address] [place] [address] [facility] thconnect Address [address] [place] [address] Care Team Providers Care Cook Chill Technician Name Role Phone Pcp, Patient Does Not Have A Primary Care Physic sarahy Uli Forte Attending Clinician Unavailable Martha Vicente Attending Clinician Unavailable Angela VERA Attending Clinician Unavailable CECILIO MARTINEZ Attending Clinician UnavailMADISYN Castro Attending Clinician Unavailable Madisyn Christian MD Attending Clinician Doctor Unassigned, [place] Attending Clinician U BENJY Vaz Attending Clinician Unavailable JULITA Attending Clinician Unavailable JULITA Admitting Clinician Unavailable Payers Payer Name Policy Type Policy Number Effective Date Expirati on Date Source [facility] 9 [id number] 2023 00:00:00 MEDICAID PENDING PENDING 2018 00:00:00 [facility] 53 [id number] [facility] Problems Condition Name Condition Details Condition Category Status Onset Date Resolution Date Last Treatment Date Treating Clinician Comments Source Primary hypertensi on Primary hypertensi on Disease Active 05-29 00:00: 00 Shantel Serrano l Mixed dyslipidem ia Mixed dyslipidem ia Disease Active 2015-02 00:00: 00 [facility] Chronic back pain Chronic back pain Disease Active 2015-02 00:00: 00 [facility] Obesity (BMI 30-39.9) Obesity (BMI 30-39.9) Disease Active 2015-02 00:00: 00 [facility] Tobacco use Tobacco use Disease Active 2015-02 00:00: 00 [facility] [id number] Panic attacks Problem [facility] Screening for cardiovasc ular system disease Screening for cardiovasc ular condition Problem [facility] [id number] Chest pain, unspecifie d type Problem [facility] [id number] Gastroesop hageal reflux disease, unspecifie d whether esophagiti s present Problem [facility] [id number] Primary hypertensi on Problem [facility] Gastro-eso phageal reflux disease without esophagiti s Gastro-eso phageal reflux disease without esophagiti s Problem [facility] [id number] DDD (degenerat delfina disc disease), thoracolum bar Problem [facility] Hypertensi on HTN (hypertens ion) Problem [facility] [id number] Temporary low platelet count Problem [facility] Somnolence Somnolence , daytime Problem [facility] [id number] Anxiety Problem [facility] Chronic fatigue syndrome Chronic fatigue Problem [facility] [id number] Difficulty sleeping Problem [facility] Allergies, Adverse Reactions, Alerts Allergy Name Allergy [...] Drug Class Active SOB 08-01 00:00: 00 [facility] Nsaids (Non-Tono roidal Anti-Inf lammator y Drug) Propensi ty to adverse reaction s Active Shortness of Breath 08-01 00:00: 00 [facility] Ibuprofe n Propensi ty to adverse reaction s Active Swelling 2014-02 00:00: 00 [facility] IBUPROFE N DRUG INGREDI Active Swelling 2014-02 00:00: 00 [facility] PENICILL IN DRUG INGREDI Active High ITCHING 11-13 00:00: 00 [facility] Penicill in Propensi ty to adverse reaction s Active Itching 9 00:00: 00 [facility] Aspirin Propensi ty to adverse reaction s Active Swelling 10-04 00:00: 00 [facility] ASPIRIN DRUG INGREDI Active Swelling 8 00:00: 00 [facility] [id number] Drug allergy Active anaphylaxis [facility] Non-ster oidal anti-inf lammator y agent (FN) Non-ster oidal anti-inf lammator y agent (FN) Active Unknown [facility] Social History Social Habit Start Date Stop [...] - External Never Smoker [facility] Smokes tobacco daily 2015-12-05 00:00:00 [facility] Medications Ordered Medication Name Filled [...] 10 mg tablet 05-23 00:00: 00 Yes [id number] 10mg Take 1 tablet by mouth 3 (three) times daily as needed for Muscle Spasms. [facility] acetaminoph en-codeine (TYLENOL-CO DEINE #3) 300-30 mg tablet 05-23 00:00: 00 Yes [id number] 1{tbl} Take 1 tablet by mouth every 8 (eight) hours as needed for Pain (scale 4-6). [facility] methocarbam ol (ROBAXIN-75 0) 750 mg tablet 11-11 00:00: 00 Yes 750mg Take 1 tablet by mouth 4 (four) times daily. [facility] acetaminoph en-codeine (TYLENOL-CO DEINE #3) 300-30 mg tablet 11-02 00:00: 00 Yes 1{tbl} Take 1 tablet by mouth every 6 (six) hours as needed for Pain (scale 7-10). [facility] cyclobenzap rine 5 mg tablet 11-02 00:00: 00 Yes 5mg Take 1 tablet by mouth 3 (three) times daily. [facility] lisinopril 10 mg tablet 16 00:00: 00 Yes 10mg Take 1 tablet by mouth at bedtime. [facility] TYLENOL-COD EINE #3 300-30 mg tablet 06-30 00:00: 00 Yes 2{tbl} Take 2 tablets by mouth every 4 (four) hours as needed for Pain (scale 1-3) or Pain (scale 4-6). [facility] acetaminoph en-codeine 300-30 mg tablet 06-09 00:00: 00 Yes 1{tbl} Take 1 tablet by mouth every 4 (four) hours as needed (pain). [facility] cyclobenzap rine 5 mg tablet 06-01 00:00: 00 Yes 5mg Take 1 tablet by mouth 2 (two) times daily as needed for Muscle Spasms for up to 15 doses. [facility] ACETAMINOPH EN WITH CODEINE (TYLENOL-CO DEINE #3 ORAL) 2015-02 11:39: 00 Yes Take by mouth as needed for Pain (scale 1-3). [facility] lisinopril (PRINIVIL,Z ESTRIL) 10 mg tablet 2015-02 00:00: 00 Yes [id number] 10mg Take 1 tablet by mouth daily. [facility] traMADOL (ULTRAM) 50 mg tablet 2015-02 00:00: 00 Yes [id number] 50mg Take 1 tablet by mouth 3 (three) times daily as needed for Pain unrelieved by non-narcot ic analgesics . [facility] amLODIPine Besylate 2.5 MG amLODIPine Besylate 2.5 [...] Systolic blood pressure 2023-03-17 04:15:00 114 mm[Hg] [facility] Diastolic blood pressure 2023-03-17 04:15:00 73 mm[Hg] [facility] Heart rate 2023-03-17 04:15:00 66 /min [facility] Body temperature 2023-03-17 04:15:00 36.72 Kathie [facility] Respiratory rate 2023-03-17 04:15:00 16 /min [facility] Oxygen saturation in Arterial blood by Pulse oximetry 2023-03-17 04:15:00 98 /min [facility] Body height 2023-03-17 02:34:00 177.8 cm [facility] Body weight 2023-03-17 02:34:00 98.158 kg [facility] BMI 2023-03-17 02:34:00 31.05 kg/m2 [facility] height 2022-09-27 09:20:00 69.5 [in_i] Comm on [facility] weight 2022-09-27 09:20:00 231.4 [lb_av] Co mmon [facility] temperature 2022-09-27 09:20:00 98.0 [degF] Com mon [facility] bmi 2022-09-27 09:20:00 33.68 kg/m2 Comm on [facility] oximetry 2022-09-27 09:20:00 98 % Commo n [facility] respiratory rate 2022-09-27 09:20:00 18 /min [facility] blood pressure systolic 2022-09-27 09:20:00 124 mm[Hg] [facility] blood pressure diastolic 2022-09-27 09:20:00 81 mm[Hg] [facility] height 2022-03-29 13:30:00 69.5 [in_i] Comm on [facility] weight 2022-03-29 13:30:00 240 [lb_av] Comm on [facility] temperature 2022-03-29 13:30:00 98.1 [degF] Com mon [facility] bmi 2022-03-29 13:30:00 34.93 kg/m2 Comm on [facility] oximetry 2022-03-29 13:30:00 97 % Commo n [facility] respiratory rate 2022-03-29 13:30:00 18 /min [facility] blood pressure systolic 2022-03-29 13:30:00 124 mm[Hg] [facility] blood pressure diastolic 2022-03-29 13:30:00 74 mm[Hg] [facility] height 2022-02-17 10:20:00 69.5 [in_i] Comm on [facility] weight 2022-02-17 10:20:00 240 [lb_av] Comm on [facility] temperature 2022-02-17 10:20:00 98 [degF] Comm on [facility] bmi 2022-02-17 10:20:00 34.93 kg/m2 Comm on [facility] height 2021-12-22 10:20:00 69.50 [in_i] Com mon [facility] weight 2021-12-22 10:20:00 233.4 [lb_av] Co mmon [facility] temperature 2021-12-22 10:20:00 97.6 [degF] Com mon [facility] bmi 2021-12-22 10:20:00 33.97 kg/m2 Comm on [facility] oximetry 2021-12-22 10:20:00 96 % Commo n [facility] respiratory rate 2021-12-22 10:20:00 16 /min [facility] blood pressure systolic 2021-12-22 10:20:00 130 mm[Hg] [facility] blood pressure diastolic 2021-12-22 10:20:00 82 mm[Hg] [facility] height 2021-11-19 14:00:00 69.50 [in_i] Com [facility] weight 2021-11-19 14:00:00 233.4 [facility] 2021-11-19 14:00:00 97.6 [degF] Com [facility] bmi 2021-11-19 14:00:00 33.97 kg/m2 Comm on [facility] oximetry 2021-11-19 14:00:00 97 % Commo n [facility] respiratory rate 2021-11-19 14:00:00 16 /min [facility] blood pressure systolic 2021-11-19 14:00:00 133 mm[Hg] [facility] blood pressure diastolic 2021-11-19 14:00:00 74 mm[Hg] [facility] height 2021-11-13 13:20:00 69.50 [in_i] Com [facility] weight 2021-11-13 13:20:00 230 [lb_av] Comm on [facility] temperature 2021-11-13 13:20:00 97.3 [degF] Com [facility] bmi 2021-11-13 13:20:00 33.47 kg/m2 Comm on [facility] height 2021-10-08 09:40:00 69.50 [in_i] Com [facility] weight 2021-10-08 09:40:00 236.4 [lb_av] Co mmon [facility] temperature 2021-10-08 09:40:00 97.3 [degF] Com [facility] bmi 2021-10-08 09:40:00 34.41 kg/m2 Comm on [facility] oximetry 2021-10-08 09:40:00 97 % Commo n [facility] respiratory rate 2021-10-08 09:40:00 16 /min [facility] blood pressure systolic 2021-10-08 09:40:00 130 mm[Hg] [facility] blood pressure diastolic 2021-10-08 09:40:00 78 mm[Hg] [facility] height 2021-09-17 15:20:00 69.50 [in_i] Com [facility] weight 2021-09-17 15:20:00 235.4 [lb_av] Co [facility] temperature 2021-09-17 15:20:00 98.0 [degF] Com [facility] bmi 2021-09-17 15:20:00 34.26 kg/m2 Comm on [facility] oximetry 2021-09-17 15:20:00 99 % Commo n [facility] respiratory rate 2021-09-17 15:20:00 16 /min [facility] blood pressure systolic 2021-09-17 15:20:00 135 mm[Hg] [facility] blood pressure diastolic 2021-09-17 15:20:00 89 mm[Hg] [facility] Procedures Procedure Date / Time Performed Performing Clinicia n Source ASSIGNMENT OF BENEFITS 2023-03-17 04:14:02 [place] r Unassigned, [place] [facility] NOTICE OF PRIVACY PRACTICES 2023-03-17 02:18:00 Doctor Unassigned, [place] [facility] CONSENT/REFUSAL FOR DIAGNOSIS AND TREATMENT 2023-03-17 02:16:52 Doctor Unassigned, [place] [facility] REFERRAL- REQUEST/RESPONSE 2023-01-17 06:01:00 Doctor Unassigned, [place] [facility] REFERRAL- REQUEST/RESPONSE 2022-12-28 05:01:00 Doctor Unassigned, [place] [facility] EXTERNAL PROVIDER - ADC REFERRAL 2021-12-23 05:01:00 Doctor Unassigned, [place] [facility] Encounters Start Date/Time End Date/Time Encounter Type Admission Type Attending [facility] Facility Care Department Encounter ID Source 2022-12-29 08:28:01 Outpatient Uli Forte STLMLC STLMLC [id number] [facility] 2022-12-27 08:48:00 Outpatient Martha Vicente STLMLC STLMLC [id number] [facility] 2022-09-01 15:25:00 Outpatient Vicente Avneadonis STLMLC STLMLC [id number] [facility] 2022-08-05 14:07:02 Outpatient VicenteMatneadonis STLMLC STLMLC [id number] [facility] 2022-07-29 09:40:01 Outpatient Clarkeneadonis STLMLC STLMLC [id number] [facility] 2022-06-15 14:06:03 Outpatient Vicente Avnee STLMLC STLMLC [id number] [facility] 2022-03-29 13:15:02 Outpatient VERA, Na STLMLC STLMLC [id number] [facility] 2022-02-16 11:56:00 Outpatient Vera, Na STLMLC STLMLC [id number] [facility] 2022-02-09 08:58:01 Outpatient Vera, Na STLMLC STLMLC [id number] [facility] 2022-01-04 12:02:01 Outpatient Vera, Na STLMLC STLMLC [id number] [facility] 2021-12-31 12:07:01 Outpatient Denny Na STLMLC STLMLC [id number] [facility] 2021-12-18 10:58:02 Outpatient Angela Vera STLMLC STLMLC [id number] [facility] 2021-12-10 10:17:04 Outpatient Angela Vera STLMLC STLMLC [id number] [facility] 2021-11-13 13:16:02 Outpatient Denny Na STLMLC STLMLC [id number] [facility] 2021-11-12 08:37:03 Outpatient Angela Vera STLMLC STLMLC [id number] [facility] 2021-11-05 13:52:02 Outpatient Angela Vera STLMLC STLMLC [id number] [facility] 2021-10-06 13:42:03 Outpatient Angela Vera STLMLC STLMLC [id number] [facility] 2021-09-21 14:29:01 Outpatient Angela Vera STLMLC STLMLC [id number] [facility] 2021-09-17 15:47:03 Outpatient Angela Vera STLMLC STLMLC [id number] [facility] 2023-08-16 14:00:00 2023-08-16 14:00:00 Outpatient CECILIO MARTINEZ [id number] [facility] 2023-07-27 15:00:00 2023-07-27 15:00:00 Outpatient CECILIO MARTINEZ [id number] [facility] 2023-07-08 00:00:00 2023-07-08 00:00:00 Outpatient CECLIIO MARTINEZ [id number] [facility] 2023-06-29 10:00:00 2023-06-29 10:00:00 Outpatient CECILIO MARTINEZ [id number] [facility] 2023-05-30 11:30:00 2023-05-30 11:30:00 Outpatient CECILIO MARTINEZ [id number] [facility] 2023-05-30 00:00:00 2023-05-30 00:00:00 Outpatient CECILIO MARTINEZ [id number] [facility] 2023-05-30 00:00:00 2023-05-30 00:00:00 Outpatient CECILIO MARTINEZ [id number] [facility] 2023-05-30 00:00:00 2023-05-30 00:00:00 Outpatient CECILIO MARTINEZ [id number] [facility] 2023-04-22 11:32:13 2023-04-22 11:32:13 Outpatient S[facility] [id number] Yanick Miles 2023-03-16 20:38:00 2023-03-16 22:27:00 Emergency X MADISYN CHRISTIAN [facility] ERT [id number] [facility] 2023-03-16 20:38:00 2023-03-16 22:27:00 Emergency Madisyn Christian [facility] [id number] [id number] [facility] 2023-03-16 00:00:00 2023-03-16 00:00:00 Orders Only Doctor Unassigned, [place]ro[place] [facility] [id number] [id number] [id number] [facility] 2023-01-17 11:20:32 2023-01-17 11:20:32 Outpatient SFA [facility] [id number] Yanick Chandler Jd 2023-01-17 00:00:00 2023-01-17 00:00:00 Orders Only Doctor Unassigned, Mcro[place] [facility] [id number] 4.2.7.2.686 [id number] [facility] 2023-01-05 15:40:00 2023-01-05 15:40:00 Outpatient BENJY YEPEZ [facility] [id number] [facility] 2023-01-03 14:11:35 2023-01-03 14:11:35 Outpatient SFA [facility] [id number] Yanick Miles 2022-12-30 00:00:00 2022-12-30 00:00:00 (TEL) STLMLC STLMLC [id number] [facility] 2022-12-28 00:00:00 2022-12-28 00:00:00 Orders Only Doctor Unassigned, Mcro[place] [facility] [id number] [id number] [id number] [facility] 2022-12-24 00:00:00 2022-12-24 00:00:00 (TEL) STLMLC STLMLC [id number] [facility] 2022-12-24 00:00:00 2022-12-24 00:00:00 (TEL) STLMLC STLMLC [id number] [facility] 2022-09-28 00:00:00 2022-09-28 00:00:00 (TEL) STLMLC STLMLC [id number] [facility] 2022-09-27 00:00:00 2022-09-27 00:00:00 (TEL) STLMLC STLMLC [id number] [facility] 2022-09-27 00:00:00 2022-09-27 00:00:00 OFFICE VISIT ESTAB PT LEVEL 4 STLMLC STLMLC [id number] [facility] 2022-09-01 00:00:00 2022-09-01 00:00:00 (TEL) STLMLC STLMLC [id number] [facility] 2022-07-30 00:00:00 2022-07-30 00:00:00 (TEL) STLMLC STLMLC [id number] [facility] 2022-06-15 00:00:00 2022-06-15 00:00:00 (TEL) STLMLC STLMLC [id number] [facility] 2022-03-29 00:00:00 2022-03-29 00:00:00 OFFICE VISIT ESTAB PT LEVEL 2 STLMLC STLMLC [id number] [facility] 2022-02-17 00:00:00 2022-02-17 00:00:00 OFFICE VISIT ESTAB PT LEVEL 4 STLMLC STLMLC [id number] [facility] 2022-02-16 00:00:00 2022-02-16 00:00:00 (TEL) STLMLC STLMLC [id number] [facility] 2022-01-18 00:00:00 2022-01-18 00:00:00 (TEL) STLMLC STLMLC [id number] [facility] 2021-12-23 00:00:00 2021-12-23 00:00:00 Orders Only Doctor Unassigned, [place]ro[place] [facility] [id number] [id number] [id number] [facility] 2021-12-22 00:00:00 2021-12-22 00:00:00 OFFICE VISIT EST PT LEVEL 3 STLMLC STLMLC [id number] [facility] 2021-12-22 00:00:00 2021-12-22 00:00:00 (TEL) STLMLC STLMLC [id number] [facility] 2021-12-11 00:00:00 2021-12-11 00:00:00 (TEL) STLMLC STLMLC [id number] [facility] 2021-11-19 00:00:00 2021-11-19 00:00:00 OFFICE VISIT EST PT LEVEL 3 STLMLC STLMLC [id number] [facility] 2021-11-17 00:00:00 2021-11-17 00:00:00 (TEL) STLMLC STLMLC [id number] [facility] 2021-11-13 00:00:00 2021-11-13 00:00:00 OFFICE VISIT EST PT LEVEL 3 STLMLC STLMLC [id number] [facility] 2021-10-23 00:00:00 2021-10-23 00:00:00 (TEL) STLMLC STLMLC [id number] [facility] 2021-10-08 00:00:00 2021-10-08 00:00:00 OFFICE VISIT ESTAB PT LEVEL 4 STLMLC STLMLC [id number] [facility] 2021-10-01 00:00:00 2021-10-01 00:00:00 Outpatient BESSY BLACKMON [facility] [id number] [facility] 2021-09-17 00:00:00 2021-09-17 00:00:00 OFFICE VISIT NEW PT LEVEL 4 STLMLC STLMLC [id number] [facility] Results Test Description Test Time Test Comments Results Result Co mments Source LIPID [id number] 04:46:54* Test Item Value Reference Range Interpretation [...] SPECIMENS. FOR MOREINFORMATION, SEE CLIENT ANNOUNCEMENT AT [email or web address] RISK RATIO LDL/HDL (test code = 2238) 2.73 RATIO <3.55 HEMOGLOBIN [id number] 04:03:01* Test Item Value Reference Range Interpretation Comme nts HEMOGLOBIN A1c (test code = 45691) 5.7 % 4.2-5.6 H [employer] S [employer]IATION GUIDELINES FOR HGB A1C: [...] INDICATED, ALL TESTING PERFORMED AT [facility] [employer] [address] [place] [address] ELECTRIC CONTAINER TESTER: GRICELDA ALMENDAREZ M.D. CLIA NUMBER [id number] [facility] [place]. [id number] CBC W/AUTO DIFF WITH [id number] 03:00:48* Test Item Value Reference Range Interpretation [...] = 1065) 0.0 /100 WBC'S See_Comment [Automated [employer]] The system which generated this result [...] 0.00-0.10 ABS NUCLEATED RBCS (test code = 35108) 0.00 K/UL 0.00-0.11 TSH REFLEX TO FREE [id number] 00:00:00* Test Item Value Reference Range Interpretation Comme nts TSH REFLEX TO FREE T4 (test code = 33732-3) 1.350 UIU/ML See_Comment [Automated [employer]] The system which generated this result transmitted reference range: 0.400-4.100 UIU/ML. The reference range was not used to interpret this result as normal/abnormal. COMPREHENSIVE METABOLIC [id number] 00:00:00* Test Item Value Reference Range Interpretation Comme nts ALBUMIN (test code = 1751-7) 4.8 G/DL See_Comment [Automated [employer]] The system which generated this result transmitted [...] result as normal/abnormal. CALCIUM (test code = 05423-3) 9.7 MG/DL See_Comment [Automated messa ge] The [...] as normal/abnormal. CALC GLOBULIN (test code = 21846-2) 2.7 G/DL See_Comment [Automated messa ge] The [...] normal/abnormal. eGFR (2020 CKD-EPI) (test code = 02876-9) 83 ML/MIN/1.73 See_Comment [Automated messa ge] The [...] Notes Date/Time Note Provider Source 2023-05-30 11:21:21 [id number]:21:21F ormatting of this note is different from the original.Chief ComplaintPatient presents withAshley Wildeectronically signed by Karla Elizondo LVN at 05/30/2023 11:21 AM [id number] [id number]:21:36Nurse NoteTXT1.2.840.091249.1.13.131.2.7 .2.083840|[id number] for patient tfqa40096-5Recxa NoteLNNARRATIVEFormatted C-CDA narrative textWOODLAND MEMORIAL HOSPITALEPIKeParkview Health [facility]2727 [facility].[id number] [id number]:21:361.2.840.1143 50.1.72.3.15|1.2.840.423572.1.13.1 [id number] [facility] 2023-03-16 22:26:20 [id number]:26:20F ormatting of this note might be different from the original.Pt given printed and verbal 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 [facility] access phone number providedAdvised to seek medical attention for new/prolonged/worsening of symptoms,Awake, alert oriented, resp reg unlabored, skin w/d, pt leaving in no apparent distress, 96025-3Akhpwylrj department BtjaTX3552-84-31N26:27:33Emergency department NoteTXT1.2.840.721861.1.13.104.2.7 .2.845140|[id number] for patient qits42473-1FeqoIXDETTUKWXGVyvpddsw d C-CDA narrative [id number] VALDEZ[address] Stre[id number] 49ZWGMUCZUGQZRMNFEDTLOGJ3139-60-06 T22:27:331.2.840.366269.1.72.3.15| 1.2.840.152662.1.13.104.2.7.2.7278 [id number] Arelis Mohamud RN [facility] 2023-03-16 20:27:47 4035-16-01K22:27:47F ormatting of this note might be different from the original.Patient ambulatory to ED stating that his BP was high so he took two of his 0.1 Clonidine pills yesterday, one in the morning and one at night. Patient took Amlodipine and half of his [place] 10 tonight as well. Patient has been to [facility] multiple times the last time was being discharged Tuesday. Patient states "all they did was just give me more drugs." Patient states there is "chest pain and it feels like a horse is standing on my kidney and liver." 66795-8Gxfdnfiwu department Triage sourDI3030-52-09Z17:36:35[facility] Triage [id number] for patient [id number] department NoteLNNARRATIVEFormatted C-CDA narrative [id number]-Stcrj McInnis RNUT[address] [id number]| [id number] Lina Ibrahim RN [facility]
[2023-08-12 20:16] LABS: Absolute Eosinophils 0.1 K/uL (0-0.5); Absolute Lymphocytes (CBC) 2.6 K/uL (0.7-4.9); Absolute Monocytes 0.5 K/uL (0.1-1.3); Absolute Neutrophil 4.6 K/uL (1.8-8.0); Basophils % 0.6 % (0-1.3); Eosinophils % 1.4 % (0-4.4); Hematocrit 41.2 % (39.6-49.0); Hemoglobin 13.9 g/dL (13.6-17.9); Lymphocytes % 32.5 % (15.3-44.8); MCH 30.8 pg (27.0-35.0); MCHC 33.8 g/dL (32.0-36.0); MCV 91.1 fL (80-100); MPV 8.9 fL (7.6-11.3); Neutrophils % 58.5 % (41.7-73.7); Nucleated Red Blood Cells % 0.1 % (0-0); Platelets 120 thou/uL (152-406); RBC Red Blood Cell Count 4.53 M/uL (4.33-5.43); Red Cell Distribution Width 13.1 % (12.1-15.2)
--- NOTE | 2023-08-12 20:33 | RAD REPORT ---
EXAM DESCRIPTION: RAD - Chest Single View - 08/12/2023 8:28 pm CLINICAL HISTORY: CHEST PAIN Chest pain. COMPARISON: Chest Single View dated 06/09/2023; Chest Single View dated 05/13/2023; Chest Single View dated 03/13/2023; Chest Single View dated 12/24/2022 FINDINGS: Portable technique limits examination quality. The lungs are grossly clear. The heart is normal in size. No displaced fractures. IMPRESSION: No acute intrathoracic process suspected.
--- NOTE | 2023-08-12 20:33 | RAD REPORT ---
EXAM DESCRIPTION: CT - Head Brain Wo Cont - 08/12/2023 8:25 pm CLINICAL HISTORY: HEADACHE Headache, drowsiness COMPARISON: No comparisons TECHNIQUE: All CT scans are performed using dose optimization technique as appropriate and may inclu de automated exposure control or mA/KV adjustment according to patient size. FINDINGS: No intracranial hemorrhage, hydrocephalus or extra-axial fluid collection.No areas of brai n edema or evidence of midline shift. The paranasal sinuses and mastoids are essentially clear. The calvarium is intact. IMPRESSION: No acute intracranial abnormality.
[2023-08-12 20:35] LABS: Anion Gap 5.8 mEq/L (5.0-15.0); BUN Blood Urea Nitrogen 14 mg/dL (7-18); Bicarbonate 31 mEq/L (21-32); Glomerular Filtration Rate 95 ml/min (=/>90); Glucose Level 85 mg/dL (74-106); Potassium 3.8 mEq/L (3.5-5.1); Sodium Level 140 mEq/L (136-145); Troponin High Sensitivity < 3.0 pg/mL (<58.9)
[2023-08-12] MEDS ORDERED: ACETAMINOPHEN 500 MG TAB ONE (20:57)
--- NOTE | 2023-08-12 21:01 | ER ---
Nurse's Notes [facility] Name: Cory Brock Age: 42 yrs Sex: Male : 1980 Arrival Date: 08/12/2023 Time: 19:25 Bed 18 Private MD: Diagnosis: Headache Presentation: 08/11 19:31 Chief complaint: EMS states: called out for a headache. Coronavirus screen: At this as6 time, the client does not indicate any symptoms associated with coronavirus-19. Ebola Screen: No symptoms or risks identified at this time. Risk Assessment: Do you want to hurt yourself or someone else? Patient reports no desire to harm self or others. Onset of symptoms was August 12, 2023. 19:31 Method Of Arrival: EMS as6 19:31 Acuity: CORY 4 as6 20:50 Initial Sepsis Screen: Does the patient meet any 2 criteria? No. Patient's initial kd3 sepsis screen is negative. Does the patient have a suspected source of infection? No. Patient's initial sepsis screen is negative. Triage Assessment: 19:41 General: Appears in no apparent distress. uncomfortable, Behavior is calm, cooperative. as6 Pain: Complains of pain in head. Neuro: Reports headache. Historical: - Allergies: 19:31 Amoxicillin; as6 19:31 Aspirin; as6 19:31 NSAIDS (GI bleeding); as6 19:31 PENICILLINS; as6 - PMHx: 19:31 Atrial fibrillation; Back pain; Hypertensive disorder; trauma; as6 - Immunization history:: Adult Immunizations not up to date. - Infectious Disease History:: Denies. - Social history:: Smoking status: Patient denies any tobacco usage or history of. Screenin:49 [facility] ED Fall Risk Assessment (Adult) History of falling in the last 3 months, kd3 including since admission No falls in past 3 months (0 pts) Confusion or Disorientation No (0 pts) Intoxicated or Sedated No (0 pts) Impaired Gait No (0 pts) Mobility Assist Device Used No (0 pt) Altered Elimination No (0 pt) Score/Fall Risk Level 0 - 2 = Low Risk Oriented to surroundings. Abuse screen: Denies threats or abuse. Denies injuries from another. Nutritional screening: No deficits noted. Tuberculosis screening: No symptoms or risk factors identified. Assessment: 20:48 General: Appears in no apparent distress. Behavior is calm, cooperative. General: Pt kd3 reports irregularity in his blood pressures. Pt reports that today his blood pressure dropped low and now it is perfect. Pt does report improvements in headache at this time. . Neuro: Level of Consciousness is awake, alert, obeys commands, Oriented to person, place, time, situation. Cardiovascular: Patient's skin is warm and dry. Respiratory: Airway is patent Trachea midline Respiratory effort is even, unlabored, Respiratory pattern is regular, symmetrical. 20:52 General: Pt states that he does not want the migraine cocktail since his headache is kd3 better. He would prefer Tylenol. Provider notified. . Vital Signs: 19:40 Pulse 61; Resp 16; Temp 97.8; Pulse Ox 98% ; Weight 92.99 kg; Height 5 ft. 10 in. ; as6 Pain 6/10; 19:41 BP 120 / 87; as6 20:50 BP 105 / 63; Pulse 59; Resp 17; Pulse Ox 99% on R/A; kd3 19:40 Body Mass Index 29.41 (92.99 kg, 177.8 cm) as6 19:40 Pain Scale: Adult as6 Yuan Coma Score: 21:05 Eye Response: spontaneous(4). Motor Response: obeys commands(6). Verbal Response: kb oriented(5). Total: 15. ED Course: 19:31 Patient arrived in ED. as6 19:31 Triage completed. as6 19:31 Arm band placed on. as6 19:34 Jeanine Maynard FNP-C is [facility]. kb 19:34 Ross Sanchez MD is Attending Physician. kb 19:52 Marielle Tavarez RN is Primary Nurse. kd3 20:04 Basic Metabolic Panel Sent. kd3 20:04 CBC with Diff Sent. kd3 20:04 Troponin HS Sent. kd3 20:04 Initial lab(s) drawn, by ED staff, sent to lab. EKG done, by ED staff, reviewed by marcellus LAKHANI. Inserted saline lock: 20 gauge in right antecubital area, using aseptic technique. Blood collected. 20:27 CT Head Brain wo Cont In Process Unspecified. EDMS 20:30 XRAY Chest (1 view) In Process Unspecified. EDMS 20:49 Patient has correct armband on for positive identification. Provided Education on: kd3 Blood pressure . 21:12 No provider procedures requiring assistance completed. IV discontinued, intact, kd3 bleeding controlled, No redness/swelling at site. Pressure dressing applied. Administered Medications: 20:53 Not Given (Patient Refused): [id number] mg IVP once; over 1 to 2 minutes kd3 20:53 Not Given (Patient Refused): .5 mg IVP once kd3 21:12 Not Given (Patient Refused): ns 0.9% 1000 ml IV at 1000 ml once kd3 21:12 Drug: Acetaminophen PO 1000 mg PO once Route: PO; kd3 21:13 Follow up: Response: No adverse reaction kd3 Medication: 20:50 VIS not applicable for this client. kd3 Outcome: 21:00 Discharge ordered by . pritesh 21:12 Discharged to home ambulatory, kd3 21:12 Condition: stable 21:12 Discharge instructions given to patient, Instructed on discharge instructions, follow up and referral plans. Demonstrated understanding of instructions, follow-up care, 21:13 Patient left the ED. kd3 Signatures: Dispatcher [employer] EDMS Jeanine Maynard, ELEMENTARY VOCAL MUSIC TEACHER-C MANDY-Gilbert Campuzano RN RN as6 Marielle Tavarez RN RN kd3
--- NOTE | 2023-08-12 21:01 | EDPHYS ---
Physician Documentation [facility] Name: Cory Brock Age: 42 yrs Sex: Male : 1980 Arrival Date: 08/12/2023 Time: 19:25 Bed 18 Private MD: ED Physician Ross Sanchez HPI: 08/11 21:06 This 42 yrs old Male presents to ER via EMS with complaints of Headache. kb 21:06 Pt is a 42 year old male who presents for headache that started suddenly today. States kb his blood pressure went up and he developed photophobia. States he is also having chest pain. Denies fever, visual changes. . Historical: - Allergies: 19:31 Amoxicillin; as6 19:31 Aspirin; as6 19:31 NSAIDS (GI bleeding); as6 19:31 PENICILLINS; as6 - PMHx: 19:31 Atrial fibrillation; Back pain; Hypertensive disorder; trauma; as6 - Immunization history:: Adult Immunizations not up to date. - Infectious Disease History:: Denies. - Social history:: Smoking status: Patient denies any tobacco usage or history of. ROS: 20:55 Constitutional: As per HPI kb Exam: 20:06 Constitutional: This is a well developed, well nourished patient who is awake, alert, kb and in no acute distress. Head/Face: Normocephalic, atraumatic. ENT: Moist Mucous membranes Cardiovascular: Regular rate Respiratory: Respirations even and unlabored. No increased work of breathing. Talking in full sentences Abdomen/GI: Soft, non-tender. No distention Skin: Warm, dry with normal turgor. Normal color. MS/ Extremity: Pulses equal, no cyanosis. Neurovascular intact. Full, normal range of motion. Neuro: Awake and alert, GCS 15, oriented to person, place, time, and situation. Moves all extremities. Normal gait. 20:06 ECG was reviewed by the Attending Physician. Vital Signs: 19:40 Pulse 61; Resp 16; Temp 97.8; Pulse Ox 98% ; Weight 92.99 kg; Height 5 ft. 10 in. ; as6 Pain 6/10; 19:41 BP 120 / 87; as6 20:50 BP 105 / 63; Pulse 59; Resp 17; Pulse Ox 99% on R/A; kd3 19:40 Body Mass Index 29.41 (92.99 kg, 177.8 cm) as6 19:40 Pain Scale: Adult as6 Yuan Coma Score: 21:05 Eye Response: spontaneous(4). Motor Response: obeys commands(6). Verbal Response: kb oriented(5). Total: 15. MDM: 19:34 Patient medically screened. kb 21:05 Differential diagnosis: hypertensive headache, intracerebral hemorrhage, migraine. Data kb reviewed: vital signs, nurses notes. Counseling: I had a detailed discussion with the patient and/or guardian regarding the historical points, exam findings, and any diagnostic results supporting the discharge/admit diagnosis, lab results, radiology results, the need for outpatient follow up, a family practitioner, to return to the emergency department if symptoms worsen or persist or if there are any questions or concerns that arise at home. Response to treatment: the patient's symptoms have markedly improved after treatment. 08/11 19:51 Order name: Basic Metabolic Panel; Complete Time: 20:37 kb 08/11 19:51 Order name: CBC with Diff; Complete Time: 20:22 kb 08/11 19:51 Order name: Troponin HS; Complete Time: 20:37 kb 08/11 19:51 Order name: XRAY Chest (1 view); Complete Time: 20:37 kb 08/11 19:51 Order name: CT Head Brain wo Cont; Complete Time: 20:37 kb 08/11 19:51 Order name: EKG; Complete Time: 19:51 kb 08/11 19:51 Order name: Cardiac monitoring; Complete Time: 20:04 kb 08/11 19:51 Order name: EKG - Nurse/Tech; Complete Time: 20:04 kb 08/11 19:51 Order name: IV Saline Lock; Complete Time: 20:04 kb 08/11 19:51 Order name: Labs collected and sent; Complete Time: 20:04 kb 08/11 19:51 Order name: O2 Per Protocol; Complete Time: 20:04 kb 08/11 19:51 Order name: O2 Sat Monitoring; Complete Time: 20:04 kb EC:06 Rate is 58 beats/min. Rhythm is regular. QRS [place] is Normal. AL interval is normal at kb 166 msec. QRS interval is normal at 88 msec. QT interval is normal at 384 msec. Administered Medications: 20:53 Not Given (Patient Refused): [id number] mg IVP once; over 1 to 2 minutes kd3 20:53 Not Given (Patient Refused): jyxsmoymbpoumos78.5 mg IVP once kd3 21:12 Not Given (Patient Refused): ns 0.9% 1000 ml IV at 1000 ml once kd3 21:12 Drug: Acetaminophen PO 1000 mg PO once Route: PO; kd3 21:13 Follow up: Response: No adverse reaction kd3 Disposition Summary: 08/12/23 21:00 Discharge Ordered Notes: Location: Home kb Condition: Stable kb Diagnosis - Headache kb Followup: kb - With: Emergency Department - When: As needed - Reason: Worsening of condition Followup: kb - With: Private Physician - When: 2 - 3 days - Reason: Recheck today's complaints, Continuance of care, Re-evaluation by your physician Discharge Instructions: - Discharge Summary Sheet kb - General Headache Without Cause, [id number] kb Forms: - Medication Reconciliation Form kb - Antibiotic Education kb - Prescription Opioid Use kb - Patient Portal Instructions kb - Leadership Thank You Letter kb Signatures: Dispatcher [employer] Jeanine Alejandre, NAIL POLISH BRUSH MACHINE FEEDER-C NAIL [employer]ISH BRUSH MACHINE FEEDER-Gilbert Campuzano, RN RN as6 Marielle Tavarez, RN RN kd3
[2023-08-12 21:43] VITALS: BP 105/63; TEMP 97.8; O2SAT 99
--- NOTE | 2023-08-15 15:00 | EKG ---
Test Date: 2023-08-12 Test Time: 20:01:39 [employer]: TONY MEASUREMENT RESULTS: Intervals: Rate: 58 SD: 166 QRSD: 88 QT: 392 QTc: 384 [place]: P: 20 SD: 166 QRS: 15 T: 20 INTERPRETIVE STATEMENTS: Sinus bradycardia Otherwise normal ECG Compared to ECG 06/09/2023 03:57:41 Sinus rhythm no longer present Electronically Signed On 08-15-23 14:53:25 CDT by Kehinde Lackey
== END 2023-08-12 21:13 | disposition home or self-care (01) ==
LOC: ER 19:25
DX: R51.9 Headache, unspecified (principal)
CPT/HCPCS: 36415; 70450; 71045; 80048; 84484; 85025; 93005; 99284

== ENCOUNTER 2023-11-29 07:36 | Emergency (ER) | payer OTHER ==
--- OUTSIDE RECORDS SUMMARY | 2023-11-29 07:40 | XMS REPORT | Continuity of Care Document ---
Author Name Unknown Address [address] [facility] [address] [place] [address] [facility] thconnect Address [address] [facility] 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 Role Phone Pcp, Patient Does Not Have A Primary Care Physic sarahy Uli Forte Attending Clinician Unavailable Martha Vicente Attending Clinician Unavailable Angela VERA Attending Clinician Unavailable DAVEY ALEXANDRE Attending Clinician Unavailable CECILIO MARTINEZ Attending Clinician UnavailMADISYN Castro Attending Clinician Unavailable Madisyn Christian MD Attending Clinician Doctor Unassigned, [place] Attending Clinician U BENJY Vaz Attending Clinician Unavailable JULITA Attending Clinician Unavailable JULITA Admitting Clinician Unavailable Payers Payer Name Policy Type Policy Number Effective Date Expirati on Date Source [facility] 9 [id number] 2023 00:00:00 MEDICAID PENDING PENDING 2018 00:00:00 [facility] Plus [facility] 53 [id number] [facility] Problems Condition Name Condition Details Condition Category Status Onset Date Resolution Date Last Treatment Date Treating Clinician Comments Source Primary hypertensi on Primary hypertensi on Disease Active 05-29 00:00: 00 Shantel farris Mixed dyslipidem ia Mixed dyslipidem ia Disease Active 2015-02 0 00:00: 00 [facility] Chronic back pain Chronic back pain Disease Active 2015-02 00:00: 00 [facility] Obesity (BMI 30-39.9) Obesity (BMI 30-39.9) Disease Active 2015-02 00:00: 00 [facility] Tobacco use Tobacco use Disease Active 2015-02 00:00: 00 [facility] [id number] Panic attacks Problem [facility] Screening for cardiovasc ular system disease Screening for cardiovasc ular condition Problem [facility] [id number] Chest pain, unspecifie d type Problem [facility] [id number] Gastroesop hageal reflux disease, unspecifie d whether esophagiti s present Problem [facility] [id number] Primary hypertensi on Problem [facility] Gastro-eso phageal reflux disease without esophagiti s Gastro-eso phageal reflux disease without esophagiti s Problem [facility] [id number] DDD (degenerat delfina disc disease), thoracolum bar Problem [facility] Hypertensi on HTN (hypertens ion) Problem [facility] [id number] Temporary low platelet count Problem [facility] Somnolence Somnolence , daytime Problem [facility] [id number] Anxiety Problem [facility] Chronic fatigue syndrome Chronic fatigue Problem [facility] [id number] Difficulty sleeping Problem [facility] Allergies, Adverse Reactions, Alerts Allergy Name Allergy Type Status Severity Reaction(s) Onset Date Inactive Date Treating Clinician Comments Source Nsaids Propensi ty to adverse reaction s Active Other -14 00:00: 00 Shantel Serrano l Penicill ins Propensi ty to adverse reaction s Active Other 114 00:00: 00 Shantel Serrano l NSAIDS (NON-TONO ROIDAL ANTI-INF LAMMATOR Y DRUG) Drug Class Active SOB 08-01 00:00: 00 [facility] Nsaids (Non-Tono roidal Anti-Inf lammator y Drug) Propensi ty to adverse reaction s Active Shortness of Breath 08-01 00:00: 00 [facility] Ibuprofe n Propensi ty to adverse reaction s Active Swelling 2014-02 00:00: 00 [facility] IBUPROFE N DRUG INGREDI Active Swelling 2014-02 00:00: 00 [facility] PENICILL IN DRUG INGREDI Active High ITCHING 11-13 00:00: 00 [facility] Penicill in Propensi ty to adverse reaction s Active Itching 11-13 00:00: 00 [facility] Aspirin Propensi ty to adverse reaction s Active Swelling 10-04 00:00: 00 [facility] ASPIRIN DRUG INGREDI Active Swelling 10-04 00:00: 00 [facility] [id number] Drug allergy [facility]axis [facility] [...] 2023-05-30 00:00:00 2023-05-30 00:00:00 Ex-drinker (finding) Shantel Colby Sex Assigned At 1980 00:00:00 1980 00:00:00 Shantel Colby Smoking Status Start Date Stop Date Source Ex-smoker 2023-05-30 00:00:00 2023-05-30 00:00:00 Felicia fung Sharlene - External Never Smoker [facility] Smokes tobacco daily 2015-12-05 00:00:00 [facility] Medications Ordered Medication Name Filled Medication Name [...] oral Tablet 10-18 00:00: 00 Yes Shantel farrsi Ventolin HFA 108 (90 Base) MCG/ACT inhalation [...] 10 mg tablet 05-23 00:00: 00 Yes [id number] 10mg Take 1 tablet by mouth 3 (three) times daily as needed for Muscle Spasms. [facility] acetaminoph en-codeine (TYLENOL-CO DEINE #3) 300-30 mg tablet 05-23 00:00: 00 Yes [id number] 1{tbl} Take 1 tablet by mouth every 8 (eight) hours as needed for Pain (scale 4-6). [facility] methocarbam ol (ROBAXIN-75 0) 750 mg tablet 11-11 00:00: 00 Yes 750mg Take 1 tablet by mouth 4 (four) times daily. [facility] acetaminoph en-codeine (TYLENOL-CO DEINE #3) 300-30 mg tablet 11-02 00:00: 00 Yes 1{tbl} Take 1 tablet by mouth every 6 (six) hours as needed for Pain (scale 7-10). [facility] cyclobenzap rine 5 mg tablet 11-02 00:00: 00 Yes 5mg Take 1 tablet by mouth 3 (three) times daily. [facility] lisinopril 10 mg tablet 07-13 00:00: 00 Yes 10mg Take 1 tablet by mouth at bedtime. [facility] TYLENOL-COD EINE #3 300-30 mg tablet 06-30 00:00: 00 Yes 2{tbl} Take 2 tablets by mouth every 4 (four) hours as needed for Pain (scale 1-3) or Pain (scale 4-6). [facility] acetaminoph en-codeine 300-30 mg tablet 06-09 00:00: 00 Yes 1{tbl} Take 1 tablet by mouth every 4 (four) hours as needed (pain). [facility] cyclobenzap rine 5 mg tablet 06-01 00:00: 00 Yes 5mg Take 1 tablet by mouth 2 (two) times daily as needed for Muscle Spasms for up to 15 doses. [facility] ACETAMINOPH EN WITH CODEINE (TYLENOL-CO DEINE #3 ORAL) 2015-02 11:39: 00 Yes Take by mouth as needed for Pain (scale 1-3). [facility] lisinopril (PRINIVIL,Z ESTRIL) 10 mg tablet 2015-02 00:00: 00 Yes [id number] 10mg Take 1 tablet by mouth daily. [facility] traMADOL (ULTRAM) 50 mg tablet 2015-02 00:00: 00 Yes [id number] 50mg Take 1 tablet by mouth 3 (three) times daily as needed for Pain unrelieved by non-narcot ic analgesics . [facility] amLODIPine Besylate 2.5 MG amLODIPine Besylate 2.5 MG No 1{table t} QD amLODIPine Besylate 2.5 MG Pantoprazol e Sodium 40 MG Pantoprazol e Sodium 40 MG No 1{table t} QD Pantoprazo le Sodium 40 MG hydroCHLORO thiazide 12.5 MG hydroCHLORO thiazide 12.5 MG No 1{table t_in_th e_obdulioni ng} QD hydroCHLOR Othiazide 12.5 MG Pantoprazol [...] Pulse oximetry 2023-05-30 16:10:00 98 /min Shantel Joy ld - External Systolic blood pressure 2023-03-17 04:15:00 114 mm[Hg] [facility] Diastolic blood pressure 2023-03-17 04:15:00 73 mm[Hg] [facility] Heart rate 2023-03-17 04:15:00 66 /min [facility] Body temperature 2023-03-17 04:15:00 36.72 Kathie [facility] Respiratory rate 2023-03-17 04:15:00 16 /min [facility] Oxygen saturation in Arterial blood by Pulse oximetry 2023-03-17 04:15:00 98 /min [facility] Body height 2023-03-17 02:34:00 177.8 cm [facility] Body weight 2023-03-17 02:34:00 98.158 kg [facility] BMI 2023-03-17 02:34:00 31.05 kg/m2 [facility] height 2022-09-27 09:20:00 69.5 [in_i] [facility] weight 2022-09-27 09:20:00 231.4 [lb_av] [facility] temperature 2022-09-27 09:20:00 98.0 [degF] [facility] bmi 2022-09-27 09:20:00 33.68 kg/m2 [facility] oximetry 2022-09-27 09:20:00 98 % [facility] respiratory rate 2022-09-27 09:20:00 18 /min [facility] blood pressure systolic 2022-09-27 09:20:00 124 mm[Hg] [facility] blood pressure diastolic 2022-09-27 09:20:00 81 mm[Hg] [facility] height 2022-03-29 13:30:00 69.5 [in_i] [facility] weight 2022-03-29 13:30:00 240 [lb_av] [facility] temperature 2022-03-29 13:30:00 98.1 [degF] [facility] bmi 2022-03-29 13:30:00 34.93 kg/m2 [facility] oximetry 2022-03-29 13:30:00 97 % [facility] respiratory rate 2022-03-29 13:30:00 18 /min [facility] blood pressure systolic 2022-03-29 13:30:00 124 mm[Hg] [facility] blood pressure diastolic 2022-03-29 13:30:00 74 mm[Hg] [facility] height 2022-02-17 10:20:00 69.5 [in_i] [facility] weight 2022-02-17 10:20:00 240 [lb_av] [facility] temperature 2022-02-17 10:20:00 98 [degF] [facility] bmi 2022-02-17 10:20:00 34.93 kg/m2 [facility] height 2021-12-22 10:20:00 69.50 [in_i] [facility] weight 2021-12-22 10:20:00 233.4 [lb_av] [facility] temperature 2021-12-22 10:20:00 97.6 [degF] [facility] bmi 2021-12-22 10:20:00 33.97 kg/m2 [facility] oximetry 2021-12-22 10:20:00 96 % [facility] respiratory rate 2021-12-22 10:20:00 16 /min [facility] blood pressure systolic 2021-12-22 10:20:00 130 mm[Hg] [facility] blood pressure diastolic 2021-12-22 10:20:00 82 mm[Hg] [facility] height 2021-11-19 14:00:00 69.50 [in_i] Com [facility] weight 2021-11-19 14:00:00 233.4 [lb_av] [facility] 2021-11-19 14:00:00 97.6 [degF] Com [facility] bmi 2021-11-19 14:00:00 33.97 kg/m2 [facility] oximetry 2021-11-19 14:00:00 97 % [facility] respiratory rate 2021-11-19 14:00:00 16 /min [facility] blood pressure systolic 2021-11-19 14:00:00 133 mm[Hg] [facility] blood pressure diastolic 2021-11-19 14:00:00 74 mm[Hg] [facility] height 2021-11-13 13:20:00 69.50 [in_i] Com [facility] weight 2021-11-13 13:20:00 230 [lb_av] [facility] temperature 2021-11-13 13:20:00 97.3 [degF] Com [facility] bmi 2021-11-13 13:20:00 33.47 kg/m2 [facility] height 2021-10-08 09:40:00 69.50 [in_i] Com [facility] weight 2021-10-08 09:40:00 236.4 [lb_av] [facility] temperature 2021-10-08 09:40:00 97.3 [degF] Com [facility] bmi 2021-10-08 09:40:00 34.41 kg/m2 [facility] oximetry 2021-10-08 09:40:00 97 % [facility] respiratory rate 2021-10-08 09:40:00 16 /min [facility] blood pressure systolic 2021-10-08 09:40:00 130 mm[Hg] [facility] blood pressure diastolic 2021-10-08 09:40:00 78 mm[Hg] [facility] height 2021-09-17 15:20:00 69.50 [in_i] Com [facility] weight 2021-09-17 15:20:00 235.4 [lb_av] [facility] temperature 2021-09-17 15:20:00 98.0 [degF] Com [facility] bmi 2021-09-17 15:20:00 34.26 kg/m2 [facility] oximetry 2021-09-17 15:20:00 99 % [facility] respiratory rate 2021-09-17 15:20:00 16 /min [facility] blood pressure systolic 2021-09-17 15:20:00 135 mm[Hg] [facility] blood pressure diastolic 2021-09-17 15:20:00 89 mm[Hg] [facility] Procedures Procedure Date / Time Performed Performing Clinicia n Source ASSIGNMENT OF BENEFITS 2023-03-17 04:14:02 [place] r Unassigned, [place] [facility] NOTICE OF PRIVACY PRACTICES 2023-03-17 02:18:00 Doctor Unassigned, [place] [facility] CONSENT/REFUSAL FOR DIAGNOSIS AND TREATMENT 2023-03-17 02:16:52 Doctor Unassigned, [place] [facility] REFERRAL- REQUEST/RESPONSE 2023-01-17 06:01:00 Doctor Unassigned, [place] [facility] REFERRAL- REQUEST/RESPONSE 2022-12-28 05:01:00 Doctor Unassigned, [place] [facility] EXTERNAL PROVIDER - ADC REFERRAL 2021-12-23 05:01:00 Doctor Unassigned, [place] [facility] Encounters Start Date/Time End Date/Time Encounter Type Admission Type Attending [facility] Facility Care Department Encounter ID Source 2022-12-29 08:28:01 Outpatient Jcarlos Forteh STLMLC STLML[facility] [id number] [facility] 2022-12-27 08:48:00 Outpatient Vicente, Avnee STLMLC STLMLC [id number] [facility] 2022-09-01 15:25:00 Outpatient Vicente, Avnee STLMLC STLMLC [id number] [facility] 2022-08-05 14:07:02 Outpatient Vicente, Avnee STLMLC STLMLC [id number] [facility] 2022-07-29 09:40:01 Outpatient Vicente, Avnee STLMLC STLMLC [id number] [facility] 2022-06-15 14:06:03 Outpatient Vicente, Avnee STLMLC STLMLC [id number] [facility] 2022-03-29 13:15:02 Outpatient VERA, Na STLMLC STLMLC [id number] [facility] 2022-02-16 11:56:00 Outpatient Vera, Na STLMLC STLMLC [id number] [facility] 2022-02-09 08:58:01 Outpatient Vera, Na STLMLC STLMLC [id number] [facility] 2022-01-04 12:02:01 Outpatient Vera, Na STLMLC STLMLC [id number] [facility] 2021-12-31 12:07:01 Outpatient Vera, Na STLMLC STLMLC [id number] [facility] 2021-12-18 10:58:02 Outpatient Vera, Na STLMLC STLMLC [id number] [facility] 2021-12-10 10:17:04 Outpatient Vera, Na STLMLC STLMLC [id number] [facility] 2021-11-13 13:16:02 Outpatient Vera, Na STLMLC STLMLC [id number] [facility] 2021-11-12 08:37:03 Outpatient Denny Na STLMLC STLMLC [id number] [facility] 2021-11-05 13:52:02 Outpatient Denny Na STLMLC STLMLC [id number] [facility] 2021-10-06 13:42:03 Outpatient Vera, Na STLMLC STLMLC [id number] [facility] 2021-09-21 14:29:01 Outpatient Denny Na STLMLC STLMLC [id number] [facility] 2021-09-17 15:47:03 Outpatient Denny Na STLMLC STLMLC [id number] [facility] 2023-12-01 15:30:00 2023-12-01 15:30:00 Outpatient DAVEY ALEXANDRE [id number] [facility] 2023-11-28 00:00:00 2023-11-28 00:00:00 Outpatient CECILIO MARTINEZ [id number] [facility] 2023-08-16 14:00:00 2023-08-16 14:00:00 Outpatient CECILIO MARTINEZ [id number] [facility] 2023-07-27 15:00:00 2023-07-27 15:00:00 Outpatient CECILIO MARTINEZ [id number] [facility] 2023-07-08 00:00:00 2023-07-08 00:00:00 Outpatient [facility]ARTINE[facility] [id number] [facility] 2023-06-29 10:00:00 2023-06-29 10:00:00 Outpatient CECILIO MARTINEZ [id number] [facility] 2023-05-30 11:30:00 2023-05-30 11:30:00 Outpatient CECILIO MARTINEZ [id number] [facility] 2023-05-30 00:00:00 2023-05-30 00:00:00 Outpatient CECILIO MARTINEZ [id number] [facility] 2023-05-30 00:00:00 2023-05-30 00:00:00 Outpatient CECILIO MARTINEZ [id number] [facility] 2023-05-30 00:00:00 2023-05-30 00:00:00 Outpatient CECILIO MARTINEZ [id number] [facility] 2023-04-22 11:32:13 2023-04-22 11:32:13 Outpatient SFA [facility] [id number] Yanick Miles 2023-03-16 20:38:00 2023-03-16 22:27:00 Emergency X MADISYN CHRISTIAN [facility] ERT [id number] [facility] 2023-03-16 20:38:00 2023-03-16 22:27:00 Emergency Anahi Madisyn [facility] 1..840.114 [id number] [facility] 2023-03-16 00:00:00 2023-03-16 00:00:00 Orders Only Doctor Unassigned, [place] [facility] 1..840.114 [id number] [facility] 2023-01-17 11:20:32 2023-01-17 11:20:32 Outpatient SFA [facility] [id number] Yanick Miles 2023-01-17 00:00:00 2023-01-17 00:00:00 Orders Only Doctor Unassigned, [place] [facility] [id number] [id number] [id number] [facility] 2023-01-05 15:40:00 2023-01-05 15:40:00 Outpatient Francis [facility] [id number] [facility] 2023-01-03 14:11:35 2023-01-03 14:11:35 Outpatient SFA [facility] [id number] Yanick Miles 2022-12-30 00:00:00 2022-12-30 00:00:00 (TEL) STLMLC STLMLC [id number] [facility] 2022-12-28 00:00:00 2022-12-28 00:00:00 Orders Only Doctor Unassigned, [place] [facility] [id number] [id number] [facility] 2022-12-24 00:00:00 2022-12-24 00:00:00 (TEL) STLMLC STLMLC [id number] [facility] 2022-12-24 00:00:00 2022-12-24 00:00:00 (TEL) STLMLC STLMLC [id number] [facility] 2022-09-28 00:00:00 2022-09-28 00:00:00 (TEL) STLMLC STLMLC [id number] [facility] 2022-09-27 00:00:00 2022-09-27 00:00:00 (TEL) STLMLC STLMLC [id number] [facility] 2022-09-27 00:00:00 2022-09-27 00:00:00 OFFICE VISIT ESTAB PT LEVEL [id number] [facility] 2022-09-01 00:00:00 2022-09-01 00:00:00 (TEL) STLMLC STLMLC [id number] [facility] 2022-07-30 00:00:00 2022-07-30 00:00:00 (TEL) STLMLC STLMLC [id number] [facility] 2022-06-15 00:00:00 2022-06-15 00:00:00 (TEL) STLMLC STLMLC [id number] [facility] 2022-03-29 00:00:00 2022-03-29 00:00:00 OFFICE VISIT ESTAB PT LEVEL [id number] [facility] 2022-02-17 00:00:00 2022-02-17 00:00:00 OFFICE VISIT ESTAB PT LEVEL [id number] [facility] 2022-02-16 00:00:00 2022-02-16 00:00:00 (TEL) STLMLC STLMLC [id number] [facility] 2022-01-18 00:00:00 2022-01-18 00:00:00 (TEL) STLMLC STLMLC [id number] [facility] 2021-12-23 00:00:00 2021-12-23 00:00:00 Orders Only Doctor Unassigned, [place] [facility] [id number] [id number] [id number] [id number] [facility] 2021-12-22 00:00:00 2021-12-22 00:00:00 OFFICE VISIT EST PT LEVEL [id number] [facility] 2021-12-22 00:00:00 2021-12-22 00:00:00 (TEL) STLMLC STLMLC [id number] [facility] 2021-12-11 00:00:00 2021-12-11 00:00:00 (TEL) STLMLC STLMLC [id number] [facility] 2021-11-19 00:00:00 2021-11-19 00:00:00 OFFICE VISIT EST PT LEVEL [id number] [facility] 2021-11-17 00:00:00 2021-11-17 00:00:00 (TEL) STLMLC STLMLC [id number] [facility] 2021-11-13 00:00:00 2021-11-13 00:00:00 OFFICE VISIT EST PT LEVEL [id number] [facility] 2021-10-23 00:00:00 2021-10-23 00:00:00 (TEL) STLMLC STLMLC [id number] [facility] 2021-10-08 00:00:00 2021-10-08 00:00:00 OFFICE VISIT ESTAB PT LEVEL [id number] [facility] 2021-10-01 00:00:00 2021-10-01 00:00:00 Outpatient ROM_JET BLACKMON [facility] [id number] [facility] 2021-09-17 00:00:00 2021-09-17 00:00:00 OFFICE VISIT NEW PT LEVEL [id number] [facility] Results Test Description Test Time Test Comments Results Result Co mments Source LIPID [id number] 04:46:54* Test Item Value Reference Range Interpretation [...] SPECIMENS. FOR MOREINFORMATION, SEE CLIENT ANNOUNCEMENT AT [email or web address] RATIO LDL/HDL (test code = 2238) 2.73 RATIO <3.55 HEMOGLOBIN [id number] 04:03:01* Test Item Value Reference Range Interpretation Comme nts HEMOGLOBIN A1c (test code = 20903) 5.7 % 4.2-5.6 H [employer] GUIDELINES FOR HGB A1C: [...] TESTING PERFORMED AT [facility] [address] [place] [address] BILLET INSPECTOR: GRICELDA ALMENDAREZ M.D. CLIA NUMBER [id number] [facility] [place]. [id number] CBC W/AUTO DIFF WITH [id number] 03:00:48* Test Item Value Reference Range Interpretation [...] 0.00-0.10 ABS NUCLEATED RBCS (test code = 79494) 0.00 K/UL 0.00-0.11 TSH REFLEX TO FREE [id number] 00:00:00* Test Item Value Reference Range Interpretation Comme nts TSH REFLEX TO FREE T4 (test code = 92677-3) 1.350 UIU/ML See_Comment [Automated messa ge] The system which generated this result transmitted reference range: 0.400-4.100 UIU/ML. The reference range was not used to interpret this result as normal/abnormal. 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 [facility] access phone number provided Advised to seek medical attention for new/prolonged/worsening of symptoms, Awake, alert oriented, resp reg unlabored, skin w/d, pt leaving in no apparent distress, DCARE ATTENDANT Arelis Mohamud RN [facility] 2023-03-16 20:27:47 Patient ambulatory to ED stating that his BP was high so he took two of his 0.1 Clonidine pills yesterday, one in the morning and one at night. Patient took Amlodipine and half of his [place] 10 tonight as well. Patient has been to [facility] multiple times the last time was being discharged Tuesday. Patient states "all they did was just give me more drugs." Patient states there is "chest pain and it feels like a horse is standing on my kidney and liver." E Ibrahim RN [facility]
[2023-11-29] MEDS ORDERED: ONDANSETRON 4 MG/2 ML VIAL ONE (08:33)
[2023-11-29] MEDS ORDERED: KETOROLAC 30 MG/ML INJ ONE (08:33)
[2023-11-29] MEDS ORDERED: FAMOTIDINE 20 MG/2 ML VIAL IV ONE (08:33)
[2023-11-29] MEDS ORDERED: MORPHINE 4 MG/ML SYR ONE (08:34)
[2023-11-29] MEDS ORDERED: NA CHLORIDE 0.9% 1,000 ML ONE (08:34)
--- NOTE | 2023-11-29 09:06 | RAD REPORT ---
EXAMINATION: ULTRASOUND DUPLEX OF SCROTUM AND TESTICLES CLINICAL INDICATION: Male, 43 years, Abd pain;Pain TECHNIQUE: Duplex scan of the scrotal contents was performed including real-time color and spectral D oppler ultrasonography with arterial inflow and venous outflow. COMPARISON: No prior exam. FINDINGS: RIGHT TESTICLE AND EPIDIDYMIS: The right testicle is normal in size, measuring 4.1 x 3.0 x 2.3 cm. Normal, homogeneous echotexture with no focal lesion seen. The right epididymis is normal. Color Doppler flow in the right testicle is normal. LEFT TESTICLE AND EPIDIDYMIS: The left testicle is normal in size, measuring 3.6 x 3.2 x 2.3 cm. Normal, homogeneous echotexture with no focal lesion seen. The left epididymis is normal. Color Doppler flow in the left testicle is normal. ADDITIONAL FINDINGS: None. IMPRESSION: No acute or significant abnormalities.
[2023-11-29 09:16] LABS: Absolute Eosinophils 0.3 K/uL (0-0.5); Absolute Lymphocytes (CBC) 1.8 K/uL (0.7-4.9); Absolute Monocytes 0.4 K/uL (0.1-1.3); Absolute Neutrophil 4.7 K/uL (1.8-8.0); Basophils % 0.3 % (0-1.3); Eosinophils % 4.3 % (0-4.4); Hematocrit 44.4 % (39.6-49.0); Lymphocytes % 25.4 % (15.3-44.8); MCH 31.1 pg (27.0-35.0); MCHC 33.8 g/dL (32.0-36.0); MPV 9.2 fL (7.6-11.3); Nucleated Red Blood Cells % 0.1 % (0-0); Platelets 129 thou/uL (152-406); RBC Red Blood Cell Count 4.82 M/uL (4.33-5.43); Red Cell Distribution Width 13.2 % (12.1-15.2)
--- NOTE | 2023-11-29 09:20 | RAD REPORT ---
EXAMINATION: CT ABDOMEN AND PELVIS WITH CONTRAST CLINICAL INDICATION: ABD PAIN TECHNIQUE: CT abdomen and pelvis was performed, after the administration of IV contrast[facility] Axial, sagittal and coronal reconstructions were obtained. One or more of the following dose reduction techniques were used: Automated exposure control, adjustment of the mA and k V according to patient size, and iterative reconstruction. Unless otherwise specified, incidental findings do not require dedicated imaging follow-up. COMPARISON: 03/13/2023, 07/27/2013 FINDINGS: LOWER CHEST: The visualized lung bases are clear. LIVER: Several cysts are present scattered throughout the liver parenchyma. No aggressive liver lesio n or biliary dilatation. SPLEEN: Normal size. No focal lesion. PANCREAS: No mass, ductal dilation, or mark-pancreatic fluid. ADRENALS: Normal; no mass. KIDNEYS: Normal size and contour. No hydronephrosis. GASTROINTESTINAL TRACT: No evidence of free air, significant intra-abdominal free fluid, bowel obstru ction or abscess. Significant stool is present throughout the colon. Sigmoid diverticulosis coli without diverticulitis. APPENDIX: Normal appendix. LYMPH NODES: No lymphadenopathy. MUSCULOSKELETAL: No acute or suspicious osseous abnormality. ADDITIONAL FINDINGS: Small fat-containing umbilical hernia. IMPRESSION: Moderate stool retention with sigmoid diverticulosis coli. No diverticulitis.
[2023-11-29 09:39] LABS: Albumin 4.3 g/dL (3.4-5.0); Albumin/Globulin Ratio 1.1 (1.1-1.8); Bilirubin Total 1.6 mg/dL (0.2-1.0); Globulin 3.9 g/dL (2.3-3.5); Protein, Total 8.2 g/dL (6.4-8.2)
--- NOTE | 2023-11-29 10:12 | EDPHYS ---
Physician Documentation [facility] Name: Cory Brock Age: 43 yrs Sex: Male : 1980 Arrival Date: 11/29/2023 Time: 07:36 Bed 12 Private MD: ED Physician Ross Sanchez HPI: 11/28 10:05 This 43 yrs old Male presents to ER via Wheelchair with complaints of Groin chioma Pain, Abdominal Pain, Testicular Pain. 10:05 The patient presents with scrotal pain, tenderness. Onset: The symptoms/episode chioma began/occurred 1 day(s) ago. Modifying factors: The symptoms are alleviated by nothing, the symptoms are aggravated by movement. Associated signs and symptoms: Pertinent positives: abdominal pain. Severity of symptoms: At their worst the symptoms were mild, moderate, in the emergency department the symptoms are unchanged. The patient has experienced similar episodes in the past, a few times. Historical: - Allergies: 07:45 Amoxicillin; iw 07:45 Aspirin; iw 07:45 NSAIDS (GI bleeding); iw 07:45 PENICILLINS; iw - PMHx: 07:45 Atrial fibrillation; Back pain; Hypertensive disorder; trauma; iw - Immunization history:: Adult Immunizations up to date, Client reports receiving the 2nd dose of the Covid vaccine, Last tetanus immunization: unknown. - Infectious Disease History:: Denies. - Social history:: Smoking status: Patient denies any tobacco usage or history of. ROS: 10:07 Constitutional: Negative for fever, chills, and weight loss, Eyes: Negative for injury, chioma pain, redness, and discharge, ENT: Negative for injury, pain, and discharge, Neck: Negative for injury, pain, and swelling, Cardiovascular: Negative for chest pain, palpitations, and edema, Respiratory: Negative for shortness of breath, cough, wheezing, and pleuritic chest pain, Back: Negative for injury and pain, : Negative for injury, bleeding, discharge, and swelling, MS/Extremity: Negative for injury and deformity, Skin: Negative for injury, rash, and discoloration, Neuro: Negative for headache, weakness, numbness, tingling, and seizure, Psych: Negative for depression, anxiety, suicide ideation, homicidal ideation, and hallucinations, Allergy/Immunology: Negative for hives, rash, and allergies, Endocrine: Negative for neck swelling, polydipsia, polyuria, polyphagia, and marked weight changes, Hematologic/Lymphatic: Negative for swollen nodes, abnormal bleeding, and unusual bruising, 10:07 Abdomen/GI: Positive for abdominal pain, of the right lower quadrant, Exam: 10:07 Constitutional: This is a well developed, well nourished patient who is awake, alert, chioma and in no acute distress. Head/Face: Normocephalic, atraumatic. Eyes: Pupils equal round and reactive to light, extra-ocular motions intact. Lids and lashes normal. Conjunctiva and sclera are non-icteric and not injected. Cornea within normal limits. Periorbital areas with no swelling, redness, or edema. ENT: Nares patent. No nasal discharge, no septal abnormalities noted. Tympanic membranes are normal and external auditory canals are clear. Oropharynx with no redness, swelling, or masses, exudates, or evidence of obstruction, uvula midline. Mucous membranes moist. Neck: Trachea midline, no thyromegaly or masses palpated, and no cervical lymphadenopathy. Supple, full range of motion without nuchal rigidity, or vertebral point tenderness. No Meningismus. Chest/axilla: Normal chest wall appearance and motion. Nontender with no deformity. No lesions are appreciated. Cardiovascular: Regular rate and rhythm with a normal S1 and S2. No gallops, murmurs, or rubs. Normal PMI, no JVD. No pulse deficits. Respiratory: Lungs have equal breath sounds bilaterally, clear to auscultation and percussion. No rales, rhonchi or wheezes noted. No increased work of breathing, no retractions or nasal flaring. Back: No spinal tenderness. No costovertebral tenderness. Full range of motion. Male : Normal genitalia with no discharge or lesions. Skin: Warm, dry with normal turgor. Normal color with no rashes, no lesions, and no evidence of cellulitis. MS/ Extremity: Pulses equal, no cyanosis. Neurovascular intact. Full, normal range of motion. Neuro: Awake and alert, GCS 15, oriented to person, place, time, and situation. Cranial nerves II-XII grossly intact. Motor strength 5/5 in all extremities. Sensory grossly intact. Cerebellar exam normal. Normal gait. Psych: Awake, alert, with orientation to person, place and time. Behavior, mood, and affect are within normal limits. 10:07 Abdomen/GI: Inspection: distension, that is mild, Bowel sounds: normal, Palpation: abdomen is soft and non-tender, in the right lower quadrant, Liver: no appreciated palpable abnormalities, Hernia: not appreciated, Vital Signs: 07:45 BP 109 / 80; Pulse 65; Resp 16; Temp 97.8; Pulse Ox 100% ; Pain 5/10; iw 10:30 BP 120 / 78; Pulse 69; Resp 18; Pulse Ox 99% ; Pain 1/10; kb3 07:45 Pain Scale: Adult iw 10:30 Pain Scale: Adult kb3 MDM: 07:47 Patient medically screened. [facility] 10:09 Differential diagnosis: nonspecific abdominal pain, appendicitis, UTI, urinary chioma retention, urethritis, bowel obstruction, gastritis, GI Bleed, Herpes Zoster. Data reviewed: vital signs, nurses notes, lab test result(s), radiologic studies, CT scan, ultrasound. Consideration of Admission/Observation Escalation of care including admission/observation considered. I considered the following discharge prescriptions or medication management in the emergency department Medications were administered in the Emergency Department. See MAR. Independent interpretation of the following test(s) in the Emergency Department CT Scan: My interpretation is ct abd / pel. Test considered but Not performed: Ultrasound no abd usg. Historians other than the Patient: pt well informed. Care significantly affected by the following chronic conditions: Hypertension, Obesity, a fib. Counseling: I had a detailed discussion with the patient and/or guardian regarding the historical points, exam findings, and any diagnostic results supporting the discharge/admit diagnosis, lab results, radiology results, the need for outpatient follow up, for definitive care, a family practitioner, a general surgeon. 11/28 07:44 Order name: CBC with Diff; Complete Time: 09:33 chioma 11/28 07:44 Order name: CMP; Complete Time: 09:47 chioma 11/28 07:44 Order name: Lipase; Complete Time: 09:47 chioma 11/28 07:44 Order name: Urinalysis w/ reflexes chioma 11/28 07:44 Order name: CT Abd/Pelvis - IV Contrast Only; Complete Time: 09:33 chioma 11/28 07:44 Order name: US Scrotum Testicles; Complete Time: 09:18 chioma 11/28 07:44 Order name: IV Saline Lock; Complete Time: 09:33 chioma 11/28 07:44 Order name: Labs collected and sent; Complete Time: 09:33 chioma Administered Medications: 09:37 Not Given (Patient Refused; States allergy to NSAID): TORadol - [id number] mg IVP once iw 09:39 Drug: NS 0.9% IV 1000 ml IV at 1 bolus Per protocol; 1000 mL bolus Route: IV; Rate: 1 iw bolus; Site: left antecubital; 10:37 Follow up: IV Status: Completed infusion kb3 10:38 Follow up: Response: No adverse reaction; IV Status: Completed infusion; IV Intake: kb3 1000ml 09:39 Drug: Famotidine IVP 20 mg IVP once; dilute with 10 mL 0.9% NaCl; give over 2 minutes iw Route: IVP; Site: left antecubital; 10:30 Follow up: Response: No adverse reaction kb3 09:39 Drug: Ondansetron IVP 4 mg IVP once; over 2 minutes Route: IVP; Site: left antecubital; iw 10:30 Follow up: Response: No adverse reaction; Nausea is decreased kb3 10:14 Not Given (Patient Refused): morphineor iv 4 mg IVP once over 4 mins kb3 Disposition Summary: 11/29/23 10:12 Discharge Ordered Notes: Location: Home chioma Problem: new chioma Symptoms: have improved chioma Condition: Stable chioma Diagnosis - Abdominal tenderness chioma - Unilateral inguinal hernia, without obstruction or gangrene chioma Followup: chioma - With: Private Physician - When: 2 - 3 days - Reason: Recheck today's complaints, Re-evaluation by your physician Followup: chioma - With: Michael Scott MD - When: 2 - 3 days - Reason: Recheck today's complaints, Re-evaluation by your physician Discharge Instructions: - Discharge Summary Sheet chioma - Abdominal Pain, Adult chioma - Inguinal Hernia, Adult, [id number] chioma - Abdominal Pain, Adult, [id number] chioma - Inguinal Hernia, Adult chioma Forms: - Medication Reconciliation Form chioma - Antibiotic Education chioma - Prescription Opioid Use chioma - Patient Portal Instructions chioma - Leadership Thank You Letter [facility] Prescriptions: - Zofran 4 mg Oral Tablet - take 1 tablet ORAL route every 12 hours As needed; 20 tablet; Refills: 0, chioma Product Selection Permitted - Cipro 500 mg Oral Tablet - take 1 tablet ORAL route every 12 hours for 7 days; 14 tablet; Refills: 0, chioma Product Selection Permitted - dicyclomine 20 mg Oral tablet - take 1 tablet ORAL route 4 times per day; 28 tablet; Refills: 0, Product chioma Selection Permitted Signatures: Dispatcher [employer] Ross Jones, Mahi Mccray MD, cha, RN RN iw Heidi Galvez RN RN kb3
--- NOTE | 2023-11-29 10:12 | ER ---
Nurse's Notes [facility] Name: Cory Brock Age: 43 yrs Sex: Male : 1980 Arrival Date: 11/29/2023 Time: 07:36 Bed 12 Private MD: Diagnosis: Abdominal tenderness;Unilateral inguinal hernia, without obstruction or gangrene Presentation: 11/28 07:44 Chief complaint: Patient states: right testicle and inner thigh and RLQ is hurting and iw swollen started 2 days ago , worse yesterday. Coronavirus screen: At this time, the client does not indicate any symptoms associated with coronavirus-19. 07:44 Method Of Arrival: Wheelchair iw 07:44 Acuity: CORY 3 iw 10:36 Ebola Screen: Patient negative for fever greater than or equal to 101.5 degrees kb3 Fahrenheit, and additional compatible Ebola Virus Disease symptoms Patient denies exposure to infectious person. Initial Sepsis Screen: Does the patient meet any 2 criteria? No. Patient's initial sepsis screen is negative. Does the patient have a suspected source of infection? No. Patient's initial sepsis screen is negative. Risk Assessment: Do you want to hurt yourself or someone else?. Onset of symptoms is unknown. Historical: - Allergies: 07:45 Amoxicillin; iw 07:45 Aspirin; iw 07:45 NSAIDS (GI bleeding); iw 07:45 PENICILLINS; iw - PMHx: 07:45 Atrial fibrillation; Back pain; Hypertensive disorder; trauma; iw - Immunization history:: Adult Immunizations up to date, Client reports receiving the 2nd dose of the Covid vaccine, Last tetanus immunization: unknown. - Infectious Disease History:: Denies. - Social history:: Smoking status: Patient denies any tobacco usage or history of. Screenin:00 [facility] ED Fall Risk Assessment (Adult) History of falling in the last 3 months, kb3 including since admission No falls in past 3 months (0 pts) Confusion or Disorientation No (0 pts) Intoxicated or Sedated No (0 pts) Impaired Gait No (0 pts) Mobility Assist Device Used No (0 pt) Altered Elimination No (0 pt) Score/Fall Risk Level 0 - 2 = Low Risk Oriented to surroundings. Abuse screen: Denies threats or abuse. Denies injuries from another. Nutritional screening: No deficits noted. Tuberculosis screening: No symptoms or risk factors identified. Assessment: 09:00 General: Appears in no apparent distress. Behavior is calm, cooperative. Pain: kb3 Complains of pain in right lower quadrant Pain radiates to pelvis Pain currently is 4 out of 10 on a pain scale. Quality of pain is described as tender. 09:00 GI: Bowel sounds present X 4 quads. Abd is soft Abdomen is tender to palpation in right kb3 lower quadrant Reports nausea. Vital Signs: 07:45 BP 109 / 80; Pulse 65; Resp 16; Temp 97.8; Pulse Ox 100% ; Pain 5/10; iw 10:30 BP 120 / 78; Pulse 69; Resp 18; Pulse Ox 99% ; Pain 1/10; kb3 07:45 Pain Scale: Adult iw 10:30 Pain Scale: Adult kb3 ED Course: 07:39 Patient arrived in ED. im 07:43 Ross Sanchez MD is Attending Physician. chioma 07:45 Triage completed. iw 07:46 Mahi Burton, RN is Primary Nurse. iw 08:53 US Scrotum Testicles In Process Unspecified. EDMS 09:00 Initial lab(s) drawn, by me, sent to lab. Inserted saline lock: 20 gauge in left iw antecubital area, using aseptic technique. Blood collected. Flushed with 10 mL NS. 09:00 No provider procedures requiring assistance completed. kb3 09:00 Patient has correct armband on for positive identification. Bed in low position. Call kb3 light in reach. Provided Education on: Plan of care. 09:01 CT Abd/Pelvis - IV Contrast Only In Process Unspecified. EDMS 10:11 Michael Scott MD is Referral Physician. chioma 10:14 Urine Culture Sent. kb3 10:30 IV discontinued, intact, bleeding controlled, No redness/swelling at site. Pressure kb3 dressing applied. 10:36 Arm band placed on right wrist. Patient placed in an exam room. kb3 Administered Medications: 09:37 Not Given (Patient Refused; States allergy to NSAID): TORadol - [id number] mg IVP once iw 09:39 Drug: NS 0.9% IV 1000 ml IV at 1 bolus Per protocol; 1000 mL bolus Route: IV; Rate: 1 iw bolus; Site: left antecubital; 10:37 Follow up: IV Status: Completed infusion kb3 10:38 Follow up: Response: No adverse reaction; IV Status: Completed infusion; IV Intake: kb3 1000ml 09:39 Drug: Famotidine IVP 20 mg IVP once; dilute with 10 mL 0.9% NaCl; give over 2 minutes iw Route: IVP; Site: left antecubital; 10:30 Follow up: Response: No adverse reaction kb3 09:39 Drug: Ondansetron IVP 4 mg IVP once; over 2 minutes Route: IVP; Site: left antecubital; iw 10:30 Follow up: Response: No adverse reaction; Nausea is decreased kb3 10:14 Not Given (Patient Refused): morphineor iv 4 mg IVP once over 4 mins kb3 Medication: 09:00 VIS not applicable for this client. kb3 Intake: 10:38 IV: 1000ml; Total: 1000ml. kb3 Outcome: 10:12 Discharge ordered by . chioma 10:37 Discharged to home ambulatory, iw 10:37 Condition: good 10:37 Discharge instructions given to patient, Instructed on discharge instructions, follow up and referral plans. medication usage, Demonstrated understanding of instructions, follow-up care, medications, 10:38 Patient left the ED. kb3 Signatures: Dispatcher [employer] EDMS Ross Sanchez MD MD cha Williams, Irene, RN Heidi Romero, RN RN [email or web address] Alexus Olivera Corrections: (The following items were deleted from the chart) 10:38 10:30 Response: No adverse reaction; IV Status: Infusion continued; IV Intake: 1000ml kb3 kb3
[2023-11-29 10:14] LABS: Urine Bilirubin NEGATIVE (Negative); Urine Blood Negative (Negative); Urine Clarity Clear (Clear); Urine Color Light-Yellow (Yellow); Urine Glucose NEGATIVE (Negative); Urine Ketones 1+ (Negative); Urine Microscopic Reflex YN NO UMIC; Urine Nitrite NEGATIVE (Negative); Urine Protein NEGATIVE (Negative); Urine Urobilinogen Normal (Normal); Urine pH 6.5 (5.0-7.0)
[2023-11-29 10:15] LABS: Specific Gravity > 1.030 (1.005-1.030)
[2023-11-29 10:52] VITALS: TEMP 97.8
[2023-11-29 10:53] VITALS: BP 120/78; O2SAT 99
== END 2023-11-29 10:38 | disposition home or self-care (01) ==
LOC: ER 07:36
DX: K40.90 Unilateral inguinal hernia, without obstruction or gangrene, not specified as recurrent (principal)
CPT/HCPCS: 96361; 85025; 36415; 81003; 83690; 80053; 74177; 76870; 96375; 96374; 99284; Q9967; J2405; J7030

== ENCOUNTER 2024-01-01 05:56 | Emergency (ER) | payer OTHER ==
--- OUTSIDE RECORDS SUMMARY | 2024-01-01 05:59 | XMS REPORT | Continuity of Care Document ---
Author Name Unknown Address [address] [facility] [address] [place] [address] [facility] thconnect Address [address] [facility] [address] [place] [address] Care Team Providers Care Rn Cvicu Name Role Phone Pcp, Patient Does Not Have A Primary Care Physic sarahy Uli Forte Attending Clinician Unavailable Martha Vicente Attending Clinician Unavailable Angela VERA Attending Clinician Unavailable DAVEY ALEXANDRE Attending Clinician Unavailable CECILIO MARTINEZ Attending Clinician UnavailMADISYN Castro Attending Clinician Unavailable Madisyn Christian MD Attending Clinician [phone] Doctor Unassigned, [place] Attending Clinician U BENJY Vaz Attending Clinician Unavailable JULITA Attending Clinician Unavailable JULITA Admitting Clinician Unavailable Payers Payer Name Policy Type Policy Number Effective Date Expirati on Date Source [facility]ENJAMIN [facility]ASHER COPAY [employer]OC[employer] 9 [id number] 2023 00:00:00 MEDICAID PENDING PENDING 2018 00:00:00 [facility] 53 [id number] [facility] Problems Condition Name Condition Details Condition Category Status Onset Date Resolution Date Last Treatment Date Treating Clinician Comments Source Diverticul osis Diverticul osis Disease Active 2023-02 0 00:00: 00 Shantel Su - Externa l Primary hypertensi on Primary hypertensi on Disease Active 05-29 00:00: 00 Shantel Su - Sahila l Mixed dyslipidem ia Mixed dyslipidem ia Disease Active 2015-02 00:00: 00 [facility] Chronic back pain Chronic back pain Disease Active 2015-02 00:00: 00 [facility] Obesity (BMI 30-39.9) Obesity (BMI 30-39.9) Disease Active 2015-02 00:00: 00 [facility] Tobacco use Tobacco use Disease Active 2015-02 00:00: 00 [facility] [id number] Panic attacks Problem [facility] Screening for cardiovasc ular system disease Screening for cardiovasc ular condition Problem [facility] [id number] Chest pain, unspecifie d type Problem [facility] [id number] Gastroesop hageal reflux disease, unspecifie d whether esophagiti s present Problem [facility] [id number] Primary hypertensi on Problem [facility] Gastro-eso phageal reflux disease without esophagiti s Gastro-eso phageal reflux disease without esophagiti s Problem [facility] [id number] DDD (degenerat delfina disc disease), thoracolum bar Problem [facility] Hypertensi on HTN (hypertens ion) Problem [facility] [id number] Temporary low platelet count Problem [facility] Somnolence Somnolence , daytime Problem [facility] [id number] Anxiety Problem [facility] Chronic fatigue syndrome Chronic fatigue Problem [facility] [id number] Difficulty sleeping Problem [facility] Allergies, Adverse Reactions, Alerts Allergy Name Allergy Type Status Severity Reaction(s) Onset Date Inactive Date Treating Clinician Comments Source Nsaids Propensi ty to adverse reaction s Active Other 03-13 00:00: 00 Shantel Baxtera l Penicill ins Propensi ty to adverse reaction s Active Other 03-13 00:00: 00 Shantel Bhatt Externa l NSAIDS (NON-TONO ROIDAL ANTI-INF LAMMATOR Y DRUG) Drug Class Active SOB 08-01 00:00: 00 [facility] Nsaids (Non-Tono roidal Anti-Inf lammator y Drug) Propensi ty to adverse reaction s Active Shortness of Breath 08-01 00:00: 00 [facility] Ibuprofe n Propensi ty to adverse reaction s Active Swelling 2014-02 00:00: 00 [facility] IBUPROFE N DRUG INGREDI Active Swelling 2014-02 00:00: 00 [facility] PENICILL IN DRUG INGREDI Active High ITCHING 11-13 00:00: 00 [facility] Penicill in Propensi ty to adverse reaction s Active Itching 11-13 00:00: 00 [facility] Aspirin Propensi ty to adverse reaction s Active Swelling 10-04 00:00: 00 [facility] ASPIRIN DRUG INGREDI Active Swelling 10-04 00:00: 00 [facility] [id number] Drug allergy Active anaphylaxis [facility] Non-ster oidal anti-inf lammator y agent (FN) Non-ster oidal anti-inf lammator y agent (FN) Active Unknown [facility] Social History Social Habit Start Date Stop Date Quantity Comments Source Sexual orientation Felicia Su - External History of tobacco use Cigarette Smoker Shantel gomez - External Alcoholic beverage intake 2023-12-01 00:00:00 2023-12-01 00:00:00 Ex-drinker (finding) Shantel Su - External History of Social function 2023-05-30 00:00:00 2023-05-30 00:00:00 Shantel Su - External Tobacco use and exposure 2023-05-30 00:00:00 2023-05-30 00:00:00 Smokeless tobacco non-user Shantel Sharlene - External Alcohol intake 2023-05-30 00:00:00 2023-05-30 00:00:00 Ex-drinker (finding) Shantel Osbornenimo - External Sex 2023-04-23 09:47:19 2023-04-23 09:47:19 Male (finding) Shantel Osbornezahidajason - External Sex assigned at 1980 00:00:00 1980 00:00:00 Shantel Sharlene - External Smoking Status Start Date Stop Date Source Ex-smoker 2023-05-30 00:00:00 2023-05-30 00:00:00 Felicia fung Sharlene - External Never Smoker [facility] Smokes tobacco daily 2015-12-05 00:00:00 [facility] Medications Ordered Medication Name Filled Medication Name Start Date Stop Date Current Medication? Ordering Clinician Indication Dosage Frequency Signature (SIG) Comments Components Source Ciprofloxac in HCl (CIPRO) 500 MG oral Tablet 2023-02 00:00: 00 Yes Shantel farris Dicyclomine HCl 20 MG oral Tablet 2023-02 00:00: 00 Yes Shantel farris Ondansetron HCl 4 MG oral Tablet 2023-02 00:00: 00 Yes Shantel farris Cyclobenzap rine HCl 10 MG oral Tablet 11-03 00:00: 00 Yes 10mg Q.[id number] 3D Take 1 tablet (10 mg total) by mouth 3 times daily as needed. Shantel farris Doxepin HCl 10 MG oral Capsule 11-03 00:00: 00 Yes 10mg Take 1 capsule (10 mg total) by mouth at bedtime. Shantel farris Gabapentin 300 MG oral Capsule 8-14 00:00: 00 Yes 300mg Q.[id number] 3D Take 1 capsule (300 mg total) by mouth 3 times daily. Shantel farris diazePAM 5 MG oral Tablet 7-11 00:00: 00 Yes 5mg QD Take 1 tablet (5 mg total) by mouth daily as needed for anxiety. Shantel farris Amlodipine Besylate (NORVASC) 5 MG oral Tablet 510 00:00: 00 Yes [id number] 5mg Q.5D Take 1 tablet (5 mg total) by mouth 2 times daily. Shantel farris Carvedilol 3.125 MG oral Tablet 10 00:00: 00 Yes [id number] 3.125mg Take 1 tablet (3.125 mg total) by mouth in the morning and 1 tablet (3.125 mg total) in the evening. Take with meals. Shantel farris Pantoprazol e Sodium 40 MG oral Tablet Delayed Response 05-29 11:16: 35 Yes 40mg 1 tablet (40 mg total) every 24 hours. Shantel farris Duloxetine HCl [address] Particles 05-29 00:00: 00 Yes [id number] 20mg QD Take 1 capsule (20 mg total) by mouth daily. Shantel farris diazePAM 5 MG oral Tablet 15 00:00: 00 Yes Shantel farris Carvedilol 3.125 [...] MG Carvedilol 6.25 MG Carvedilol 6.25 MG 2021-02- 00:00: 00 No 1{table t_with_ food} BID Carvedilol 6.25 MG ProAir HFA 108 (90 Base) MCG/ACT ProAir HFA 108 (90 Base) MCG/ACT 2021-02 1- 00:00: 00 No 2{puffs _as_nee ded} QID [...] 10 mg tablet 05-23 00:00: 00 Yes [id number] 10mg Take 1 tablet by mouth 3 (three) times daily as needed for Muscle Spasms. [facility] acetaminoph en-codeine (TYLENOL-CO DEINE #3) 300-30 mg tablet 05-23 00:00: 00 Yes [id number] 1{tbl} Take 1 tablet by mouth every 8 (eight) hours as needed for Pain (scale 4-6). [facility] methocarbam ol (ROBAXIN-75 0) 750 mg tablet 11-11 00:00: 00 Yes 750mg Take 1 tablet by mouth 4 (four) times daily. [facility] acetaminoph en-codeine (TYLENOL-CO DEINE #3) 300-30 mg tablet 11-02 00:00: 00 Yes 1{tbl} Take 1 tablet by mouth every 6 (six) hours as needed for Pain (scale 7-10). [facility] cyclobenzap rine 5 mg tablet -05 00:00: 00 Yes 5mg Take 1 tablet by mouth 3 (three) times daily. [facility] lisinopril 10 mg tablet 16 00:00: 00 Yes 10mg Take 1 tablet by mouth at bedtime. [facility] TYLENOL-COD EINE #3 300-30 mg tablet 06-30 00:00: 00 Yes 2{tbl} Take 2 tablets by mouth every 4 (four) hours as needed for Pain (scale 1-3) or Pain (scale 4-6). [facility] acetaminoph en-codeine 300-30 mg tablet 06-09 00:00: 00 Yes 1{tbl} Take 1 tablet by mouth every 4 (four) hours as needed (pain). [facility] cyclobenzap rine 5 mg tablet 06-01 00:00: 00 Yes 5mg Take 1 tablet by mouth 2 (two) times daily as needed for Muscle Spasms for up to 15 doses. [facility] ACETAMINOPH EN WITH CODEINE (TYLENOL-CO DEINE #3 ORAL) 2015-02 11:39: 00 Yes Take by mouth as needed for Pain (scale 1-3). [facility] lisinopril (PRINIVIL,Z ESTRIL) 10 mg tablet 2015-02 00:00: 00 Yes [id number] 10mg Take 1 tablet by mouth daily. [facility] traMADOL (ULTRAM) 50 mg tablet 2015-02 00:00: 00 Yes [id number] 50mg Take 1 tablet by mouth 3 (three) times daily as needed for Pain unrelieved by non-narcot ic analgesics . [facility] amLODIPine Besylate 2.5 MG amLODIPine Besylate [...] Value Comments Karina meyers Systolic blood pressure 2023-05-30 16:10:00 116 mm[Hg] Shantel meza - External Diastolic blood pressure 2023-05-30 16:10:00 82 mm[Hg] Shantel Joy ld - External Heart rate 2023-05-30 16:10:00 70 [...] Systolic blood pressure 2023-03-17 04:15:00 114 mm[Hg] [facility] Diastolic blood pressure 2023-03-17 04:15:00 73 mm[Hg] [facility] Heart rate 2023-03-17 04:15:00 66 /min [facility] Body temperature 2023-03-17 04:15:00 36.72 Kathie [facility] Respiratory rate 2023-03-17 04:15:00 16 /min [facility] Oxygen saturation in Arterial blood by Pulse oximetry 2023-03-17 04:15:00 98 /min [facility] Body height 2023-03-17 02:34:00 177.8 cm [facility] Body weight 2023-03-17 02:34:00 98.158 [facility] BMI 2023-03-17 02:34:00 31.05 kg/m2 [facility] height 2022-09-27 09:20:00 69.5 [in_i] Comm on [facility] weight 2022-09-27 09:20:00 231.4 [lb_av] Co mmon [facility] temperature 2022-09-27 09:20:00 98.0 [degF] Com mon [facility] bmi 2022-09-27 09:20:00 33.68 kg/m2 Comm on [facility] oximetry 2022-09-27 09:20:00 98 % Commo n [facility] respiratory rate 2022-09-27 09:20:00 18 /min [facility] blood pressure systolic 2022-09-27 09:20:00 124 mm[Hg] [facility] blood pressure diastolic 2022-09-27 09:20:00 81 mm[Hg] [facility] height 2022-03-29 13:30:00 69.5 [in_i] Comm on [facility] weight 2022-03-29 13:30:00 240 [lb_av] Comm on [facility] temperature 2022-03-29 13:30:00 98.1 [degF] Com mon [facility] bmi 2022-03-29 13:30:00 34.93 kg/m2 Comm on [facility] oximetry 2022-03-29 13:30:00 97 % Commo n [facility] respiratory rate 2022-03-29 13:30:00 18 /min [facility] blood pressure systolic 2022-03-29 13:30:00 124 mm[Hg] [facility] blood pressure diastolic 2022-03-29 13:30:00 74 mm[Hg] [facility] height 2022-02-17 10:20:00 69.5 [in_i] Comm on [facility] weight 2022-02-17 10:20:00 240 [lb_av] Comm on [facility] temperature 2022-02-17 10:20:00 98 [degF] Comm on [facility] bmi 2022-02-17 10:20:00 34.93 kg/m2 Comm on [facility] height 2021-12-22 10:20:00 69.50 [in_i] Com [facility] weight 2021-12-22 10:20:00 233.4 [lb_av] Co [facility] temperature 2021-12-22 10:20:00 97.6 [degF] Com [facility] bmi 2021-12-22 10:20:00 33.97 kg/m2 Comm on [facility] oximetry 2021-12-22 10:20:00 96 % Commo n [facility] respiratory rate 2021-12-22 10:20:00 16 /min [facility] blood pressure systolic 2021-12-22 10:20:00 130 mm[Hg] Common [facility] blood pressure diastolic 2021-12-22 10:20:00 82 mm[Hg] [facility] height 2021-11-19 14:00:00 69.50 [in_i] Com [facility] weight 2021-11-19 14:00:00 233.4 [lb_av] Co [facility] temperature 2021-11-19 14:00:00 97.6 [degF] Com [facility] bmi 2021-11-19 14:00:00 33.97 kg/m2 Comm on [facility] oximetry 2021-11-19 14:00:00 97 % Commo n [facility] respiratory rate 2021-11-19 14:00:00 16 /min Common [facility] blood pressure systolic 2021-11-19 14:00:00 133 mm[Hg] [facility] blood pressure diastolic 2021-11-19 14:00:00 74 mm[Hg] [facility] height 2021-11-13 13:20:00 69.50 [in_i] Com [facility] weight 2021-11-13 13:20:00 230 [lb_av] Comm on [facility] temperature 2021-11-13 13:20:00 97.3 [degF] Com [facility] bmi 2021-11-13 13:20:00 33.47 kg/m2 Comm on [facility] height 2021-10-08 09:40:00 69.50 [in_i] Com [facility] weight 2021-10-08 09:40:00 236.4 [lb_av] Co mmon [facility] temperature 2021-10-08 09:40:00 97.3 [degF] Com [facility] bmi 2021-10-08 09:40:00 34.41 kg/m2 Comm on [facility] oximetry 2021-10-08 09:40:00 97 % Commo n [facility] respiratory rate 2021-10-08 09:40:00 16 /min [facility] blood pressure systolic 2021-10-08 09:40:00 130 mm[Hg] Common [facility] blood pressure diastolic 2021-10-08 09:40:00 78 mm[Hg] Common [facility] height 2021-09-17 15:20:00 69.50 [in_i] Com [facility] weight 2021-09-17 15:20:00 235.4 [lb_av] Co mmon [facility] temperature 2021-09-17 15:20:00 98.0 [degF] Com [facility] bmi 2021-09-17 15:20:00 34.26 kg/m2 Comm on [facility] oximetry 2021-09-17 15:20:00 99 % Commo n [facility] respiratory rate 2021-09-17 15:20:00 16 /min [facility] blood pressure systolic 2021-09-17 15:20:00 135 mm[Hg] [facility] blood pressure diastolic 2021-09-17 15:20:00 89 mm[Hg[facility] Procedures Procedure Date / Time Performed Performing Clinicia n Source ASSIGNMENT OF BENEFITS 2023-03-17 04:14:02 Docto r Unassigned, [place] [facility] NOTICE OF PRIVACY PRACTICES 2023-03-17 02:18:00 Doctor Unassigned, [place] [facility] CONSENT/REFUSAL FOR DIAGNOSIS AND TREATMENT 2023-03-17 02:16:52 Doctor Unassigned, [place] [facility] REFERRAL- REQUEST/RESPONSE 2023-01-17 06:01:00 Doctor Unassigned, [place] [facility] REFERRAL- REQUEST/RESPONSE 2022-12-28 05:01:00 Doctor Unassigned, [place] [facility] EXTERNAL PROVIDER - ADC REFERRAL 2021-12-23 05:01:00 Doctor Unassigned, [place] [facility] Encounters Start Date/Time End Date/Time Encounter Type Admission Type Attending [facility] Facility Care Department Encounter ID Source 2022-12-29 08:28:01 Outpatient Uli Forte STLMLC STLMLC [id number] [facility] 2022-12-27 08:48:00 Outpatient Vicente, Avnee STLMLC STLMLC [id number] [facility] 2022-09-01 15:25:00 Outpatient Vicente, Avnee STLMLC STLMLC [id number] [facility] 2022-08-05 14:07:02 Outpatient Vicente, Avnee STLMLC STLMLC [id number] [facility] 2022-07-29 09:40:01 Outpatient Vicente, Avnee STLMLC STLMLC [id number] [facility] 2022-06-15 14:06:03 Outpatient Vicente, Avnee STLMLC STLMLC [id number] [facility] 2022-03-29 13:15:02 Outpatient Angela VERA STLMLC STLMLC [id number] [facility] 2022-02-16 11:56:00 Outpatient Vera, Na STLMLC STLMLC [id number] [facility] 2022-02-09 08:58:01 Outpatient Vera, Na STLMLC STLMLC [id number] [facility] 2022-01-04 12:02:01 Outpatient Vera, Na STLMLC STLMLC [id number] [facility] 2021-12-31 12:07:01 Outpatient Vera, Na STLMLC STLMLC [id number] [facility] 2021-12-18 10:58:02 Outpatient Vera, Na STLMLC STLMLC [id number] [facility] 2021-12-10 10:17:04 Outpatient Vera, Na STLMLC STLMLC [id number] [facility] 2021-11-13 13:16:02 Outpatient Vera, Na STLMLC STLMLC [id number] [facility] 2021-11-12 08:37:03 Outpatient Vera, Na STLMLC STLMLC [id number] [facility] 2021-11-05 13:52:02 Outpatient Vera, Na STLMLC STLMLC [id number] [facility] 2021-10-06 13:42:03 Outpatient Vera, Na STLMLC STLMLC [id number] [facility] 2021-09-21 14:29:01 Outpatient Vera, Na STLMLC STLMLC [id number] [facility] 2021-09-17 15:47:03 Outpatient Vera, Na STLMLC STLMLC [id number] [facility] 2023-12-02 00:00:00 2023-12-02 00:00:00 Outpatient DAVEY ALEXANDRE [id number] [facility] 2023-12-01 15:30:00 2023-12-01 15:30:00 Outpatient DAVEY ALEXANDRE [id number] [facility] 2023-11-28 00:00:00 2023-11-28 00:00:00 Outpatient CECILIO MARTINEZ [id number] [facility] 2023-08-16 14:00:00 2023-08-16 14:00:00 Outpatient CECILIO MARTINEZ [id number] [facility] 2023-07-27 15:00:00 2023-07-27 15:00:00 Outpatient CECILIO MARTINEZ SHANTEL [id number] [facility] 2023-07-08 00:00:00 2023-07-08 00:00:00 Outpatient CECILIO MARTINEZ SHANTEL [id number] [facility] 2023-06-29 10:00:00 2023-06-29 10:00:00 Outpatient CECILIO MARTINEZ [id number] [facility] 2023-05-30 11:30:00 2023-05-30 11:30:00 Outpatient CECILIO MARTINEZ [id number] [facility] 2023-05-30 00:00:00 2023-05-30 00:00:00 Outpatient CECILIO MARTINEZ SHANTEL [id number] [facility] 2023-05-30 00:00:00 2023-05-30 00:00:00 Outpatient CECILIO MARTINEZSEY [id number] [facility] 2023-05-30 00:00:00 2023-05-30 00:00:00 Outpatient CECILIO MARTINEZ SHANTEL [id number] [facility] 2023-04-22 11:32:13 2023-04-22 11:32:13 Outpatient [facility] [id number] Yanick Miles 2023-03-16 20:38:00 2023-03-16 22:27:00 Emergency X MADISYN CHRISTIAN [facility] [id number] [facility] 2023-03-16 20:38:00 2023-03-16 22:27:00 Emergency Madisyn Christian [facility] [id number] [facility] 2023-03-16 00:00:00 2023-03-16 00:00:00 Orders Only Doctor Unassigned, [place] [facility] [id number] [facility] 2023-01-17 11:20:32 2023-01-17 11:20:32 Outpatient [facility] [id number] Yanick Miles 2023-01-17 00:00:00 2023-01-17 00:00:00 Orders Only Doctor Unassigned, [place] [facility] [id number] [facility] 2023-01-05 15:40:00 2023-01-05 15:40:00 Outpatient BENJY YEPEZ [facility] [id number] [facility] 2023-01-03 14:11:35 2023-01-03 14:11:35 Outpatient [facility] [id number] Yanick Miles 2022-12-30 00:00:00 2022-12-30 00:00:00 (TEL) STLC STLMLC [id number] [facility] 2022-12-28 00:00:00 2022-12-28 00:00:00 Orders Only Doctor Unassigned, [place] [facility] [id number] [facility] 2022-12-24 00:00:00 2022-12-24 00:00:00 (TEL) STLMLC STLMLC [id number] [facility] 2022-12-24 00:00:00 2022-12-24 00:00:00 (TEL) STLMLC STLMLC [id number] [facility] 2022-09-28 00:00:00 2022-09-28 00:00:00 (TEL) STLMLC STLMLC [id number] [facility] 2022-09-27 00:00:00 2022-09-27 00:00:00 (TEL) STLMLC STLMLC [id number] [facility] 2022-09-27 00:00:00 2022-09-27 00:00:00 OFFICE VISIT ESTAB PT LEVEL 4 STLMLC STLMLC [id number] [facility] 2022-09-01 00:00:00 2022-09-01 00:00:00 (TEL) STLMLC STLMLC [id number] [facility] 2022-07-30 00:00:00 2022-07-30 00:00:00 (TEL) STLMLC STLMLC [id number] [facility] 2022-06-15 00:00:00 2022-06-15 00:00:00 (TEL) STLMLC STLMLC [id number] [facility] 2022-03-29 00:00:00 2022-03-29 00:00:00 OFFICE VISIT ESTAB PT LEVEL 2 STLMLC STLMLC [id number] [facility] 2022-02-17 00:00:00 2022-02-17 00:00:00 OFFICE VISIT ESTAB PT LEVEL 4 STLMLC STLMLC [id number] [facility] 2022-02-16 00:00:00 2022-02-16 00:00:00 (TEL) STLMLC STLMLC [id number] [facility] 2022-01-18 00:00:00 2022-01-18 00:00:00 (TEL) STLMLC STLMLC [id number] [facility] 2021-12-23 00:00:00 2021-12-23 00:00:00 Orders Only Doctor Unassigned, [place] [facility] [id number] [id number] [facility] 2021-12-22 00:00:00 2021-12-22 00:00:00 OFFICE VISIT EST PT LEVEL 3 STLMLC STLMLC [id number] [facility] 2021-12-22 00:00:00 2021-12-22 00:00:00 (TEL) STLMLC STLMLC [id number] [facility] 2021-12-11 00:00:00 2021-12-11 00:00:00 (TEL) STLMLC STLMLC [id number] [facility] 2021-11-19 00:00:00 2021-11-19 00:00:00 OFFICE VISIT EST PT LEVEL 3 STLMLC STLMLC [id number] [facility] 2021-11-17 00:00:00 2021-11-17 00:00:00 (TEL) STLMLC STLMLC [id number] [facility] 2021-11-13 00:00:00 2021-11-13 00:00:00 OFFICE VISIT EST PT LEVEL 3 STLMLC STLMLC [id number] [facility] 2021-10-23 00:00:00 2021-10-23 00:00:00 (TEL) STLMLC STLMLC [id number] [facility] 2021-10-08 00:00:00 2021-10-08 00:00:00 OFFICE VISIT ESTAB PT LEVEL 4 STLMLC STLMLC [id number] [facility] 2021-10-01 00:00:00 2021-10-01 00:00:00 Outpatient BESSY BLACKMON [facility] [id number] 2021-09-17 00:00:2021-09-17 00:00:00 OFFICE VISIT NEW PT LEVEL 4 STLMLC STLMLC [id number] [facility] Results Test Description Test Time Test Comments Results Result Co mments Source LIPID [id number] 04:46:54* Test Item Value Reference Range Interpretation [...] SPECIMENS. FOR MOREINFORMATION, SEE CLIENT ANNOUNCEMENT AT [email or web address] RISK RATIO LDL/HDL (test code = 2238) 2.73 RATIO <3.55 HEMOGLOBIN [id number] 04:03:01* Test Item Value Reference Range Interpretation Comme nts HEMOGLOBIN A1c (test code = 44850) 5.7 % 4.2-5.6 H [employer] GUIDELINES FOR HGB A1C: [...] TESTING PERFORMED AT [facility] [address] [place] [address] SLEEVE SETTER LOCKSTITCH: GRICELDA ALMENDAREZ M.D. CLIA NUMBER [id number] [facility] [place]. [id number] CBC W/AUTO DIFF WITH [id number] 03:00:48* Test Item Value Reference Range Interpretation [...] = 1065) 0.0 /100 WBC'S See_Comment [Automated [employer]] The system which generated this result transmitted [...] 0.00-0.10 ABS NUCLEATED RBCS (test code = 84730) 0.00 K/UL 0.00-0.11 TSH REFLEX TO FREE [id number] 00:00:00* Test Item Value Reference Range Interpretation Comme nts TSH REFLEX TO FREE T4 (test code = 15737-9) 1.350 UIU/ML See_Comment [Automated [employer]] The system which generated this result transmitted reference range: 0.400-4.100 UIU/ML. The reference range was not used to interpret this result as normal/abnormal. 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 [facility] access phone number provided Advised to seek medical attention for new/prolonged/worsening of symptoms, Awake, alert oriented, resp reg unlabored, skin w/d, pt leaving in no apparent distress, H PACKER Arelis Mohamud RN [facility] 2023-03-16 20:27:47 Patient ambulatory to ED stating that his BP was high so he took two of his 0.1 Clonidine pills yesterday, one in the morning and one at night. Patient took Amlodipine and half of his [place] 10 tonight as well. Patient has been to [facility] multiple times the last time was being discharged Tuesday. Patient states "all they did was just give me more drugs." Patient states there is "chest pain and it feels like a horse is standing on my kidney and liver." E Ibrahim RN [facility]
--- NOTE | 2024-01-01 06:21 | EDPHYS ---
Physician Documentation [facility] Name: Cory Brock Age: 43 yrs Sex: Male : 1980 Arrival Date: 01/01/2024 Time: 05:56 Bed 15 Private MD: ED Physician Ross Sanchez HPI: 12/31 06:15 This 43 yrs old Male presents to ER via Unassigned with complaints of RIGHT chioma INGUINAL HERNIA, REDUCED , NO PAIN NOW. 06:15 The patient presents with abdominal pain in the lower abdomen. Onset: The chioma symptoms/episode began/occurred just prior to arrival, this morning. The symptoms do not radiate. Associated signs and symptoms: none. 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 Severity of pain: At its worst the pain was moderate in the emergency department the pain has resolved and did so just prior to arrival. The patient has experienced similar episodes in the past, multiple times. Historical: - Allergies: 06:15 Amoxicillin; rg5 06:15 Aspirin; rg5 06:15 NSAIDS (GI bleeding); rg5 06:15 PENICILLINS; rg5 - Home Meds: 06:15 amlodipine oral [Active]; carvedilol oral [Active]; rg5 - PMHx: 06:15 Atrial fibrillation; Hypertensive disorder; Back pain; rg5 - Immunization history:: Adult Immunizations not up to date. - Infectious Disease History:: Denies. - Family history:: not pertinent. - Social history:: Smoking status: Patient/guardian denies using tobacco, the patient reports quitting approximately 20 years ago. ROS: 06:15 Constitutional: Negative for fever, chills, and weight loss, Eyes: Negative for injury, chioma pain, redness, and discharge, ENT: Negative for injury, pain, and discharge, Neck: Negative for injury, pain, and swelling, Cardiovascular: Negative for chest pain, palpitations, and edema, Respiratory: Negative for shortness of breath, cough, wheezing, and pleuritic chest pain, Back: Negative for injury and pain, : Negative for injury, bleeding, discharge, and swelling, MS/Extremity: Negative for injury and deformity, Skin: Negative for injury, rash, and discoloration, Neuro: Negative for headache, weakness, numbness, tingling, and seizure, Psych: Negative for depression, anxiety, suicide ideation, homicidal ideation, and hallucinations, Allergy/Immunology: Negative for hives, rash, and allergies, Endocrine: Negative for neck swelling, polydipsia, polyuria, polyphagia, and marked weight changes, Hematologic/Lymphatic: Negative for swollen nodes, abnormal bleeding, and unusual bruising, 06:15 Abdomen/GI: Positive for abdominal pain, of the , 06:15 Abdomen/GI: Positive for constipation, of the suprapubic area and right lower quadrant, 06:15 Back: Positive for 06:15 : Positive for Exam: 06:15 Constitutional: This is a well developed, well nourished patient who is awake, alert, chioma and in no acute distress. Head/Face: Normocephalic, atraumatic. Eyes: Pupils equal round and reactive to light, extra-ocular motions intact. Lids and lashes normal. Conjunctiva and sclera are non-icteric and not injected. Cornea within normal limits. Periorbital areas with no swelling, redness, or edema. ENT: Nares patent. No nasal discharge, no septal abnormalities noted. Tympanic membranes are normal and external auditory canals are clear. Oropharynx with no redness, swelling, or masses, exudates, or evidence of obstruction, uvula midline. Mucous membranes moist. Neck: Trachea midline, no thyromegaly or masses palpated, and no cervical lymphadenopathy. Supple, full range of motion without nuchal rigidity, or vertebral point tenderness. No Meningismus. Chest/axilla: Normal chest wall appearance and motion. Nontender with no deformity. No lesions are appreciated. Cardiovascular: Regular rate and rhythm with a normal S1 and S2. No gallops, murmurs, or rubs. Normal PMI, no JVD. No pulse deficits. Respiratory: Lungs have equal breath sounds bilaterally, clear to auscultation and percussion. No rales, rhonchi or wheezes noted. No increased work of breathing, no retractions or nasal flaring. Abdomen/GI: Soft, non-tender, with normal bowel sounds. No distension or tympany. No guarding or rebound. No evidence of tenderness throughout. Back: No spinal tenderness. No costovertebral tenderness. Full range of motion. Male : Normal genitalia with no discharge or lesions. Skin: Warm, dry with normal turgor. Normal color with no rashes, no lesions, and no evidence of cellulitis. MS/ Extremity: Pulses equal, no cyanosis. Neurovascular intact. Full, normal range of motion. Neuro: Awake and alert, GCS 15, oriented to person, place, time, and situation. Cranial nerves II-XII grossly intact. Motor strength 5/5 in all extremities. Sensory grossly intact. Cerebellar exam normal. Normal gait. Psych: Awake, alert, with orientation to person, place and time. Behavior, mood, and affect are within normal limits. Vital Signs: 06:10 BP 129 / 86; Pulse 64; Resp 18; Temp 98(O); Pulse Ox 100% on R/A; Weight 79.38 kg; rg5 Height 5 ft. 9 in. ; Pain 5/10; 06:15 BP 124 / 86; Pulse 64; Resp 18; Temp 98; Pulse Ox 100% ; Pain 5/10; rg5 06:10 Body Mass Index 25.84 (79.38 kg, 175.26 cm) rg5 06:10 Pain Scale: Adult rg5 06:15 Pain Scale: Adult rg5 MDM: 06:02 Medical Screening Exam initiated chioma 06:18 Differential diagnosis: appendicitis, diverticulitis, non-specific abd pain, chioma pancreatitis, Ureterolithiasis, urinary tract infection. Data reviewed: vital signs, nurses notes. Consideration of Admission/Observation Escalation of care including admission/observation considered. Test considered but Not performed: Labs: NO LABS, NO PAIN , DW PT, FOLLOW UP DR YATES. Care significantly affected by the following chronic conditions: Hypertension, Obesity, A FIB. Administered Medications: No medications were administered Disposition Summary: 01/01/24 06:20 Discharge Ordered Notes: Location: Home chioma Problem: new chioma Symptoms: have improved chioma Condition: Stable chioma Diagnosis - Unilateral inguinal hernia, without obstruction or gangrene, recurrent chioma Followup: chioma - With: Private Physician - When: 2 - 3 days - Reason: Recheck today's complaints, Continuance of care, Re-evaluation by your physician Followup: chioma - With: Chao Yates MD - When: 2 - 3 days - Reason: Recheck today's complaints, Continuance of care, Re-evaluation by your physician Discharge Instructions: - Discharge Summary Sheet chioma - Constipation, Adult chioma - Hernia, Adult chioma - Inguinal Hernia, Adult, [id number] chioma - Constipation, Adult, [id number] chioma - Hernia, Adult, [id number] chioma - Inguinal Hernia, Adult chioma Forms: - Medication Reconciliation Form chioma - Antibiotic Education chioma - Prescription Opioid Use chioma - Patient Portal Instructions chioma - Leadership Thank You Letter [facility] Prescriptions: - Dulcolax (bisacodyl) 10 mg Rectal suppository - insert 1 suppository RECTAL route every 12 hours for 5 days PRN CONSTIPATION; chioma 10 suppository; Refills: 0, Product Selection Permitted - Miralax 17 gram Oral powder in packet - take 1 packet ORAL route daily for 14 days; 14 packet; Refills: 0, Product chioma Selection Permitted Signatures: Ross Sanchez MD MD cha Gallardo, Rommel, RN RN rg5
--- NOTE | 2024-01-01 06:21 | ER ---
Nurse's Notes [facility] Name: Cory Brock Age: 43 yrs Sex: Male : 1980 Arrival Date: 01/01/2024 Time: 05:56 Bed 15 Private MD: Diagnosis: Unilateral inguinal hernia, without obstruction or gangrene, recurrent Presentation: 12/31 06:10 Chief complaint: EMS states: he called us to check on his inguinal pain that started rg5 last night around 2100 and he some chest pain \T\ palpation around 4am. pt has a history of Afib. Coronavirus screen: Vaccine status: Patient reports receiving the 2nd dose of the covid vaccine. Client denies travel out of the [place] in the last 14 days. Ebola Screen: Patient negative for fever greater than or equal to 101.5 degrees Fahrenheit, and additional compatible Ebola Virus Disease symptoms. Initial Sepsis Screen: Does the patient meet any 2 criteria? No. Patient's initial sepsis screen is negative. Does the patient have a suspected source of infection? No. Patient's initial sepsis screen is negative. Risk Assessment: Do you want to hurt yourself or someone else? Patient reports no desire to harm self or others. Onset of symptoms was January 01, 2024. Care prior to arrival: Medication(s) given: zofran IV initiated. 20 GA, in the right antecubital area. 06:10 Method Of Arrival: EMS: [facility] rg5 06:10 Acuity: CORY 3 rg5 Triage Assessment: 06:15 General: Appears in no apparent distress. comfortable, Behavior is calm, cooperative, rg5 appropriate for age. Pain: Complains of pain in groin Pain currently is 5 out of 10 on a pain scale. Quality of pain is described as aching, Pain began 4 hours ago. EENT: No deficits noted. Neuro: Level of Consciousness is awake, alert, obeys commands, Oriented to person, place, time. Cardiovascular: Reports chest pain, palpitations, Patient's skin is warm and dry. Respiratory: Airway is patent Trachea midline Respiratory effort is even, unlabored, Respiratory pattern is regular, symmetrical. GI: Abdomen is flat, non-distended, Bowel sounds present X 4 quads. Abd is soft and non tender Reports upper abdominal pain, constipation. : Reports pain in right scrotum. Derm: Skin is intact, Skin is dry, Skin is normal, Skin temperature is warm. Musculoskeletal: Circulation, motion, and sensation intact. Range of motion: intact in all extremities. Historical: - Allergies: 06:15 Amoxicillin; rg5 06:15 Aspirin; rg5 06:15 NSAIDS (GI bleeding); rg5 06:15 PENICILLINS; rg5 - Home Meds: 06:15 amlodipine oral [Active]; carvedilol oral [Active]; rg5 - PMHx: 06:15 Atrial fibrillation; Hypertensive disorder; Back pain; rg5 - Immunization history:: Adult Immunizations not up to date. - Infectious Disease History:: Denies. - Family history:: not pertinent. - Social history:: Smoking status: Patient/guardian denies using tobacco, the patient reports quitting approximately 20 years ago. Screenin:10 [facility] ED Fall Risk Assessment (Adult) History of falling in the last 3 months, rg5 including since admission No falls in past 3 months (0 pts) Confusion or Disorientation No (0 pts) Intoxicated or Sedated No (0 pts) Impaired Gait No (0 pts) Mobility Assist Device Used No (0 pt) Altered Elimination Yes (1 pt) Score/Fall Risk Level 0 - 2 = Low Risk Oriented to surroundings, Maintained a safe environment, Hourly rounding (assess needs \T\ fall precautionary measures) done. Abuse screen: Denies threats or abuse. Nutritional screening: No deficits noted. Tuberculosis screening: No symptoms or risk factors identified. Assessment: 06:20 Reassessment: see triage assessment. 5 Vital Signs: 06:10 BP 129 / 86; Pulse 64; Resp 18; Temp 98(O); Pulse Ox 100% on R/A; Weight 79.38 kg; rg5 Height 5 ft. 9 in. ; Pain 5/10; 06:15 BP 124 / 86; Pulse 64; Resp 18; Temp 98; Pulse Ox 100% ; Pain 5/10; rg5 06:10 Body Mass Index 25.84 (79.38 kg, 175.26 cm) rg5 06:10 Pain Scale: Adult rg5 06:15 Pain Scale: Adult 5 ED Course: 06:02 Patient arrived in ED. [facility] 06:02 Ross Sanchez MD is Attending Physician. [facility] 06:09 Soares, Gera, RN is Primary Nurse. rg5 06:10 Patient has correct armband on for positive identification. rg5 06:15 Triage completed. rg5 06:15 Arm band placed on right wrist. rg5 06:20 Chao Richardson MD is Referral Physician. [facility] 06:46 Patient did not have IV access during this emergency room visit. rg5 06:46 No provider procedures requiring assistance completed. rg5 06:47 Provided Education on: post er care. rg5 Administered Medications: No medications were administered Medication: 06:10 VIS not applicable for this client. rg5 Outcome: 06:20 Discharge ordered by . [facility] 06:46 Discharged to home ambulatory, rg5 06:46 Condition: stable 06:46 Discharge instructions given to patient, Instructed on discharge instructions, follow up and referral plans. Demonstrated understanding of instructions, follow-up care, medications, Prescriptions given X 2, 06:49 Patient left the ED. rg5 Signatures: Ross Sanchez MD MD cha Gallardo, Rommel, RN RN rg5
[2024-01-01 06:55] VITALS: TEMP 98; O2SAT 100
[2024-01-01 06:57] VITALS: BP 124/86
== END 2024-01-01 06:49 | disposition home or self-care (01) ==
LOC: ER 05:56
DX: K40.91 Unilateral inguinal hernia, without obstruction or gangrene, recurrent (principal)
CPT/HCPCS: 99283

== ENCOUNTER 2024-02-27 21:38 | Emergency (ER) | payer OTHER ==
--- OUTSIDE RECORDS SUMMARY | 2024-02-27 21:42 | XMS REPORT | Continuity of Care Document ---
Author Name Unknown Address [address] [facility] [address] [place] [address] [facility] thconnect Address [address] [facility] [address] [place] [address] Care Team Providers Care [employer] Name Role Phone Pcp, Patient Does Not Have A Primary Care Physic sarahy Uli Forte Attending Clinician Unavailable Martha Vicente Attending Clinician Unavailable Angela VERA Attending Clinician Unavailable DAVEY ALEXANDRE Attending Clinician Unavailable LATRICE CINTRON Attending Clinician Unavailable CECILIO MARTINEZ Attending Clinician UnavailMADISYN Castro Attending Clinician Unavailable Madisyn Christian MD Attending Clinician [phone] Doctor Unassigned, [place] Attending Clinician BENJY Jolly Attending Clinician Unavailable JULITA Attending Clinician Unavailable JULITA Admitting Clinician Unavailable Payers Payer Name Policy Type Policy Number Effective Date Expirati on Date Source [facility]ENJAMIN BRASHER [employer] 9 [id number] 2023 00:00:00 MEDICAID PENDING PENDING 2018 00:00:00 [facility] 53 [id number] [facility] Problems Condition Name Condition Details Condition Category Status Onset Date Resolution Date Last Treatment Date Treating Clinician Comments Source Diverticul osis Diverticul osis Disease Active 2023-02 0 00:00: 00 Shantel Su - Externa l Primary hypertensi on Primary hypertensi on Disease Active 05-29 00:00: 00 Shantel Baxtera l Mixed dyslipidem ia Mixed dyslipidem ia Disease Active 2015-02 00:00: 00 [facility] Chronic back pain Chronic back pain Disease Active 2015-02 00:00: 00 [facility] Obesity (BMI 30-39.9) Obesity (BMI 30-39.9) Disease Active 2015-02 00:00: 00 [facility] Tobacco use Tobacco use Disease Active 2015-02 00:00: 00 [facility] [id number] Panic attacks Problem [facility] Screening for cardiovasc ular system disease Screening for cardiovasc ular condition Problem [facility] [id number] Chest pain, unspecifie d type Problem [facility] [id number] Gastroesop hageal reflux disease, unspecifie d whether esophagiti s present Problem [facility] [id number] Primary hypertensi on Problem [facility] Gastro-eso phageal reflux disease without esophagiti s Gastro-eso phageal reflux disease without esophagiti s Problem [facility] [id number] DDD (degenerat delfina disc disease), thoracolum bar Problem [facility] Hypertensi on HTN (hypertens ion) Problem [facility] [id number] Temporary low platelet count Problem [facility] Somnolence Somnolence , daytime Problem [facility] [id number] Anxiety Problem [facility] Chronic fatigue syndrome Chronic fatigue Problem [facility] [id number] Difficulty sleeping Problem [facility] Allergies, Adverse Reactions, Alerts Allergy Name Allergy Type Status Severity Reaction(s) Onset Date Inactive Date Treating Clinician Comments Source Nsaids Propensi ty to adverse reaction s Active Other 03-13 00:00: 00 Shantel Su - Externa l Penicill ins Propensi ty to adverse reaction s Active Other 03-13 00:00: 00 Shantel Bhatt Externa l NSAIDS (NON-TONO ROIDAL ANTI-INF LAMMATOR Y DRUG) Drug Class Active SOB 08-01 00:00: 00 [facility] Nsaids (Non-Tono roidal Anti-Inf lammator y Drug) Propensi ty to adverse reaction s Active Shortness of Breath 08-01 00:00: 00 [facility] Ibuprofe n Propensi ty to adverse reaction s Active Swelling 2014-02 00:00: 00 [facility] IBUPROFE N DRUG INGREDI Active Swelling 2014-02 00:00: 00 [facility] PENICILL IN DRUG INGREDI Active High ITCHING 11-13 00:00: 00 [facility] Penicill in Propensi ty to adverse reaction s Active Itching 11-13 00:00: 00 [facility] Aspirin Propensi ty to adverse reaction s Active Swelling 10-04 00:00: 00 [facility] ASPIRIN DRUG INGREDI Active Swelling 10-04 00:00: 00 [facility] [id number] Drug allergy Active anaphylaxis [facility] Non-ster oidal anti-inf lammator y agent (FN) Non-ster oidal anti-inf lammator y agent (FN) Active Unknown [facility] Social History Social Habit Start Date Stop Date Quantity Comments Source Sexual orientation Felicia Su - External History of tobacco use Cigarette Smoker Shantel gomez - External Alcoholic beverage intake 2023-12-01 00:00:00 2023-12-01 00:00:00 Ex-drinker (finding) Shantel Su - External History of Social function 2023-05-30 00:00:00 2023-05-30 00:00:00 Shantel Bhatt External Tobacco use and exposure 2023-05-30 00:00:00 2023-05-30 00:00:00 Smokeless tobacco non-user Shantel Su - External Alcohol intake 2023-05-30 00:00:00 2023-05-30 00:00:00 Ex-drinker (finding) Shantel Osbornezahidajason - External Sex 2023-04-23 09:47:19 2023-04-23 09:47:19 Male (finding) Shantel Senimo - External Sex assigned at 1980 00:00:00 1980 00:00:00 Shantel Sharlene - External Smoking Status Start Date Stop Date Source Ex-smoker 2023-05-30 00:00:00 2023-05-30 00:00:00 Felicia fung Sharlene - External Never Smoker [facility] Smokes tobacco daily 2015-12-05 00:00:00 [facility] Medications Ordered Medication Name Filled [...] oral Tablet 11-03 00:00: 00 Yes 10mg [id number] 3D Take 1 tablet (10 mg total) by mouth 3 times daily as needed. Shantel farris Doxepin HCl 10 MG oral Capsule 11-03 00:00: 00 Yes 10mg Take 1 capsule (10 mg total) by mouth at bedtime. Shantel farris Gabapentin 300 MG oral Capsule 8-14 00:00: 00 Yes 300mg Q.[id number] 3D Take 1 capsule (300 mg total) by mouth 3 times daily. Shantel farris diazePAM 5 MG oral Tablet 7-11 00:00: 00 Yes 5mg QD Take 1 tablet (5 mg total) by mouth daily as needed for anxiety. Shantel farris Amlodipine Besylate (NORVASC) 5 MG oral Tablet 10 00:00: 00 Yes [id number] 5mg Q.5D Take 1 tablet (5 mg total) by mouth 2 times daily. Shantel farris Carvedilol 3.125 MG oral Tablet 10 00:00: 00 Yes [id number] 3.125mg Take 1 tablet (3.125 mg total) by mouth in the morning and 1 tablet (3.125 mg total) in the evening. Take with meals. Shantel farris Pantoprazol e Sodium 40 MG oral Tablet Delayed Response 05-29 11:16: 35 Yes 40mg 1 tablet (40 mg total) every 24 hours. Shantel farris Duloxetine HCl [address] Particles 05-29 00:00: 00 Yes [id number] 20mg QD Take 1 capsule (20 mg [...] HCl (CATAPRES) 0.1 MG oral Tablet 2022-02 00:00: 00 Yes Shantel farris HYDROcodone -Acetaminop [...] MCG/ACT ProAir HFA 108 (90 Base) MCG/ACT 2021-02- 00:00: 00 No 2{puffs _as_nee ded} QID [...] 10 mg tablet 05-23 00:00: 00 Yes [id number] 10mg Take 1 tablet by mouth 3 (three) times daily as needed for Muscle Spasms. [facility] acetaminoph en-codeine (TYLENOL-CO DEINE #3) 300-30 mg tablet 05-23 00:00: 00 Yes [id number] 1{tbl} Take 1 tablet by mouth every 8 (eight) hours as needed for Pain (scale 4-6). [facility] methocarbam ol (ROBAXIN-75 0) 750 mg tablet 11-11 00:00: 00 Yes 750mg Take 1 tablet by mouth 4 (four) times daily. [facility] acetaminoph en-codeine (TYLENOL-CO DEINE #3) 300-30 mg tablet 11-02 00:00: 00 Yes 1{tbl} Take 1 tablet by mouth every 6 (six) hours as needed for Pain (scale 7-10). [facility] cyclobenzap rine 5 mg tablet 905 00:00: 00 Yes 5mg Take 1 tablet by mouth 3 (three) times daily. [facility] lisinopril 10 mg tablet 16 00:00: 00 Yes 10mg Take 1 tablet by mouth at bedtime. [facility] TYLENOL-COD EINE #3 300-30 mg tablet 06-30 00:00: 00 Yes 2{tbl} Take 2 tablets by mouth every 4 (four) hours as needed for Pain (scale 1-3) or Pain (scale 4-6). [facility] acetaminoph en-codeine 300-30 mg tablet 06-09 00:00: 00 Yes 1{tbl} Take 1 tablet by mouth every 4 (four) hours as needed (pain). [facility] cyclobenzap rine 5 mg tablet 06-01 00:00: 00 Yes 5mg Take 1 tablet by mouth 2 (two) times daily as needed for Muscle Spasms for up to 15 doses. [facility] ACETAMINOPH EN WITH CODEINE (TYLENOL-CO DEINE #3 ORAL) 2015-02 11:39: 00 Yes Take by mouth as needed for Pain (scale 1-3). [facility] lisinopril (PRINIVIL,Z ESTRIL) 10 mg tablet 2015-02 00:00: 00 Yes [id number] 10mg Take 1 tablet by mouth daily. [facility] traMADOL (ULTRAM) 50 mg tablet 2015-02 00:00: 00 Yes [id number] 50mg Take 1 tablet by mouth 3 (three) times daily as needed for Pain unrelieved by non-narcot ic analgesics . [facility] amLODIPine Besylate 2.5 MG amLODIPine Besylate [...] MG hydroCHLORO thiazide 12.5 MG No 1{table t e_morni ng} QD hydroCHLOR Othiazide 12.5 MG [...] blood pressure 2023-05-30 16:10:00 116 mm[Hg] Shantel Seybo ld - External Diastolic blood pressure 2023-05-30 16:10:00 82 mm[Hg] Shantel Jungo ld - External Heart rate 2023-05-30 16:10:00 70 /min Cristhian Su - External Body temperature 2023-05-30 16:10:00 36.39 Kathie Shantel Su - External Respiratory rate 2023-05-30 16:10:00 18 /min Shantel Su - External Body height 2023-05-30 16:10:00 177.8 cm Cayla smith Seybjason - External Body weight 2023-05-30 16:10:00 97.07 kg Cayla smith Seybold - External BMI 2023-05-30 16:10:00 30.71 kg/m2 Cayla Su - External Oxygen saturation in Arterial blood by Pulse oximetry 2023-05-30 16:10:00 98 /min Shantel Joy ld - External Systolic blood pressure 2023-03-17 04:15:00 114 mm[Hg] [facility] Diastolic blood pressure 2023-03-17 04:15:00 73 mm[Hg] [facility] Heart rate 2023-03-17 04:15:00 66 /min [facility] Body temperature 2023-03-17 04:15:00 36.72 Kathie [facility] Respiratory rate 2023-03-17 04:15:00 16 /min [facility] Oxygen saturation in Arterial blood by Pulse oximetry 2023-03-17 04:15:00 98 /min [facility] Body height 2023-03-17 02:34:00 177.8 cm [facility] Body weight 2023-03-17 02:34:00 98.158 kg [facility] BMI 2023-03-17 02:34:00 31.05 kg/m2 [facility] height 2022-09-27 09:20:00 69.5 [in_i] Comm on [facility] weight 2022-09-27 09:20:00 231.4 [lb_av] Co mmon [facility] temperature 2022-09-27 09:20:00 98.0 [degF] Com mon [facility] bmi 2022-09-27 09:20:00 33.68 kg/m2 Comm on [facility] oximetry 2022-09-27 09:20:00 98 % Commo n [facility] respiratory rate 2022-09-27 09:20:00 18 /min [facility] blood pressure systolic 2022-09-27 09:20:00 124 mm[Hg] [facility] blood pressure diastolic 2022-09-27 09:20:00 81 mm[Hg] Common [facility] height 2022-03-29 13:30:00 69.5 [in_i] Comm on [facility] weight 2022-03-29 13:30:00 240 [lb_av] Comm on [facility] temperature 2022-03-29 13:30:00 98.1 [degF] Com mon [facility] bmi 2022-03-29 13:30:00 34.93 kg/m2 Comm on [facility] oximetry 2022-03-29 13:30:00 97 % Commo n [facility] respiratory rate 2022-03-29 13:30:00 18 /min [facility] blood pressure systolic 2022-03-29 13:30:00 124 mm[Hg] [facility] blood pressure diastolic 2022-03-29 13:30:00 74 mm[Hg] [facility] height 2022-02-17 10:20:00 69.5 [in_i] Comm on [facility] weight 2022-02-17 10:20:00 240 [lb_av] Comm on [facility] temperature 2022-02-17 10:20:00 98 [degF] Comm on [facility] bmi 2022-02-17 10:20:00 34.93 kg/m2 Comm on [facility] height 2021-12-22 10:20:00 69.50 [in_i] Com [facility] weight 2021-12-22 10:20:00 233.4 [lb_av] Co [facility] temperature 2021-12-22 10:20:00 97.6 [degF] Com [facility] bmi 2021-12-22 10:20:00 33.97 kg/m2 Comm on [facility] oximetry 2021-12-22 10:20:00 96 % Commo n [facility] respiratory rate 2021-12-22 10:20:00 16 /min [facility] blood pressure systolic 2021-12-22 10:20:00 130 mm[Hg] Common [facility] blood pressure diastolic 2021-12-22 10:20:00 82 mm[Hg] [facility] height 2021-11-19 14:00:00 69.50 [in_i] Com [facility] weight 2021-11-19 14:00:00 233.4 [lb_av] Co [facility] temperature 2021-11-19 14:00:00 97.6 [degF] Com [facility] bmi 2021-11-19 14:00:00 33.97 kg/m2 Comm on [facility] oximetry 2021-11-19 14:00:00 97 % Commo n [facility] respiratory rate 2021-11-19 14:00:00 16 /min [facility] blood pressure systolic 2021-11-19 14:00:00 133 mm[Hg] [facility] blood pressure diastolic 2021-11-19 14:00:00 74 mm[Hg] Common [facility] height 2021-11-13 13:20:00 69.50 [in_i] Com [facility] weight 2021-11-13 13:20:00 230 [lb_av] Comm on [facility] temperature 2021-11-13 13:20:00 97.3 [degF] Com [facility] bmi 2021-11-13 13:20:00 33.47 kg/m2 Comm on [facility] height 2021-10-08 09:40:00 69.50 [in_i] Com [facility] weight 2021-10-08 09:40:00 236.4 [lb_av] [facility] 2021-10-08 09:40:00 97.3 [degF] Com [facility] bmi 2021-10-08 09:40:00 34.41 kg/m2 Comm on [facility] oximetry 2021-10-08 09:40:00 97 % Commo n [facility] respiratory rate 2021-10-08 09:40:00 16 /min [facility] blood pressure systolic 2021-10-08 09:40:00 130 mm[Hg] Common [facility] blood pressure diastolic 2021-10-08 09:40:00 78 mm[Hg] Common [facility] height 2021-09-17 15:20:00 69.50 [in_i] Com [facility] weight 2021-09-17 15:20:00 235.4 [lb_av] Co mmon [facility] temperature 2021-09-17 15:20:00 98.0 [degF] Com [facility] bmi 2021-09-17 15:20:00 34.26 kg/m2 Comm on [facility] oximetry 2021-09-17 15:20:00 99 % Commo n [facility] respiratory rate 2021-09-17 15:20:00 16 /min [facility] blood pressure systolic 2021-09-17 15:20:00 135 mm[Hg] [facility] blood pressure diastolic 2021-09-17 15:20:00 89 mm[Hg] [facility] Procedures Procedure Date / Time Performed Performing Clinicia n Source ASSIGNMENT OF BENEFITS 2023-03-17 04:14:02 Docto r Unassigned, [place] [facility] NOTICE OF PRIVACY PRACTICES 2023-03-17 02:18:00 Doctor Unassigned, [place] [facility] CONSENT/REFUSAL FOR DIAGNOSIS AND TREATMENT 2023-03-17 02:16:52 Doctor Unassigned, [place] [facility] REFERRAL- REQUEST/RESPONSE 2023-01-17 06:01:00 Doctor Unassigned, [place] [facility] REFERRAL- REQUEST/RESPONSE 2022-12-28 05:01:00 Doctor Unassigned, [place] [facility] EXTERNAL PROVIDER - ADC REFERRAL 2021-12-23 05:01:00 Doctor Unassigned, [place] [facility] Encounters Start Date/Time End Date/Time Encounter Type Admission Type Attending [facility] Care Facility Care Department Encounter ID Source 2022-12-29 08:28:01 Outpatient Uli Forte STLMLC STLMLC [id number] [facility] 2022-12-27 08:48:00 Outpatient Cinthia, Avnee STLMLC STLMLC [id number] [facility] 2022-09-01 15:25:00 Outpatient Vicente, Avnee STLMLC STLMLC [id number] [facility] 2022-08-05 14:07:02 Outpatient Vicente, Avnee STLMLC STLMLC [id number] [facility] 2022-07-29 09:40:01 Outpatient Vicente, Avnee STLMLC STLMLC [id number] [facility] 2022-06-15 14:06:03 Outpatient Vicente, Avnee STLMLC STLMLC [id number] [facility] 2022-03-29 13:15:02 Outpatient Angela VERA STLMLC STLMLC [id number] [facility] 2022-02-16 11:56:00 Outpatient Vera, Na STLMLC STLMLC [id number] [facility] 2022-02-09 08:58:01 Outpatient Vera, Na STLMLC STLMLC [id number] [facility] 2022-01-04 12:02:01 Outpatient Vera, Na STLMLC STLMLC [id number] [facility] 2021-12-31 12:07:01 Outpatient Vera, Na STLMLC STLMLC [id number] [facility] 2021-12-18 10:58:02 Outpatient Angela Vera STLMLC STLMLC [id number] [facility] 2021-12-10 10:17:04 Outpatient Angela Vera STLMLC STLMLC [id number] [facility] 2021-11-13 13:16:02 Outpatient Angela Vera STLMLC STLMLC [id number] [facility] 2021-11-12 08:37:03 Outpatient Angela Vera STLMLC STLMLC [id number] [facility] 2021-11-05 13:52:02 Outpatient Angela Vera STLMLC STLMLC [id number] [facility] 2021-10-06 13:42:03 Outpatient Angela Vera STLMLC STLMLC [id number] [facility] 2021-09-21 14:29:01 Outpatient Denny Na STLMLC STLMLC [id number] [facility] 2021-09-17 15:47:03 Outpatient Denny Na STLMLC STLMLC [id number] [facility] 2024-01-23 13:00:00 2024-01-23 13:00:00 Outpatient HUNDL, DAVEY SHANTEL SHANTEL [id number] [facility] 2024-01-21 16:40:00 2024-01-21 16:40:00 Outpatient LATRICE CINTRON [facility] [id number] [facility] 2023-12-02 00:00:00 2023-12-02 00:00:00 Outpatient DAVEY ALEXANDRE [facility]EL [facility] [id number] [facility] 2023-12-01 15:30:00 2023-12-01 15:30:00 Outpatient DAVEY ALEXANDRE [facility]ANTEL [facility] [id number] [facility] 2023-11-28 00:00:00 2023-11-28 00:00:00 Outpatient CECILIO MARTINEZ SHANTEL [facility] [id number] [facility] 2023-08-16 14:00:00 2023-08-16 14:00:00 Outpatient GABI MARTINEZTHIA SHANTEL [facility] [id number] [facility] 2023-07-27 15:00:00 2023-07-27 15:00:00 Outpatient CECILIO MARTINEZ SHANTEL [facility] [id number] [facility] 2023-07-08 00:00:00 2023-07-08 00:00:00 Outpatient CECILIO MARTINEZ SHANTEL [facility] [id number] [facility] 2023-06-29 10:00:00 2023-06-29 10:00:00 Outpatient CECILIO MARTINEZ SHANTEL [facility] [id number] [facility] 2023-05-30 11:30:00 2023-05-30 11:30:00 Outpatient CECILIO MARTINEZ SHANTEL [facility] [id number] Shantel [facility] 2023-05-30 00:00:00 2023-05-30 00:00:00 Outpatient CECILIO MARTINEZ SHANTEL [facility] [id number] [facility] 2023-05-30 00:00:00 2023-05-30 00:00:00 Outpatient GABI MARTINEZTHIA [facility]ANTEL [facility] [id number] [facility]23-[facility]-30 00:00:00 2023-05-30 00:00:00 Outpatient CECILIO MARTINEZ [id number] Shantel Su 2023-04-22 11:32:13 2023-04-22 11:32:13 Outpatient SFA [id number] Yanick Miles 2023-03-16 20:38:00 2023-03-16 22:27:00 Emergency X MADISYN CHRISTIAN [facility] ERT [id number] [facility] 2023-03-16 20:38:00 2023-03-16 22:27:00 Emergency Madisyn Christian S [facility] [id number] [facility] 2023-03-16 00:00:00 2023-03-16 00:00:00 Orders Only Doctor Unassigned, [place] [facility] [id number] [facility] 2023-01-17 11:20:32 2023-01-17 11:20:32 Outpatient SFA [id number] Yanick Miles 2023-01-17 00:00:00 2023-01-17 00:00:00 Orders Only Doctor Unassigned, [place] [facility] [id number] [facility] 2023-01-05 15:40:00 2023-01-05 15:40:00 Outpatient Francis [facility] [id number] [facility] 2023-01-03 14:11:35 2023-01-03 14:11:35 Outpatient SFA [id number] Yanick Miles 2022-12-30 00:00:00 2022-12-30 00:00:00 (TEL) STLMLC STLMLC [id number] [facility] 2022-12-28 00:00:00 2022-12-28 00:00:00 Orders Only Doctor Unassigned, [place] [facility] [id number] [facility] 2022-12-24 00:00:00 2022-12-24 00:00:00 (TEL) STLMLC STLMLC [id number] [facility] 2022-12-24 00:00:00 2022-12-24 00:00:00 (TEL) STLMLC STLMLC [id number] [facility] 2022-09-28 00:00:00 2022-09-28 00:00:00 (TEL) STLMLC STLMLC [id number] [facility] 2022-09-27 00:00:00 2022-09-27 00:00:00 (TEL) STLMLC STLMLC [id number] [facility] 2022-09-27 00:00:00 2022-09-27 00:00:00 OFFICE VISIT ESTAB PT LEVEL 4 STLMLC STLMLC [id number] [facility] 2022-09-01 00:00:00 2022-09-01 00:00:00 (TEL) STLMLC STLMLC [id number] [facility] 2022-07-30 00:00:00 2022-07-30 00:00:00 (TEL) STLMLC STLMLC [id number] [facility] 2022-06-15 00:00:00 2022-06-15 00:00:00 (TEL) STLMLC STLMLC [id number] [facility] 2022-03-29 00:00:00 2022-03-29 00:00:00 OFFICE VISIT ESTAB PT LEVEL 2 STLMLC STLMLC [id number] [facility] 2022-02-17 00:00:00 2022-02-17 00:00:00 OFFICE VISIT ESTAB PT LEVEL 4 STLMLC STLMLC [id number] [facility] 2022-02-16 00:00:00 2022-02-16 00:00:00 (TEL) STLMLC STLMLC [id number] [facility] 2022-01-18 00:00:00 2022-01-18 00:00:00 (TEL) STLMLC STLMLC [id number] [facility] 2021-12-23 00:00:00 2021-12-23 00:00:00 Orders Only Doctor Unassigned, [place] [facility] [id number] [facility] 2021-12-22 00:00:00 2021-12-22 00:00:00 OFFICE VISIT EST PT LEVEL 3 STLMLC STLMLC [id number] [facility] 2021-12-22 00:00:00 2021-12-22 00:00:00 (TEL) STLMLC STLMLC [id number] [facility] 2021-12-11 00:00:00 2021-12-11 00:00:00 (TEL) STLMLC STLMLC [id number] [facility] 2021-11-19 00:00:00 2021-11-19 00:00:00 OFFICE VISIT EST PT LEVEL 3 STLMLC STLMLC [id number] [facility] 2021-11-17 00:00:00 2021-11-17 00:00:00 (TEL) STLMLC STLMLC [id number] [facility] 2021-11-13 00:00:00 2021-11-13 00:00:00 OFFICE VISIT EST PT LEVEL 3 STLMLC STLMLC [id number] [facility] 2021-10-23 00:00:00 2021-10-23 00:00:00 (TEL) STLMLC STLMLC [id number] [facility] 2021-10-08 00:00:00 2021-10-08 00:00:00 OFFICE VISIT ESTAB [facility] [id number] [facility] 2021-10-01 00:00:00 2021-10-01 00:00:00 Outpatient BESSY BLACKMON LORRI [id number] Osmani roy [facility] 2021-09-17 00:00:00 2021-09-17 00:00:00 OFFICE VISIT NEW PT [facility] [id number] [facility] Results Test Description Test Time Test Comments Results Result Co mments Source LIPID [id number] 04:46:54* Test Item Value Reference Range Interpretation [...] SPECIMENS. FOR MOREINFORMATION, SEE CLIENT ANNOUNCEMENT AT [email or web address] /[email or web address]-C RISK RATIO LDL/HDL (test code = 2238) 2.73 RATIO <3.55 HEMOGLOBIN [id number] 04:03:01* Test Item Value Reference Range Interpretation Comme nts HEMOGLOBIN A1c (test code = 67054) 5.7 % 4.2-5.6 H [employer] GUIDELINES FOR HGB A1C: [...] TESTING PERFORMED AT [facility] [address] [place] [address] [id number] FRAME POLISHER: GRICELDA ALMENDAREZ M.D. CLIA NUMBER [id number] [facility] [place]. [id number] CBC W/AUTO DIFF WITH [id number] 03:00:48* Test Item Value Reference Range Interpretation [...] 0.00-0.10 ABS NUCLEATED RBCS (test code = 70338) 0.00 K/UL 0.00-0.11 TSH REFLEX TO FREE [id number] 00:00:00* Test Item Value Reference Range Interpretation Comme nts TSH REFLEX TO FREE T4 (test code = 30126-8) 1.350 UIU/ML See_Comment [Automated messa ge] The system which generated this result transmitted reference range: 0.400-4.100 UIU/ML. The reference range was not used to interpret this result as normal/abnormal.
[2024-02-27 22:13] LABS: Absolute Eosinophils 0.3 K/uL (0-0.5); Absolute Lymphocytes (CBC) 2.5 K/uL (0.7-4.9); Absolute Monocytes 0.4 K/uL (0.1-1.3); Basophils % 0.6 % (0-1.3); Eosinophils % 4.8 % (0-4.4); Hematocrit 43.7 % (39.6-49.0); Hemoglobin 14.7 g/dL (13.6-17.9); MCH 30.9 pg (27.0-35.0); MCHC 33.5 g/dL (32.0-36.0); MCV 92.2 fL (80-100); MPV 8.5 fL (7.6-11.3); Monocytes % 5.4 % (3.3-12.3); Neutrophils % 55.2 % (41.7-73.7); Nucleated Red Blood Cells % 0.2 % (0-0); Platelets 129 thou/uL (152-406); RBC Red Blood Cell Count 4.74 M/uL (4.33-5.43); Red Cell Distribution Width 13.1 % (12.1-15.2)
[2024-02-27 22:31] LABS: Anion Gap 8.5 mEq/L (5.0-15.0); Potassium 3.5 mEq/L (3.5-5.1); Troponin High Sensitivity 3.9 pg/mL (<58.9)
--- NOTE | 2024-02-27 22:36 | RAD REPORT ---
EXAM: Chest Single View HISTORY: CHEST PAIN COMPARISON: 08/12/2023 FINDINGS: LUNGS/PLEURA: The lungs are clear. No pleural effusions or pneumothorax. No pulmonary edema. MEDIASTINUM: The mediastinal silhouette is within normal limits. CARDIAC: The cardiac silhouette is within normal limits. UPPER ABDOMEN: No significant abnormality. BONES: No acute abnormality. LINES/TUBES/OTHER: N/A IMPRESSION: No evidence of acute cardiopulmonary disease.
--- NOTE | 2024-02-28 00:17 | ER ---
Nurse's Notes [facility] Name: Cory Brock Age: 43 yrs Sex: Male : 1980 Arrival Date: 02/27/2024 Time: 21:38 Bed 9 Private MD: Diagnosis: Abdominal tenderness-NON SPECIFIC, NO INGUINAL HERNIA APPRECIATED;Unspecified symptoms and signs involving the musculoskeletal system;Chest pain, unspecified Presentation: 02/26 22:05 Coronavirus screen: Client denies travel out of the [place] in the last 14 days. Ebola cm10 Screen: Patient denies travel to an Ebola-affected area in the 21 days before illness onset. No symptoms or risks identified at this time. Initial Sepsis Screen: Does the patient meet any 2 criteria? No. Patient's initial sepsis screen is negative. Does the patient have a suspected source of infection? No. Patient's initial sepsis screen is negative. Risk Assessment: Do you want to hurt yourself or someone else? Patient reports no desire to harm self or others. Onset of symptoms was February 27, 2024. 22:05 Method Of Arrival: EMS: [facility] cm10 22:05 Acuity: CORY 3 cm10 22:08 Chief complaint: EMS states: Called to patient's home for left sided chest pain that cm10 radiates to abdomen onset today. Pt describes the pain as a sharp burning sensation. Triage Assessment: 22:09 General: Appears in no apparent distress. uncomfortable, Behavior is calm, cooperative. cm10 Neuro: No deficits noted. Level of Consciousness is awake, alert, obeys commands, Oriented to person, place, time, situation, Appropriate for age. Respiratory: No deficits noted. Airway is patent Respiratory effort is even, unlabored, Respiratory pattern is regular, symmetrical. Historical: - Allergies: 22:05 Amoxicillin; cm10 22:05 Aspirin; cm10 22:05 NSAIDS (GI bleeding); cm10 22:05 PENICILLINS; cm10 - PMHx: 22:05 Atrial fibrillation; Back pain; Hypertensive disorder; trauma; Anxiety; cm10 - Immunization history:: Adult Immunizations unknown. - Infectious Disease History:: Denies. Screenin:05 [facility] ED Fall Risk Assessment (Adult) History of falling in the last 3 months, vc1 including since admission No falls in past 3 months (0 pts) Confusion or Disorientation No (0 pts) Intoxicated or Sedated No (0 pts) Impaired Gait No (0 pts) Mobility Assist Device Used No (0 pt) Altered Elimination No (0 pt) Score/Fall Risk Level 0 - 2 = Low Risk Oriented to surroundings, Maintained a safe environment, Educated pt \T\ family on fall prevention, incl call for assistance when getting out of bed. Abuse screen: Denies threats or abuse. Nutritional screening: No deficits noted. Tuberculosis screening: No symptoms or risk factors identified. Vital Signs: 22:08 BP 115 / 80; Pulse 67; Resp 15; Temp 97.7; Pulse Ox 100% on R/A; Weight 79.38 kg; cm10 Height 5 ft. 10 in. ; Pain /10; 02/27 00:27 BP 120 / 82; Pulse 73; Resp 16; Pulse Ox 100% on R/A; rv1 02/26 22:08 Body Mass Index 25.11 (79.38 kg, 177.8 cm) cm10 02/26 22:08 Pain Scale: Adult cm10 ED Course: 02/26 21:40 Patient arrived in ED. jj6 21:49 Ross Sanchez MD is Attending Physician. chioma 22:05 Triage completed. cm10 22:05 Arm band placed on right wrist. Patient placed in waiting room. cm10 22:05 Patient has correct armband on for positive identification. Bed in low position. Call vc1 light in reach. media monitor on. Pulse ox on. NIBP on. 22:05 Provided Education on: anxiety. vc1 22:28 Inserted saline lock: 20 gauge in right antecubital area, using aseptic technique. sa1 Blood collected. Flushed with 10 mL NS. 22:29 Initial lab(s) drawn, by oh, sent to lab. sa1 22:29 EKG done, by ED staff, reviewed by Ross Sanchez MD. sa1 22:34 XRAY Chest (1 view) In Process Unspecified. EDMS 02/27 00:16 J Carlos Malik MD is Referral Physician. chioma 00:16 Kehinde Lackey MD is Referral Physician. [facility] 00:34 No provider procedures requiring assistance completed. IV discontinued, intact, vc1 bleeding controlled, No redness/swelling at site. Pressure dressing applied. Administered Medications: 02/26 22:10 Not Given (Pt allergicc): aspirinchewable tablet 81 mg PO once cm10 Medication: 02/27 00:35 VIS not applicable for this client. vc1 Outcome: 00:17 Discharge ordered by . chioma 00:36 Discharged to home ambulatory, vc1 00:36 Condition: good 00:36 Discharge instructions given to patient, Instructed on discharge instructions, follow up and referral plans. medication usage, Demonstrated understanding of instructions, follow-up care, medications, Prescriptions given X 2, 00:36 Patient left the ED. vc1 Signatures: Dispatcher [employer] EDMS Ross Sanchez MD MD cha Jeffries, Jennifer jj6 Mary Stanton RN RN vc1 Alannah Samuel1 Johanna Malik RN RN cm10 Sultan mateo Pearce
--- NOTE | 2024-02-28 00:18 | EDPHYS ---
Physician Documentation [facility] Name: Cory Brock Age: 43 yrs Sex: Male : 1980 Arrival Date: 02/27/2024 Time: 21:38 Bed 9 Private MD: ED Physician Ross Sanchez HPI: 02/27 00:10 This 43 yrs old Male presents to ER via EMS with complaints of Chest Pain, chioma Anxiety. 00:10 The patient or guardian reports chest pain that is located primarily in the anterior chioma chest wall, bilaterally. Onset: today. The pain does not radiate. Associated signs and symptoms: The patient has no apparent associated signs or symptoms. The chest pain is described as aching. Historical: - Allergies: 02/26 22:05 Amoxicillin; cm10 22:05 Aspirin; cm10 22:05 NSAIDS (GI bleeding); cm10 22:05 PENICILLINS; cm10 - PMHx: 22:05 Atrial fibrillation; Back pain; Hypertensive disorder; trauma; Anxiety; cm10 - Immunization history:: Adult Immunizations unknown. - Infectious Disease History:: Denies. ROS: 02/27 00:10 Constitutional: Negative for fever, chills, and weight loss, Eyes: Negative for injury, chioma pain, redness, and discharge, ENT: Negative for injury, pain, and discharge, Neck: Negative for injury, pain, and swelling, Cardiovascular: Negative for chest pain, palpitations, and edema, Respiratory: Negative for shortness of breath, cough, wheezing, and pleuritic chest pain, Back: Negative for injury and pain, : Negative for injury, bleeding, discharge, and swelling, MS/Extremity: Negative for injury and deformity, Skin: Negative for injury, rash, and discoloration, Neuro: Negative for headache, weakness, numbness, tingling, and seizure, Psych: Negative for depression, anxiety, suicide ideation, homicidal ideation, and hallucinations, Allergy/Immunology: Negative for hives, rash, and allergies, Endocrine: Negative for neck swelling, polydipsia, polyuria, polyphagia, and marked weight changes, Hematologic/Lymphatic: Negative for swollen nodes, abnormal bleeding, and unusual bruising, Abdomen/GI: Positive for abdominal pain, of the right lower quadrant, Exam: 00:10 Constitutional: This is a well developed, well nourished patient who is awake, alert, chioma and in no acute distress. Head/Face: Normocephalic, atraumatic. Eyes: Pupils equal round and reactive to light, extra-ocular motions intact. Lids and lashes normal. Conjunctiva and sclera are non-icteric and not injected. Cornea within normal limits. Periorbital areas with no swelling, redness, or edema. ENT: Nares patent. No nasal discharge, no septal abnormalities noted. Tympanic membranes are normal and external auditory canals are clear. Oropharynx with no redness, swelling, or masses, exudates, or evidence of obstruction, uvula midline. Mucous membranes moist. Neck: Trachea midline, no thyromegaly or masses palpated, and no cervical lymphadenopathy. Supple, full range of motion without nuchal rigidity, or vertebral point tenderness. No Meningismus. Chest/axilla: Normal chest wall appearance and motion. Nontender with no deformity. No lesions are appreciated. Cardiovascular: Regular rate and rhythm with a normal S1 and S2. No gallops, murmurs, or rubs. Normal PMI, no JVD. No pulse deficits. Respiratory: Lungs have equal breath sounds bilaterally, clear to auscultation and percussion. No rales, rhonchi or wheezes noted. No increased work of breathing, no retractions or nasal flaring. Back: No spinal tenderness. No costovertebral tenderness. Full range of motion. Male : Normal genitalia with no discharge or lesions. Skin: Warm, dry with normal turgor. Normal color with no rashes, no lesions, and no evidence of cellulitis. MS/ Extremity: Pulses equal, no cyanosis. Neurovascular intact. Full, normal range of motion., bilateral aka Neuro: Awake and alert, GCS 15, oriented to person, place, time, and situation. Cranial nerves II-XII grossly intact. Motor strength 5/5 in all extremities. Sensory grossly intact. Cerebellar exam normal. Normal gait. Psych: Awake, alert, with orientation to person, place and time. Behavior, mood, and affect are within normal limits. 00:10 ECG was reviewed by the Attending Physician. 00:10 Abdomen/GI: Inspection: abdomen appears normal, Bowel sounds: normal, Palpation: abdomen is soft and non-tender, Liver: no appreciated palpable abnormalities, Hernia: not appreciated, Vital Signs: 02/26 22:08 BP 115 / 80; Pulse 67; Resp 15; Temp 97.7; Pulse Ox 100% on R/A; Weight 79.38 kg; cm10 Height 5 ft. 10 in. ; Pain 4/10; 02/27 00:27 BP 120 / 82; Pulse 73; Resp 16; Pulse Ox 100% on R/A; rv1 02/26 22:08 Body Mass Index 25.11 (79.38 kg, 177.8 cm) cm10 02/26 22:08 Pain Scale: Adult cm10 MDM: 02/26 21:49 Medical Screening Exam initiated chioma 02/27 00:13 Differential diagnosis: abnormal EKG, acute myocardial infarction, anxiety, chest wall chioma pain, congestive heart failure nonspecific abdominal pain, appendicitis, prostatitis, urethritis, peptic ulcer disease, pneumonia, pneumothorax, pulmonary embolus, stable angina, unstable angina, diverticulitis, gastritis, myocardia ischemia or infarction, non-specific abd pain, Testicular Torsion, Ureterolithiasis, urinary tract infection. HEART Score: History: Slightly Suspicious (0), ECG: Normal (0), Age: < or = 45 years (0), Risk Factors: 1 or 2 risk factors (1), [Hypertension] [+ Family HX] Troponin: < or = 1 x Normal Limit (0), Total Score = 1. The patient was not given aspirin in the Emergency Department. Not indicated due to patient's past medical history. TARA Risk Score: TOTAL SCORE = 0. Data reviewed: vital signs, nurses notes, lab test result(s), EKG, radiologic studies, plain films. Consideration of Admission/Observation Escalation of care including admission/observation considered. I considered the following discharge prescriptions or medication management in the emergency department Medications were administered in the Emergency Department. See MAR. Independent interpretation of the following test(s) in the Emergency Department EKG: See my EKG interpretation above. Test considered but Not performed: CT: NO CT AB/PEL. Care significantly affected by the following chronic conditions: Hypertension. Counseling: I had a detailed discussion with the patient and/or guardian regarding the historical points, exam findings, and any diagnostic results supporting the discharge/admit diagnosis, lab results, radiology results, the need for outpatient follow up, for definitive care, a stripper latex, a family practitioner, a general surgeon. 02/26 21:47 Order name: Basic Metabolic Panel; Complete Time: 22:59 vc1 02/26 21:47 Order name: CBC with Diff; Complete Time: 22:59 vc1 02/26 21:47 Order name: Troponin HS; Complete Time: 22:59 vc1 02/26 21:47 Order name: XRAY Chest (1 view); Complete Time: 22:59 vc1 02/26 21:47 Order name: EKG; Complete Time: 21:48 vc1 02/26 21:47 Order name: Cardiac monitoring; Complete Time: 23:24 vc1 02/26 21:47 Order name: EKG - Nurse/Tech; Complete Time: 23:24 vc1 02/26 21:47 Order name: IV Saline Lock; Complete Time: 23:25 vc1 02/26 21:47 Order name: Labs collected and sent; Complete Time: 23:25 vc1 02/26 21:47 Order name: O2 Per Protocol; Complete Time: 23:25 vc1 02/26 21:47 Order name: O2 Sat Monitoring; Complete Time: 23:25 vc1 EC:10 Rate is 61 beats/min. Rhythm is regular. QRS Electra is Normal. HI interval is normal. QRS chioma interval is normal. QT interval is normal. No Q waves. T waves are Normal. No ST changes noted. Clinical impression: Normal ECG and No evidence of ischemia. Interpreted by me. Reviewed by me. Administered Medications: 02/26 22:10 Not Given (Pt allergicc): aspirinchewable tablet 81 mg PO once cm10 Disposition Summary: 02/28/24 00:17 Discharge Ordered Notes: Location: Home chioma Problem: new chioma Symptoms: have improved chioma Condition: Stable chioma Diagnosis - Abdominal tenderness - NON SPECIFIC, NO INGUINAL HERNIA APPRECIATED chioma - Unspecified symptoms and signs involving the musculoskeletal system chioma - Chest pain, unspecified chioma Followup: chioma - With: Private Physician - When: 2 - 3 days - Reason: Recheck today's complaints, Continuance of care, Re-evaluation by your physician Followup: chioma - With: J Carlos Malik MD - When: 2 - 3 days - Reason: Recheck today's complaints, Re-evaluation by your physician Followup: chioma - With: Kehinde Lackey MD - When: 2 - 3 days - Reason: Recheck today's complaints, Re-evaluation by your physician Discharge Instructions: - Discharge Summary Sheet chioma - Abdominal Pain, Adult chioma - Nonspecific Chest Pain, Adult chioma - Chest Wall Pain, [id number] chioma - Nonspecific Chest Pain, Adult, [id number] [facility] Forms: - Medication Reconciliation Form chioma - Antibiotic Education chioma - Prescription Opioid Use chioma - Patient Portal Instructions [facility] - Leadership Thank You Letter [facility] Prescriptions: - Hydroxyzine HCl 25 mg Oral tablet - take 1 tablet ORAL route every 6 hours As needed; 24 tablet; Refills: 0, [facility] Product Selection Permitted - dicyclomine 20 mg Oral tablet - take 2 tablets ORAL route 4 times per day; 28 tablet; Refills: 0, Product [facility] Selection Permitted Signatures: Dispatcher [employer] Ross Jones MD MD cha Calcote, Vanessa RN RN vc1 Johanna Malik RN RN cm10
[2024-02-28 08:15] VITALS: O2SAT 100
[2024-02-28 08:17] VITALS: BP 115/80; TEMP 97.7
--- NOTE | 2024-03-01 12:10 | EKG ---
Test Date: 2024-02-27 Test Time: 21:53:22 Valve Lapper: MEASUREMENT RESULTS: Intervals: Rate: 61 IA: 164 QRSD: 98 QT: 392 QTc: 394 Yoder: P: 38 IA: 164 QRS: 50 T: 61 INTERPRETIVE STATEMENTS: Normal sinus rhythm Normal ECG Compared to ECG 09/08/2023 00:12:22 Sinus bradycardia no longer present Electronically Signed On 03-01-24 12:10:04 MOLD PARTER by Eliel Anton
== END 2024-02-28 00:36 | disposition home or self-care (01) ==
LOC: ER 21:38
DX: R10.813 Right lower quadrant abdominal tenderness (principal); R29.91 Unspecified symptoms and signs involving the musculoskeletal system; R07.89 Other chest pain; I10 Essential (primary) hypertension
CPT/HCPCS: 36415; 71045; 80048; 84484; 85025; 93005; 99284

== ENCOUNTER 2024-07-14 10:06 | Emergency (ER) | payer OTHER ==
--- OUTSIDE RECORDS SUMMARY | 2024-07-14 10:09 | XMS REPORT | Continuity of Care Document ---
Author Name Unknown Address [address] [place] [address] [facility] Address [address] [place] [address] Care Team Providers Care Pelt Dropper Name Role Phone Pcp, Patient Does Not Have A Primary Care Physic sarahy Uli Forte Attending Clinician Unavailable Martha Vicente Attending Clinician Unavailable Angela VERA Attending Clinician Unavailable FRAN STEIN Attending Clinician Unavailable [id number] Attending Clinician Unavailable CECILIO MARTINEZ Attending Clinician Unavailab inessa HOUGH MD Attending Clinician Unavailab DAVEY Garces Attending Clinician Unavailable LATRICE CINTRON Attending Clinician Unavailable MADISYN CHRISTIAN Attending Clinician Unavailable Madisyn Christian MD Attending Clinician [phone] Doctor Unassigned, [place] Attending Clinician BENJY Jolly Attending Clinician Unavailable JULITA Attending Clinician Unavailable JULITA Admitting Clinician Unavailable Payers Payer Name Policy Type Policy Number Effective Date Expirati on Date Source [facility]IN LEON COPAY FOCUS 9 [id number] 2024 00:00:00 MEDICAID PENDING PENDING 2018 00:00:00 [facility] 53 [id number] [facility] Problems Condition Name Condition Details Condition Category Status Onset Date Resolution Date Last Treatment Date Treating Clinician Comments Source Anxiety Anxiety Disease Active 05-09 00:00: 00 Shantel Su - Externa [place] Seasonal allergies Seasonal allergies Disease Active 05-09 00:00: 00 Shantel Bhatt [place] Abnormal colonoscop y Abnormal colonoscop y Disease Active 05-09 00:00: 00 Shantel Su - Externa [place] Non-recurr ent unilateral inguinal hernia without obstructio n or gangrene Non-recurr ent unilateral inguinal hernia without obstructio n or gangrene Disease Active 05-09 00:00: 00 Shantel Su - Externa [place] Weight loss Weight loss Disease Active 05-09 00:00: 00 Shantel Su - Externa [place] Diverticul osis Diverticul osis Disease Active 2023-02 0- 00:00: 00 Shantel Su - Externa [place] Primary hypertensi on Primary hypertensi on Disease Active 4 00:00: 00 Shantel Su - Externa [place] Mixed dyslipidem ia Mixed dyslipidem ia Disease Active 2015-02 00:00: 00 [facility] Chronic back pain Chronic back pain Disease Active 2015-02 00:00: 00 [facility] Obesity (BMI 30-39.9) Obesity (BMI 30-39.9) Disease Active 2015-02 00:00: 00 [facility] Tobacco use Tobacco use Disease Active 2015-02 00:00: 00 [facility] [id number] Panic attacks Problem [facility] Screening for cardiovasc ular system disease Screening for cardiovasc ular condition Problem [facility] [id number] Chest pain, unspecifie d type Problem [facility] [id number] Gastroesop hageal reflux disease, unspecifie d whether esophagiti s present Problem [facility] [id number] Primary hypertensi on Problem [facility] Gastro-eso phageal reflux disease without esophagiti s Gastro-eso phageal reflux disease without esophagiti s Problem [facility] [id number] DDD (degenerat delfina disc disease), thoracolum bar Problem [facility] Hypertensi on HTN (hypertens ion) Problem [facility] [id number] Temporary low platelet count Problem [facility] Somnolence Somnolence , daytime Problem [facility] Chronic fatigue syndrome Chronic fatigue Problem [facility] [id number] Difficulty sleeping Problem [facility] Allergies, Adverse Reactions, Alerts Allergy Name Allergy Type Status Severity Reaction(s) Onset Date Inactive Date Treating Clinician Comments Source Nsaids Propensi ty to adverse reaction s Active Other 03-13 00:00: 00 Shantel Baxtera [place] Penicill ins Propensi ty to adverse reaction s Active Other 03-13 00:00: 00 Shantel Baxtera l NSAIDS (NON-TONO ROIDAL ANTI-INF LAMMATOR Y DRUG) Drug Class Active SOB 08-01 00:00: 00 [facility] Nsaids (Non-Tono roidal Anti-Inf lammator y Drug) Propensi ty to adverse reaction s Active Shortness of Breath 08-01 00:00: 00 [facility] Ibuprofe n Propensi ty to adverse reaction s Active Swelling 2014-02 00:00: 00 [facility] IBUPROFE N DRUG INGREDI Active Swelling 2014-02 00:00: 00 [facility] PENICILL IN DRUG INGREDI Active High ITCHING 11-13 00:00: 00 [facility] Penicill in Propensi ty to adverse reaction s Active Itching 11-13 00:00: 00 [facility] Calcium Acetylsa licylate Propensi ty to adverse reaction s Active Anaphylaxis 10-04 00:00: 00 Shantel Bhatt Extern[place] Aspirin Propensi ty to adverse reaction s Active Swelling 10-04 00:00: 00 [facility] ASPIRIN DRUG INGREDI Active Swelling 10-04 00:00: 00 [facility] [id number] Drug allergy Active anaphylaxis [facility] Non-ster oidal anti-inf lammator y agent (FN) Non-ster oidal anti-inf lammator y agent (FN) Active Unknown [facility] Social History Social Habit Start Date Stop Date Quantity Comments Source Sexual orientation Felicia Su - External History of tobacco use Cigarette Smoker Shantel gomez - External Alcoholic beverage intake 2024-05-09 00:00:00 2024-05-09 00:00:00 Ex-drinker (finding) Shantel Su - External Tobacco use and exposure 2024-05-09 00:00:00 2024-05-09 00:00:00 Smokeless tobacco non-user Shantel Su - External History of Social function 2023-05-30 00:00:00 2023-05-30 00:00:00 Shantel Su - External Alcohol intake 2023-05-30 00:00:00 2023-05-30 00:00:00 Ex-drinker (finding) Shantel Su - External Sex 2023-04-23 09:47:19 2023-04-23 09:47:19 Male (finding) Shantel Su - External Sex assigned at 1980 00:00:00 1980 00:00:00 Shantel Su - External Smoking Status Start Date Stop Date Source Ex-smoker 2024-05-09 00:00:00 2024-05-09 00:00:00 Felicia Su - External Never Smoker [facility] Smokes tobacco daily 2015-12-05 00:00:00 [facility] Medications Ordered Medication Name Filled Medication Name Start Date Stop Date Current Medication? Ordering Clinician Indication Dosage Frequency Signature (SIG) Comments Components Source Pantoprazol e Sodium 40 MG oral Tablet Delayed Response 05-09 13:58: 13 05-09 00:00 :00 No 40mg 1 tablet (40 mg total) every 24 hours. Shantel farris cloNIDine 0.1 MG/24HR transdermal PATCH WEEKLY 05-09 13:48: 01 05-09 00:00 :00 No 1{patch } Q1W Place 1 patch onto the skin once a week. Shantel farris hydroCHLORO thiazide 12.5 MG oral Capsule 05-09 13:46: 33 05-09 00:00 :00 No 12.5mg QD Take 1 capsule (12.5 mg total) by mouth daily. Shantel farris Carvedilol 3.125 MG oral Tablet 05-09 00:00: 00 Yes [id number] 3.125mg Take 1 tablet (3.125 mg total) by mouth in the morning and 1 tablet (3.125 mg total) in the evening. Take with meals. Shantel farris Albuterol HFA (VENTOLIN HFA) 108 (90 Base) MCG/ACT IN AERS 05-09 00:00: 00 Yes [id number] 1{puff} Q.25D Inhale 1 puff into the lungs every 6 hours as needed for wheezing. Shantel farris Amlodipine Besylate (NORVASC) 5 MG oral Tablet 05-09 00:00: 00 11-06 04:59 :00 Yes [id number] 5mg Q.5D Take 1 tablet (5 mg total) by mouth 2 times daily. Shantel farris Carvedilol 3.125 MG oral Tablet 05-02 00:00: 00 05-09 00:00 :00 No [id number] 3.125mg Take 1 tablet (3.125 mg total) by mouth in the morning and 1 tablet (3.125 mg total) in the evening. Take with meals. Shantel farris Amlodipine Besylate (NORVASC) 5 MG oral Tablet 05-02 00:00: 00 05-09 00:00 :00 No [id number] 5mg Q.5D Take 1 tablet (5 mg total) by mouth 2 times daily. Shantel farris hydrOXYzine HCl 25 MG oral Tablet 2-04 00:00: 00 05-09 00:00 :00 No 25mg Q.25D Take 1 tablet (25 mg total) by mouth every 6 hours as needed. Shantel farris HYDROcodone -Acetaminop hen 7.5-325 MG oral Tablet 1-27 00:00: 00 05-09 00:00 :00 No Shantel farris Ciprofloxac in HCl (CIPRO) 500 MG oral Tablet 2023-02 0- 00:00: 00 Yes Shantel farris Dicyclomine HCl 20 MG oral Tablet 2023-02 0- 00:00: 00 Yes Shantel farris Ondansetron HCl 4 MG oral Tablet 2023-02 0- 00:00: 00 Yes Shantel farris Cyclobenzap rine HCl 10 MG oral Tablet 9-06 00:00: 00 Yes 10mg Q.[id number] 3D Take 1 tablet (10 mg total) by mouth 3 times daily as needed. Shantel farris Doxepin HCl 10 MG oral Capsule 9-06 00:00: 00 Yes 10mg Take 1 capsule (10 mg total) by mouth at bedtime. Shantel farris Doxepin HCl 10 MG oral Capsule 9-06 00:00: 00 05-09 00:00 :00 No 1{capsu le} Take 1 capsule (10 mg total) by mouth at bedtime. Shantel farris Gabapentin 300 MG oral Capsule 8-14 00:00: 00 05-09 00:00 :00 No 300mg Q.[id number] 3D Take 1 capsule (300 mg total) by mouth 3 times daily. Shantel farris diazePAM 5 MG oral Tablet 7-11 00:00: 00 Yes 5mg QD Take 1 tablet (5 mg total) by mouth daily as needed for anxiety. Shantel farris Amlodipine Besylate (NORVASC) 5 MG oral Tablet 07-07 00:00: 00 Yes [id number] 5mg Q.5D Take 1 tablet (5 mg total) by mouth 2 times daily. Shantel farris Carvedilol 3.125 MG oral Tablet 07-07 00:00: 00 Yes [id number] 3.125mg Take 1 tablet (3.125 mg total) by mouth in the morning and 1 tablet (3.125 mg total) in the evening. Take with meals. Shantel farris Pantoprazol e Sodium 40 MG oral Tablet Delayed Response 05-29 11:16: 35 Yes 40mg 1 tablet (40 mg total) every 24 hours. Shantel farris Duloxetine HCl [address] Particles 05-29 00:00: 00 Yes [id number] 20mg QD Take 1 capsule (20 mg [...] 10-325 MG oral Tablet 10-18 00:00: 00 05-09 00:00 :00 No Shantel farris Amlodipine Besylate (NORVASC) 5 MG oral Tablet 09-27 00:00: 00 Yes Shantel farris Ventolin HFA 108 (90 Base) MCG/ACT inhalation Aerosol Solution 09-27 00:00: 00 05-09 00:00 :00 No Shantel farris Carvedilol 6.25 MG Carvedilol 6.25 [...] 10 mg tablet 05-23 00:00: 00 Yes [id number] 10mg Take 1 tablet by mouth 3 (three) times daily as needed for Muscle Spasms. [facility] acetaminoph en-codeine (TYLENOL-CO DEINE #3) 300-30 mg tablet 05-23 00:00: 00 Yes [id number] 1{tbl} Take 1 tablet by mouth every 8 (eight) hours as needed for Pain (scale 4-6). [facility] methocarbam ol (ROBAXIN-75 0) 750 mg tablet 11-11 00:00: 00 Yes 750mg Take 1 tablet by mouth 4 (four) times daily. [facility] acetaminoph en-codeine (TYLENOL-CO DEINE #3) 300-30 mg tablet 11-02 00:00: 00 Yes 1{tbl} Take 1 tablet by mouth every 6 (six) hours as needed for Pain (scale 7-10). [facility] cyclobenzap rine 5 mg tablet 11-02 00:00: 00 Yes 5mg Take 1 tablet by mouth 3 (three) times daily. [facility] lisinopril 10 mg tablet 07-13 00:00: 00 Yes 10mg Take 1 tablet by mouth at bedtime. [facility] TYLENOL-COD EINE #3 300-30 mg tablet 06-30 00:00: 00 Yes 2{tbl} Take 2 tablets by mouth every 4 (four) hours as needed for Pain (scale 1-3) or Pain (scale 4-6). [facility] acetaminoph en-codeine 300-30 mg tablet 06-09 00:00: 00 Yes 1{tbl} Take 1 tablet by mouth every 4 (four) hours as needed (pain). [facility] cyclobenzap rine 5 mg tablet 06-01 00:00: 00 Yes 5mg Take 1 tablet by mouth 2 (two) times daily as needed for Muscle Spasms for up to 15 doses. [facility] ACETAMINOPH EN WITH CODEINE (TYLENOL-CO DEINE #3 ORAL) 2015-02 11:39: 00 Yes Take by mouth as needed for Pain (scale 1-3). [facility] lisinopril (PRINIVIL,Z ESTRIL) 10 mg tablet 2015-02 00:00: 00 Yes [id number] 10mg Take 1 tablet by mouth daily. [facility] traMADOL (ULTRAM) 50 mg tablet 2015-02 00:00: 00 Yes [id number] 50mg Take 1 tablet by mouth 3 (three) times daily as needed for Pain unrelieved by non-narcot ic analgesics . [facility] amLODIPine Besylate 2.5 MG amLODIPine [...] Value Comments S ource Systolic blood pressure 2024-05-09 18:20:00 118 mm[Hg] Shantel meza - External Diastolic blood pressure 2024-05-09 18:20:00 78 mm[Hg] Shantel meza - External Heart rate 2024-05-09 18:20:00 72 /min Kelse y Seybold - External Body temperature 2024-05-09 18:20:00 36.61 Kathie Shantel Seybold - External Respiratory rate 2024-05-09 18:20:00 20 /min Shantel Seybold - External Body height 2024-05-09 18:20:00 177.8 cm Cayla ey Seybold - External Body weight 2024-05-09 18:20:00 68.493 kg Cayla ey Seybold - External BMI 2024-05-09 18:20:00 21.67 kg/m2 Cayla ey Seybold - External Oxygen saturation in Arterial blood by Pulse oximetry 2024-05-09 18:20:00 98 /min Shantel Seybo ld - External Systolic blood pressure 2023-05-30 16:10:00 116 mm[Hg] Shantel Seybo ld - External Diastolic blood pressure 2023-05-30 16:10:00 82 mm[Hg] Shantel Seybo ld - External Heart rate 2023-05-30 16:10:00 70 /min Lanse y Seybold - External Body temperature 2023-05-30 16:10:00 36.39 Kathie Shantel Seybold - External Respiratory rate 2023-05-30 16:10:00 18 /min Shantel Seybold - External Body height 2023-05-30 16:10:00 177.8 cm Cayla ey Seybold - External Body weight 2023-05-30 16:10:00 97.07 kg Cayla ey Seybold - External BMI 2023-05-30 16:10:00 30.71 kg/m2 Cayla ey Seybold - External Oxygen saturation in Arterial blood by Pulse oximetry 2023-05-30 16:10:00 98 /min Shantel Osborneybo ld - External Systolic blood pressure 2023-03-17 04:15:00 114 mm[Hg] [facility] Diastolic blood pressure 2023-03-17 04:15:00 73 mm[Hg] [facility] Heart rate 2023-03-17 04:15:00 66 /min [facility] Body temperature 2023-03-17 04:15:00 36.72 Kathie [facility] Respiratory rate 2023-03-17 04:15:00 16 /min [facility] Oxygen saturation in Arterial blood by Pulse oximetry 2023-03-17 04:15:00 98 /min [facility] Body height 2023-03-17 02:34:00 177.8 cm [facility] Body weight 2023-03-17 02:34:00 98.158 kg [facility] BMI 2023-03-17 02:34:00 31.05 kg/m2 [facility] height 2022-09-27 09:20:00 69.5 [in_i] Comm on [facility] weight 2022-09-27 09:20:00 231.4 [lb_av] Co mmon [facility] temperature 2022-09-27 09:20:00 98.0 [degF] Com [facility] bmi 2022-09-27 09:20:00 33.68 kg/m2 [facility] oximetry 2022-09-27 09:20:00 98 % Commo n [facility] respiratory rate 2022-09-27 09:20:00 18 /min [facility] blood pressure systolic 2022-09-27 09:20:00 124 mm[Hg] [facility] blood pressure diastolic 2022-09-27 09:20:00 81 mm[Hg] [facility] height 2022-03-29 13:30:00 69.5 [in_i] Comm on [facility] weight 2022-03-29 13:30:00 240 [lb_av] [facility] on [facility] temperature 2022-03-29 13:30:00 98.1 [degF] Com mon [facility] bmi 2022-03-29 13:30:00 34.93 kg/m2 [facility] oximetry 2022-03-29 13:30:00 97 % [facility] respiratory rate 2022-03-29 13:30:00 18 /min [facility] blood pressure systolic 2022-03-29 13:30:00 124 mm[Hg] [facility] blood pressure diastolic 2022-03-29 13:30:00 74 mm[Hg] [facility] height 2022-02-17 10:20:00 69.5 [in_i] Comm on [facility] weight 2022-02-17 10:20:00 240 [lb_av] [facility] on [facility] temperature 2022-02-17 10:20:00 98 [degF] [facility] on [facility] bmi 2022-02-17 10:20:00 34.93 kg/m2 Comm on [facility] height 2021-12-22 10:20:00 69.50 [in_i] Com [facility] weight 2021-12-22 10:20:00 233.4 [lb_av] Co [facility] temperature 2021-12-22 10:20:00 97.6 [degF] Com [facility] bmi 2021-12-22 10:20:00 33.97 kg/m2 Comm on [facility] oximetry 2021-12-22 10:20:00 96 % [facility] respiratory rate 2021-12-22 10:20:00 16 /min [facility] blood pressure systolic 2021-12-22 10:20:00 130 mm[Hg] [facility] blood pressure diastolic 2021-12-22 10:20:00 82 mm[Hg] [facility] height 2021-11-19 14:00:00 69.50 [in_i] Com [facility] weight 2021-11-19 14:00:00 233.4 [lb_av] Co [facility] temperature 2021-11-19 14:00:00 97.6 [degF] Com [facility] bmi 2021-11-19 14:00:00 33.97 kg/m2 Comm on [facility] oximetry 2021-11-19 14:00:00 97 % [facility] respiratory rate 2021-11-19 14:00:00 16 /min [facility] blood pressure systolic 2021-11-19 14:00:00 133 mm[Hg] [facility] blood pressure diastolic 2021-11-19 14:00:00 74 mm[Hg] Common [facility] height 2021-11-13 13:20:00 69.50 [in_i] Com [facility] weight 2021-11-13 13:20:00 230 [lb_av] Comm on [facility] temperature 2021-11-13 13:20:00 97.3 [degF] Com [facility] bmi 2021-11-13 13:20:00 33.47 kg/m2 Comm on [facility] height 2021-10-08 09:40:00 69.50 [in_i] Com [facility] weight 2021-10-08 09:40:00 236.4 [lb_av] [facility] temperature 2021-10-08 09:40:00 97.3 [degF] Com [facility] bmi 2021-10-08 09:40:00 34.41 kg/m2 Comm [facility] oximetry 2021-10-08 09:40:00 97 % [facility] respiratory rate 2021-10-08 09:40:00 16 /min [facility] blood pressure systolic 2021-10-08 09:40:00 130 mm[Hg] Common [facility] blood pressure diastolic 2021-10-08 09:40:00 78 mm[Hg] Common [facility] height 2021-09-17 15:20:00 69.50 [in_i] Com mon [facility] weight 2021-09-17 15:20:00 235.4 [lb_av] [facility] temperature 2021-09-17 15:20:00 98.0 [degF] Com mon [facility] bmi 2021-09-17 15:20:00 34.26 kg/m2 Comm [facility] oximetry 2021-09-17 15:20:00 99 % Com[facility] respiratory rate 2021-09-17 15:20:00 16 /min [facility] blood pressure systolic 2021-09-17 15:20:00 135 mm[Hg] [facility] blood pressure diastolic 2021-09-17 15:20:00 89 mm[Hg] [facility] Procedures Procedure Date / Time Performed Performing Clinicia n Source ASSIGNMENT OF BENEFITS 2023-03-17 04:14:02 Docto r Unassigned, [place] [facility] NOTICE OF PRIVACY PRACTICES 2023-03-17 02:18:00 Doctor Unassigned, [place] [facility] CONSENT/REFUSAL FOR DIAGNOSIS AND TREATMENT 2023-03-17 02:16:52 Doctor Unassigned, [place] [facility] REFERRAL- REQUEST/RESPONSE 2023-01-17 06:01:00 Doctor Unassigned, [place] [facility] REFERRAL- REQUEST/RESPONSE 2022-12-28 05:01:00 Doctor Unassigned, [place] [facility] EXTERNAL PROVIDER - ADC REFERRAL 2021-12-23 05:01:00 Doctor Unassigned, [place] [facility] Encounters Start Date/Time End Date/Time Encounter Type Admission Type Attending Clinicians Care Facility Care Department Encounter ID Source 2022-12-29 08:28:01 Outpatient ForteUli [facility] [id number] [facility] 2022-12-27 08:48:00 Outpatient Martha Vicente [facility] [id number] [facility] 2022-09-01 15:25:00 Outpatient VicenteMartha [facility] [id number] [facility] 2022-08-05 14:07:02 Outpatient VicenteMatneadonis [facility] [id number] [facility] 2022-07-29 09:40:01 Outpatient Vicente Avnee [facility] [id number] [facility] 2022-06-15 14:06:03 Outpatient VicenteMartha [facility]C [facility] [id number] [facility] 2022-03-29 13:15:02 Outpatient VERA, Na STLMLC ST[facility] [id number] [facility] 2022-02-16 11:56:00 Outpatient Vera, Na STLMLC ST[facility] [id number] [facility] 2022-02-09 08:58:01 Outpatient Vera, Na STLMLC ST[facility] [id number] [facility] 2022-01-04 12:02:01 Outpatient Vera, Na STLMLC [facility] [id number] [facility] 2021-12-31 12:07:01 Outpatient Vera, Na ST[facility]MLC [facility] [id number] [facility] 2021-12-18 10:58:02 Outpatient Vera, Na STLMLC ST[facility] [id number] [facility] 2021-12-10 10:17:04 Outpatient Vera, Na STLMLC [facility] [id number] [facility] 2021-11-13 13:16:02 Outpatient Vera, Na STLMLC ST[facility] [id number] [facility] 2021-11-12 08:37:03 Outpatient Vera, Na STLMLC [facility] [id number] [facility] 2021-11-05 13:52:02 Outpatient Vera, Na STHILC [facility] [id number] [facility] 2021-10-06 13:42:03 Outpatient Agnela Vera STHILC [facility] [id number] [facility] 2021-09-21 14:29:01 Outpatient Angela Vera STHILC [facility] [id number] [facility] 2021-09-17 15:47:03 Outpatient Angela Vera STCHARLIE [facility] [id number] [facility] 2024-05-16 10:00:00 2024-05-16 10:00:00 Outpatient FRAN STEIN [id number] [facility] 2024-05-09 14:30:00 2024-05-09 14:30:00 Outpatient [id number] SHANTEL [place] [id number] [facility] 2024-05-09 14:00:00 2024-05-09 14:00:00 Outpatient CECILIO MARTINEZ [id number] Shantel [facility] 2024-05-09 13:30:00 2024-05-09 13:30:00 Outpatient STEINFRAN [id number] [facility] 2024-05-09 00:00:00 2024-05-09 00:00:00 Outpatient SHANTEL [place] [id number] Shantel [facility] 2024-05-09 00:00:00 2024-05-09 00:00:00 Outpatient SHANTEL [place] [id number] Shantel [facility] 2024-05-07 00:00:00 2024-05-07 00:00:00 Outpatient MD SHANTEL BUSH [id number] Shantel [facility] 2024-05-01 00:00:00 2024-05-01 00:00:00 Outpatient CECILIO MARTINEZ [id number] Shantel [facility] 2024-04-26 15:00:00 2024-04-26 15:00:00 Outpatient DAVEY ALEXANDRE SHANTEL [place] [id number] [facility] 2024-03-30 00:00:00 2024-03-30 00:00:00 Outpatient MD SHANTEL BUSH [id number] [facility] 2024-03-27 11:00:00 2024-03-27 11:00:00 Outpatient BETTIE DAVEY [place] [id number] [facility] 2024-03-19 00:00:00 2024-03-19 00:00:00 Outpatient CECILIO MARTINEZ SHANTEL [place] [id number] [facility] 2024-01-23 13:00:00 2024-01-23 13:00:00 Outpatient BETTIE DAVEY SHANTEL [facility] [id number] [facility] 2024-01-21 16:40:00 2024-01-21 16:40:00 Outpatient SAIDA LATRICEKae [place] [id number] [facility] 2023-12-02 00:00:00 2023-12-02 00:00:00 Outpatient BETTIE DAVEY SHANTEL [place] [id number] [facility] 2023-12-01 15:30:00 2023-12-01 15:30:00 Outpatient DAVEY ALEXANDRE SHANTEL [place] [id number] [facility] 2023-11-28 00:00:00 2023-11-28 00:00:00 Outpatient JUANCECILIO [id number] Shantel Seybold 2023-08-16 14:00:00 2023-08-16 14:00:00 Outpatient JUANCECILIO [id number] Shantel Seybold 2023-07-27 15:00:00 2023-07-27 15:00:00 Outpatient CECILIO MARTINEZ [id number] Shantel Seybold 2023-07-08 00:00:00 2023-07-08 00:00:00 Outpatient CECILIO MARTINEZ [id number] Shantel Seybold 2023-06-29 10:00:00 2023-06-29 10:00:00 Outpatient CECLIIO MARTINEZ [id number] Shantel [facility] 2023-05-30 11:30:00 2023-05-30 11:30:00 Outpatient CECILIO MARTINEZ [id number] Shant[facility] 2023-05-30 00:00:00 2023-05-30 00:00:00 Outpatient CECILIO MARTINEZ [id number] Shantel [facility] 2023-05-30 00:00:00 2023-05-30 00:00:00 Outpatient CECILIO MARTINEZ [id number] Shantel [facility] 2023-05-30 00:00:00 2023-05-30 00:00:00 Outpatient CECILIO MARTINEZ [id number] Shantel [facility] 2023-04-22 11:32:13 2023-04-22 11:32:13 Outpatient [facility] [id number] Yanick Miles 2023-03-16 20:38:00 2023-03-16 22:27:00 Emergency X CATHY CHRISTIANRICHARD [facility] ERT [id number] [facility] 2023-03-16 20:38:00 2023-03-16 22:27:00 Emergency Reynaldo Christianchristopher [facility] [id number] [id number] [id number] [facility] 2023-03-16 00:00:00 2023-03-16 00:00:00 Orders Only Doctor Unassigned, [place] [facility] [id number] 350.1.13.10 [id number] [id number] [facility] 2023-01-17 11:20:32 2023-01-17 11:20:32 Outpatient [facility] [id number] Yanick Miles 2023-01-17 00:00:00 2023-01-17 00:00:00 Orders Only Doctor Unassigned, [place] [facility] [id number] 350.1.13.10 4.2.7.2.686 [id number] [facility] 2023-01-05 15:40:00 2023-01-05 15:40:00 Outpatient BENJY YEPEZ [facility] [id number] [facility] 2023-01-03 14:11:35 2023-01-03 14:11:35 Outpatient SFA [facility] [id number] Yanick Miles 2022-12-30 00:00:00 2022-12-30 00:00:00 (TEL) STLMLC STLMLC [id number] [facility] 2022-12-28 00:00:00 2022-12-28 00:00:00 Orders Only Doctor Unassigned, [place] [facility] [id number] 350.1.13.10 4.2.7.2.686 [id number] [facility] 2022-12-24 00:00:00 2022-12-24 00:00:00 (TEL) STLMLC STLMLC [id number] [facility] 2022-12-24 00:00:00 2022-12-24 00:00:00 (TEL) STLMLC STLMLC [id number] [facility] 2022-09-28 00:00:00 2022-09-28 00:00:00 (TEL) STLMLC STLMLC [id number] [facility] 2022-09-27 00:00:00 2022-09-27 00:00:00 (TEL) STLMLC STLMLC [id number] [facility] 2022-09-27 00:00:00 2022-09-27 00:00:00 OFFICE VISIT ESTAB PT LEVEL 4 STLMLC STLMLC [id number] [facility] 2022-09-01 00:00:00 2022-09-01 00:00:00 (TEL) STLMLC STLMLC [id number] [facility] 2022-07-30 00:00:00 2022-07-30 00:00:00 (TEL) STLMLC STLMLC [id number] [facility] 2022-06-15 00:00:00 2022-06-15 00:00:00 (TEL) STLMLC STLMLC [id number] [facility] 2022-03-29 00:00:00 2022-03-29 00:00:00 OFFICE VISIT ESTAB PT LEVEL 2 STLMLC STLMLC [id number] [facility] 2022-02-17 00:00:00 2022-02-17 00:00:00 OFFICE VISIT ESTAB PT LEVEL 4 STLMLC STLMLC [id number] [facility] 2022-02-16 00:00:00 2022-02-16 00:00:00 (TEL) STLMLC STLMLC [id number] [facility] 2022-01-18 00:00:00 2022-01-18 00:00:00 (TEL) STLMLC STLMLC [id number] [facility] 2021-12-23 00:00:00 2021-12-23 00:00:00 Orders Only Doctor Unassigned, [place] [facility] [id number] 350.1.13.10 4.2.7.2.686 [id number] [facility] 2021-12-22 00:00:00 2021-12-22 00:00:00 OFFICE VISIT EST PT LEVEL 3 STLMLC STLMLC [id number] [facility] 2021-12-22 00:00:00 2021-12-22 00:00:00 (TEL) STLMLC STLMLC [id number] [facility] 2021-12-11 00:00:00 2021-12-11 00:00:00 (TEL) STLMLC STLMLC [id number] [facility] 2021-11-19 00:00:00 2021-11-19 00:00:00 OFFICE VISIT EST PT LEVEL 3 STLMLC STLMLC [id number] [facility] 2021-11-17 00:00:00 2021-11-17 00:00:00 (TEL) STLMLC STLMLC [id number] [facility] 2021-11-13 00:00:00 2021-11-13 00:00:00 OFFICE VISIT EST PT LEVEL 3 STLMLC STLMLC [id number] [facility] 2021-10-23 00:00:00 2021-10-23 00:00:00 (TEL) STLMLC STLMLC [id number] [facility] 2021-10-08 00:00:00 2021-10-08 00:00:00 OFFICE VISIT ESTAB PT LEVEL 4 STLMLC STLMLC [id number] [facility] 2021-10-01 00:00:00 2021-10-01 00:00:00 Outpatient BESSY BLACKMON [facility] [id number] [facility] 2021-09-17 00:00:00 2021-09-17 00:00:00 OFFICE VISIT NEW PT LEVEL 4 STLMLC STLMLC [id number] [facility] Results Test Description Test Time Test Comments Results Result Co mments Source LIPID [id number] 04:46:54* Test Item Value Reference Range Interpretation [...] SPECIMENS. FOR MOREINFORMATION, SEE CLIENT ANNOUNCEMENT AT [email or web address] RISK RATIO LDL/HDL (test code = 2238) 2.73 RATIO <3.55 HEMOGLOBIN [id number] 04:03:01* Test Item Value Reference Range Interpretation Comme nts HEMOGLOBIN A1c (test code = 62845) 5.7 % 4.2-5.6 H [employer] GUIDELINES FOR HGB A1C: [...] TESTING PERFORMED AT [facility] [address] [place] [id number] ENVIRONMENTAL COMMUNICATIONS SPECIALIST: GRICELDA ALMENDAREZ M.D. [place] NUMBER [id number] [facility] [place]. [id number] CBC W/AUTO DIFF WITH [id number] 03:00:48* Test Item Value Reference Range Interpretation [...] = 1065) 0.0 /100 WBC'S See_Comment [Automated [employer] ge] The system which generated this result [...] 0.00-0.10 ABS NUCLEATED RBCS (test code = 98261) 0.00 K/UL 0.00-0.11 TSH REFLEX TO FREE [id number] 00:00:00* Test Item Value Reference Range Interpretation Comme nts TSH REFLEX TO FREE T4 (test code = 84320-0) 1.350 UIU/ML See_Comment [Automated [employer] ge] The system which generated this result transmitted reference range: 0.400-4.100 UIU/ML. The reference range was not used to interpret this result as normal/abnormal. 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 [facility] access phone number provided Advised to seek medical attention for new/prolonged/worsening of symptoms, Awake, alert oriented, resp reg unlabored, skin w/d, pt leaving in no apparent distress, IGURATION MANAGEMENT MANAGER Arelis Mohamud RN [facility] 2023-03-16 20:27:47 Patient ambulatory to ED stating that his BP was high so he took two of his 0.1 Clonidine pills yesterday, one in the morning and one at night. Patient took Amlodipine and half of his [place] 10 tonight as well. Patient has been to [facility] multiple times the last time was being discharged Tuesday. Patient states "all they did was just give me more drugs." Patient states there is "chest pain and it feels like a horse is standing on my kidney and liver." E Ibrahim RN [facility]
[2024-07-14] MEDS ORDERED: NA CHLORIDE 0.9% 1,000 ML ONE (10:42)
[2024-07-14] MEDS ORDERED: FLEET ENEMA ADULT PR ONE (10:42)
[2024-07-14] MEDS ORDERED: LACTULOSE 20 GM/30 ML UCUP ONE (10:42)
[2024-07-14 11:07] LABS: Absolute Eosinophils 0.1 K/uL (0-0.5); Absolute Lymphocytes (CBC) 1.2 K/uL (0.7-4.9); Absolute Monocytes 0.4 K/uL (0.1-1.3); Absolute Neutrophil 5.5 K/uL (1.8-8.0); Basophils % 0.3 % (0-1.3); Eosinophils % 1.6 % (0-4.4); Hematocrit 39.1 % (39.6-49.0); Hemoglobin 13.6 g/dL (13.6-17.9); MCHC 34.7 g/dL (32.0-36.0); MCV 92.2 fL (80-100); MPV 9.4 fL (7.6-11.3); Neutrophils % 75.1 % (41.7-73.7); Platelets 134 thou/uL (152-406); RBC Red Blood Cell Count 4.24 M/uL (4.33-5.43); Red Cell Distribution Width 12.9 % (12.1-15.2)
[2024-07-14 11:24] LABS: Albumin 3.2 g/dL (3.4-5.0); Bilirubin Total 0.8 mg/dL (0.2-1.0); Globulin 3.1 g/dL (2.3-3.5); Protein, Total 6.3 g/dL (6.4-8.2)
--- NOTE | 2024-07-14 12:03 | RAD REPORT ---
EXAMINATION: Abdomen Pelvis W Contrast CLINICAL INDICATION: Male, 43 years old.Abd pain;Constipation TECHNIQUE: CT abdomen and pelvis was performed, after the administration of IV contrast, as per [facility] protocol. Axial, sagittal and coronal reconstructions were obtained. One or more of the following dose reduction techniques were used: Automated exposure control, adjustment of the mA and/o r kV according to patient size, and/or iterative reconstruction. Unless otherwise specified, incidental findings do not require dedicated imaging follow-up. [id number]. COMPARISON: 07/08/2024 FINDINGS: LOWER CHEST: No acute process identified.No significant pericardial effusion. Mild circumferential th ickening of the distal esophagus which could reflect esophagitis. UPPER GI: No significant abnormality. LIVER: Benign appearing low density liver lesions. No suspicious mass. GALLBLADDER/BILE DUCTS: Cholecystomy. Small volume of fluid and gas present at the gallbladder fossa. ?Common bile duct is normal caliber. PANCREAS: No mass, ductal dilation, or mark-pancreatic fluid. SPLEEN: Unremarkable. ADRENALS: No adrenal masses. KIDNEYS AND URETERS: No hydronephrosis.No suspicious renal mass.No renal calculi.No ureteral calculi. ABDOMINAL AORTA AND OTHER VESSELS: Normal caliber aorta and IVC. PERITONEUM: Large volume of free air in the upper abdomen. LYMPH NODES: No pathologic lymphadenopathy. ABDOMINAL WALL: Anterior abdominal wall edema likely related to recent surgery. Small volume of gas a nd fluid at the umbilicus which is not unexpected following laparoscopy. SMALL BOWEL/COLON: Large volume of rectal stool.No bowel obstruction. Normal appendix. URINARY BLADDER: Underdistended but grossly unremarkable. REPRODUCTIVE ORGANS: No pathologic process. MUSCULOSKELETAL: No acute or suspicious osseous abnormality. ADDITIONAL FINDINGS: None. IMPRESSION: Large volume of pneumoperitoneum, more than would be expected following cholecystectomy from 5 days p rior. No alternate source of free air is identified, however. Suggest clinical correlation to assess for possibility of hollow viscus perforation. Large rectal stool burden consistent with constipation and possible fecal impaction. THIS REPORT CONTAINS FINDINGS THAT MAY BE CRITICAL TO PATIENT CARE. The findings were communicated to Tomas Cisneros on 07/14/2024 12:00 PM.
[2024-07-14] MEDS ORDERED: MAGNESIUM CITRATE 300 ML BOT ONE (13:26)
--- NOTE | 2024-07-14 14:33 | ER ---
Nurse's Notes [facility] Name: Cory Brock Age: 43 yrs Sex: Male : 1980 Arrival Date: 07/14/2024 Time: 10:06 Bed 20 Private MD: Diagnosis: Constipation Presentation: 07/14 10:10 Chief complaint: EMS states: TONED OUT FOR ABDOMINAL PAIN AND CONSTIPATION. PT STATES cm10 THAT HE HAD HIS GALLBLADDER REMOVED ON TUESDAY AND IS NOW HAVING PAIN. PT STATES THAT HE HAS BENE CONSTIPATED FOR 1 WEEK, HAS USED OTC MEDS WITH NO RELIEF. PT RECEIVED DROPERIDOL 2.5MG IVP. Coronavirus screen: Client denies travel out of the [place] in the last 14 days. Ebola Screen: Patient denies travel to an Ebola-affected area in the 21 days before illness onset. Initial Sepsis Screen: Does the patient meet any 2 criteria? No. Patient's initial sepsis screen is negative. Does the patient have a suspected source of infection? No. Patient's initial sepsis screen is negative. Risk Assessment: Do you want to hurt yourself or someone else? Patient reports no desire to harm self or others. Onset of symptoms is unknown. Care prior to arrival: Medication(s) given: DROPERIDOL 2.5MG IV initiated. 20 GA, in the right antecubital area. 10:10 Method Of Arrival: EMS: [facility] cm10 10:10 Acuity: CORY 3 cm10 Triage Assessment: 10:14 General: Appears in no apparent distress. comfortable, Behavior is calm, cooperative, cm10 appropriate for age. Pain: Complains of pain in abdomen Pain currently is 0 out of 10 on a pain scale. Pain began. Neuro: No deficits noted. Level of Consciousness is awake, alert, obeys commands, Oriented to person, place, time, situation, Appropriate for age. Respiratory: No deficits noted. Airway is patent Respiratory effort is even, unlabored, Respiratory pattern is regular, symmetrical. GI: Reports lower abdominal pain, upper abdominal pain, constipation. Musculoskeletal: Range of motion: intact in all extremities. Historical: - Allergies: 10:13 Amoxicillin; cm10 10:13 Aspirin; cm10 10:13 NSAIDS (GI bleeding); cm10 10:13 PENICILLINS; cm10 - PMHx: 10:13 Anxiety; Atrial fibrillation; Back pain; Hernia; Hypertensive disorder; cm10 - Immunization history:: Adult Immunizations up to date. - Infectious Disease History:: Denies. - Social history:: Smoking status: Patient denies any tobacco usage or history of. Screenin:17 [facility] ED Fall Risk Assessment (Adult) History of falling in the last 3 months, cm10 including since admission No falls in past 3 months (0 pts) Confusion or Disorientation No (0 pts) Intoxicated or Sedated No (0 pts) Impaired Gait No (0 pts) Mobility Assist Device Used No (0 pt) Altered Elimination No (0 pt) Score/Fall Risk Level 0 - 2 = Low Risk Oriented to surroundings, Maintained a safe environment, Hourly rounding (assess needs \T\ fall precautionary measures) done. Abuse screen: Denies threats or abuse. Denies injuries from another. Nutritional screening: No deficits noted. Tuberculosis screening: No symptoms or risk factors identified. Assessment: 12:25 Reassessment: Pt using restroom at this time. cm10 13:01 Reassessment: Pt reports having a BM at this time. cm10 13:48 Reassessment: Patient appears in no apparent distress at this time. No changes from cm10 previously documented assessment. Patient and/or family updated on plan of care and expected duration. Pain level reassessed. Patient is alert, oriented x 3, equal unlabored respirations, skin warm/dry/pink. 14:20 Reassessment: Pt reports that he would like to go home at this time. Provider made cm10 aware. Vital Signs: 10:10 BP 105 / 72; Pulse 80; Resp 16; Temp 98; Pulse Ox 98% on R/A; Weight 65.77 kg; Height 5 cm10 ft. 10 in. ; Pain 0/10; 11:30 BP 109 / 74; Pulse 66; Resp 16; Pulse Ox 100% ; cm10 13:47 BP 124 / 83; Pulse 78; Resp 16; Pulse Ox 98% ; cm10 14:53 BP 119 / 84; Pulse 79; Resp 16; Pulse Ox 100% on R/A; cm10 10:10 Body Mass Index 20.81 (65.77 kg, 177.8 cm) cm10 10:10 Pain Scale: Adult cm10 ED Course: 10:08 Patient arrived in ED. cm10 10:11 Marcus Milton MD is Attending Physician. rn 10:13 Triage completed. cm10 10:14 Tomas Cisneros FNP-C [facility] 10:14 Arm band placed on right wrist. Patient placed in an exam room, on a stretcher. cm10 10:15 Johanna Malik, RN is Primary Nurse. cm10 10:15 Maintain EMS IV. Dressing intact. Good blood return noted. Site clean \T\ dry. Gauge \T\ cm 10 site: 20G RIGHT AC. Flushed with 10 mL NS. 10:16 Patient has correct armband on for positive identification. Bed in low position. Call cm10 light in reach. Side rails up X2. Pulse ox on. NIBP on. 11:49 CT Abd/Pelvis - IV Contrast Only In Process Unspecified. EDMS 14:32 Александр Helm MD is Referral Physician. dr5 14:54 Provided Education on: Follow-up instructions and to return back to ER if he does not cm10 have a bowel movement. 14:54 No provider procedures requiring assistance completed. IV discontinued, intact, cm10 bleeding controlled, No redness/swelling at site. Pressure dressing applied. Administered Medications: 10:59 Drug: NS 0.9% IV 1000 ml IV at 1 bolus Per protocol; to be given as a bolus over 60 cm10 minutes Route: IV; Rate: 1 bolus; Site: right antecubital; 13:48 Follow up: Response: No adverse reaction; IV Status: Completed infusion; IV Intake: cm10 1000ml 10:59 Drug: Lactulose PO 20 grams 30 ml PO once Volume: 30 ml; Route: PO; cm10 13:48 Follow up: Response: No adverse reaction cm10 12:25 Drug: Fleet Enema LA 133 ml LA once; may repeat once Route: LA; cm10 13:48 Follow up: Response: No adverse reaction cm10 13:29 Drug: Magnesium Citrate PO Liquid 300 ml PO once Route: PO; cm10 14:53 Follow up: Response: No adverse reaction cm10 Medication: 10:17 VIS not applicable for this client. cm10 Intake: 13:48 IV: 1000ml; Total: 1000ml. cm10 Outcome: 14:32 Discharge ordered by . dr5 14:53 Discharged to home ambulatory, cm10 14:53 Condition: good 14:53 Discharge instructions given to patient, Instructed on discharge instructions, follow up and referral plans. medication usage, Demonstrated understanding of instructions, follow-up care, medications, Prescriptions given X 2, 14:54 Patient left the ED. cm10 Signatures: Dispatcher [employer] EDMarcus Pugh MD MD rn Martinez, Clarissa, RN RN 10 Tomas Cisneros, FORESTRY BIOLOGY SPECIALIST-C FORESTRY BIOLOGY SPECIALIST-Cdr5 Corrections: (The following items were deleted from the chart) 13:48 13:48 IV Status: Completed infusion; IV Intake: 1000ml cm10 10
--- NOTE | 2024-07-14 14:34 | EDPHYS ---
Physician Documentation [facility] Name: Cory Brock Age: 43 yrs Sex: Male : 1980 Arrival Date: 07/14/2024 Time: 10:06 Bed 20 Private MD: ED Physician Marcus Milton HPI: 07/14 10:45 This 43 yrs old Male presents to ER via EMS with complaints of Abdominal Pain, dr5 Constipation. 10:45 The patient presents with abdominal pain right lower quadrant, in the left lower dr5 quadrant. Onset: The symptoms/episode began/occurred 1 week(s) ago. Patient is a 43-year-old male with history of anxiety, back pain, hernia, hypertension, A-fib coming in with 1 week of constipation. Patient also had gallbladder removed 6 days ago and reports that he doesn't have pain or drainage from surgical site.. Historical: - Allergies: 10:13 Amoxicillin; cm10 10:13 Aspirin; cm10 10:13 NSAIDS (GI bleeding); cm10 10:13 PENICILLINS; cm10 - PMHx: 10:13 Anxiety; Atrial fibrillation; Back pain; Hernia; Hypertensive disorder; cm10 - Immunization history:: Adult Immunizations up to date. - Infectious Disease History:: Denies. - Social history:: Smoking status: Patient denies any tobacco usage or history of. ROS: 15:08 Constitutional: as per hpi dr5 Exam: 15:08 Constitutional: This is a well developed, well nourished patient who is awake, alert, dr5 and in no acute distress. Head/Face: Normocephalic, atraumatic. ENT: Nares patent. No nasal discharge, no septal abnormalities noted. Tympanic membranes are normal and external auditory canals are clear. Oropharynx with no redness, swelling, or masses, exudates, or evidence of obstruction, uvula midline. Mucous membranes moist. Neck: Trachea midline, no thyromegaly or masses palpated, and no cervical lymphadenopathy. Supple, full range of motion without nuchal rigidity, or vertebral point tenderness. No Meningismus. Chest/axilla: Normal chest wall appearance and motion. Nontender with no deformity. No lesions are appreciated. Cardiovascular: Regular rate and rhythm with a normal S1 and S2. Normal PMI, no JVD. No pulse deficits. Respiratory: Lungs have equal breath sounds bilaterally, clear to auscultation. No rales, rhonchi or wheezes noted. No increased work of breathing, no retractions or nasal flaring. Back: No spinal tenderness. No costovertebral tenderness. Full range of motion. Skin: Warm, dry with normal turgor. Normal color with no rashes, no lesions, and no evidence of cellulitis. MS/ Extremity: Pulses equal, no cyanosis. Neurovascular intact. Full, normal range of motion. Neuro: Awake and alert, GCS 15, oriented to person, place, time, and situation. Cranial nerves II-XII grossly intact. Motor strength 5/5 in all extremities. Sensory grossly intact. Cerebellar exam normal. Normal gait. 15:08 Abdomen/GI: Inspection: abdomen appears normal, Bowel sounds: normal, Palpation: mild abdominal tenderness, in the left lower quadrant, Vital Signs: 10:10 BP 105 / 72; Pulse 80; Resp 16; Temp 98; Pulse Ox 98% on R/A; Weight 65.77 kg; Height 5 cm10 ft. 10 in. ; Pain 0/10; 11:30 BP 109 / 74; Pulse 66; Resp 16; Pulse Ox 100% ; cm10 13:47 BP 124 / 83; Pulse 78; Resp 16; Pulse Ox 98% ; cm10 14:53 BP 119 / 84; Pulse 79; Resp 16; Pulse Ox 100% on R/A; cm10 10:10 Body Mass Index 20.81 (65.77 kg, 177.8 cm) cm10 10:10 Pain Scale: Adult cm10 MDM: 10:11 Medical Screening Exam initiated rn 15:08 Differential diagnosis: gastritis, gastroesophageal reflux disease, Constipation. Data dr5 reviewed: vital signs, nurses notes, lab test result(s), radiologic studies, CT scan. I considered the following discharge prescriptions or medication management in the emergency department Medications were administered in the Emergency Department. See MAR. Care significantly affected by the following chronic conditions: Anxiety, A-fib, back pain, hernia, hypertension. Care significantly affected by the following Social Determinants of Health: Poor access to healthcare and/or lack of insurance, Poor access to transportation, Problems related to employment. Counseling: I had a detailed discussion with the patient and/or guardian regarding the historical points, exam findings, and any diagnostic results supporting the discharge/admit diagnosis, the presence of at least one elevated blood pressure reading (>120/80) during this emergency department visit, lab results, radiology results, the need for outpatient follow up, for definitive care, a family practitioner, a surgical aide, to return to the emergency department if symptoms worsen or persist or if there are any questions or concerns that arise at home. Medication response: Lactulose, Fleet enema, mag citrate. Response to treatment: the patient's symptoms have mildly improved after treatment. ED course: Long discussion given CT results by Dr. Rendon with patient. Recommended trial of enema as well as medicines to have bowel movement. After patient states that he had mild relief of small bowel movement, we discussed need for manual disimpaction to have stool removed. Patient was against this and wanted to try on his own to disimpact himself in bathroom. Patient states that he is not comfortable staying in the hospital for observation and wants to try to have bowel movement and disimpact himself at home. Discussed the need for observation and potential for complications such as perforation of bowel or bowel obstruction. Patient states that he will trial home remedies and return if abdominal pain does not resolve or bowel movement does not happen.. 07/14 10:21 Order name: CBC with Diff; Complete Time: 11:07/14 10:21 Order name: CMP; Complete Time: :07/14 10:21 Order name: Lipase; Complete Time: 11:07/14 10:21 Order name: CT Abd/Pelvis - IV Contrast Only; Complete Time: 12:07/14 10:21 Order name: IV Saline Lock; Complete Time: :07/14 10:21 Order name: Labs collected and sent; Complete Time: 10:59 dr5 Administered Medications: 10:59 Drug: NS 0.9% IV 1000 ml IV at 1 bolus Per protocol; to be given as a bolus over 60 cm10 minutes Route: IV; Rate: 1 bolus; Site: right antecubital; 13:48 Follow up: Response: No adverse reaction; IV Status: Completed infusion; IV Intake: cm10 1000ml 10:59 Drug: Lactulose PO 20 grams 30 ml PO once Volume: 30 ml; Route: PO; cm10 13:48 Follow up: Response: No adverse reaction cm10 12:25 Drug: Fleet Enema VT 133 ml VT once; may repeat once Route: VT; cm10 13:48 Follow up: Response: No adverse reaction cm10 13:29 Drug: Magnesium Citrate PO Liquid 300 ml PO once Route: PO; cm10 14:53 Follow up: Response: No adverse reaction cm10 Disposition Summary: 07/14/24 14:32 Discharge Ordered Notes: Location: Home dr5 Condition: Stable dr5 Diagnosis - Constipation dr5 Followup: dr5 - With: Emergency Department - When: As needed - Reason: Worsening of condition Followup: dr5 - With: Private Physician - When: 1 - 2 days - Reason: Recheck today's complaints, Continuance of care, Re-evaluation by your physician Followup: dr5 - With: Александр Helm MD - When: 1 - 2 days - Reason: Recheck today's complaints, Continuance of care, Re-evaluation by your physician Discharge Instructions: - Discharge Summary Sheet dr5 - Constipation, Adult dr5 Forms: - Medication Reconciliation Form dr5 - Patient Portal Instructions dr5 - Leadership Thank You Letter dr5 Prescriptions: - Miralax 17 gram Oral powder in packet - take 1 packet ORAL route daily as needed for constipation; 10 packet; Refills: dr5 0, Product Selection Permitted - Colace 100 mg Oral Tablet - take 1 tablet ORAL route every 12 hours; 14 tablet; Refills: 0, Product dr5 Selection Permitted Signatures: Dispatcher [employer] EDMS Marcus Milton MD MD rn Martinez, Clarissa, RN RN cm10 Tomas Cisneros, WASH TANK TENDER-C WASH TANK TENDER-Cdr5 Corrections: (The following items were deleted from the chart) 10:21 10:21 CBC+H.LAB.BRZ ordered. EDMS EDMS 10:21 10:21 COMPREHENSIVE METABOLIC PANEL+C.LAB.BRZ ordered. EDMS EDMS 10:21 10:21 LIPASE+C.LAB.BRZ ordered. EDMS EDMS 10:21 10:21 Abdomen Pelvis W Con+CT.RAD.BRZ ordered. EDMS EDMS
[2024-07-14 14:58] VITALS: TEMP 98
[2024-07-14 15:02] VITALS: BP 119/84; O2SAT 100
== END 2024-07-14 14:54 | disposition home or self-care (01) ==
LOC: ER 10:06
DX: K59.00 Constipation, unspecified (principal)
CPT/HCPCS: 96361; 85025; 36415; 83690; 80053; 74177; 96360; 99284; Q9967; J7030

== ENCOUNTER 2024-11-26 07:41 | Day surgery (SDC) | payer OTHER ==
[2024-11-23 12:45] LABS: Absolute Lymphocytes (CBC) 1.6 K/uL (0.7-4.9); Hematocrit 44.0 % (39.6-49.0); Hemoglobin 14.8 g/dL (13.6-17.9); MCH 31.8 pg (27.0-35.0); MCHC 33.7 g/dL (32.0-36.0); MCV 94.5 fL (80-100); MPV 8.7 fL (7.6-11.3); Nucleated RBC Absolute Count 0.0 (0-0); Nucleated Red Blood Cells % 0.1 % (0-0); RBC Red Blood Cell Count 4.66 M/uL (4.33-5.43); White Blood Count 6.10 thou/uL (4.3-10.9)
[2024-11-23 13:07] LABS: Anion Gap 9.3 mEq/L (5.0-15.0); BUN Blood Urea Nitrogen 19.0 mg/dL (7-18); Glucose Level 83.0 mg/dL (74-106); Potassium 4.3 mEq/L (3.5-5.1)
--- NOTE | 2024-11-23 13:08 | RAD REPORT ---
Procedure: Chest Pa And Lat (2 Views) HISTORY: Preop. Hypertension COMPARISON: 2023 FINDINGS: The lungs appear clear of acute infiltrate. No significant pleural effusion noted. The heart is normal size. IMPRESSION: No acute abnormality is displayed.
[2024-11-26] MEDS ORDERED: LIDOCAINE 1% MPF 5 ML VIAL ONE (08:01)
[2024-11-26] MEDS ORDERED: MIDAZOLAM HCL 2 MG/2 ML INJ ONE (08:01)
[2024-11-26] MEDS ORDERED: ROCURONIUM 50 MG/5 ML VIAL IV ONE (08:01)
[2024-11-26] MEDS ORDERED: ONDANSETRON 4 MG/2 ML VIAL ONE (08:01)
[2024-11-26] MEDS ORDERED: FENTANYL CITR 100 MCG/2 ML ONE (08:01)
[2024-11-26] MEDS ORDERED: KETOROLAC 30 MG/ML INJ ONE (08:01)
[2024-11-26] MEDS: Ringers Lactate 1,000 ML IV ONE (08:21)
[2024-11-26] MEDS ORDERED: BUPIVACAINE 0.5% PF 10 ML VIAL ONE (08:43)
[2024-11-26] MEDS: CEFAZOLIN SODIUM 2 GM/VIAL ONE (09:01)
[2024-11-26] MEDS: CIPROFLOXACIN 400mg IV 400 MG/200 ML BAG IV ONE (09:50)
[2024-11-26] MEDS ORDERED: NEOSTIGMINE 1 MG/ML -10 ML VIAL ONE (10:42)
[2024-11-26] MEDS ORDERED: GLYCOPYRROLATE 0.2 MG/ML SYR ONE (10:42)
[2024-11-26] MEDS ORDERED: Mastisol Adhesive Liq ONE (10:44)
--- NOTE | 2024-11-26 11:01 | P.OP ---
Date of Service: 11/26/24 Preop diagnosis: Right inguinal hernia, symptomatic Postop diagnosis: Same Procedure performed: Open repair of right inguinal hernia Surgeon: Jurgen Degroot MD Clinical Team Lead: Sophia SALES Estimated blood loss: Minimal Specimen: Hernia sac Findings: As above Anesthesia: General Complications: None Drains: None Fluids and blood products: Nonapplicable Disposition: Recovery room Operative note: Patient brought to the OR and placed in the supine position. General anesthesia began. Patient prepped and draped in the usual sterile fashion. Marcaine 0.5% infiltrated in a field block fashion. 15 blade used to make a 4 cm incision in the right groin between the pubic tubercle and the anterior iliac superior spine. Subcutaneous tissue divided and bleeding controlled cautery. Fer's fascia identified and divided. Aponeurosis of the external abdominal bleak was identified mobilized inferiorly to expose the shelving edge. Aponeurosis opened through the external ring. Ilioinguinal nerve identified and retracted out of the field of dissection. Cord mobilized at the pubic tubercle and skeletonized. A large indirect hernia sac identified. Sharp and blunt dissection used to free the sac from the cord structures. High ligation of the hernia sac done with 2-0 Prolene suture ligature and freehand tie. Subsequently Marlex mesh plug placed and secured with absorbable tacker. Onlay mesh placed and secured medially to the pubic tubercle superior to the conjoined tendon, inferior to the shelving edge and laterally to each other. Ilioinguinal nerve and cord sections placed back in anatomic location. 2-0 Prolene used to close the aponeurosis. Fer's fascia closed with 3-0 chromic. Skin closed with 3-0 chromic as well. Sterile skin applied. Patient awakened and taken to recovery room in good general condition. CC:
[2024-11-26] MEDS: HYDROMORPHONE HCL 1 MG/ML INJ ONE (11:31)
[2024-11-26] MEDS ORDERED: HYDROCODONE/APAP 7.5/325 MG TAB ONE (11:54)
[2024-11-26] MEDS: HYDROCODONE/APAP 7.5/325 MG TAB PO PRN (11:56)
[2024-11-26 12:55] VITALS: BP 120/84; TEMP 97.5; O2SAT 100
== END 2024-11-26 13:00 | disposition home or self-care (01) ==
LOC: OR 07:41
PROVIDERS: ATTEND Surgery
PROC: 0YU50JZ Supplement Right Inguinal Region with Synthetic Substitute, Open Approach (ICD-10-PCS; principal; 2024-11-26 09:30)
DX: K40.90 Unilateral inguinal hernia, without obstruction or gangrene, not specified as recurrent (principal)
CPT/HCPCS: 85025; 80048; 36415; 88302; 71046; 49505; J2704; J2710; J2003; J2250; J3010; J1171; J2405; J0744; J7120; J1885